=== PATIENT | female | born 1970 | race Caucasian/White ===

== ENCOUNTER → 2016-05-28 | Outpatient (CLI) | payer OTHER ==
[~2016-05-28] MED LIST: SULF800T23 PO; TAMO20TA47 PO
== END | disposition home or self-care (01) ==
LOC: C.PAPS 12:08
PROVIDERS: ATTEND Obstetrics & Gynecology
DX: Z12.4 Encounter for screening for malignant neoplasm of cervix (principal)

== ENCOUNTER → 2017-05-31 | Outpatient (CLI) | payer OTHER ==
[~2017-05-31] MED LIST changes: -TAMO20TA47 PO; +TAMO20TA9 PO
== END | disposition home or self-care (01) ==
LOC: C.PAPS 09:02
PROVIDERS: ATTEND Obstetrics & Gynecology
DX: Z12.4 Encounter for screening for malignant neoplasm of cervix (principal)

== ENCOUNTER 2021-06-11 13:39 | Observation (INO) ==
[2021-06-11 14:54] LABS: Hematocrit (blood only) 38.5 % (37-47); Hemoglobin 12.6 g/dL (12.0-16.0); Immature Granulocytes # (auto) 0.02 K/uL (0.00-0.02); Immature Granulocytes % (auto) 0.2 %; Lymphocytes # (auto) 1.15 K/uL (1.2-3.4); Lymphocytes % (auto) 9.5 %; Mean Corpuscular Hemoglobin 24.2 pg (25-34); Mean Corpuscular Hgb Conc 32.7 g/dL (32-36); Mean Corpuscular Volume 73.9 fL (80-100); Mean Platelet Volume 9.7 fL (7.4-10.4); Monocytes # (auto) 0.44 K/uL (0.11-0.59); Monocytes % (auto) 3.7 %; Neutrophils # (auto) 10.44 K/uL (1.4-6.5); Neutrophils % (auto) 86.6 %; Platelet Count 436 K/uL (130-400); RDW Coefficient of Variation 15.1 % (11.5-14.5); RDW Standard Deviation 40.5 fL (36.4-46.3); Red Blood Count 5.21 M/uL (4.2-5.4); White Blood Count 12.05 K/uL (4.8-10.8)
--- NOTE | 2021-06-11 15:19 | Emergency Department Note ---
Impression & Plan LUQ abdominal pain, Enteritis, Weight loss, Leukocytosis, Renal mass ED Provider Note NAME: DEMIAN LARA AGE: 50 SEX: F : 1970 ARRIVES VIA: Walk-In INFORMANT: [Patient] ED PROVIDER(S): [Kale Fernandez MD] CHIEF COMPLAINT: Abnormal labs and imaging HISTORY OF PRESENT ILLNESS: The patient is a 50-year-old female presents to the ER at the advice of her doctors office. She had lab work and a CT of the abdomen pelvis done today and was referred to the ED. She is unsure of the abnormalities that were noted. The patient has lost about 25 to 30 pounds in the last few months. She has no appetite. The patient states that 3 weeks ago she had a bout of vomiting that seemed to resolve. Last night, she again had vomiting. She notes some upper abdominal pain mostly in the left upper quadrant when she eats. No urinary burning. No fever, no cough or congestion. No shortness of breath. She has no history of abdominal surgeries. Despite losing weight, the patient states that she always feels bloated. REVIEW OF SYSTEMS: See HPI for pertinent positives and negatives. A total of ten systems were reviewed and were otherwise negative. PMHx/PSHx: See Below SOCIAL HISTORY: See Below. PHYSICAL EXAM: GENERAL: Patient is in no acute distress. HEENT: No acute trauma, normocephalic atraumatic, mucous membranes moist, no nasal congestion, no scleral icterus. NECK: No stridor, no adenopathy, no meningismus, trachea is midline. LUNGS: Clear to auscultation bilaterally, no wheeze, no rhonchi, breath sounds equal. HEART: Without murmurs gallops or rubs, regular rate and rhythm. ABDOMEN: Soft, tender in the epigastrium, tender along the left side of the abdomen and mildly tender in the right lower quadrant, bowel sounds positive, no hernias, no peritonitis. EXTREMITIES: No cyanosis or edema, full range of motion of all the joints without pain or difficulty, no signs for acute trauma. NEUROLOGIC: Oriented x 3, no acute motor or sensory deficits, no focal weakness. SKIN: No rash, no jaundice, no diaphoresis. DIFFERENTIAL DIAGNOSIS: Appendicitis, ovarian cyst, ovarian torsion, malignancy, diverticulitis, UTI, o bstruction, mesenteric ischemia, aortic pathology, inflammatory bowel disease, renal colic, PUD, pancreatitis, biliary pathology, hernia, volvulus, constipation, as well as other pathologies. EMERGENCY DEPARTMENT COURSE/PROCEDURES: MEDICAL DECISION MAKING: There is a mild leukocytosis which certainly could be consistent with infection. There was a normal hemoglobin. Platelet count mildly elevated. No concerning electrolyte abnormalities. No renal failure. No worrisome liver enzyme elevation. Urinalysis showed some ketones, no obvious infection, some potential urinary contamination was seen. Covid testing returned negative. Chest x-ray did not show pneumonia, or free air or pneumothorax. Abdominal and pelvis CT with IV contrast showed a left renal mass and some enteritis. On exam, the patient was primarily tender on the left side of the abdomen. She was not toxic or febrile. There was no peritonitis. Patient received IV saline for hydration. She did not want anything for pain. I spoke to the patient about her findings. I do think a hospital stay is warranted. She has enteritis which may explain some of her pain. She has lost weight. She has a new renal mass. Further work-up for her findings is certainly warranted. I spoke with case management, the on-call hospitalist was consulted. Past Med/Surg History Medical History (Updated 06/11/21 @ 22:36 by Kale Fernandez MD) Ankle fracture RIGHT Breast cancer LEFT WITH RADIATION Morbid obesity Surgical History H/O breast reconstruction BILATERAL History of bilateral tubal ligation History of section X2 History of mastectomy BILATERAL WITH LEFT LYMPH NODE REMOVAL Hx of lumpectomy Family History Aunt FHx: breast cancer Breast cancer Mother FHx: breast cancer Breast cancer Grandmother (Maternal) FHx: breast cancer Breast cancer Father Family history of diabetes mellitus Denies family history of Ovarian cancer Colorectal cancer Social History Smoking Status: Never smoker Second Hand Exposure: No; Hx Alcohol Use: No Hx Substance Use: No Preferred Language: Macedonian Communication Ability: Effective Bleacher Lard Required: No Beliefs That Will Affect Care: None Current Living Situation: Spouse Other Information That Helps Us Care for You: No Feels Safe at Home: Yes Safety Concerns: Feels Safe At This Time Assistive Devices: None Allergies Allergies Allergy/AdvReac Type Severity Reaction Status Date / Time adhesive tape Allergy Intermediate Rash Verified 06/11/21 16:34 codeine AdvReac Intermediate TACHYCARDIA Verified 06/11/21 16:34 /PALPITATIO NS Home Meds Home Medications Medication Instructions Recorded Confirmed Lactobacillus acidophilus 10 1 cell PO DAILY 11/27/18 06/11/21 billion cell capsule (Probiotic) tamoxifen 20 mg tablet 20 mg PO DAILY 11/27/18 06/11/21 polyethylene glycol 3350 17 17 g PO DAILY PRN 06/29/19 06/11/21 gram/dose oral powder (Miralax) lisinopril 20 mg tablet 20 mg PO DAILY 08/13/20 06/11/21 omeprazole 40 mg capsule,delayed 40 mg PO DAILY 06/11/21 06/11/21 release Results & Data (ED) Vital Signs Vital Signs - 24 hr 06/11/21 13:58 06/11/21 16:01 Temperature 36.6 C Temperature Source Temporal Artery Scan Pulse Rate 101 H Pulse Rate [Apical] 92 H Pulse Rhythm [Apical] Regular Pulse Strength [Apical] Normal Respiratory Rate 16 18 Respiratory Effort / Characteristics Non-Labored Respiratory Depth Normal Respiratory Pattern Regular Blood Pressure 148/96 H Blood Pressure [Right Arm] 146/92 H Blood Pressure Mean 113 Blood Pressure Mean [Right Arm] 110 Blood Pressure Position Sitting Blood Pressure Position [Right Arm] Lying Pulse Oximetry 97 97 Oxygen Delivery Method Room Air Room Air Sepsis Recent Fever Within 48 Hours No Sepsis New/Unexplained Change in Mental Status No Sepsis Action Taken by Nursing No Action Required Home Medications Current Medication List: was personally reviewed by me Laboratory Data Attestation: I reviewed the patient's lab results. Result diagrams: 06/11/21 14:41 06/11/21 14:41 Lab Results 06/11/21 06/11/21 06/11/21 Range/Units 14:41 14:41 15:13 WBC 12.05 H (4.8-10.8) K/uL RBC 5.21 (4.2-5.4) M/uL Hgb 12.6 (12.0-16.0) g/dL Hct 38.5 (37-47) % MCV 73.9 L (80-100) fL MCH 24.2 L (25-34) pg MCHC 32.7 (32-36) g/dL RDW Std Deviation 40.5 (36.4-46.3) fL RDW Coeff of Edmundo 15.1 H (11.5-14.5) % Plt Count 436 H (130-400) K/uL MPV 9.7 (7.4-10.4) fL Immature Gran % (Auto) 0.2 % Neut % (Auto) 86.6 % Lymph % (Auto) 9.5 % [place] % (Auto) 3.7 % Eos % (Auto) 0.0 % Baso % (Auto) 0.0 % Neut # (Auto) 10.44 H (1.4-6.5) K/uL Lymph # (Auto) 1.15 L (1.2-3.4) K/uL [place] # (Auto) 0.44 (0.11-0.59) K/uL Eos # (Auto) 0.00 (0-0.5) K/uL Baso # (Auto) 0.00 (0-0.2) K/uL Immature Gran # (Auto) 0.02 (0.00-0.02) K/uL Sodium 135 L (136-145) mmol/L Potassium 4.3 (3.5-5.1) mmol/L Chloride 100 (98-107) mmol/L Carbon Dioxide 24 (21-32) mmol/L Anion Gap 11 (3-11) BUN 13 (6-23) mg/dl Creatinine 0.73 (0.6-1.2) mg/dl Est Cr Clr Drug Dosing 107.9 ml/min Est GFR ( Amer) 111.3 ml/min Est GFR (Non-Af Amer) 96.0 ml/min BUN/Creatinine Ratio 17.8 (10-20) Glucose 152 H (70-99(Fasting)) mg/dl Calcium 8.9 (8.5-10.1) mg/dl Total Bilirubin 0.5 (0.2-1.0) mg/dl AST 13 (13-39) U/L ALT 14 (7-52) U/L Alkaline Phosphatase 68 (34-104) U/L Total Protein 7.4 (6.0-8.3) gm/dl Albumin 3.6 (3.4-5.0) gm/dl Globulin 3.8 (2.5-4.0) gm/dl Albumin/Globulin Ratio 0.9 (0.9-2) Urine Color Dark Yellow Urine Appearance Clear (Clear) Urine pH 5.5 (4.5-7.5) Ur Specific [place] 1.021 (1.000-1.030) Urine Protein Trace H (Negative) Urine Glucose (UA) Negative (Negative) Urine Ketones 1+ H (Negative) Urine Blood Negative (Negative) Urine Nitrite Negative (Negative) Urine Bilirubin Negative (Negative) Urine Urobilinogen Negative (Negative) Ur Leukocyte Esterase Negative (Negative) Urine WBC (Auto) 5-10 H (0-5) /hpf Urine RBC (Auto) 0-4 (0-4) /hpf U Hyaline Cast (Auto) 5-10 H (0-5) /lpf U Epithel Cells (Auto) >30 H (0-5) /lpf Urine Bacteria (Auto) Negative (Negative) SARS-CoV-2, RNA, NAAT (NEGATIVE) 06/11/21 Range/Units 17:24 WBC (4.8-10.8) K/uL RBC (4.2-5.4) M/uL Hgb (12.0-16.0) g/dL Hct (37-47) % MCV (80-100) fL MCH (25-34) pg MCHC (32-36) g/dL RDW Std Deviation (36.4-46.3) fL RDW Coeff of Edmundo (11.5-14.5) % Plt Count (130-400) K/uL MPV (7.4-10.4) fL Immature Gran % (Auto) % Neut % (Auto) % Lymph % (Auto) % [place] % (Auto) % Eos % (Auto) % Baso % (Auto) % Neut # (Auto) (1.4-6.5) K/uL Lymph # (Auto) (1.2-3.4) K/uL [place] # (Auto) (0.11-0.59) K/uL Eos # (Auto) (0-0.5) K/uL Baso # (Auto) (0-0.2) K/uL Immature Gran # (Auto) (0.00-0.02) K/uL Sodium (136-145) mmol/L Potassium (3.5-5.1) mmol/L Chloride (98-107) mmol/L Carbon Dioxide (21-32) mmol/L Anion Gap (3-11) BUN (6-23) mg/dl Creatinine (0.6-1.2) mg/dl Est Cr Clr Drug Dosing ml/min Est GFR ( Amer) ml/min Est GFR (Non-Af Amer) ml/min BUN/Creatinine Ratio (10-20) Glucose (70-99(Fasting)) mg/dl Calcium (8.5-10.1) mg/dl Total Bilirubin (0.2-1.0) mg/dl AST (13-39) U/L ALT (7-52) U/L Alkaline Phosphatase (34-104) U/L Total Protein (6.0-8.3) gm/dl Albumin (3.4-5.0) gm/dl Globulin (2.5-4.0) gm/dl Albumin/Globulin Ratio (0.9-2) Urine Color Urine Appearance (Clear) Urine pH (4.5-7.5) Ur Specific [place] (1.000-1.030) Urine Protein (Negative) Urine Glucose (UA) (Negative) Urine Ketones (Negative) Urine Blood (Negative) Urine Nitrite (Negative) Urine Bilirubin (Negative) Urine Urobilinogen (Negative) Ur Leukocyte Esterase (Negative) Urine WBC (Auto) (0-5) /hpf Urine RBC (Auto) (0-4) /hpf U Hyaline Cast (Auto) (0-5) /lpf U Epithel Cells (Auto) (0-5) /lpf Urine Bacteria (Auto) (Negative) SARS-CoV-2, RNA, NAAT NEGATIVE (NEGATIVE) Administered Medications Heparin Sodium (Porcine) (Heparin Sod 5,000 Unit/0.5 Ml Vial) 5,000 units SQ Q12 [facility] Stop: 07/11/21 20:59 Last Admin: 06/11/21 21:11 Dose: 5,000 units Documented by: [id number] Sodium Chloride (Nss 1000ml) 1,000 mls @ 80 mls/hr IV .[id number] MERY Stop: 07/11/21 21:34 Last Admin: 06/11/21 22:18 Dose: 80 mls/hr Documented by: [id number] Piperacillin Sod/Tazobactam (Sod 4.5 gm/ Dextrose) 120 mls @ 200 mls/hr IV 2200 ONE; Protocol Stop: 06/11/21 22:35 Last Admin: 06/11/21 22:18 Dose: 200 mls/hr Documented by: [id number] Discontinued Medications Sodium Chloride (Nss 1000ml) 1,000 mls @ 999 mls/hr IV .[id number] ONE Stop: 06/11/21 16:32 Last Infusion: 06/11/21 16:46 Dose: 0 mls/hr Documented by: [id number] Admin: 06/11/21 15:39 Dose: 999 mls/hr Documented by: [id number] Ioversol (Optiray 320 100ml) 91 ml IV ONCE ONE Stop: 06/11/21 16:13 Last Admin: 06/11/21 16:13 Dose: 91 ml Documented by: [id number] Imaging Data Radiologist's Impression: Chest X-Ray 06/11/21 15:19 XR chest 1V portable HISTORY: 50 years-old Female cough acute cough COMPARISON: Chest radiographs 11/27/2018 TECHNIQUE: Portable AP view of the chest FINDINGS: The cardiac mediastinal and hilar silhouettes are within normal limits. No pneumothorax, pleural effusion, airspace consolidation or overt pulmonary edema. Bones of the chest appear grossly intact. Surgical clips of the left axilla. IMPRESSION: No acute process. ACT 112: Negative or not required by law. The above report was generated using voice recognition software. It may contain grammatical, syntax or spelling errors. Electronically signed by: Wisam Salinas M.D. 06/11/2021 3:59 PM Abdomen/Pelvis CT 06/11/21 15:25 CT SCAN OF THE ABDOMEN AND PELVIS WITH IV CONTRAST CLINICAL HISTORY: Right renal mass. COMPARISON STUDY: No priors. TECHNIQUE: Following the IV administration of 91 cc of Optiray 320, CT scan of the abdomen and pelvis is performed from the lung bases to the proximal femora. Images are reviewed in the axial, sagittal, and coronal planes. IV contrast was administered without complication. A dose lowering technique was utilized adhering to the principles of ALARA. CT DOSE: 927.80 mGy.cm FINDINGS: Lung bases: The heart is normal in size and without pericardial effusion. There are coronary artery calcifications. There is a 4.6 cm right cardiophrenic cyst. The lung bases are clear. Bilateral breast implants are partially imaged. A small hiatal hernia is noted Liver: The contrast-enhanced liver is normal in size, contour, and attenuation. There is no intrahepatic biliary ductal dilatation. The hepatic veins and portal veins are patent. Gallbladder: Gallstones with no CT evidence of acute cholecystitis. Spleen: Normal in size and attenuation. Pancreas: Unremarkable. Adrenal glands: Unremarkable. Kidneys: The contrast enhanced kidneys are normal in size and without hydronephrosis. There is a complex/heterogeneous mass lesion arising from the upper to midpole of the right kidney. This extends towards the hepatic hilum, and is best seen on image #184. This abuts the right lobe of the liver without clear evidence of invasion. This measures approximately 8 x 8 x 5.5 cm. There is associated right-sided perinephric fluid. The right renal vein appears patent, with no evidence of invasion. No enhancing mass lesion is seen in the left kidney. The kidneys enhance symmetrically. There are prominent retroperitoneal collateral vessels above the right kidney. Abdominal vasculature: The abdominal aorta is normal in course and caliber. Bowel: There is a long segment of thick-walled and edematous proximal jejunum in the left upper quadrant with surrounding infiltration and trace fluid. This is consistent with a nonspecific enteritis. There is no bowel obstruction. The appendix is well-visualized and normal. Peritoneum: There is a small volume of abdominopelvic ascites. No intraperitoneal free air is identified. There is a fat-containing umbilical hernia. Lymphadenopathy: None. Pelvic viscera: The bladder, uterus, and adnexa are normal as visualized. There is a lobulated low-attenuation/cystic lesion anterior to the sacrum. There is associated bony remodeling in this causes mild mass effect on the adjacent rectum. This measures approximately 4.5 x 6.5 x 3 cm. Skeletal structures: No lytic or blastic lesions are seen. IMPRESSION: 1. There are markedly thick walled and edematous loops of proximal jejunum in t he left upper quadrant with surrounding infiltration and trace fluid. This is consistent with a nonspecific enteritis and clinical correlation will be required. 2. There is an approximately 8 cm heterogeneous mass lesion arising from the upper pole of the right kidney as detailed above. This should be considered renal cell carcinoma until proven otherwise. 3. There is no clear evidence of metastatic disease in the abdomen or pelvis. 4. Cholelithiasis. 5. Small volume abdominopelvic ascites. 6. There is an approximately 6.5 cm low-attenuation/cystic lesion anterior to the rectum. There is associated bony remodeling and this is likely chronic, possibly representing congenital cystic lesion. Correlate with any prior outside imaging examinations. 7. Additional findings as above. ACT 112: Negative or not required by law. Electronically signed by: Kale Boogie M.D. 06/11/2021 4:36 PM Discharge Plan Visit Data Chief Complaint: Abnormal Labs/Diagnostic Testing Stated Complaint: ABNORMAL CT AND BLOOD WORK ED Provider: Kale Fernandez Discharge Problem: LUQ abdominal pain, Enteritis, Weight loss, Leukocytosis, Renal mass Patient Disposition: Admitted As Inpatient Condition: Fair Discharge Instructions Interventions: ED Discharge Assessment Last Done: 06/11/21 21:16
[2021-06-11 15:21] LABS: Albumin Globulin Ratio 0.9 (0.9-2); Albumin Level 3.6 gm/dl (3.4-5.0); BUN Creatinine Ratio 17.8 (10-20); Bilirubin,Total 0.5 mg/dl (0.2-1.0); Calcium 8.9 mg/dl (8.5-10.1); Creatinine Clr Calc Pharmacy 107.9 ml/min; Est GFR (African American) 111.3 ml/min; Globulin 3.8 gm/dl (2.5-4.0); Potassium 4.3 mmol/L (3.5-5.1); Total Protein 7.4 gm/dl (6.0-8.3)
[2021-06-11 15:29] LABS: Appearance Urine Clear (Clear); Bacteria Urine Automated Negative (Negative); Bilirubin Urine Negative (Negative); Blood Urine Negative (Negative); Color Urine Dark Yellow; Epithelial Cell Urine Auto >30 /lpf (0-5); Glucose Urine UA Negative (Negative); Ketones Urine 1+ (Negative); Leukocyte Esterase Urine Negative (Negative); Nitrite Urine Negative (Negative); Protein Urine Trace (Negative); RBC Urine Automated 0-4 /hpf (0-4); Specific Gravity Urine 1.021 (1.000-1.030); Urobilinogen Urine Negative (Negative); pH Urine 5.5 (4.5-7.5)
[2021-06-11] MEDS ORDERED: SODIUM CHLORIDE 0.9% 1000ML 1,000 ML IV ONE (15:32)
--- NOTE | 2021-06-11 16:01 | XRay Report ---
XR chest 1V portable HISTORY: 50 years-old Female cough acute cough COMPARISON: Chest radiographs 11/27/2018 TECHNIQUE: Portable AP view of the chest FINDINGS: The cardiac mediastinal and hilar silhouettes are within normal limits. No pneumothorax, pleural effu obdulia, airspace consolidation or overt pulmonary edema. Bones of the chest appear grossly intact. Surg ical clips of the left axilla. IMPRESSION: No acute process. ACT 112: Negative or not required by law. The above report was generated using voice recognition software. It may contain grammatical, syntax o r spelling errors. Electronically signed by: Wisam Salinas M.D. 06/11/2021 3:59 PM
[2021-06-11] MEDS ORDERED: OPTIRAY 320 100ml IV ONE (16:12)
--- NOTE | 2021-06-11 16:38 | CT Scan Report ---
CT SCAN OF THE ABDOMEN AND PELVIS WITH IV CONTRAST CLINICAL HISTORY: Right renal mass. COMPARISON STUDY: No priors. TECHNIQUE: Following the IV administration of 91 cc of Optiray 320, CT scan of the abdomen and pelvi s is performed from the lung bases to the proximal femora. Images are reviewed in the axial, sagittal , and coronal planes. IV contrast was administered without complication. A dose lowering technique wa s utilized adhering to the principles of ALARA. CT DOSE: 927.80 mGy.cm FINDINGS: Lung bases: The heart is normal in size and without pericardial effusion. There are coronary artery c alcifications. There is a 4.6 cm right cardiophrenic cyst. The lung bases are clear. Bilateral breast implants are partially imaged. A small hiatal hernia is noted Liver: The contrast-enhanced liver is normal in size, contour, and attenuation. There is no intrahepa tic biliary ductal dilatation. The hepatic veins and portal veins are patent. Gallbladder: Gallstones with no CT evidence of acute cholecystitis. Spleen: Normal in size and attenuation. Pancreas: Unremarkable. Adrenal glands: Unremarkable. Kidneys: The contrast enhanced kidneys are normal in size and without hydronephrosis. There is a comp prince/heterogeneous mass lesion arising from the upper to midpole of the right kidney. This extends tow ards the hepatic hilum, and is best seen on image #184. This abuts the right lobe of the liver withou t clear evidence of invasion. This measures approximately 8 x 8 x 5.5 cm. There is associated right-s ided perinephric fluid. The right renal vein appears patent, with no evidence of invasion. No enhanci ng mass lesion is seen in the left kidney. The kidneys enhance symmetrically. There are prominent ret roperitoneal collateral vessels above the right kidney. Abdominal vasculature: The abdominal aorta is normal in course and caliber. Bowel: There is a long segment of thick-walled and edematous proximal jejunum in the left upper quadr ant with surrounding infiltration and trace fluid. This is consistent with a nonspecific enteritis. T here is no bowel obstruction. The appendix is well-visualized and normal. Peritoneum: There is a small volume of abdominopelvic ascites. No intraperitoneal free air is identif ied. There is a fat-containing umbilical hernia. Lymphadenopathy: None. Pelvic viscera: The bladder, uterus, and adnexa are normal as visualized. There is a lobulated low-at tenuation/cystic lesion anterior to the sacrum. There is associated bony remodeling in this causes mi ld mass effect on the adjacent rectum. This measures approximately 4.5 x 6.5 x 3 cm. Skeletal structures: No lytic or blastic lesions are seen. IMPRESSION: 1. There are markedly thick walled and edematous loops of proximal jejunum in the left upper quadrant with surrounding infiltration and trace fluid. This is consistent with a nonspecific enteritis and c linical correlation will be required. 2. There is an approximately 8 cm heterogeneous mass lesion arising from the upper pole of the right kidney as detailed above. This should be considered renal cell carcinoma until proven otherwise. 3. There is no clear evidence of metastatic disease in the abdomen or pelvis. 4. Cholelithiasis. 5. Small volume abdominopelvic ascites. 6. There is an approximately 6.5 cm low-attenuation/cystic lesion anterior to the rectum. There is as sociated bony remodeling and this is likely chronic, possibly representing congenital cystic lesion. Correlate with any prior outside imaging examinations. 7. Additional findings as above. ACT 112: Negative or not required by law. Electronically signed by: Kale Boogie M.D. 06/11/2021 4:36 PM
--- NOTE | 2021-06-11 18:35 | History & Physical Report ---
Date of Service June 11, 2021 Assessment & Plan (1) Enteritis: Plan: Presented with abdominal bloating with nausea and vomiting for about 2 months associated with discomfort and pain and weight loss CAT scan with IV contrast showed markedly thick walled and edematous loops of proximal jejunum in the left upper quadrant and surrounding infiltration and trace fluid Nonspecific enteritis could be secondary to infection and/or inflammation We will ask for C. difficile toxin and stool culture White count is minimally elevated could be due to stress We will start intravenous Zosyn GI consult Also approximately 6.5 cm low-attenuation/cystic lesion anterior to the rectum Likely chronic/congenital cystic lesion (2) Nausea & vomiting: Plan: Has been having nausea vomiting with bloating for about 2 months with weight loss Has cholelithiasis But no evidence of cholecystitis (3) Abdominal pain: Plan: Complains to have abdominal pain mostly in the epigastrium and left quadrants mostly upper (4) Right renal mass: Plan: CT scan from doctor's office did show possible renal mass That was confirmed with CT of the abdomen and pelvis with IV contrast 8 x 8 x 5.5 cm renal mass upper pole of right kidney Discussed with radiologist suggested no biopsy but excision with surgery Likely malignant We will ask urology consult (5) Hypertension: Plan: Blood pressure remains minimally high on the upper side We will continue current medications (6) IBS (irritable bowel syndrome): Plan: Is contributing symptoms (7) History of breast cancer: Plan: History of breast cancer 2012 Status post chemoradiation and bilateral mastectomy with reconstruction Has been getting tamoxifen DVT prophylaxis Subcu heparin CODE STATUS Full History of Present Illness Chief Complaint: Abdominal bloating with discomfort, nausea and vomiting and weight loss for about 2 months Primary Care Provider: Emilie Nicole DO She is a 50-year-old female with significant past medical history of breast cancer in 2012 status post bilateral mastectomy with reconstruction and has been on tamoxifen, hypertension, irritable bowel syndrome has been complaining of abdominal bloating with discomfort/pain for the last 2 months. She has not been drinking and eating enough for the same period and the abdominal bloating associated with nausea and vomiting. She complains to have some discomfort/pain involving epigastrium and also left-sided abdomen but does not have any problem with bowel habit. She complains to have weight loss for about 25 to 30 pounds for the last 2 months. She also has feeling of feverish and occasional sweating. Her condition has been worse for the last 2 to 3 days and she saw her PCPs office and underwent CAT scan of the abdomen and pelvis which was abnormal and she was advised to come to the emergency room. She denies any chest pain, palpitation or shortness of breath. Denies any headache, blurred vision or any numbness and or tingling involving any of the extremities. Does not have any weakness involving any of the extremities either. She has noted to have nonspecific enteritis and also left renal mass and from that point she was admitted for continuation of care. Allergies Allergy/AdvReac Type Severity Reaction Status Date / Time adhesive tape Allergy Intermediate Rash Verified 06/11/21 16:34 codeine AdvReac Intermediate TACHYCARDIA Verified 06/11/21 16:34 /PALPITATIO NS Home Medications Medication Instructions Recorded Confirmed Type Lactobacillus acidophilus 10 1 cell PO DAILY 11/27/18 06/11/21 History billion cell capsule (Probiotic) tamoxifen 20 mg tablet 20 mg PO DAILY 11/27/18 06/11/21 History polyethylene glycol 3350 17 17 g PO DAILY PRN 06/29/19 06/11/21 History gram/dose oral powder (Miralax) lisinopril 20 mg tablet 20 mg PO DAILY 08/13/20 06/11/21 History omeprazole 40 mg capsule,delayed 40 mg PO DAILY 06/11/21 06/11/21 History release Past Med/Surg History Medical History (Updated 06/11/21 @ 18:29 by Andrew Arroyo MD) Ankle fracture RIGHT Breast cancer LEFT WITH RADIATION Morbid obesity Surgical History H/O breast reconstruction BILATERAL History of bilateral tubal ligation History of section X2 History of mastectomy BILATERAL WITH LEFT LYMPH NODE REMOVAL Hx of lumpectomy Family History Aunt FHx: breast cancer Breast cancer Mother FHx: breast cancer Breast cancer Grandmother (Maternal) FHx: breast cancer Breast cancer Father Family history of diabetes mellitus Denies family history of Ovarian cancer Colorectal cancer Social History Smoking Status: Never smoker Second Hand Exposure: No; Hx Alcohol Use: Yes Hx Substance Use: No Preferred Language: [place] Zealander Communication Ability: Effective 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 Beliefs That Will Affect Care: None Current Living Situation: Spouse Feels Safe at Home: Yes Assistive Devices: Crutches, Glasses and Wheelchair Review of Systems Review of Systems: All systems reviewed & are unremarkable except as noted in HPI & below Physical Exam Physical Exam: Lying in bed with minimal discomfort in the abdomen Constitutional: well developed, well nourished, + ill appearing and + obese Eyes: PERRL, conjunctivae normal, anicteric sclerae ENMT: external ear and nose normal, oropharynx normal Neck: trachea midline, no thyromegaly Respiratory: no respiratory distress Auscultation: lungs clear to auscultation bilaterally Cardiovascular: Rate/Rhythm: regular rate and regular rhythm; not tachycardic Heart Sounds: normal S1 and normal S2; no murmur Extremities: no edema Gastrointestinal (Abdomen): Inspection/Auscultation: normal bowel sounds; abdomen not distended Percussion/Palpation: + abdomen tender (Epigastrium and left quadrants especially left periumbilical quadrant) and abdomen soft Musculoskeletal: No acute arthritis in any joint Neurologic: Alert, awake and oriented x3. No focal sensory and motor deficit appreciated Results & Data Results & Data ([facility]) Vital Signs (Past 12 Hours) Vital Signs Temp Pulse Pulse Resp BP BP Pulse Ox 06/11/21 16:01 92 H 18 146/92 H 97 06/11/21 13:58 36.6 C 101 H 16 148/96 H 97 Laboratory Results Short CBC 06/11/21 Range/Units 14:41 WBC 12.05 H (4.8-10.8) K/uL Hgb 12.6 (12.0-16.0) g/dL Hct 38.5 (37-47) % Plt Count 436 H (130-400) K/uL BMP 06/11/21 14:41 Sodium 135 L Potassium 4.3 Chloride 100 Carbon Dioxide 24 BUN 13 Creatinine 0.73 Glucose 152 H Calcium 8.9 Liver Function 06/11/21 Range/Units 14:41 Total Bilirubin 0.5 (0.2-1.0) mg/dl AST 13 (13-39) U/L ALT 14 (7-52) U/L Alkaline Phosphatase 68 (34-104) U/L Albumin 3.6 (3.4-5.0) gm/dl Urine 06/11/21 Range/Units 15:13 Urine Color Dark Yellow Urine Appearance Clear (Clear) Urine pH 5.5 (4.5-7.5) Ur Specific [place] 1.021 (1.000-1.030) Urine Protein Trace H (Negative) Urine Glucose (UA) Negative (Negative) Diagnostic Findings CT of the abdomen and pelvis with IV contrast; IMPRESSION: 1. There are markedly thick walled and edematous loops of proximal jejunum in the left upper quadrant with surrounding infiltration and trace fluid. This is consistent with a nonspecific enteritis and clinical correlation will be required. 2. There is an approximately 8 cm heterogeneous mass lesion arising from the upper pole of the right kidney as detailed above. This should be considered renal cell carcinoma until proven otherwise. 3. There is no clear evidence of metastatic disease in the abdomen or pelvis. 4. Cholelithiasis. 5. Small volume abdominopelvic ascites. 6. There is an approximately 6.5 cm low-attenuation/cystic lesion anterior to the rectum. There is associated bony remodeling and this is likely chronic, possibly representing congenital cystic lesion. Correlate with any prior outside imaging examinations. 7. Additional findings as above. Medications Administered Current Inpatient Medications Heparin Sodium (Porcine) (Heparin Sod 5,000 Unit/0.5 Ml Vial) 5,000 units SQ Q12 MERY Stop: 07/11/21 20:59 Code Status & VTE Plan VTE Prophylaxis Plan VTE Prophylaxis will be ordered: Yes
[2021-06-11] MEDS ORDERED: ONDANSETRON INJ 2 MG/ML 2 ML VIAL IV PRN (18:38)
[2021-06-11] MEDS: HEPARIN SOD 5,000 UNIT/0.5 ML VIAL SQ SCH (21:11)
[2021-06-11] MEDS ORDERED: PIPERACILL/TAZOBAC CONSULT ACTIVE PRN (21:35)
[2021-06-11] MEDS ORDERED: PIPERACILLIN/TAZOBACTAM 4.5 GM in DEXTROSE 5% 100 ML IV ONE (22:00)
[2021-06-11] MEDS: SODIUM CHLORIDE 0.9% 1000ML 1,000 ML IV SCH (22:18)
--- NOTE | 2021-06-11 22:22 | Urology Consultation ---
Date of Consultation June 11, 2021 Assessment & Plan (1) Right renal mass: Patient has been admitted on the hospitalist service to her nonspecific enteritis. She is currently being treated with empiric Zosyn and stool studies have been requested. Concerning patient's renal mass I have discussed with the patient that the current treatment of her enteritis will take precedence prior to any biopsy or surgical intervention to her renal mass. I have also informed her that she may require additional studies prior to any intervention is undertaken for her renal mass. Such studies would may include but are not limited to CT scan of the chest as well as a repeat CT scan of her abdomen and pelvis with and without IV contrast. Performing the studies and then formulating a definitive plan for the approach to patient's renal mass will likely be performed as an outpatient. Supervising Physician Co-Signing Physician Notes I have reviewed Ms. Rhodes' case and agree with the above documentation. For now we will let her enteritis settle down. Her renal mass likely represents malignancy until proven otherwise. Chest x-ray was negative, but we will consider CT scan of the chest for further evaluation. We will further discuss details and timing of the next steps as her enteritis improved. History of Present Illness Reason for Consultation: Renal mass Attending Physician: Andrew Arroyo MD History of Present Illness This is a 50-year-old female who presented to [facility] secondary to abdominal pain, bloating, and diarrhea for approximately 2 months. Patient notes that she has had decreased oral intake this timeframe. Also reports nausea, vomiting, and diarrhea. Patient notes that she is having a abdominal pain that is primary located in the epigastric area as well as the left side of her abdomen. Patient sought care at her primary care physician's office where patient underwent a CT scan of the abdomen and pelvis. The results of this will be live delineated below but due to the results she was prompted to come to the emergency department. Since arrival to the hospital the patient has had labs and imaging which I independently reviewed. A chest x-ray showed no evidence of masses, pleural effusion, or pneumonia. A CT scan of patient's abdomen and pelvis no evidence of hydronephrosis. There was a complex mass lesion noted in the upper mid pole of the right kidney this mass measured approximately 8 x 8 x 5.5 cm. There is some perinephric fluid associated with this mass. The right renal vein did appear patent. No masses were noted on the left kidney. There was a segment of edematous and thickened proximal jejunum in the left upper quadrant with infiltration and surrounding fluid. This was felt to represent a nonspecific enteritis. Labs include a CBC her white blood cell count was 12.0. Hemoglobin and hematocrit are both noted be normal. Platelet count was 4 and 36,000. Chemistry profile showed sodium was 135. Potassium, BUN, and creatinine were all noted to be normal. There is no significant elevation of LFTs. Urinalysis was not indicative of infection. A Covid test was negative. I did question the patient about symptoms that may be pertinent to her renal mass. Patient does report approximately 30 pound weight loss over the past several weeks. She denies a history of smoking. She denies any back or flank pain. She denies any hemoptysis. She denies any dysuria or hematuria. At the time of my interview the patient was resting comfortably in bed she was in no distress Allergies Allergy/AdvReac Type Severity Reaction Status Date / Time adhesive tape Allergy Intermediate Rash Verified 06/11/21 16:34 codeine AdvReac Intermediate TACHYCARDIA Verified 06/11/21 16:34 /PALPITATIO NS Home Medications Medication Instructions Recorded Confirmed Type Lactobacillus acidophilus 10 1 cell PO DAILY 11/27/18 06/11/21 History billion cell capsule (Probiotic) tamoxifen 20 mg tablet 20 mg PO DAILY 11/27/18 06/11/21 History polyethylene glycol 3350 17 17 g PO DAILY PRN 06/29/19 06/11/21 History gram/dose oral powder (Miralax) lisinopril 20 mg tablet 20 mg PO DAILY 08/13/20 06/11/21 History omeprazole 40 mg capsule,delayed 40 mg PO DAILY 06/11/21 06/11/21 History release Patient History Medical History (Updated 06/11/21 @ 22:36 by Kale Fernandez MD) Ankle fracture RIGHT Breast cancer LEFT WITH RADIATION Morbid obesity Surgical History H/O breast reconstruction BILATERAL History of bilateral tubal ligation History of section X2 History of mastectomy BILATERAL WITH LEFT LYMPH NODE REMOVAL Hx of lumpectomy Family History Aunt FHx: breast cancer Breast cancer Mother FHx: breast cancer Breast cancer Grandmother (Maternal) FHx: breast cancer Breast cancer Father Family history of diabetes mellitus Denies family history of Ovarian cancer Colorectal cancer Social History Smoking Status: Never smoker Second Hand Exposure: No; Hx Alcohol Use: No Hx Substance Use: No Preferred Language: Italian Communication Ability: Effective 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: No Beliefs That Will Affect Care: None Current Living Situation: Spouse Other Information That Helps Us Care for You: No Feels Safe at Home: Yes Safety Concerns: Feels Safe At This Time Assistive Devices: None Review of Systems Constitutional: no fever and no chills Eyes: no diplopia Ear, Nose, Mouth, Throat: no ear pain Respiratory: no cough, no dyspnea and no hemoptysis Cardiovascular: no chest pain Gastrointestinal: + abdominal pain, + nausea, + vomiting and + diarrhea/loose stools Genitourinary: no dysuria, no hematuria and no flank pain Musculoskeletal: no back pain Integumentary: no rash Neurologic: no localized weakness Physical Exam Constitutional: well developed and well nourished; no acute distress Eyes: no conjunctival abnormality ENMT: Ears: no hearing impairment and no external ear abnormality Neck: trachea midline Respiratory: normal respiratory effort; no respiratory distress and no labored breathing Cardiovascular: Rate/Rhythm: regular rate and regular rhythm Gastrointestinal (Abdomen): Soft, nontender, nondistended Musculoskeletal: No calf tenderness Skin: no rashes Neurologic: moves all extremities Psychiatric: A+Ox3, euthymic affect Genitourinary: no CVA tenderness Results & Data ([facility]) Vital Signs (Past 12 Hours) Vital Signs Temp Pulse Pulse Resp BP BP Pulse Ox 06/11/21 21:38 36.8 C 104 H 18 133/82 95 06/11/21 21:16 96 06/11/21 21:14 88 20 129/73 99 06/11/21 19:59 92 H 20 145/88 H 95 06/11/21 18:49 92 H 22 148/88 H 96 06/11/21 16:01 92 H 18 146/92 H 97 06/11/21 13:58 36.6 C 101 H 16 148/96 H 97 PG Care Time/CCT Total # of Minutes Spent Total Time Spent with Patient: Total time spent is greater than 50% in coordination of care (as documented) at patient's floor/unit and/or counseling patient: Coding Level of Care Code 05506 Inpt Consult Level 5 Diagnoses Right renal mass N28.89
[2021-06-12] MEDS: HYDROmorphone INJ 0.5 MG/0.5 ML SYR IV PRN ×2 (00:22→05:57)
[2021-06-12] MEDS: PIPERACILLIN/TAZOBACTAM 4.5 GM in DEXTROSE 5% 100 ML IV SCH ×3 (04:57→21:10)
[2021-06-12 07:47] LABS: Basophils # (auto) 0.01 K/uL (0-0.2); Basophils % (auto) 0.1 %; Eosinophils # (auto) 0.02 K/uL (0-0.5); Eosinophils % (auto) 0.2 %; Hematocrit (blood only) 33.8 % (37-47); Hemoglobin 10.9 g/dL (12.0-16.0); Immature Granulocytes # (auto) 0.02 K/uL (0.00-0.02); Immature Granulocytes % (auto) 0.2 %; Lymphocytes # (auto) 2.29 K/uL (1.2-3.4); Lymphocytes % (auto) 22.4 %; Mean Corpuscular Hemoglobin 24.2 pg (25-34); Mean Corpuscular Hgb Conc 32.2 g/dL (32-36); Mean Corpuscular Volume 74.9 fL (80-100); Monocytes # (auto) 0.74 K/uL (0.11-0.59); Monocytes % (auto) 7.2 %; Neutrophils # (auto) 7.14 K/uL (1.4-6.5); Neutrophils % (auto) 69.9 %; Platelet Count 341 K/uL (130-400); RDW Coefficient of Variation 15.3 % (11.5-14.5); RDW Standard Deviation 41.9 fL (36.4-46.3); Red Blood Count 4.51 M/uL (4.2-5.4); White Blood Count 10.22 K/uL (4.8-10.8)
[2021-06-12 08:09] LABS: BUN Creatinine Ratio 12.8 (10-20); Calcium 8.1 mg/dl (8.5-10.1); Creatinine Clr Calc Pharmacy 101.2 ml/min; Est GFR (African American) 102.7 ml/min; Est GFR (Non-African American) 88.6 ml/min; Potassium 3.9 mmol/L (3.5-5.1)
[2021-06-12] MEDS: lisinopril 20 MG TAB PO SCH ×2 (10:25→10:42)
--- NOTE | 2021-06-12 10:32 | Gastrointestinal Consultation ---
Date of Consultation June 12, 2021 Assessment & Plan (1) Enteritis: (2) Abdominal pain: Abnormal CT suggesting jejunal wall thickening. Considered dx is angioedema, related to LISSETH inhibitor use which she started about 18 m ago. Radiation enteritis is in the differential. Her symptoms are also consistent with chronic small bowel disease - decreased appetite, early satiety, intermittent episodes of vomiting, though if renal cell cancer is present, these symptoms could be attributed to the cancer. Also considered is infection, though would expect diarrhea if that were the etiology. Stool studies are pending. Low suspicion for Crohn's because normal TI on colonoscopy < 1 yr ago. - Would stop the LISSETH inhibitor. - Eventual EGD for mild dysphagia symptoms but would not expect to be able to reach the area of abnormality on CT. - CT is worrisome for renal cell carcinoma - recommend surgery and oncology eval for that lesion. - Asking for food. For now, full liquids po. - Our office has already contacted her to arrange OP EGD (as was ordered by her PCP yesterday). - Please collect stool for C-diff and culture, will also check for Giardia. Supervising Physician Co-Signing Physician Notes I saw and evaluated the patient. She had been referred to the [facility] urgency room for evaluation of nausea and evidence of jejunal wall edema. The patient is tolerating a full liquid diet today. Of note she has had symptoms intermittently over several weeks and has been on an LISSETH inhibitor for approximately 1.5 years. The patient did have a colonoscopy last summer which was within normal limits. The patient also notes having intermittent solid food dysphagia that has been ongoing for several months. This is in particular with breads and meats. Physical examination Pleasant female, no obvious distress, no scleral icterus Impression patient with jejunal wall thickening, this is a nonspecific finding and I would suggest ensuring that the patient does not have an underlying infection such as Campylobacter or Yersinia. In addition this could be related to medication such as lisinopril and we would recommend discontinuation of the medication. Finally, we will make arrangements for an upper endoscopy over the next 2 to 4 weeks for follow-up evaluation of her intermittent difficulty with swallowing. Recommendations outpatient upper endoscopy to be arranged discontinue use of lisinopril consider obtaining a complement level (C4) and C1Q levels History of Present Illness Reason for Consultation: Enteritis Requesting Physician: Dr. Arroyo Attending Physician: Jannet Sneed MD History of Present Illness Ms. Tanisha Rhodes is a 50-year-old female patient of Dr. Dahiana Grissom with a history of breast cancer status post bilat mastectomy, chemoradiation in 2011 who who has had a lifetime history of IBS with bloating. A bowel 2 months ago bloating seem to worsen but continued intermittently. 3 weeks ago she had an episode of vomiting all night long. Since then worsened bloating and then another episode of vomiting on Tuesday. She presented to her PCP yesterday and after labs and CT results reviewed [facility] On arrival here, CT scan suggests right renal mass as well as jejunal wall thickening. She denies any significant abdominal pain though has had some discomfort mostly bloating. She has not had any hematemesis no melena or hematochezia she has early satiety and decreased appetite. She has lost about 25 or 30 pounds since mid March without trying. When asked, she also reports mild dysphagia feeling that she has to swallow some foods twice. She does not have any burning or reflux. She has not had significant diarrhea. However she has had looser stools than usual since about April. Passing about 2 loose bowel movements per day. She had mild leukocytosis at 12 yesterday, resolved today on Zosyn. Stool culture and C. difficile are ordered but she has not had a bowel movement since arriving. She underwent initial screening colonoscopy of October [address] Noble with diverticulosis no polyps. She has never undergone EGD. Allergies Allergy/AdvReac Type Severity Reaction Status Date / Time adhesive tape Allergy Intermediate Rash Verified 06/11/21 16:34 codeine AdvReac Intermediate TACHYCARDIA Verified 06/11/21 16:34 /PALPITATIO NS Home Medications Medication Instructions Recorded Confirmed Type Lactobacillus acidophilus 10 1 cell PO DAILY 11/27/18 06/11/21 History billion cell capsule (Probiotic) tamoxifen 20 mg tablet 20 mg PO DAILY 11/27/18 06/11/21 History polyethylene glycol 3350 17 17 g PO DAILY PRN 06/29/19 06/11/21 History gram/dose oral powder (Miralax) lisinopril 20 mg tablet 20 mg PO DAILY 08/13/20 06/11/21 History omeprazole 40 mg capsule,delayed 40 mg PO DAILY 06/11/21 06/11/21 History release Patient History Medical History (Updated 06/11/21 @ 22:36 by Kale Fernandez MD) Ankle fracture RIGHT Breast cancer LEFT WITH RADIATION Morbid obesity Surgical History H/O breast reconstruction BILATERAL History of bilateral tubal ligation History of section X2 History of mastectomy BILATERAL WITH LEFT LYMPH NODE REMOVAL Hx of lumpectomy Family History Aunt FHx: breast cancer Breast cancer Mother FHx: breast cancer Breast cancer Grandmother (Maternal) FHx: breast cancer Breast cancer Father Family history of diabetes mellitus Denies family history of Ovarian cancer Colorectal cancer Social History Smoking Status: Never smoker Second Hand Exposure: No; Hx Alcohol Use: No Hx Substance Use: No Preferred Language: Frisian Communication Ability: Effective 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 + always has diffuse joint pain, not recently worsened. Physical Exam Constitutional: well developed, + obese and cooperative Eyes: PERRL, conjunctivae normal, anicteric sclerae ENMT: external ear and nose normal, oropharynx normal Neck: trachea midline, no thyromegaly Respiratory: normal respiratory effort, lungs clear to auscultation Cardiovascular: RRR, no murmur, no edema Gastrointestinal (Abdomen): normal bowel sounds, soft, nontender, no hepatosplenomegaly Inspection/Auscultation: abdomen normal to inspection and normal bowel sounds; abdomen not distended and no abdominal edema Skin: no rashes, warm and dry normal turgor Neurologic: PERRL, EOMI, accommodation nl, no face palsy, no dysarthria awake; not confused Psychiatric: A+Ox3, euthymic affect Orientation: cooperative Eye Contact: good eye contact Lymphatic: no cervical or axillary lymphadenopathy Results & Data ([facility]) Vital Signs (Past 12 Hours) Vital Signs Temp Pulse Resp BP Pulse Ox 06/12/21 07:59 36.8 C 82 16 130/75 93 Laboratory Results WBC 10.2, Hb 10.9, HCT 30.9, PLT is 341, NA 138, K3.9, CL 104, CO2 25, BUN 10, CR 0.78, glucose 126, urine with 1+ ketones and protein 5 WBCs. Diagnostic Findings CTAP w IV contrast 06/11/21: 1. There are markedly thick walled and edematous loops of proximal jejunum in the left upper quadrant with surrounding infiltration and trace fluid. This is consistent with a nonspecific enteritis and clinical correlation will be required. 2. There is an approximately 8 cm heterogeneous mass lesion arising from the upper pole of the right kidney as detailed above. This should be considered renal cell carcinoma until proven otherwise. 3. There is no clear evidence of metastatic disease in the abdomen or pelvis. 4. Cholelithiasis. 5. Small volume abdominopelvic ascites. 6. There is an approximately 6.5 cm low-attenuation/cystic lesion anterior to the rectum. There is associated bony remodeling and this is likely chronic, possibly representing congenital cystic lesion. Correlate with any prior outside imaging examinations. 7. Additional findings as above. Colonoscopy October 2020: The examined portion of the ileum was normal. Diverticulosis in the sigmoid colon. Internal hemorrhoids.
[2021-06-12] MEDS: ADVANCED PROBIOTIC 1250 MG CAPSULE PO SCH (10:41)
[2021-06-12] MEDS: TAMOXIFEN CITRATE 10 MG TABLET PO SCH (10:42)
[2021-06-12] MEDS: PANTOprazole 40 MG TAB PO SCH (10:42)
[2021-06-12] MEDS: SODIUM CHLORIDE 0.9% 1000ML 1,000 ML IV SCH (10:57)
[2021-06-12] MEDS: HEPARIN SOD 5,000 UNIT/0.5 ML VIAL SQ SCH ×2 (11:40→21:09)
--- NOTE | 2021-06-12 14:35 | Hospitalist Progress Note ---
Date of Service June 12, 2021 Assessment & Plan (1) Enteritis: Plan: Presented with abdominal bloating with nausea and vomiting for about 2 months associated with discomfort and pain and weight loss CT scan with IV contrast showed markedly thick walled and edematous loops of proximal jejunum in the left upper quadrant and surrounding infiltration and trace fluid Nonspecific enteritis could be secondary to infection and/or inflammation C. difficile toxin and stool culture uncollected at this point - patient without diarrhea today WBC downtrending from 12 -> 10 Continue empiric Zosyn GI consulted - jejunal wall thickening on imagine - recommend discontinuing LISSETH inhibitor. Consider obtaining a complement level (C4) and C1Q levels GI to arrange for EGD over next 2-4 weeks for f/u evaluation of intermittent dysphagia Rectal mass/cystic lesion finding General surgery consulted to evaluate 6.5 cm low-attenuation/cystic lesion anterior to the rectum seen on imaging today - urology requested input prior to beginning work up for renal mass. Underwent initial screening colonoscopy of October [address] Noble with diverticulosis no polyps, no mention of mass Per Dr. Mathews, consider GI repeating colonoscopy with endo-ultrasound study rectum to R/O mass of cyst out side rectum, pt will F/U colorectal surgeon out- patient clinic (2) Nausea & vomiting: Plan: Has been having nausea vomiting with bloating for about 2 months with weight loss -> resolved. Tolerating full liquid diet (3) Abdominal pain: Plan: Complains to have abdominal pain mostly in the epigastrium and left quadrants mostly upper -> resolved (4) Right renal mass: Plan: CT abd/pelvis with incidental finding of an approx. 8 cm heterogeneous mass lesion arising from the upper pole of the right kidney as detailed above. Should be considered renal cell carcinoma until proven otherwise Urology consulted - recommend further work up of renal mass with MRI. Want input from gen surg and GI regarding need for further imaging/biopsy of rectal mass/l esion as that may change decision about how to proceed from standpoint with either a CT chest or CT abd/pelvis (5) Hypertension: Plan: BP normotensive. Continue current medications (6) IBS (irritable bowel syndrome): Plan: Is contributing symptoms (7) History of breast cancer: Plan: History of breast cancer 2012 Status post chemoradiation and bilateral mastectomy with reconstruction Has been getting tamoxifen DVT prophylaxis Subcu heparin CODE STATUS Full Admission and Anticipated Discharge Date Admission Date: June 11, 2021 Supervising Physician Co-Signing Physician Notes Patient was seen and examined. Agreed with Estrella MEDLEY documentation Lying in bed with no distress Denies any abdominal pain, nausea or vomiting overnight. On examination Lying in bed comfortably Hemodynamically stable Chest No wheezing HeartS1-S2, regular Abdomenbenign Extremitiesno edema CNSalert, awake and oriented x3 His labs, imaging studies, medications reviewed for discharge CT scan with IV contrast showed markedly thick walled and edematous loops of proximal jejunum in the left upper quadrant and surrounding infiltration and trace fluid. Nonspecific enteritis could be secondary to infection and/or inflammation GI plan to arrange for EGD over next 2-4 weeks for f/u evaluation of intermittent dysphagia Urology consulted - recommend further work up of renal mass with MRI. Want input from gen surg and GI Tolerated full liquid diet Agree with assessment and plan as outlined above MD Nedra Subjective Patient seen and evaluated in 354-2 for follow-up of of enteritis. Denies any abdominal pain, nausea or vomiting overnight. No episodes of diarrhea. Does have some pain in right flank to back area that is new. Denies any fever, chills, chest pain, shortness of breath. Tolerating full liquid diet without issue. Passing flatus. No diarrhea or constipation. Review of Systems Review of Systems: At least ten systems reviewed and negative except as noted in the HPI. Physical Exam Physical Exam: Gen: WD/WN, NAD, sitting in bed, A&Ox3 HEENT: Normocephalic, atraumatic, conjunctivae moist, sclerae anicteric, mucous membranes moist Lung: Clear to Auscultation bilaterally, no wheezes/rales/rhonchi Heart: Regular rate, regular rhythm, no murmurs, rubs, or gallops Abdomen: Soft, NT, ND +BS x 4 : R CVA TTP Extremities: no edema Skin: Warm, no rash Results & Data Results & Data ([facility]) Vital Signs (Past 12 Hours) Vital Signs Temp Pulse Resp BP Pulse Ox 06/12/21 10:50 76 110/67 06/12/21 07:59 36.8 C 82 16 130/75 93 Laboratory Results Short CBC 06/12/21 Range/Units 06:56 WBC 10.22 (4.8-10.8) K/uL Hgb 10.9 L (12.0-16.0) g/dL Hct 33.8 L (37-47) % Plt Count 341 (130-400) K/uL BMP 06/12/21 06:56 Sodium 138 Potassium 3.9 Chloride 104 Carbon Dioxide 25 BUN 10 Creatinine 0.78 Glucose 126 H Calcium 8.1 L Diagnostic Findings Chest X-Ray 06/11/21 15:19 XR chest 1V portable HISTORY: 50 years-old Female cough acute cough COMPARISON: Chest radiographs 11/27/2018 TECHNIQUE: Portable AP view of the chest FINDINGS: The cardiac mediastinal and hilar silhouettes are within normal limits. No pneumothorax, pleural effusion, airspace consolidation or overt pulmonary edema. Bones of the chest appear grossly intact. Surgical clips of the left axilla. IMPRESSION: No acute process. ACT 112: Negative or not required by law. The above report was generated using voice recognition software. It may contain grammatical, syntax or spelling errors. Electronically signed by: Wisam Salinas M.D. 06/11/2021 3:59 PM Abdomen/Pelvis CT 06/11/21 15:25 CT SCAN OF THE ABDOMEN AND PELVIS WITH IV CONTRAST CLINICAL HISTORY: Right renal mass. COMPARISON STUDY: No priors. TECHNIQUE: Following the IV administration of 91 cc of Optiray 320, CT scan of the abdomen and pelvis is performed from the lung bases to the proximal femora. Images are reviewed in the axial, sagittal, and coronal planes. IV contrast was administered without complication. A dose lowering technique was utilized adhering to the principles of ALARA. CT DOSE: 927.80 mGy.cm FINDINGS: Lung bases: The heart is normal in size and without pericardial effusion. There are coronary artery calcifications. There is a 4.6 cm right cardiophrenic cyst. The lung bases are clear. Bilateral breast implants are partially imaged. A small hiatal hernia is noted Liver: The contrast-enhanced liver is normal in size, contour, and attenuation. There is no intrahepatic biliary ductal dilatation. The hepatic veins and portal veins are patent. Gallbladder: Gallstones with no CT evidence of acute cholecystitis. Spleen: Normal in size and attenuation. Pancreas: Unremarkable. Adrenal glands: Unremarkable. Kidneys: The contrast enhanced kidneys are normal in size and without hydronephrosis. There is a complex/heterogeneous mass lesion arising from the upper to midpole of the right kidney. This extends towards the hepatic hilum, and is best seen on image #184. This abuts the right lobe of the liver without clear evidence of invasion. This measures approximately 8 x 8 x 5.5 cm. There is associated right-sided perinephric fluid. The right renal vein appears patent, with no evidence of invasion. No enhancing mass lesion is seen in the left kidney. The kidneys enhance symmetrically. There are prominent retroperitoneal collateral vessels above the right kidney. Abdominal vasculature: The abdominal aorta is normal in course and caliber. Bowel: There is a long segment of thick-walled and edematous proximal jejunum in the left upper quadrant with surrounding infiltration and trace fluid. This is consistent with a nonspecific enteritis. There is no bowel obstruction. The appendix is well-visualized and normal. Peritoneum: There is a small volume of abdominopelvic ascites. No intraperitoneal free air is identified. There is a fat-containing umbilical hernia. Lymphadenopathy: None. Pelvic viscera: The bladder, uterus, and adnexa are normal as visualized. There is a lobulated low-attenuation/cystic lesion anterior to the sacrum. There is associated bony remodeling in this causes mild mass effect on the adjacent rectum. This measures approximately 4.5 x 6.5 x 3 cm. Skeletal structures: No lytic or blastic lesions are seen. IMPRESSION: 1. There are markedly thick walled and edematous loops of proximal jejunum in the left upper quadrant with surrounding infiltration and trace fluid. This is consistent with a nonspecific enteritis and clinical correlation will be required. 2. There is an approximately 8 cm heterogeneous mass lesion arising from the upper pole of the right kidney as detailed above. This should be considered renal cell carcinoma until proven otherwise. 3. There is no clear evidence of metastatic disease in the abdomen or pelvis. 4. Cholelithiasis. 5. Small volume abdominopelvic ascites. 6. There is an approximately 6.5 cm low-attenuation/cystic lesion anterior to the rectum. There is associated bony remodeling and this is likely chronic, possibly representing congenital cystic lesion. Correlate with any prior outside imaging examinations. 7. Additional findings as above. ACT 112: Negative or not required by law. Electronically signed by: Kale Boogie M.D. 06/11/2021 4:36 PM
--- NOTE | 2021-06-12 16:17 | Surgery Consultation ---
Date of Consultation June 12, 2021 Assessment & Plan (1) Rectal mass: Ms. Tanisha Rhodes is a 50-year-old female patient of Dr. Dahiana Grissom with a history of breast cancer status post bilat mastectomy, chemoradiation in 2011 who who has had a lifetime history of IBS with bloating. A bowel 2 months ago bloating seem to worsen but continued intermittently. 3 weeks ago she had an episode of vomiting all night long. Since then worsened bloating and then another episode of vomiting on Tuesday. She presented to her PCP yesterday and after labs and CT results reviewed she was recommended to come to the emergency department for evaluation. IMP: rectal mass or cyst? Plan, pt has no bowel obstruction signs, consult GI doctor for possible repeat colonoscopy with endo-ultrasound study rectum to R/O mass of cyst out side rectum, pt will F/U colorectal surgeon out-patient clinic, sign off today, please call with questions, Thanks, Supervising Physician Co-Signing Physician Notes I saw and evaluated the patient. She had been referred to the [facility] urgency room for evaluation of nausea and evidence of jejunal wall edema. The patient is tolerating a full liquid diet today. Of note she has had symptoms i ntermittently over several weeks and has been on an LISSETH inhibitor for approximately 1.5 years. The patient did have a colonoscopy last summer which was within normal limits. The patient also notes having intermittent solid food dysphagia that has been ongoing for several months. This is in particular with breads and meats. Physical examination Pleasant female, no obvious distress, no scleral icterus Impression patient with jejunal wall thickening, this is a nonspecific finding and I would suggest ensuring that the patient does not have an underlying infection such as Campylobacter or Yersinia. In addition this could be related to medication such as lisinopril and we would recommend discontinuation of the medication. Finally, we will make arrangements for an upper endoscopy over the next 2 to 4 weeks for follow-up evaluation of her intermittent difficulty with swallowing. Recommendations outpatient upper endoscopy to be arranged discontinue use of lisinopril consider obtaining a complement level (C4) and C1Q levels History of Present Illness Reason for Consultation: rectal mass Requesting Physician: Jannet Sneed MD Attending Physician: Jannet Sneed MD History of Present Illness History of Present Illness Ms. Tanisha Rhodes is a 50-year-old female patient of Dr. Dahiana Grissom with a history of breast cancer status post bilat mastectomy, chemoradiation in 2011 who who has had a lifetime history of IBS with bloating. A bowel 2 months ago bloating seem to worsen but continued intermittently. 3 weeks ago she had an episode of vomiting all night long. Since then worsened bloating and then another episode of vomiting on Tuesday. She presented to her PCP yesterday and after labs and CT results reviewed she was recommended to come to the emergency department for evaluation. On arrival here, CT scan suggests right renal mass as well as jejunal wall thickening. She denies any significant abdominal pain though has had some discomfort mostly bloating. She has not had any hematemesis no melena or hematochezia she has early satiety and decreased appetite. She has lost about 25 or 30 pounds since mid March without trying. When asked, she also reports mild dysphagia feeling that she has to swallow some foods twice. She does not have any burning or reflux. She has not had significant diarrhea. However she has had looser stools than usual since about April. Passing about 2 loose bowel movements per day. She had mild leukocytosis at 12 yesterday, resolved today on Zosyn. Stool culture and C. difficile are ordered but she has not had a bowel movement since arriving. She underwent initial screening colonoscopy of October [address] Noble with diverticulosis no polyps. She has never undergone EGD. I ( Shilpa Mathews MD ) got a call for consult rectal mass, I reviewed pt's H/P, labs CT scan with pt, pt has no rectal pain, no constipation, no bloody stool, Allergies Allergy/AdvReac Type Severity Reaction Status Date / Time adhesive tape Allergy Intermediate Rash Verified 06/11/21 16:34 codeine AdvReac Intermediate TACHYCARDIA Verified 06/11/21 16:34 /PALPITATIO NS Home Medications Medication Instructions Recorded Confirmed Type Lactobacillus acidophilus 10 1 cell PO DAILY 11/27/18 06/11/21 Hi story billion cell capsule (Probiotic) tamoxifen 20 mg tablet 20 mg PO DAILY 11/27/18 06/11/21 History polyethylene glycol 3350 17 17 g PO DAILY PRN 06/29/19 06/11/21 His tory gram/dose oral powder (Miralax) lisinopril 20 mg tablet 20 mg PO DAILY 08/13/20 06/11/21 History omeprazole 40 mg capsule,delayed 40 mg PO DAILY 06/11/21 2 History release Patient History Medical History(Updated 06/11/21 @ 22:36 by Kale Fernandez MD) Ankle fracture RIGHTBreast cancer LEFT WITH RADIATIONMorbid obesity Surgical History H/O breast reconstruction BILATERALHistory of bilateral tubal ligation History of section [id number] of mastectomy BILATERAL WITH LEFT LYMPH NODE REMOVALHx of lumpectomy Family History Aunt FHx: breast cancer Breast cancerMother FHx: breast cancer Breast cancerGrandmother (Maternal) FHx: breast cancer Breast cancerFather Family history of diabetes mellitusDenies family history of Ovarian cancer Colorectal cancer Social History Smoking Status: Never smoker Second Hand Exposure: No; Hx Alcohol Use: No Hx Substance Use: No Preferred Language: Hungarian Communication Ability: Effective Oxygen Equipment Preparer Required: No Beliefs That Will Affect Care: None Current Living Situation: Spouse Other Information That Helps Us Care for You: No Feels Safe at Home: Yes Safety Concerns: Feels Safe At This Time Assistive Devices: None Review of Systems Review of Systems: ROS:+ fatigue; + weight loss; Denies weakness Eyes: No eye redness, or pain, no recent vision changes Resp: No SOB, no cough Cardio: No palpitations/irregular beats, no chest pain GI: As per HPI, otherwise (-) : Denies pain on urination Skin: No jaundice, itching or new rashes Ext: no edema M/S: No red/swollen joints. + always has diffuse joint pain, not recently worsened. Allergies Allergy/AdvReac Type Severity Reaction Status Date / Time adhesive tape Allergy Intermediate Rash Verified 06/11/21 16:34 codeine AdvReac Intermediate TACHYCARDIA Verified 06/11/21 16:34 /PALPITATIO NS Home Medications Medication Instructions Recorded Confirmed Type Lactobacillus acidophilus 10 1 cell PO DAILY 11/27/18 06/11/21 History billion cell capsule (Probiotic) tamoxifen 20 mg tablet 20 mg PO DAILY 11/27/18 06/11/21 History polyethylene glycol 3350 17 17 g PO DAILY PRN 06/29/19 06/11/21 History gram/dose oral powder (Miralax) lisinopril 20 mg tablet 20 mg PO DAILY 08/13/20 06/11/21 History omeprazole 40 mg capsule,delayed 40 mg PO DAILY 06/11/21 06/11/21 History release Patient History Medical History (Updated 06/12/21 @ 16:25 by Shilpa Mathews MD) Ankle fracture RIGHT Breast cancer LEFT WITH RADIATION Morbid obesity Surgical History H/O breast reconstruction BILATERAL History of bilateral tubal ligation History of section X2 History of mastectomy BILATERAL WITH LEFT LYMPH NODE REMOVAL Hx of lumpectomy Family History Aunt FHx: breast cancer Breast cancer Mother FHx: breast cancer Breast cancer Grandmother (Maternal) FHx: breast cancer Breast cancer Father Family history of diabetes mellitus Denies family history of Ovarian cancer Colorectal cancer Social History Smoking Status: Never smoker Second Hand Exposure: No; Hx Alcohol Use: No Hx Substance Use: No Preferred Language: Hungarian Communication Ability: Effective Oxygen Equipment Preparer Required: No Beliefs That Will Affect Care: None Current Living Situation: Spouse Other Information That Helps Us Care for You: No Feels Safe at Home: Yes Safety Concerns: Feels Safe At This Time Assistive Devices: None Physical Exam Constitutional: WD/WN, vitals as above Eyes: PERRL, conjunctivae normal, anicteric sclerae Neck: trachea midline, no thyromegaly Respiratory: normal respiratory effort, lungs clear to auscultation Cardiovascular: RRR, no murmur, no edema Gastrointestinal (Abdomen): soft, Nt, ND, BS +, rectal exam , nurse at bedside, normal rectal tone, no tenderness, no palpable rectal mass, no bloody stool, Musculoskeletal: no cyanosis or clubbing, extremities motor strength 5/5 Neurologic: patellar DTR's 2+ bilat, sensation intact Psychiatric: A+Ox3, euthymic affect Results & Data ([facility]) Vital Signs (Past 12 Hours) Vital Signs Temp Pulse Resp BP Pulse Ox 06/12/21 15:12 36.9 C 84 16 125/72 93 06/12/21 10:50 76 110/67 06/12/21 07:59 36.8 C 82 16 130/75 93 Laboratory Results Abnormal lab results 06/12/21 06/12/21 Range/Units 06:56 06:56 Hgb 10.9 L (12.0-16.0) g/dL Hct 33.8 L (37-47) % MCV 74.9 L (80-100) fL MCH 24.2 L (25-34) pg RDW Coeff of Edmundo 15.3 H (11.5-14.5) % Neut # (Auto) 7.14 H (1.4-6.5) K/uL [place] # (Auto) 0.74 H (0.11-0.59) K/uL Glucose 126 H (70-99(Fasting)) mg/dl Calcium 8.1 L (8.5-10.1) mg/dl Diagnostic Findings CT SCAN OF THE ABDOMEN AND PELVIS WITH IV CONTRAST CLINICAL HISTORY: Right renal mass. COMPARISON STUDY: No priors. TECHNIQUE: Following the IV administration of 91 cc of Optiray 320, CT scan of the abdomen and pelvis is performed from the lung bases to the proximal femora. Images are reviewed in the axial, sagittal, and coronal planes. IV contrast was administered without complication. A dose lowering technique was utilized adhering to the principles of ALARA. CT DOSE: 927.80 mGy.cm FINDINGS: Lung bases: The heart is normal in size and without pericardial effusion. There are coronary artery calcifications. There is a 4.6 cm right cardiophrenic cyst. The lung bases are clear. Bilateral breast implants are partially imaged. A small hiatal hernia is noted Liver: The contrast-enhanced liver is normal in size, contour, and attenuation. There is no intrahepatic biliary ductal dilatation. The hepatic veins and portal veins are patent. Gallbladder: Gallstones with no CT evidence of acute cholecystitis. Spleen: Normal in size and attenuation. Pancreas: Unremarkable. Adrenal glands: Unremarkable. Kidneys: The contrast enhanced kidneys are normal in size and without hydronephrosis. There is a complex/heterogeneous mass lesion arising from the upper to midpole of the right kidney. This extends towards the hepatic hilum, and is best seen on image #184. This abuts the right lobe of the liver without clear evidence of invasion. This measures approximately 8 x 8 x 5.5 cm. There is associated right-sided perinephric fluid. The right renal vein appears patent, with no evidence of invasion. No enhancing mass lesion is seen in the left kidney. The kidneys enhance symmetrically. There are prominent retroperitoneal collateral vessels above the right kidney. Abdominal vasculature: The abdominal aorta is normal in course and caliber. Bowel: There is a long segment of thick-walled and edematous proximal jejunum in the left upper quadrant with surrounding infiltration and trace fluid. This is consistent with a nonspecific enteritis. There is no bowel obstruction. The appendix is well-visualized and normal. Peritoneum: There is a small volume of abdominopelvic ascites. No intraperitoneal free air is identified. There is a fat-containing umbilical hernia. Lymphadenopathy: None. Pelvic viscera: The bladder, uterus, and adnexa are normal as visualized. There is a lobulated low-attenuation/cystic lesion anterior to the sacrum. There is associated bony remodeling in this causes mild mass effect on the adjacent rectum. This measures approximately 4.5 x 6.5 x 3 cm. Skeletal structures: No lytic or blastic lesions are seen. IMPRESSION: 1. There are markedly thick walled and edematous loops of proximal jejunum in the left upper quadrant with surrounding infiltration and trace fluid. This is consistent with a nonspecific enteritis and clinical correlation will be required. 2. There is an approximately 8 cm heterogeneous mass lesion arising from the upper pole of the right kidney as detailed above. This should be considered renal cell carcinoma until proven otherwise. 3. There is no clear evidence of metastatic disease in the abdomen or pelvis. 4. Cholelithiasis. 5. Small volume abdominopelvic ascites. 6. There is an approximately 6.5 cm low-attenuation/cystic lesion anterior to the rectum. There is associated bony remodeling and this is likely chronic, possibly representing congenital cystic lesion. Correlate with any prior outside imaging examinations. 7. Additional findings as above. ACT 112: Negative or not required by law.
[2021-06-13] MEDS: PIPERACILLIN/TAZOBACTAM 4.5 GM in DEXTROSE 5% 100 ML IV SCH ×3 (04:23→20:19)
[2021-06-13 04:50] LABS: Hematocrit (blood only) 36.3 % (37-47); Hemoglobin 11.1 g/dL (12.0-16.0); Mean Corpuscular Hemoglobin 23.1 pg (25-34); Mean Corpuscular Hgb Conc 30.6 g/dL (32-36); Mean Corpuscular Volume 75.5 fL (80-100); Mean Platelet Volume 10.1 fL (7.4-10.4); Platelet Count 364 K/uL (130-400); RDW Coefficient of Variation 15.3 % (11.5-14.5); RDW Standard Deviation 42.2 fL (36.4-46.3); Red Blood Count 4.81 M/uL (4.2-5.4); White Blood Count 9.78 K/uL (4.8-10.8)
[2021-06-13 05:07] LABS: BUN Creatinine Ratio 8.3 (10-20); Calcium 8.3 mg/dl (8.5-10.1); Creatinine Clr Calc Pharmacy 109.6 ml/min; Est GFR (African American) 113.2 ml/min; Est GFR (Non-African American) 97.7 ml/min; Potassium 4.2 mmol/L (3.5-5.1)
[2021-06-13] MEDS: HEPARIN SOD 5,000 UNIT/0.5 ML VIAL SQ SCH ×2 (08:34→20:19)
[2021-06-13] MEDS: PANTOprazole 40 MG TAB PO SCH (08:34)
[2021-06-13] MEDS: ADVANCED PROBIOTIC 1250 MG CAPSULE PO SCH (08:34)
[2021-06-13] MEDS: TAMOXIFEN CITRATE 10 MG TABLET PO SCH (08:34)
[2021-06-13] MEDS ORDERED: OPTIRAY 320 100ml IV ONE (13:34)
--- NOTE | 2021-06-13 13:51 | CT Scan Report ---
CHEST CT WITH CONTRAST CT DOSE: 421.03 mGy.cm HISTORY: Renal mass. Metastatic workup. TECHNIQUE: Multiaxial CT images of the chest were performed following the intravenous administration of contrast. A dose lowering technique was utilized adhering to the principles of ALARA. COMPARISON: Abdomen and pelvis CT 06/11/2021. FINDINGS: The thyroid gland enhances normally. Small hiatus hernia. The heart is top normal in size. There are trace bilateral pleural effusions. No pericardial effusion. No mediastinal or hilar lymphad enopathy. Bilateral breast implants are again noted. There are surgical clips within the left axilla. The mediastinal vascular structures are within normal limits. There is a 5 cm right pericardial cyst . Limited views of the upper abdomen demonstrate a normal spleen and adrenal glands. There is a 6 mm hypodense lesion within the left hepatic dome. This is technically too small to characterize but favo rs a cyst. This will be better appreciated on the same day abdominal MRI. There is an old, healed rig ht lateral fifth rib fracture. No suspicious lytic or blastic osseous lesions. No pneumothorax. The c entral airways are patent. No focal lung consolidations to suggest pneumonia. No pulmonary nodules id entified. Small amount of consolidation posteriorly within the lower lobes likely represents compress jm atelectasis from the pleural fusions. IMPRESSION: 1. No evidence for metastatic disease within the chest. 2. Trace bilateral pleural effusions. ACT 112: Negative or not required by law. Electronically signed by: Christopher Molina M.D. 06/13/2021 1:49 PM
[2021-06-13] MEDS ORDERED: GADOBUTROL 65ML VIAL IV ONE (15:42)
--- NOTE | 2021-06-13 16:17 | Magnetic Resonance Report ---
MR abdomen wo/w con HISTORY: Right renal mass. Renal Mass Protocol TECHNIQUE: Multiplanar multisequence MRI of the abdomen was performed both before and after the intra venous administration of 10 cc of Gadavist contrast. COMPARISON STUDY: Abdomen and pelvis CT 06/11/2021. FINDINGS: Suboptimal evaluation of the abdomen due to the respiratory motion. There are trace bilater al pleural effusions. No suspicious lesions within the visualized osseous structures. Moderate thicke catie/edema within a jejunal loop within the left upper quadrant. Cholelithiasis. No gallbladder wall thickening. There is a 6 mm T2 hyperintense nonenhancing lesion within the left hepatic dome. This is consistent with a cyst. No hepatic masses identified to suggest metastatic disease. No evidence for bowel obstruction. The main portal vein appears patent. Abdominal aorta is normal in caliber. Normal left adrenal gland. There is again noted a large heterogeneous enhancing mass involving the upper to mid kidney with central necrosis. This lesion abuts the undersurface of the right hepatic lobe. Evalu ation for local invasion of the hepatic lobe is near nondiagnostic due to the motion artifact. Howeve r, no definite signal abnormality within the liver to suggest local invasion. This mass also abuts an d slightly displaces the second portion of the duodenum. This mass abuts but does not appear to invad e the pancreatic head. This renal mass measures approximately 8.7 x 8.0 x 6.8 cm. Probable invasion w ithin the distal right renal vein. The proximal to mid right renal vein and IVC appear patent. No ret roperitoneal lymphadenopathy. Mild perinephric edema. Multiple right suprarenal and infrarenal dilate d vessels likely related to the large tumor. The right adrenal gland is partially obscured by these v essels but appears unremarkable. IMPRESSION: 1. An 8.7 x 8.2 x 6.8 cm heterogeneous right renal mass consistent with a renal cell carcinoma. This is suboptimally assessed due to the motion artifact. Probable invasion the distal right renal vein. H owever, the proximal to mid right renal vein IVC are patent. 2. This mass abuts the undersurface of the right hepatic lobe and adjacent duodenum/pancreatic head. However, no definite evidence for localization. 3. No metastatic disease identified within the abdomen. 4. Trace bilateral pleural effusions. 5. Focal moderate thickening within a jejunal loop consistent with a nonspecific enteritis. ACT 112: Negative or not required by law. Electronically signed by: Christopher Molina M.D. 06/13/2021 4:16 PM
--- NOTE | 2021-06-13 21:48 | Hospitalist Progress Note ---
Date of Service June 13, 2021 Assessment & Plan (1) Enteritis: Plan: Presented with abdominal bloating with nausea and vomiting for about 2 months associated with discomfort and pain and weight loss CT scan with IV contrast showed markedly thick walled and edematous loops of proximal jejunum in the left upper quadrant and surrounding infiltration and trace fluid Nonspecific enteritis could be secondary to infection and/or inflammation C. difficile toxin and stool culture uncollected at this point since diarrhea resolved complement level (C4) and C1Q levels pending WBC trending back to normal ACEI discontinued Continue empiric Zosyn GI on board will need to arrange for outpatient scope Diet advanced as tolerated (2) Right renal mass: Plan: Rectal mass/cystic lesion finding General surgery consulted to evaluate 6.5 cm low-attenuation/cystic lesion anterior to the rectum Renal MRI showed 1. An 8.7 x 8.2 x 6.8 cm heterogeneous right renal mass consistent with a renal cell carcinoma. CT chest showed no evidence for metastatic disease within the chest. Underwent initial screening colonoscopy of October [address] Noble with diverticulosis no polyps, no mention of mass Surgery Dr. Mathews recommended for GI to perform colonoscopy with endo-ultrasound study rectum to R/O mass of cyst out side rectum, pt will F/U colorectal surgeon out-patient clinic Urology plan for for possible radical nephrectomy in 1-2 weeks once the enteritis resolved (3) Nausea & vomiting: Plan: Has been having nausea vomiting with bloating for about 2 months with weight loss -> resolved. Diet advanced as tolerated (4) Abdominal pain: Plan: Complains to have abdominal pain mostly in the epigastrium and left quadrants mostly upper -> resolved (5) Hypertension: Plan: BP normotensive. Continue current medications (6) IBS (irritable bowel syndrome): Plan: Stable (7) History of breast cancer: Plan: History of breast cancer 2012 Status post chemoradiation and bilateral mastectomy with reconstruction Has been getting tamoxifen DVT prophylaxis Subcu heparin CODE STATUS Full Admission and Anticipated Discharge Date Admission Date: June 11, 2021 Subjective Patient seen and evaluated for follow-up of of enteritis and renal mass Lying in bed with no acute distress resting Pt said that she feels a little bloating and discomfort . She said that she does not have any nausea and vomiting Denies any chest pain, palpitation, dizziness and SOB Review of Systems Review of Systems: All systems reviewed & are unremarkable except as noted in Subjective Physical Exam Physical Exam: General- No acute distress Head- atraumatic Eyes- PERRL, EOMI, ENT- oropharynx clear Neck- supple, no JVD Lungs- clear to auscultation Heart- regular rhythm; no murmur Abdomen- normal bowel sounds, soft, +tender with deep palpation in right side of the abdomen Extremities- no calf tenderness Neuro- alert, oriented x 3; PERRL, EOMI; no facial palsy; no dysarthria Skin- warm & dry Results & Data Results & Data ([facility]) Vital Signs (Past 12 Hours) Vital Signs Temp Pulse Resp BP Pulse Ox 06/13/21 15:53 37.5 C 82 18 125/80 96
[2021-06-14] MEDS: PIPERACILLIN/TAZOBACTAM 4.5 GM in DEXTROSE 5% 100 ML IV SCH ×2 (03:53→12:55)
[2021-06-14] MEDS: ADVANCED PROBIOTIC 1250 MG CAPSULE PO SCH (07:49)
[2021-06-14] MEDS: PANTOprazole 40 MG TAB PO SCH (07:49)
[2021-06-14] MEDS: TAMOXIFEN CITRATE 10 MG TABLET PO SCH (07:49)
[2021-06-14] MEDS: HEPARIN SOD 5,000 UNIT/0.5 ML VIAL SQ SCH (07:50)
[2021-06-14 07:53] LABS: Hematocrit (blood only) 34.4 % (37-47); Hemoglobin 10.9 g/dL (12.0-16.0); Mean Corpuscular Hemoglobin 23.7 pg (25-34); Mean Corpuscular Hgb Conc 31.7 g/dL (32-36); Mean Corpuscular Volume 74.9 fL (80-100); Mean Platelet Volume 9.8 fL (7.4-10.4); Platelet Count 349 K/uL (130-400); RDW Coefficient of Variation 15.2 % (11.5-14.5); Red Blood Count 4.59 M/uL (4.2-5.4); White Blood Count 8.92 K/uL (4.8-10.8)
[2021-06-14 08:17] LABS: Calcium 7.9 mg/dl (8.5-10.1); Creatinine Clr Calc Pharmacy 90.7 ml/min; Est GFR (Non-African American) 77.7 ml/min
--- NOTE | 2021-06-14 08:26 | Urology Progress Note ---
Date of Service June 14, 2021 Assessment & Plan (1) Right renal mass: Plan: Patient with incidental renal mass found during episode of significant GI issues with discomfort bloating and abdominal pain. Patient is still dealing with some of this however is improving. Is being treated with supportive care. Patient underwent imaging yesterday with MRI to assess the vasculature. Does appear to possibly include the renal vein however does not appear to go to the vena cava. Patient underwent CT scan with no signs of metastatic disease on chest CT. No major episodes of confusion. No considerable new bone pain or other problems. Has history of Breast CA and on tamoxifen Reviewed findings. Discussed with patient neck steps. We will plan to have patient continue with supportive care to resolve ongoing GI issue. Once clear patient will likely need intervention likely a radical right nephrectomy. Patient should be scheduled with nephrology in anticipation of a solitary kidney. Has plans to be reevaluated with general surgery about possible rectal mass/cystic lesion near her rectum. Patient had been seen by GI less than a year ago and had scope at that time no mention of mass or other issue. We will plan to have patient in office in the coming week with plans for likely intervention once resolution of GI symptoms Admission and Anticipated Discharge Date Admission Date: June 11, 2021 Subjective Patient admitted with GI disorder And significant abdominal discomfort. Incidentally found to have large right renal mass. Also has cystic mass/abnormality of the pelvis possibly associated to the rectum Patient is afebrile. Is being managed with supportive care with oral medications, IV medications, IV fluids, and oral intake. Is doing better From a bowel standpoint without considerable increase in pain or major issues. Has not developed severe vomiting or other issues. Has not experienced fever or chills. Is tolerating fluids. Has not had severe pain in the back and flank. No major history of episodes of gross hematuria. Patient underwent staging imaging yesterday. Concern for possible renal vein involvement however does not appear to involve the vena cava on MRI. Patient had CT of chest which shows no major areas of or signs of metastatic disease Family history of stones, but no history of RCC> Review of Systems Review of Systems: All systems reviewed & are unremarkable except as noted in HPI & below Physical Exam Physical Exam: General: Alert in no acute distress. Obese HEENT: Normocephalic Atraumatic. Inspection normal. Cranial Nerves 2-12 Grossly intact. Normal inspection of face. Normal inspection of neck. Psychologic: Normal affect. Respiratory: Nonlabored. No use of accessory muscles. No tachypnea or dyspnea. Cardiovascular: No tachycardia Skin: [place] and Dry. No rashes or visible lesions. Abdomen: No rebound or guarding. Results & Data ([facility]) Vital Signs (Past 12 Hours) Vital Signs Temp Pulse Resp BP Pulse Ox 06/14/21 07:28 37 C 82 18 123/76 95 06/13/21 22:48 36.9 C 84 18 137/78 94 PG Care Time/CCT Total # of Minutes Spent Total Time Spent with Patient: Total time spent is greater than 50% in coordination of care (as documented) at patient's floor/unit and/or counseling patient: Coding Level of Care Code 15926 Subseq Hosp Care Lvl 3 Diagnoses Right renal mass N28.89
[2021-06-14] MEDS ORDERED: AMOXICILLIN/CLAVULANATE 875 MG TAB PO SCH (17:00)
[2021-06-19 19:46] LABS: Complement C1q 5.9 mg/dL (5.0-8.6)
--- NOTE | 2021-06-23 22:49 | Discharge Summary ---
Date of Service June 14, 2021 Admission HPI Per Admitting Provider She is a 50-year-old female with significant past medical history of breast cancer in 2012 status post bilateral mastectomy with reconstruction and has been on tamoxifen, hypertension, irritable bowel syndrome has been complaining of abdominal bloating with discomfort/pain for the last 2 months. She has not been drinking and eating enough for the same period and the abdominal bloating associated with nausea and vomiting. She complains to have some discomfort/pain involving epigastrium and also left-sided abdomen but does not have any problem with bowel habit. She complains to have weight loss for about 25 to 30 pounds for the last 2 months. She also has feeling of feverish and occasional sweating. Her condition has been worse for the last 2 to 3 days and she saw her PCPs office and underwent CAT scan of the abdomen and pelvis which was abnormal and she was advised to come to the emergency room. She denies any chest pain, palpitation or shortness of breath. Denies any headache, blurred vision or any numbness and or tingling involving any of the extremities. Does not have any weakness involving any of the extremities either. She has noted to have nonspecific enteritis and also left renal mass and from that point she was admitted for continuation of care. Admission Exam Per Admitting Provider Physical Exam: Lying in bed with minimal discomfort in the abdomen Constitutional: well developed, well nourished, + ill appearing and + obese Eyes: PERRL, conjunctivae normal, anicteric sclerae ENMT: external ear and nose normal, oropharynx normal Neck: trachea midline, no thyromegaly Respiratory: no respiratory distress Auscultation: lungs clear to auscultation bilaterally Cardiovascular: Rate/Rhythm: regular rate and regular rhythm; not tachycardic Heart Sounds: normal S1 and normal S2; no murmur Extremities: no edema Gastrointestinal (Abdomen): Inspection/Auscultation: normal bowel sounds; abdomen not distended Percussion/Palpation: + abdomen tender (Epigastrium and left quadrants especially left periumbilical quadrant) and abdomen soft Musculoskeletal: No acute arthritis in any joint Neurologic: Alert, awake and oriented x3. No focal sensory and motor deficit appreciated Principal Diagnosis Enteritis: Right renal mass: Abdominal pain: Hypertension: Discharge Exam General- No acute distress Head- atraumatic Eyes- PERRL, EOMI, ENT- oropharynx clear Neck- supple, no JVD Lungs- clear to auscultation Heart- regular rhythm; no murmur Abdomen- normal bowel sounds, soft, +tender with deep palpation in right side of the abdomen Extremities- no calf tenderness Neuro- alert, oriented x 3; PERRL, EOMI; no facial palsy; no dysarthria Skin- warm & dry Discharge Data Allergies Allergy/AdvReac Type Severity Reaction Status Date / Time adhesive tape Allergy Intermediate Rash Verified 06/11/21 16:34 codeine AdvReac Intermediate TACHYCARDIA Verified 06/11/21 16:34 /PALPITATIO NS Consultations 06/11/21 17:29 ED Decision to Admit Stat 06/11/21 18:10 Consult Gastroenterology Routine Consult Urology Routine 06/12/21 15:10 Consult General Surgery Routine Ordered Studies 06/11/21 15:25 CT abd pelvis IV con only Stat 06/13/21 12:38 CT chest diagnostic w con Routine MR abdomen wo/w con Routine CHEST CT WITH CONTRAST CT DOSE: 421.03 mGy.cm HISTORY: Renal mass. Metastatic workup. TECHNIQUE: Multiaxial CT images of the chest were performed following the intravenous administration of contrast. A dose lowering technique was utilized adhering to the principles of ALARA. COMPARISON: Abdomen and pelvis CT 06/11/2021. FINDINGS: The thyroid gland enhances normally. Small hiatus hernia. The heart is top normal in size. There are trace bilateral pleural effusions. No pericardial effusion. No mediastinal or hilar lymphadenopathy. Bilateral breast implants are again noted. There are surgical clips within the left axilla. The mediastinal vascular structures are within normal limits. There is a 5 cm right pericardial cyst. Limited views of the upper abdomen demonstrate a normal spleen and adrenal glands. There is a 6 mm hypodense lesion within the left hepatic dome. This is technically too small to characterize but favors a cyst. This will be better appreciated on the same day abdominal MRI. There is an old, healed right lateral fifth rib fracture. No suspicious lytic or blastic osseous lesions. No pneumothorax. The central airways are patent. No focal lung consolidations to suggest pneumonia. No pulmonary nodules identified. Small amount of consolidation posteriorly within the lower lobes likely represents compressive atelectasis from the pleural fusions. IMPRESSION: 1. No evidence for metastatic disease within the chest. 2. Trace bilateral pleural effusions. ACT 112: Negative or not required by law. Electronically signed by: Christopher Molina M.D. 06/13/2021 1:49 PM Dictated:06/13/21 1338 Transcribed: 06/13/21 133 MR abdomen wo/w con HISTORY: Right renal mass. Renal Mass Protocol TECHNIQUE: Multiplanar multisequence MRI of the abdomen was performed both before and after the intravenous administration of 10 cc of Gadavist contrast. COMPARISON STUDY: Abdomen and pelvis CT 06/11/2021. FINDINGS: Suboptimal evaluation of the abdomen due to the respiratory motion. There are trace bilateral pleural effusions. No suspicious lesions within the visualized osseous structures. Moderate thickening/edema within a jejunal loop within the left upper quadrant. Cholelithiasis. No gallbladder wall thickening. There is a 6 mm T2 hyperintense nonenhancing lesion within the left hepatic dome. This is consistent with a cyst. No hepatic masses identified to suggest metastatic disease. No evidence for bowel obstruction. The main portal vein appears patent. Abdominal aorta is normal in caliber. Normal left adrenal gland. There is again noted a large heterogeneous enhancing mass involving the upper to mid kidney with central necrosis. This lesion abuts the undersurface of the right hepatic lobe. Evaluation for local invasion of the hepatic lobe is near nondiagnostic due to the motion artifact. However, no definite signal abnormality within the liver to suggest local invasion. This mass also abuts and slightly displaces the second portion of the duodenum. This mass abuts but does not appear to invade the pancreatic head. This renal mass measures approximately 8.7 x 8.0 x 6.8 cm. Probable invasion within the distal right renal vein. The proximal to mid right renal vein and IVC appear patent. No retroperitoneal lymphadenopathy. Mild perinephric edema. Multiple right suprarenal and infrarenal dilated vessels likely related to the large tumor. The right adrenal gland is partially obscured by these vessels but appears unremarkable. IMPRESSION: 1. An 8.7 x 8.2 x 6.8 cm heterogeneous right renal mass consistent with a renal cell carcinoma. This is suboptimally assessed due to the motion artifact. Probable invasion the distal right renal vein. However, the proximal to mid right renal vein IVC are patent. 2. This mass abuts the undersurface of the right hepatic lobe and adjacent duodenum/pancreatic head. However, no definite evidence for localization. 3. No metastatic disease identified within the abdomen. 4. Trace bilateral pleural effusions. 5. Focal moderate thickening within a jejunal loop consistent with a nonspecific enteritis. ACT 112: Negative or not required by law. Electronically signed by: Christopher Molina M.D. 06/13/2021 4:16 PM Dictated:06/13/21 1605 Transcribed: 06/13/21 1605 [place], [place] [phone] CT Scan Report Patient:DEMIAN LARA Admit Date:06/11/21 MR#:[id number] Address1:[address] [place] [address] Acct ID:[id number] Address2: Date:1970 [facility] Zip:[place] [address] Age:50 Location:ED Sex:F Room/Bed: Att Phy: Diagnosis:ABNORMAL CT AND BLOOD WORK Carole Phy:Emilie Nicole DO Service Date:06/11/21 [facility] Phy: Interpreting Phy:Kale Boogie MDAdmit Phy: Ordering Phy:Kale Fernandez M.D. cc: ~ CT SCAN OF THE ABDOMEN AND PELVIS WITH IV CONTRAST CLINICAL HISTORY: Right renal mass. COMPARISON STUDY: No priors. TECHNIQUE: Following the IV administration of 91 cc of Optiray 320, CT scan of the abdomen and pelvis is performed from the lung bases to the proximal femora. Images are reviewed in the axial, sagittal, and coronal planes. IV contrast was administered without complication. A dose lowering technique was utilized adhering to the principles of ALARA. CT DOSE: 927.80 mGy.cm FINDINGS: Lung bases: The heart is normal in size and without pericardial effusion. There are coronary artery calcifications. There is a 4.6 cm right cardiophrenic cyst. The lung bases are clear. Bilateral breast implants are partially imaged. A small hiatal hernia is noted Liver: The contrast-enhanced liver is normal in size, contour, and attenuation. There is no intrahepatic biliary ductal dilatation. The hepatic veins and portal veins are patent. Gallbladder: Gallstones with no CT evidence of acute cholecystitis. Spleen: Normal in size and attenuation. Pancreas: Unremarkable. Adrenal glands: Unremarkable. Kidneys: The contrast enhanced kidneys are normal in size and without hydronephrosis. There is a complex/heterogeneous mass lesion arising from the upper to midpole of the right kidney. This extends towards the hepatic hilum, and is best seen on image #184. This abuts the right lobe of the liver without clear evidence of invasion. This measures approximately 8 x 8 x 5.5 cm. There is associated right-sided perinephric fluid. The right renal vein appears patent, with no evidence of invasion. No enhancing mass lesion is seen in the left kidney. The kidneys enhance symmetrically. There are prominent retroperitoneal collateral vessels above the right kidney. Abdominal vasculature: The abdominal aorta is normal in course and caliber. Bowel: There is a long segment of thick-walled and edematous proximal jejunum in the left upper quadrant with surrounding infiltration and trace fluid. This is consistent with a nonspecific enteritis. There is no bowel obstruction. The appendix is well-visualized and normal. Peritoneum: There is a small volume of abdominopelvic ascites. No in traperitoneal free air is identified. There is a fat-containing umbilical hernia. Lymphadenopathy: None. Pelvic viscera: The bladder, uterus, and adnexa are normal as visualized. There is a lobulated low-attenuation/cystic lesion anterior to the sacrum. There is associated bony remodeling in this causes mild mass effect on the adjacent rectum. This measures approximately 4.5 x 6.5 x 3 cm. Skeletal structures: No lytic or blastic lesions are seen. IMPRESSION: 1. There are markedly thick walled and edematous loops of proximal jejunum in the left upper quadrant with surrounding infiltration and trace fluid. This is consistent with a nonspecific enteritis and clinical correlation will be required. 2. There is an approximately 8 cm heterogeneous mass lesion arising from the upper pole of the right kidney as detailed above. This should be considered renal cell carcinoma until proven otherwise. 3. There is no clear evidence of metastatic disease in the abdomen or pelvis. 4. Cholelithiasis. 5. Small volume abdominopelvic ascites. 6. There is an approximately 6.5 cm low-attenuation/cystic lesion anterior to the rectum. There is associated bony remodeling and this is likely chronic, possibly representing congenital cystic lesion. Correlate with any prior outside imaging examinations. 7. Additional findings as above. ACT 112: Negative or not required by law. Electronically signed by: Kale Boogie M.D. 06/11/2021 4:36 PM Dictated:06/11/21 1621 Transcribed: 06/11/21 1626 XR chest 1V portable HISTORY: 50 years-old Female cough acute cough COMPARISON: Chest radiographs 11/27/2018 TECHNIQUE: Portable AP view of the chest FINDINGS: The cardiac mediastinal and hilar silhouettes are within normal limits. No pneumothorax, pleural effusion, airspace consolidation or overt pulmonary edema. Bones of the chest appear grossly intact. Surgical clips of the left axilla. IMPRESSION: No acute process. ACT 112: Negative or not required by law. The above report was generated using voice recognition software. It may contain grammatical, syntax or spelling errors. Electronically signed by: Wisam Salinas M.D. 06/11/2021 3:59 PM Dictated:06/11/211557 Transcribed: 06/11/211557 Hospital Course (1) Enteritis: Presented with abdominal bloating with nausea and vomiting for about 2 months associated with discomfort and pain and weight loss CT scan with IV contrast showed markedly thick walled and edematous loops of proximal jejunum in the left upper quadrant and surrounding infiltration and trace fluid Nonspecific enteritis could be secondary to infection and/or inflammation C. difficile toxin and stool culture uncollected at this point since diarrhea resolved complement level (C4) and C1Q levels pending WBC trending back to normal ACEI discontinued Continue empiric Zosyn GI on board will need to arrange for outpatient scope Diet advanced as tolerated (2) Right renal mass: Rectal mass/cystic lesion finding General surgery consulted to evaluate 6.5 cm low-attenuation/cystic lesion anterior to the rectum Renal MRI showed 1. An 8.7 x 8.2 x 6.8 cm heterogeneous right renal mass c onsistent with a renal cell carcinoma. CT chest showed no evidence for metastatic disease within the chest. Underwent initial screening colonoscopy of October [address] Noble with divertic ulosis no polyps, no mention of mass Surgery Dr. Mathews recommended for GI to perform colonoscopy with endo-ultrasound study rectum to R/O mass of cyst out side rectum, pt will F/U colorectal surgeon out-patient clinic Urology plan for for possible radical nephrectomy in 1-2 weeks once the enteritis resolved (3) Nausea & vomiting: Has been having nausea vomiting with bloating for about 2 months with weight loss -> resolved. Diet advanced as tolerated (4) Abdominal pain: Complains to have abdominal pain mostly in the epigastrium and left quadrants mostly upper -> resolved (5) Hypertension: BP normotensive. Continue current medications (6) IBS (irritable bowel syndrome): Stable (7) History of breast cancer: History of breast cancer 2012 Status post chemoradiation and bilateral mastectomy with reconstruction Has been getting tamoxifen DVT prophylaxis Subcu heparin CODE STATUS Full Total Time Total Time Spent Total Time Spent (In Minutes): 35 minutes Discharge Plan Discharge Items Patient Disposition: Home - Self-Care Reason For Visit: ABD PAIN, RENAL MASS, ENTERITIS Discharge Diagnosis: Enteritis: Right renal mass: Abdominal pain: Hypertension: Condition on Discharge: Fair Activity: Resume your previous activity Non-emergency contact: Primary Care Provider, [facility] Specialist and Urologist Call non-emergency contact if: you have any medication questions and your symptoms worsen Follow-up/Referrals: Emilie Nicole, [Primary Care Provider] - Diet: Low Fiber Addtl Attending Provider Instructions: Follow up with your primary care provider within 1 week Follow up up with [facility] urology in 1-2 weeks to arrange for the right kidney nephrectomy. Follow up with gastroenterology to evaluate for scope Complete the course of the antibiotic with Augmentin Continue soft diet and advance slowly as tolerated Continue monitor your blood pressure since lisinopril discontinued ( If blood pressure starts to elevate, your physician can start other blood pressure medication) Seek medical attention if your symptoms reoccur Pending Studies at Discharge: Yes Studies:: Complement C1Q and C4 Stand-Alone Forms: My [facility] [employer], Smoking Cessation Medications and DC Order Prescriptions: Continued tamoxifen 20 mg Tablet 20 mg PO DAILY RF: 0 Probiotic 10 billion cell Capsule 1 cell PO DAILY RF: 0 polyethylene glycol 3350 [Miralax] 17 gram/dose powder 17 g PO DAILY PRN (Reason: Constipation) RF: 0 omeprazole 40 mg capsule,delayed release(DR/EC) 40 mg PO DAILY RF: 0 Discontinued lisinopril 20 mg tablet 20 mg PO DAILY RF: 0 Discharge Orders: Discharge Order (Routine); Ordered 06/14/21 Ordered By: Jannet Sneed Admission Data Admit Date/Time: 06/11/21 18:10 Attending Provider: Jannet Sneed Admit Provider: Andrew Arroyo Primary Care Provider: Emilie Nicole Other Providers: Keiry Choi ; Shantel Razo ; Abner Parmar ; Radha Paz ; Ludwin Noble ; Holland Hardin ; Ca Wyman ; John Hwang ; Amrita Peralta ; Magda Jiang ; Berna Ken ; Sadie Ricci ; Fernanda De León ; Av Yen ; Preston Flores ; Chidi Castellon ; Mara Castañeda ; Sukhdev Gannon ; Quita Navarro ; Jessica Burdick ; Saarh Velázquez ; Arnulfo Copeland ; Jimbo Vasquez ; Chela Reyes ; Pili Velázquez ; Edilberto Otto ; Estrella Butler ; Shilpa Mathews Other Interventions: Discharge Summary Assessment (RN) Last Done: 06/14/21 15:48
== END 2021-06-14 18:02 | disposition home or self-care (01) ==
LOC: 3W 13:39 → ED 13:39 → SUATTDRO 18:10 → 3W 21:16

== ENCOUNTER 2021-07-30 10:43 | Inpatient (IN) ==
--- NOTE | 2021-07-27 15:43 | Anesthesiology Consultation ---
Date of Service July 27, 2021 Assessment & Plan (1) Encounter for pre-operative examination: Chart Review Chart Review: Acceptable Risk for Surgery (pending preop Covid testing results ) and Patient NOT seen in Pre Admission Testing Left UE restriction Per nursing assessment for 1121, patient denies any recent travel. No known Covid infection in the past 90 days. Patient is fully vaccinated for Covid. No known Covid positive exposures or Covid related symptoms. Preop Covid testing scheduled 07/28/21= will await results Right ankle ORIF 11/28/18= Done under GA with LMA #4. Atraumatic x 1. Pt did have scop patch applied for surgery History Surgery Operation Date: 07/30/21 11:20 Proposed Procedures p Robotic Laparoscopic Assisted Partial Nephrectomy, Possible Radical Nephrectomy, Possible Hand Assisted, Possible Open - Sukhdev Gannon, Height/Weight Height: 5 ft 5 in Weight: 98.883 kg Allergies Allergy/AdvReac Type Severity Reaction Status Date / Time adhesive tape Allergy Intermediate Rash Verified 07/27/21 14:30 codeine Allergy Intermediate TACHYCARDIA Verified 07/27/21 14:30 /PALPITATIO NS Medications Home Medications Medication Instructions Recorded Confirmed Last Taken Lactobacillus acidophilus 10 1 cell PO DAILY 11/27/18 07/27/21 06/11/21 billion cell capsule (Probiotic) tamoxifen 20 mg tablet 20 mg PO QAM 11/27/18 07/27/21 06/11/21 ondansetron HCl 4 mg tablet 4 mg PO Q6H PRN tab 07/14/21 07/27/21 Unknown pantoprazole 40 mg tablet,delayed 40 mg PO QAM 07/14/21 07/27/21 Unknown release (Protonix) Past Medical History Medical History (Updated 07/27/21 @ 15:43 by Aliza Fonseca PA-C) Acid reflux History of high blood pressure HX: breast cancer LEFT- S/P BILATERAL MASTECTOMY WITH LEFT LN REMOVAL WITH RADIATION Renal mass, right Situational anxiety Past Family History Family History Aunt FHx: breast cancer Breast cancer Mother FHx: breast cancer Breast cancer Grandmother (Maternal) FHx: breast cancer Breast cancer Father Family history of diabetes mellitus Denies family history of Ovarian cancer Colorectal cancer Past Surgical History Surgical History Family history of reaction to anesthesia MOTHER>SLOW TO WAKE UP H/O breast reconstruction BILATERAL History of ankle surgery RT History of bilateral tubal ligation History of section X2 History of colonoscopy History of esophagogastroduodenoscopy (EGD) History of mastectomy BILATERAL WITH LEFT LYMPH NODE REMOVAL>BREAST REDUCTION Hx of lumpectomy LEFT Nausea and vomiting after administration of anesthetic agent Social History Smoking Status: Never smoker Hx Alcohol Use: No alcohol intake frequency: holidays/special occasions only Hx Substance Use: No substance use type: does not use Lab Results Anesthesia Preop Results Results Anesthesia Widget: WBC 9.93 K/uL (4.8-10.8) 07/14/21 Hgb 10.9 g/dL (12.0-16.0) L 07/14/21 Hct 36.2 % (37-47) L 07/14/21 Plt 532 K/uL (130-400) H 07/14/21 Na 137 mmol/L (136-145) 07/14/21 K 4.2 mmol/L (3.5-5.1) 07/14/21 Cl 99 mmol/L (98-107) 07/14/21 CO2 31 mmol/L (21-32) 07/14/21 BUN 6 mg/dl (6-23) 07/14/21 Creat 0.71 mg/dl (0.6-1.2) 07/14/21 Glucose Level 104 mg/dl (70-99(Fasting)) H 07/14/21 Urine Color Dark Yellow 07/14/21 Urine Appearance Clear (Clear) 07/14/21 Urine pH 6.0 (4.5-7.5) 07/14/21 Urine Specific [place] 1.014 (1.000-1.030) 07/14/21 Urine Protein Negative (Negative) 07/14/21 Urine Glucose (UA) Negative (Negative) 07/14/21 Urine Ketones Negative (Negative) 07/14/21 Urine Blood Negative (Negative) 07/14/21 Urine Nitrite Negative (Negative) 07/14/21 Urine Bilirubin Negative (Negative) 07/14/21 Urine Urobilinogen Negative (Negative) 07/14/21 Urine Leukocyte Esterase Trace (Negative) H 07/14/21 Urine WBC (Auto) 10-30 /hpf (0-5) H 07/14/21 Urine RBC (Auto) 0-4 /hpf (0-4) 07/14/21 Urine Hyaline Casts (Auto) 1-5 /lpf (0-5) 07/14/21 Urine Epithelial Cells (Auto) >30 /lpf (0-5) H 07/14/21 Urine Bacteria (Auto) Negative (Negative) 07/14/21 Lab Comments: Anemia chronic and stable since 06/12/21 per review of [facility] records - surgeon's office informed Thrombocytosis- surgeon's office informed Testing Laboratory Results 07/14/21= URINE CULTURE: No growth Electrocardiogram Date: 07/14/21 Findings: + NSR @ (89bpm ) Normal EKG per cardio. Chest X-Ray Date: 06/11/21 Findings: + NAD 1 view CXR Other Testing Chest CT 06/11/2021 = no evidence for metastatic disease within the chest. Trace bilateral pleural effusions. No pericardial effusion. No mediastinal or hilar lymphadenopathy. Central airways are patent. No focal lung consolidations to suggest pneumonia. No pulmonary nodules identified. Abdomen/Pelvis CT 06/11/21= There are markedly thick walled and edematous loops of proximal jejunum in the left upper quadrant with surrounding infiltration and trace fluid. This is consistent with a nonspecific enteritis and clinical correlation will be required. There is an approximately 8 cm heterogeneous mass lesion arising from the upper pole of the right kidney as detailed above. This should be considered renal cell carcinoma until proven otherwise. There is no clear evidence of metastatic disease in the abdomen or pelvis. Cholelithiasis. Small volume abdominopelvic ascites. There is an approximately 6.5 cm low-attenuation/cystic lesion anterior to the rectum. There is associated bony remodeling and this is likely chronic, possibly representing congenital cystic lesion. Correlate with any prior outside imaging examinations. (Pt admitted at time of CT scan- dx'ed with enteritis- treated with Zosyn)
[~2021-07-30 10:43] MED LIST changes: +ATROPINE SULFATE 0.1 MG/ML 10ML SYR IV PRN; +HYDROmorphone INJ 2 MG/ML SYR/VIAL IV PRN; +LR 15ML/HR IV SCH; +ONDANSETRON INJ 2 MG/ML 2 ML VIAL IV PRN; +PROMETHAZINE HCL 6.25 MG in SODIUM CHLORIDE 0.9% 50 ML IV PRN; -SULF800T23 PO; -TAMO20TA9 PO; +ePHEDrine sulfate 50 MG/ML AMP IV PRN; +fentaNYL citrate 100 MCG/2 ML VIAL IV PRN
[2021-07-30] MEDS ORDERED: ceFAZolin 2000MG 2,000 MG/15 ML SYR IV ONE (11:48)
[2021-07-30] MEDS ORDERED: ceFAZolin 2,000 MG/15 ML IV PUSH IV ONE (11:49)
--- NOTE | 2021-07-30 12:08 | History & Physical Bridge Note ---
Date of Service July 30, 2021 History & Physical Bridge Note I have examined the patient, reviewed the History & Physical and in the interval since the performance of the History & Physical I have noted the following changes of clinical significance: no changes noted
[2021-07-30] MEDS ORDERED: fentaNYL citrate 100 MCG/2 ML VIAL ONE ×2 (13:07→17:21)
[2021-07-30] MEDS ORDERED: BUPIVACAINE 0.5 % 5 MG/1 ML MPF 30ML VIAL ONE (13:20)
[2021-07-30] MEDS ORDERED: PROPOFOL IV EMULSION 10 MG/ML 20 ML VIAL IV ONE (13:56)
[2021-07-30] MEDS ORDERED: ROCURONIUM BROMIDE 10 MG/ML 5 ML VIAL IV ONE (13:56)
[2021-07-30] MEDS ORDERED: DEXAMETHASONE SOD INJ 4 MG/ML VIAL ONE (13:56)
[2021-07-30] MEDS ORDERED: LIDOCAINE 2% 2 ML VIAL/AMP(20MG/ML) INFIL ONE (13:56)
[2021-07-30] MEDS ORDERED: ONDANSETRON INJ 2 MG/ML 2 ML VIAL ONE ×2 (14:06→16:33)
[2021-07-30] MEDS ORDERED: SURGICEL ABSORB HEMOSTAT 2IN X 14IN TOP ONE (14:07)
[2021-07-30] MEDS ORDERED: TISSEEL FIBRIN SEALANT 10ML TOP ONE ×2 (14:11→14:18)
[2021-07-30] MEDS ORDERED: FLOSEAL HEMOSTATIC MATRIX 10ML TOP ONE (14:18)
[2021-07-30] MEDS ORDERED: HYDROmorphone INJ 2 MG/ML SYR/VIAL ONE (14:32)
[2021-07-30] MEDS ORDERED: SODIUM CHLORIDE 0.9% 250 ML IV PRN (14:59)
[2021-07-30] MEDS ORDERED: ALBUMIN HUMAN 5% 12.5 GM/250 ML VIAL IV ONE (15:01)
[2021-07-30] MEDS ORDERED: MIDAZOLAM HCL 1 MG/ML 2ML VIAL ONE (15:28)
[2021-07-30] MEDS ORDERED: PHENYLEPHRINE HCL 10 MG/ML VIAL ONE (15:38)
[2021-07-30] MEDS ORDERED: NEOSTIGMINE METHYLSULFATE 1 MG/ML 10ML VIAL ONE (16:50)
[2021-07-30] MEDS ORDERED: GLYCOPYRROLATE 0.2 MG/ML VIAL ONE (16:50)
--- NOTE | 2021-07-30 17:15 | Operative Report ---
PG Post Operative Report Pre & Post Diagnosis Operation Date: 07/30/21 12:00 Pre-Op Diagnosis: Right Renal Mass Post-Op Diagnosis: Right Renal Mass I identified the patient and participated in the time-out.: Yes Procedure Operation Date: 07/30/21 12:00 Actual Procedures p Robotic Laparoscopic Assisted Right Radical Nephrectomy transition to hand assisted laparoscopic right Nephrectomy(Right) - Sukhdev Gannon DO Surgeon Sukhdev Gannon, II, DO Photo Offset Printer Mara Castañeda Estimated Blood Loss 1,000 Findings Consistent with Post-Op Diagnosis Extremely large mass of the kidney causing considerable mass-effect with numerous parasitic vessels. Extensive adhesions of the right lateral wall. Multiple vessels did intermittently have bleeding causing an increase blood loss. Patient did have episode of hypotension during procedure but was able to be resuscitated with return of normal pressure with the anesthesiology team. Due to higher than normal blood loss patient was transfused during procedure. Significant edema throughout the retroperitoneum with a very large amount of edematous tissue surrounding the small bowel. Patient has known history of recurrent enteritis. Specimens Right radical nephrectomy Drains 9 Fr Brody drain 18 Fr Osorio Anesthesia Type General Complications none RBC Transfusion during procedure for acute blood loss and hypotension Disposition Disposition: Recovery Room Indications Patient with right renal mass suspicious for malignancy. Risks and benefits discussed at length. Description of Procedure The patient was brought to the operative suite and placed under general endotracheal intubation anesthesia in the supine position. The patient was transferred to lateral position with the right flank exposed. The patient was placed into a flex'ed position and then placed into mild reverse Trendelenberg. At this point, the patient prepped and draped in the usual sterile fashion and a timeout was completed. Preoperative weight based antibiotics had been given. TOBI's and SCD's were placed on the patient's lower extremities. A catheter was placed by nursing using sterile technique. With the time out completed the patient was flexed and the skin was marked. The lateral port site was anesthetized. A small incision was made into the skin and subcutaneous tissues. A Varess needle was selected and placed. The needle was easily moved and it was irrigated and aspirated without any issues or concerns for placement. Insufflation commenced. The 8 mm camera port was placed. The abdominal cavity was further insufflated. The laparoscopic camera was placed and the abdominal cavity inspected. No concerning features were noted. At this point, the skin was marked for port placement and 8mm working ports were placed. The skin was anesthetized down to fascia and an approx 1cm incision was made to place the 2 x 8mm ports. A 12 mm robotic port was placed in the inferior position. A 12 mm contact lens assistant port was also placed in similar fashion under direct visualization. The robot was positioned and docked. The camera was placed and all trocars were positioned under direct visualization. Mara Castañeda was integral in port placement, camera utilization, and docking procedure. She also assisted during the extensive lysis of adhesions. She remained in sterile attire and then proceeded to assist the remainder of the case. Upon initial assessment of the kidney numerous very large parasitic vessels were found throughout the area all appearing to run into the very large mass. There was some mass-effect going on from the large mass pushing on the liver, gallbladder, and displacing the colon. The colon was mobilized medially to expose the retroperitoneum and the area assessed. Adhesions were freed to allow mobilization. A small amount of further adhesions were noted from the colon and were freed. These were dissected with blunt technique. Cautery was used to assist dissection and control bleeding. The retroperitoneal fat was assessed. Starting distally the retroperitoneum was dissected and care was taken to dissect down near the IVC. The gonadal vein and ureter were identified. This was then followed superiorly. Numerous of the very large accessory vessels were ligated throughout the process of dissection. Dissection stayed toward the midline along the IVC and the ureter and gonadal vein were followed up towards the renal hilum. The dissection was followed to the renal pelvis. Patient had a large amount of inflamed fatty tissue in this region especially near the duodenum which was found to be adhered along the medial edge of the retroperitoneum. This was slowly dissected using blunt technique and cold cutting. The gonadal vein unfortunately due to positioning proved to be very difficult to dissect around. Due to this 3 clips were placed with the 2 clips remaining after ligating the gonadal vein. The kidney was able to be displaced forward and further dissection was taken up. Numerous vessels were discovered in the region of the renal hilum. Majority appeared to be large likely parasitic veins going towards the tumor. Hemoclips were utilized. During this process after ligating a vessel a more significant bout of blood loss was noted. This was able to be controlled with pressure and the addition of clips however due to the difficult dissection with considerable adherence especially due to the inflammation around the small bowel as well as the numerous parasitic vessels and concern for increasing blood loss it was determined at this point to transition from robotic laparoscopic assisted to hand-assisted laparoscopic. The location of the hand-assisted port was also the location that the kidney was going to be removed at the end and this had been marked ahead of time. The area was anesthetized and an incision was made into the skin and subcutaneous t issues. The tissues were gently dissected to expose the fascial layer. A hemostat was used to gently grasp the anterior rectus sheath and a Metzenbaum scissor was used to open and expose the peritoneum. This was then entered and the entire area inspected. The abdominal cavity was inspected and no significant adhesions were noted in the region. The rectus sheath was then further opened and the rectus muscles retracted laterally. At this point, the hand assist gel port was placed. The Renal Vein was identified and exposed. Dissection was taken further superior. The laparoscopic harmonic device and blunt dissection was utilized. During this process the patient became hypotensive and was transfused during the procedure. As the vessels were isolated, gentle pressure was applied while the anesthesia team managed the patient with the transfusion. Once the vessels were able to be isolated, The Endo DAXA stapler with a vascular load was selected. This was placed across the renal artery and renal vein. The stapler was engaged and this was inspected. Good placement was noted and the tips were free and all surrounding tissue was retracted away from the are. The vein and the artery were transected after confirming isolation of the artery. The stump was assessed and no major bleeding was noted. A second vascular load was utilized to ligate and cut through additional surround tissues. Once the vessels were ligated there was only minimal blood loss for the remainder of the case. The kidney and surrounding area was inspected. No major bleeding or areas of concern. The perinephric tissues posterior, lateral, superior, and inferior were then freed. The stapling device and harmonic device were utilized to dissect through some of the thicker and more vascular areas especially superior and laterally. Some Significant adhesions were noted laterally and superiorly. The Adrenal gland was not fully able to be identified but appeared to be spared during dissection and was not grossly identified with the mass/surgical specimen. No obvious tumor invasion into the surrounding tissues. This dissection was completed bluntly and with the harmonic device. Once fully freed and any accessory vessels and surrounding tissues fulgurated and sealed with the harmonic device, the ureter was dissected inferiorly with the surrounding retroperitoneal tissues. A stapler was used just superior to the crossing of the iliac vessels to staple and transect the ureter and retroperitoneal tissues. The specimen was then fully freed. It was then removed through the hand assist port and sent for pathologic analysis after inspection. The wound bed was thoroughly inspected with care to assess the IVC, liver, bowel, and colon. Blood clots were irrigated and cleared The area was irrigated. No severe or significant bleeding was noted. The vessel stumps were also inspected. No bleeding or other major areas of concern were discovered. Surgicel hemostatic agent sheets were placed under and behind the spleen as well as on the vessel stumps. Hemostatic agents Floseal was also placed. This Hemostatic agent was also placed on the vessel stumps. No major bleeding or other issues. The entire dissection space was inspected one final time. No bleeding or injuries or areas of concern were noted. No tumor or other concerning features were noted. At this point, The port sites were all assessed laparoscopically. The port sites were closed with the Eugenio Avery device and a 1-0 Vicryl suture. The gel port was removed and the incision and fascial tissue was assessed. The wound bed was inspected a final time without any major bleeding. Counts were completed and correct x 2. The patient was moved out of the flexed position. A 10 Fr Flat drain was placed laterally through the skin and positioned in the gutter. This was fixed with a 2-0 Silk suture and set to drainage. The rectus sheath and lateral fascia was closed with a running 1-0 PDS suture . The subcutaneous tissues were closed with a running 2-0 Vicryl suture. The skin at each port site as well as the skin of the midline incision was closed with surgical barbie. The area was cleaned and bandages were placed. The patient was moved back completely into the supine position The patient was further cleaned, aroused from anesthesia, and transferred to the pacu in stable condition having tolerated the procedure well with no complications. Counts were correct x 2 and no issues or complications were appreciated. I was present and participated in all aspects of the procedure. The nurse practitioner as listed above was critical in the portions as mentioned above. She was also involved with the closure process including fascial closure Will plan to admit/observe postoperatively and monitor. Osorio to be removed in the morning. Will monitor blood pressure and follow with labs. Will likely need followup in 2-3 weeks for pathology I attest to the content of the Intraoperative Record and any orders documented therein. Any exceptions are noted below.
[2021-07-30 17:18] LABS: iSTAT Arterial Blood Gas HCO3 24 meg/L (19-24); iSTAT Arterial Blood Gas pCO2 45 mmHg (35-46); iSTAT Arterial Blood Gas pH 7.34 (7.35-7.45); iSTAT Arterial Blood Gas pO2 196 mmHg (80-95); iSTAT Carbon Dioxide 25 mmol/L (24-31); iSTAT Hematocrit 23 % (37-47); iSTAT Hemoglobin 7.8 g/dl (12.0-16.0); iSTAT Potassium 4.7 mmol/L (3.3-5.0); iSTAT Sodium 133 mmol/L (135-144)
[2021-07-30] MEDS ORDERED: ACETAMINOPHEN 1,000 MG/100 ML VIAL IV STA (17:37)
[2021-07-30] MEDS ORDERED: ACETAMINOPHEN 1000 MG/100 ML IV IV ONE (17:39)
[2021-07-30 17:46] LABS: Basophils # (auto) 0.01 K/uL (0-0.2); Basophils % (auto) 0.1 %; Eosinophils # (auto) 0.01 K/uL (0-0.5); Eosinophils % (auto) 0.1 %; Hematocrit (blood only) 27.7 % (37-47); Hemoglobin 8.3 g/dL (12.0-16.0); Immature Granulocytes # (auto) 0.09 K/uL (0.00-0.02); Immature Granulocytes % (auto) 0.5 %; Lymphocytes # (auto) 1.34 K/uL (1.2-3.4); Lymphocytes % (auto) 7.9 %; Mean Corpuscular Hemoglobin 22.6 pg (25-34); Mean Corpuscular Volume 75.5 fL (80-100); Mean Platelet Volume 9.7 fL (7.4-10.4); Monocytes # (auto) 0.75 K/uL (0.11-0.59); Monocytes % (auto) 4.4 %; Neutrophils # (auto) 14.86 K/uL (1.4-6.5); Platelet Count 494 K/uL (130-400); RDW Coefficient of Variation 18.1 % (11.5-14.5); RDW Standard Deviation 50.1 fL (36.4-46.3); Red Blood Count 3.67 M/uL (4.2-5.4); White Blood Count 17.06 K/uL (4.8-10.8)
--- NOTE | 2021-07-30 18:18 | Anesthesiology Progress Note ---
Date of Service July 30, 2021 Anesthesia Post Procedure Vital Signs Vital Signs: Temp Pulse Pulse Resp BP BP Pulse Ox 07/30/21 18:14 88 14 99/53 L 98 07/30/21 18:00 36.5 C 87 20 92/53 L 94 07/30/21 17:50 86 16 101/47 L 99 07/30/21 17:40 88 19 100/50 L 100 07/30/21 17:30 92 H 17 96/47 L 100 07/30/21 17:20 91 H 19 96/48 L 100 07/30/21 17:12 37 C 92 H 14 96/51 L 100 07/30/21 11:13 37.1 C 94 H 18 142/76 H 142/76 H 96 Pain Intensity Abdomen: Pain Intensity: 5 Transfer of Care Handoff Completed per policy Notes Mental Status: alert / awake / arousable and participated in evaluation Patient Amnestic to Procedure: Yes Nausea / Vomiting: adequately controlled Pain: adequately controlled Airway Patency, RR, SpO2: stable & adequate BP & HR: stable & adequate Hydration State: stable & adequate Anesthetic Complications: no major complications apparent and Pt Satisfied with anesthetic care
[2021-07-30] MEDS ORDERED: MoRPHine SULFATE 2 MG/ML CARP IV PRN (18:34)
[2021-07-30] MEDS ORDERED: PIPERACILL/TAZOBAC CONSULT ACTIVE PRN (18:34)
[2021-07-30] MEDS ORDERED: PIPERACILLIN/TAZOBACTAM 3.375 GM in DEXTROSE 5% 100 ML IV SCH (19:00)
[2021-07-30] MEDS: LACTATED RINGER'S 1,000 ML IV SCH (19:03)
[2021-07-30] MEDS: MoRPHine SULFATE 4 MG/ML 1 ML CARP\\VIAL IV PRN (20:22)
[2021-07-30] MEDS: ONDANSETRON INJ 2 MG/ML 2 ML VIAL IV PRN (20:22)
[2021-07-30] MEDS: PIPERACILLIN/TAZOBACTAM 4.5 GM in DEXTROSE 5% 100 ML IV SCH (20:23)
[2021-07-30] MEDS ORDERED: POLYETHYLENE (MIRALAX) 17 GM PACK PO PRN (20:42)
[2021-07-30] MEDS: DOCUSATE SODIUM 100 MG CAP PO SCH (20:44)
--- NOTE | 2021-07-30 20:50 | Hospitalist Consultation ---
Date of Consultation July 30, 2021 Assessment & Plan (1) S/p nephrectomy: (2) Acute blood loss anemia: POD#0 Robotic Laparoscopic Assisted Right Radical Nephrectomy transition to hand assisted laparoscopic right Nephrectomy by Dr. Gannon due to large renal mass highly suspicious for renal cell carcinoma Intraoperative course complicated by multiple bleeding vessels leading to increased blood loss and intermittent hypotension. Received 1 unit PRBC during procedure with improvement in BP Hgb 8.3, repeat is ordered Transfuse additional PRBC as needed Incentive spirometry, pain control, bowel regimen Pharmacologic DVT prophylaxis when appropriate (patient at increased VTE risk due to tamoxifen therapy) (3) Perirectal abscess: S/p lower EUS on 07/01/2021 for perirectal abscess drainage Completed a 1 week course of Cipro and Flagyl however patient has continued to have intermittent fevers and CT scan as an outpatient on 07/24 suggesting ongoing abscess Patient following with GI, is to start an additional course of Cipro and Flagyl once she has recovered from current surgery (4) HX: breast cancer: On tamoxifen (5) Acid reflux: Continue PPI (6) DVT prophylaxis: TEDs/SCDs for now due to acute blood loss anemia Thank you for this consultation. We will follow the patient with you during their hospital stay. You can reach a member of the [facility] Hospitalist Team 08/11 [facility] [place] Text. Supervising Physician Co-Signing Physician Notes Patient is a 51-year-old female with history of breast cancer, GERD, perirectal abscess and other medical problems was consulted for postop medical management after having right nephrectomy by Dr. Gannon for renal cell carcinoma. Patient is doing well postoperatively. She complains of pain at surgical site which is controlled. Denies any chest pain, shortness of breath, dizziness, nausea, vomiting. Blood pressure relatively low postoperatively. Blood work showed leukocytosis 17 K, hemoglobin 8.3, sodium 133. Patient received 1 unit of PRBCs intraoperatively. Physical Exam: Vitals signs as noted above General Appearance:Obese, no apparent distress Head: normocephalic, Atraumatic Eyes: normal inspection, EOMI Neck: supple, Trachea midline Respiratory/Chest: Normal breath sounds, CTA, No accessory muscle use Cardiovascular: S1, S2, No murmur Abdomen/GI:Soft, Surgical dressing, mild tender, Bowel sounds present Extremities/Musculoskeletal:normal inspection, no edema Neurologic/Psych:AAOX3, grossly no focal neurological deficits Skin: normal color, warm S/P nephrectomy for renal cell carcinoma by Dr. Gannon Acute blood loss postoperative anemia Pain control Bowel regimen to prevent constipation Incentive spirometry Agree with pharmacological DVT prophylaxis as soon as possible given risk for clotting while on tamoxifen Monitor H&H and transfuse PRBCs as needed Wound care, activity as per primary team PT OT when appropriate I personally reviewed the record. Patient is interviewed and examined at bedside. Patient's care is coordinated with Mara Singh ART SPECIALIST. Please refer to the documentation above for details of patient's presentation and for discussion of other issues. History of Present Illness Reason for Consultation: Postop medical management Requesting Physician: Dr. Gannon Attending Physician: Sukhdev Gannon, II, DO History of Present Illness 51-year-old female with PMH breast cancer s/p mastectomy on tamoxifen therapy, IBS, GERD, rectal abscess, and other problems listed below who is s/p planned right nephrectomy today by Dr. Gannon for right renal mass concerning for renal cell carcinoma. Intraoperative course complicated by multiple bleeding vessels leading to increased blood loss and intermittent hypotension. Patient received 1 unit PRBC during the procedure. Postoperatively, patient is doing well. She reports her pain is well controlled #4/10. Reports a dry mouth however denies nausea. No chest pain or shortness of breath. Denies lightheadedness and dizziness. Allergies Allergy/AdvReac Type Severity Reaction Status Date / Time adhesive tape Allergy Intermediate Rash Verified 07/30/21 11:08 codeine Allergy Intermediate TACHYCARDIA Verified 07/30/21 11:08 /PALPITATIO NS Home Medications Medication Instructions Recorded Confirmed Type Lactobacillus acidophilus 10 1 cell PO DAILY 11/27/18 07/30/21 History billion cell capsule (Probiotic) tamoxifen 20 mg tablet 20 mg PO QAM 11/27/18 07/30/21 History ondansetron HCl 4 mg tablet 4 mg PO Q6H PRN tab 07/14/21 07/30/21 History pantoprazole 40 mg tablet,delayed 40 mg PO QAM 07/14/21 07/30/21 History release (Protonix) Patient History Medical History Acid reflux History of high blood pressure HX: breast cancer LEFT- S/P BILATERAL MASTECTOMY WITH LEFT LN REMOVAL WITH RADIATION Renal mass, right Situational anxiety Surgical History Family history of reaction to anesthesia MOTHER>SLOW TO WAKE UP H/O breast reconstruction BILATERAL History of ankle surgery RT History of bilateral tubal ligation History of section X2 History of colonoscopy History of esophagogastroduodenoscopy (EGD) History of mastectomy BILATERAL WITH LEFT LYMPH NODE REMOVAL>BREAST REDUCTION Hx of lumpectomy LEFT Nausea and vomiting after administration of anesthetic agent Family History Aunt FHx: breast cancer Breast cancer Mother FHx: breast cancer Breast cancer Grandmother (Maternal) FHx: breast cancer Breast cancer Father Family history of diabetes mellitus Denies family history of Ovarian cancer Colorectal cancer Social History Smoking Status: Never smoker Second Hand Exposure: No; Hx Alcohol Use: No Hx Substance Use: No Preferred Language: Panamanian Communication Ability: Effective Internet Application Developer Required: No Beliefs That Will Affect Care: None Current Living Situation: Family Current Living Situation Comment: AND 2 SONS Feels Safe at Home: Yes Safety Concerns: Feels Safe At This Time Assistive Devices: None Review of Systems Review of Systems: ROS per HPI, all other systems reviewed and negative Physical Exam Physical Exam: please refer to Dr. Gutiérrez's addendum for physical exam Results & Data Results & Data ([facility]) Vital Signs (Past 12 Hours) Vital Signs Temp Pulse Pulse Resp BP BP Pulse Ox 07/30/21 19:25 36.7 C 89 18 98/59 L 97 07/30/21 18:35 36.4 C L 91 H 16 99/59 L 97 07/30/21 18:14 88 14 99/53 L 98 07/30/21 18:00 36.5 C 87 20 92/53 L 94 07/30/21 17:50 86 16 101/47 L 99 07/30/21 17:40 88 19 100/50 L 100 07/30/21 17:30 92 H 17 96/47 L 100 07/30/21 17:20 91 H 19 96/48 L 100 07/30/21 17:12 37 C 92 H 14 96/51 L 100 07/30/21 11:13 37.1 C 94 H 18 142/76 H 142/76 H 96 Laboratory Results Short CBC 07/30/21 07/30/21 Range/Units 17:33 20:39 WBC 17.06 H 12.62 H (4.8-10.8) K/uL Hgb 8.3 L 7.7 L (12.0-16.0) g/dL Hct 27.7 L 25.6 L (37-47) % Plt Count 494 H 359 (130-400) K/uL
[2021-07-30 20:53] LABS: Hematocrit (blood only) 25.6 % (37-47); Hemoglobin 7.7 g/dL (12.0-16.0); Mean Corpuscular Hemoglobin 22.5 pg (25-34); Mean Corpuscular Hgb Conc 30.1 g/dL (32-36); Mean Corpuscular Volume 74.9 fL (80-100); Mean Platelet Volume 9.3 fL (7.4-10.4); Platelet Count 359 K/uL (130-400); RDW Coefficient of Variation 17.6 % (11.5-14.5); RDW Standard Deviation 48.8 fL (36.4-46.3); Red Blood Count 3.42 M/uL (4.2-5.4); White Blood Count 12.62 K/uL (4.8-10.8)
[2021-07-30] MEDS: ACETAMINOPHEN 325 MG TAB PO PRN (20:56)
[2021-07-30] MEDS ORDERED: metroNIDAZOLE 500 MG TAB PO SCH (21:00)
[2021-07-30 21:25] LABS: BUN Creatinine Ratio 11.2 (10-20); Calcium 7.9 mg/dl (8.5-10.1); Est GFR (African American) 77.4 ml/min; Est GFR (Non-African American) 66.8 ml/min; Potassium 4.4 mmol/L (3.5-5.1)
[2021-07-30 22:52] LABS: Immature Granulocytes # (auto) 0.03 K/uL (0.00-0.02); Immature Granulocytes % (auto) 0.2 %; Lymphocytes # (auto) 0.51 K/uL (1.2-3.4); Monocytes # (auto) 0.66 K/uL (0.11-0.59); Monocytes % (auto) 5.2 %; Neutrophils # (auto) 11.42 K/uL (1.4-6.5); Neutrophils % (auto) 90.6 %; Poikilocytosis Present; Polychromasia 1+
[2021-07-30] MEDS: oxyCODONE HCL IR 5 MG TAB (IMMEDIATE RELEASE) PO PRN (23:52)
[2021-07-31] MEDS: ONDANSETRON INJ 2 MG/ML 2 ML VIAL IV PRN ×2 (00:01→17:06)
[2021-07-31 01:36] LABS: Hematocrit (blood only) 24.9 % (37-47); Hemoglobin 7.6 g/dL (12.0-16.0); Mean Corpuscular Hemoglobin 22.6 pg (25-34); Mean Corpuscular Hgb Conc 30.5 g/dL (32-36); Mean Corpuscular Volume 73.9 fL (80-100); Mean Platelet Volume 9.5 fL (7.4-10.4); Platelet Count 354 K/uL (130-400); RDW Coefficient of Variation 17.3 % (11.5-14.5); RDW Standard Deviation 47.5 fL (36.4-46.3); Red Blood Count 3.37 M/uL (4.2-5.4); White Blood Count 9.18 K/uL (4.8-10.8)
[2021-07-31 01:54] LABS: Albumin Globulin Ratio 1.1 (0.9-2); Albumin Level 2.9 gm/dl (3.4-5.0); BUN Creatinine Ratio 13.6 (10-20); Bilirubin,Total 1.4 mg/dl (0.2-1.0); Calcium 7.8 mg/dl (8.5-10.1); Creatinine Clr Calc Pharmacy 84.6 ml/min; Est GFR (African American) 88.2 ml/min; Est GFR (Non-African American) 76.1 ml/min; Globulin 2.6 gm/dl (2.5-4.0); Potassium 4.6 mmol/L (3.5-5.1); Total Protein 5.5 gm/dl (6.0-8.3)
[2021-07-31 01:56] LABS: Hypochromasia Present; Immature Granulocytes # (auto) 0.02 K/uL (0.00-0.02); Immature Granulocytes % (auto) 0.2 %; Lymphocytes # (auto) 0.61 K/uL (1.2-3.4); Lymphocytes % (auto) 6.6 %; Monocytes # (auto) 0.53 K/uL (0.11-0.59); Monocytes % (auto) 5.8 %; Neutrophils # (auto) 8.02 K/uL (1.4-6.5); Neutrophils % (auto) 87.4 %; Ovalocytes 1+
[2021-07-31] MEDS: PIPERACILLIN/TAZOBACTAM 4.5 GM in DEXTROSE 5% 100 ML IV SCH ×2 (03:55→11:22)
[2021-07-31] MEDS: oxyCODONE HCL IR 5 MG TAB (IMMEDIATE RELEASE) PO PRN ×4 (03:55→20:10)
[2021-07-31] MEDS: LACTATED RINGER'S 1,000 ML IV SCH ×3 (04:27→23:11)
[2021-07-31 06:09] LABS: Hematocrit (blood only) 23.6 % (37-47); Hemoglobin 7.3 g/dL (12.0-16.0); Immature Granulocytes # (auto) 0.04 K/uL (0.00-0.02); Immature Granulocytes % (auto) 0.5 %; Lymphocytes # (auto) 0.81 K/uL (1.2-3.4); Lymphocytes % (auto) 9.1 %; Mean Corpuscular Hemoglobin 22.5 pg (25-34); Mean Corpuscular Hgb Conc 30.9 g/dL (32-36); Mean Corpuscular Volume 72.6 fL (80-100); Mean Platelet Volume 9.5 fL (7.4-10.4); Monocytes # (auto) 0.54 K/uL (0.11-0.59); Monocytes % (auto) 6.1 %; Neutrophils # (auto) 7.48 K/uL (1.4-6.5); Neutrophils % (auto) 84.3 %; Platelet Count 336 K/uL (130-400); RDW Coefficient of Variation 17.4 % (11.5-14.5); RDW Standard Deviation 46.7 fL (36.4-46.3); Red Blood Count 3.25 M/uL (4.2-5.4); White Blood Count 8.87 K/uL (4.8-10.8)
[2021-07-31 06:21] LABS: BUN Creatinine Ratio 13.2 (10-20); Calcium 7.9 mg/dl (8.5-10.1); Creatinine Clr Calc Pharmacy 81.8 ml/min; Est GFR (African American) 84.7 ml/min; Est GFR (Non-African American) 73.1 ml/min; Potassium 4.9 mmol/L (3.5-5.1)
[2021-07-31 06:27] LABS: Hypochromasia Present; Ovalocytes 1+; Polychromasia 1+
[2021-07-31] MEDS: DOCUSATE SODIUM 100 MG CAP PO SCH ×2 (07:49→20:10)
[2021-07-31] MEDS: PANTOprazole 40 MG TAB PO SCH ×2 (07:49→09:57)
[2021-07-31] MEDS: TAMOXIFEN CITRATE 10 MG TABLET PO SCH (07:49)
[2021-07-31] MEDS: ACETAMINOPHEN 325 MG TAB PO PRN ×2 (07:49→14:49)
--- NOTE | 2021-07-31 08:10 | Hospitalist Progress Note ---
Date of Service July 31, 2021 Assessment & Plan (1) S/p nephrectomy: (2) Acute blood loss anemia: Plan: POD#1 Robotic Laparoscopic Assisted Right Radical Nephrectomy transition to hand assisted laparoscopic right Nephrectomy by Dr. Gannon due to large renal mass highly suspicious for renal cell carcinoma Intraoperative course complicated by multiple bleeding vessels leading to increased blood loss and intermittent hypotension. Received 1 unit PRBC during procedure with improvement in BP Hgb 8.3 Repeat Hgb this AM above 7 Transfuse additional PRBC as needed (goal Hgb >7) Incentive spirometry, pain control, bowel regimen Pharmacologic DVT prophylaxis when appropriate (patient at increased VTE risk due to tamoxifen therapy) (3) Perirectal abscess: Plan: S/p lower EUS on 07/01/2021 for perirectal abscess drainage Completed a 1 week course of Cipro and Flagyl however patient has continued to have intermittent fevers and CT scan as an outpatient on 07/24 suggesting ongoing abscess Patient following with GI, is to start an additional course of Cipro and Flagyl once she has recovered from current surgery (4) HX: breast cancer: Plan: On tamoxifen (5) Acid reflux: Plan: Continue PPI (6) DVT prophylaxis: Plan: TEDs/SCDs for now due to acute blood loss anemia Thank you for this consultation. We will follow the patient with you during their hospital stay. You can reach a member of the [facility] Hospitalist Team 08/11 via the [facility] Hospitalist role in [place] Text. Admission and Anticipated Discharge Date Admission Date: July 30, 2021 Subjective Patient seen in follow-up of nephrectomy Currently she is lying in bed in no acute distress, however does complain of some abdominal pain No fevers, chills, chest pain, shortness of breath No bowel movement yet Currently she is on clear liquid diet, she is asking about possibly advancing her diet Review of Systems Review of Systems: All systems reviewed & are unremarkable except as noted in Subjective Physical Exam Physical Exam: General Appearance:Obese, no apparent distress Head: normocephalic, Atraumatic Eyes: normal inspection, EOMI Neck: supple, Trachea midline Respiratory/Chest: Normal breath sounds, CTA, No accessory muscle use Cardiovascular: S1, S2, No murmur Abdomen/GI: Soft, Surgical dressing, mild tender, Bowel sounds present Extremities/Musculoskeletal:normal inspection, no edema Neurologic/Psych:AAOX3, grossly no focal neurological deficits Skin: normal color, warm Results & Data Results & Data ([facility]) Vital Signs (Past 12 Hours) Vital Signs Temp Pulse Pulse Resp BP Pulse Ox 07/31/21 07:29 36.3 C L 72 18 106/62 94 07/31/21 04:10 36.3 C L 63 18 112/70 96 07/30/21 23:24 36.5 C 73 18 109/66 99 07/30/21 23:00 76
--- NOTE | 2021-07-31 13:25 | Urology Progress Note ---
Date of Service July 31, 2021 Assessment & Plan (1) S/p nephrectomy: (2) Acute blood loss anemia: (3) Perirectal abscess: Plan: Large suspicious right renal mass status post robot-assisted laparoscopic converted to hand-assisted laparoscopic nephrectomy. Patient did require transfusion due to large amount of accessory vessels. Patient has drain in place which is draining well without major issue. Has catheter which will be removed today. Has been monitored closely with lab work. Also has been stable on vitals. Patient is working on ambulating. Is having some abdominal cramping and discomfort. We will continue to monitor. And control pain. Likely will stay overnight. We will continue to monitor. We will monitor output over time. We will continue to monitor moving forward. Did encourage patient to increase ambulation. Did discuss utilization of chewing gum or candies to help stimulate return of bowel function. Patient is having some minor belching and encourage patient to have small frequent meals moving forward in order to avoid any development of nausea or vomiting. 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 Patient is on broad- spectrum antibiotics postop continuing her Flagyl as well to help cover the infected fluid collection in the pelvis. Patient is going to be discharged with Cipro and Flagyl per outlying facility GI recommendations. May be able to remove drain prior to discharge and anticipating likely discharge in the next 1 to 2 days. Pathology should be available in the next 1 to 2 weeks. We will plan to do phone call visit at that time to discuss results. Patient will likely have stable removal in the next 7 to 10 days and this will be set up through the office who will call to set this and arrange it. Plan to continue with close monitoring. We will continue with serial labs and monitoring of blood counts. We will monitor vitals. Admission and Anticipated Discharge Date Admission Date: July 30, 2021 Subjective Postop from urologic surgery. Patient has been tolerating well, but is having some pain and discomfort. Incisions have been mild sore. Having some abdominal distension/gas pains. Has tolerated catheter. Has not had severe pain or uncontrollable pain. Patient has been ambulating. Has not had bowel movement or major change. No new nausea or vomiting. Had tolerated anesthesia without major problems Tolerated liquid diet postoperatively. Patient did have a very large amount of accessory vessels likely really related to the tumor. Did have a more significant mild bleeding and required t ransfusion. Has been monitored with blood work and continues to improve. Vitals have remained stable Review of Systems Review of Systems: All systems reviewed & are unremarkable except as noted in HPI & below Physical Exam Physical Exam: General: Alert in no acute distress. HEENT: Normocephalic Atraumatic. Inspection normal. Cranial Nerves 2-12 Grossly intact. Normal inspection of face. Normal inspection of neck. Psychologic: Normal affect. Respiratory: Nonlabored. No use of accessory muscles. No tachypnea or dyspnea. Cardiovascular: No tachycardia Skin: [place] and Dry. No rashes or visible lesions. Extremities/Lymphatics: No edema Abdomen: Appropriately tender. Mild distended. No rebound or guarding. Wound: Clean, dry, covered. Results & Data ([facility]) Vital Signs (Past 12 Hours) Vital Signs Temp Pulse Resp BP Pulse Ox 07/31/21 11:57 36.5 C 66 16 110/65 93 07/31/21 07:29 36.3 C L 72 18 106/62 94 07/31/21 04:10 36.3 C L 63 18 112/70 96 PG Care Time/CCT Total # of Minutes Spent Total Time Spent with Patient: Total time spent is greater than 50% in coordination of care (as documented) at patient's floor/unit and/or counseling patient: Coding Level of Care Code 03377 Subseq Hosp Care Lvl 3 Diagnoses S/p nephrectomy Z90.5 Acute blood loss anemia D62 Perirectal abscess K61.1
[2021-07-31 14:48] LABS: Eosinophils # (auto) 0.01 K/uL (0-0.5); Eosinophils % (auto) 0.1 %; Hematocrit (blood only) 23.3 % (37-47); Hemoglobin 7.2 g/dL (12.0-16.0); Immature Granulocytes # (auto) 0.03 K/uL (0.00-0.02); Immature Granulocytes % (auto) 0.3 %; Lymphocytes # (auto) 1.21 K/uL (1.2-3.4); Lymphocytes % (auto) 11.2 %; Mean Corpuscular Hemoglobin 22.6 pg (25-34); Mean Corpuscular Hgb Conc 30.9 g/dL (32-36); Mean Platelet Volume 9.3 fL (7.4-10.4); Monocytes # (auto) 0.49 K/uL (0.11-0.59); Monocytes % (auto) 4.5 %; Neutrophils # (auto) 9.09 K/uL (1.4-6.5); Neutrophils % (auto) 83.9 %; Platelet Count 374 K/uL (130-400); RDW Coefficient of Variation 17.4 % (11.5-14.5); RDW Standard Deviation 47.2 fL (36.4-46.3); Red Blood Count 3.19 M/uL (4.2-5.4); White Blood Count 10.83 K/uL (4.8-10.8)
[2021-07-31 15:31] LABS: Anisocytosis Present; Polychromasia 1+
[2021-07-31] MEDS: MoRPHine SULFATE 4 MG/ML 1 ML CARP\\VIAL IV PRN (17:02)
[2021-08-01] MEDS: oxyCODONE HCL IR 5 MG TAB (IMMEDIATE RELEASE) PO PRN ×2 (06:33→12:25)
[2021-08-01 07:39] LABS: Hematocrit (blood only) 22.3 % (37-47); Hemoglobin 6.7 g/dL (12.0-16.0); Mean Corpuscular Hemoglobin 22.1 pg (25-34); Mean Corpuscular Volume 73.6 fL (80-100); Mean Platelet Volume 9.4 fL (7.4-10.4); Platelet Count 394 K/uL (130-400); RDW Coefficient of Variation 17.8 % (11.5-14.5); RDW Standard Deviation 48.6 fL (36.4-46.3); Red Blood Count 3.03 M/uL (4.2-5.4)
[2021-08-01 07:54] LABS: BUN Creatinine Ratio 10.1 (10-20); Calcium 8.1 mg/dl (8.5-10.1); Creatinine Clr Calc Pharmacy 83.6 ml/min; Potassium 4.3 mmol/L (3.5-5.1)
[2021-08-01 07:57] LABS: Anisocytosis Present; Eosinophils # (auto) 0.05 K/uL (0-0.5); Eosinophils % (auto) 0.5 %; Immature Granulocytes # (auto) 0.02 K/uL (0.00-0.02); Immature Granulocytes % (auto) 0.2 %; Lymphocytes # (auto) 1.57 K/uL (1.2-3.4); Lymphocytes % (auto) 16.2 %; Monocytes # (auto) 0.48 K/uL (0.11-0.59); Monocytes % (auto) 4.9 %; Neutrophils # (auto) 7.58 K/uL (1.4-6.5); Neutrophils % (auto) 78.2 %; Polychromasia 1+
[2021-08-01] MEDS ORDERED: SODIUM CHLORIDE 0.9% 250 ML IV PRN (08:04)
--- NOTE | 2021-08-01 08:52 | Hospitalist Progress Note ---
Date of Service August 01, 2021 Assessment & Plan (1) S/p nephrectomy: (2) Acute blood loss anemia: Plan: POD#2 Robotic Laparoscopic Assisted Right Radical Nephrectomy transition to hand assisted laparoscopic right Nephrectomy by Dr. Gannon due to large renal mass highly suspicious for renal cell carcinoma Intraoperative course complicated by multiple bleeding vessels leading to increased blood loss and intermittent hypotension. Received 1 unit PRBC during procedure with improvement in BP Hgb 8.3 08/01 - Hgb this AM 6.7 - will transfuse 1 unit of pRBCs Transfuse additional PRBC as needed (goal Hgb >7) Incentive spirometry, pain control, bowel regimen Pharmacologic DVT prophylaxis when appropriate (patient at increased VTE risk due to tamoxifen therapy) (3) Perirectal abscess: Plan: S/p lower EUS on 07/01/2021 for perirectal abscess drainage Completed a 1 week course of Cipro and Flagyl however patient has continued to have intermittent fevers and CT scan as an outpatient on 07/24 suggesting ongoing abscess Patient following with GI, is to start an additional course of Cipro and Flagyl once she has recovered from current surgery (4) HX: breast cancer: Plan: On tamoxifen (5) Acid reflux: Plan: Continue PPI (6) DVT prophylaxis: Plan: TEDs/SCDs for now due to acute blood loss anemia Thank you for this consultation. We will follow the patient with you during their hospital stay. You can reach a member of the [facility] Hospitalist Team 08/11 via the [place] Hospitalist role in [place] Text. Admission and Anticipated Discharge Date Admission Date: July 30, 2021 Subjective Patient seen in follow-up of nephrectomy Currently she is sitting up in bed in no acute distress, feeling much better than yesterday She does complain of some abdominal pain No fevers, chills, chest pain, shortness of breath No bowel movement yet Would like to advance her diet Review of Systems Review of Systems: All systems reviewed & are unremarkable except as noted in Subjective Physical Exam Physical Exam: General Appearance:Obese, no apparent distress Head: normocephalic, Atraumatic Eyes: normal inspection, EOMI Neck: supple, Trachea midline Respiratory/Chest: Normal breath sounds, CTA, No accessory muscle use Cardiovascular: S1, S2, No murmur Abdomen/GI: Soft, Surgical dressing, mild tender, Bowel sounds present Extremities/Musculoskeletal:normal inspection, no edema Neurologic/Psych:AAOX3, grossly no focal neurological deficits Skin: normal color, warm Results & Data Results & Data ([facility]) Vital Signs (Past 12 Hours) Vital Signs Temp Pulse Pulse Resp BP Pulse Ox 08/01/21 07:06 36.6 C 75 16 125/76 95 08/01/21 04:21 36.5 C 18 112/69 95 07/31/21 23:07 36.4 C L 71 18 116/73 94 07/31/21 22:18 61 Laboratory Results 08/01/21 08/01/21 07/31/21 Range/Units 07:04 07:04 14:15 WBC 9.70 10.83 H (4.8-10.8) K/uL RBC 3.03 L 3.19 L (4.2-5.4) M/uL Hgb 6.7 L* 7.2 L (12.0-16.0) g/dL Hct 22.3 L 23.3 L (37-47) % MCV 73.6 L 73.0 L (80-100) fL MCH 22.1 L 22.6 L (25-34) pg MCHC 30.0 L 30.9 L (32-36) g/dL RDW Std Deviation 48.6 H 47.2 H (36.4-46.3) fL RDW Coeff of Edmundo 17.8 H 17.4 H (11.5-14.5) % Plt Count 394 374 (130-400) K/uL MPV 9.4 9.3 (7.4-10.4) fL Immature Gran % (Auto) 0.2 0.3 % Neut % (Auto) 78.2 83.9 % Lymph % (Auto) 16.2 11.2 % [place] % (Auto) 4.9 4.5 % Eos % (Auto) 0.5 0.1 % Baso % (Auto) 0.0 0.0 % Neut # (Auto) 7.58 H 9.09 H (1.4-6.5) K/uL Lymph # (Auto) 1.57 1.21 (1.2-3.4) K/uL [place] # (Auto) 0.48 0.49 (0.11-0.59) K/uL Eos # (Auto) 0.05 0.01 (0-0.5) K/uL Baso # (Auto) 0.00 0.00 (0-0.2) K/uL Immature Gran # (Auto) 0.02 0.03 H (0.00-0.02) K/uL Polychromasia 1+ 1+ Anisocytosis Present Present Sodium 135 L (136-145) mmol/L Potassium 4.3 (3.5-5.1) mmol/L Chloride 100 (98-107) mmol/L Carbon Dioxide 28 (21-32) mmol/L Anion Gap 7 (3-11) BUN 9 (6-23) mg/dl Creatinine 0.89 (0.6-1.2) mg/dl Est Cr Clr Drug Dosing 83.6 ml/min Est GFR ( Amer) 87.0 ml/min Est GFR (Non-Af Amer) 75.0 ml/min BUN/Creatinine Ratio 10.1 (10-20) Glucose 97 (70-99(Fasting)) mg/dl Calcium 8.1 L (8.5-10.1) mg/dl Blood Type Antibody Screen Crossmatch 07/30/21 Range/Units 11:03 WBC (4.8-10.8) K/uL RBC (4.2-5.4) M/uL Hgb (12.0-16.0) g/dL Hct (37-47) % MCV (80-100) fL MCH (25-34) pg MCHC (32-36) g/dL RDW Std Deviation (36.4-46.3) fL RDW Coeff of Edmundo (11.5-14.5) % Plt Count (130-400) K/uL MPV (7.4-10.4) fL Immature Gran % (Auto) % Neut % (Auto) % Lymph % (Auto) % [place] % (Auto) % Eos % (Auto) % Baso % (Auto) % Neut # (Auto) (1.4-6.5) K/uL Lymph # (Auto) (1.2-3.4) K/uL [place] # (Auto) (0.11-0.59) K/uL Eos # (Auto) (0-0.5) K/uL Baso # (Auto) (0-0.2) K/uL Immature Gran # (Auto) (0.00-0.02) K/uL Polychromasia Anisocytosis Sodium (136-145) mmol/L Potassium (3.5-5.1) mmol/L Chloride (98-107) mmol/L Carbon Dioxide (21-32) mmol/L Anion Gap (3-11) BUN (6-23) mg/dl Creatinine (0.6-1.2) mg/dl Est Cr Clr Drug Dosing ml/min Est GFR ( Amer) ml/min Est GFR (Non-Af Amer) ml/min BUN/Creatinine Ratio (10-20) Glucose (70-99(Fasting)) mg/dl Calcium (8.5-10.1) mg/dl Blood Type B Positive Antibody Screen NEGATIVE Crossmatch See Detail Medications Administered Current Inpatient Medications Acetaminophen (Acetaminophen 325 Mg Tab) 650 mg PO Q6H PRN PRN Reason: Pain & Pre PT Stop: 08/29/21 18:33 Last Admin: 07/31/21 14:49 Dose: 650 mg Documented by: Docusate Sodium (Docusate Sodium 100 Mg Cap) 100 mg PO BID [facility] Stop: 08/29/21 20:59 Last Admin: 07/31/21 20:10 Dose: 100 mg Documented by: Lactated Ringer's (Lr) 1,000 mls @ 100 mls/hr IV .Q10H [facility] Stop: 08/29/21 18:33 Last Admin: 07/31/21 23:11 Dose: 100 mls/hr Documented by: Sodium Chloride (Nss) 250 mls @ 15 mls/hr IV .[id number] PRN PRN Reason: For Transfusion Stop: 08/01/21 18:04 Morphine Sulfate (Morphine Sulfate 2 Mg/Ml Carp) 1 mg IV Q3H PRN PRN Reason: Pain (1,2,3,4,5) & Pre PT Stop: 08/13/21 18:33 Morphine Sulfate (Morphine Sulfate 4 Mg/Ml 1 Ml Carp\Vial) 2 mg IV Q3H PRN PRN Reason: Pain (6,7,8,9,10) Stop: 08/13/21 18:33 Last Admin: 07/31/21 17:02 Dose: 2 mg Documented by: Ondansetron HCl (Ondansetron Inj 2 Mg/Ml 2 Ml Vial) 4 mg IV Q6H PRN PRN Reason: Nausea And Vomiting Stop: 08/29/21 18:33 Last Admin: 07/31/21 17:06 Dose: 4 mg Documented by: Oxycodone HCl (Oxycodone Hcl Ir 5 Mg Tab (Immediate Release)) 5 mg PO Q4H PRN PRN Reason: MODERATE Pain (4,5,6) & Pre PT Stop: 08/13/21 18:33 Last Admin: 07/31/21 07:50 Dose: 5 mg Documented by: Oxycodone HCl (Oxycodone Hcl Ir 5 Mg Tab (Immediate Release)) 10 mg PO Q4H PRN PRN Reason: SEVERE Pain (7,8,9,10) Stop: 08/13/21 18:33 Last Admin: 08/01/21 06:33 Dose: 10 mg Documented by: Pantoprazole Sodium (Pantoprazole 40 Mg Tab) 40 mg PO [facility] Stop: 08/30/21 08:59 Last Admin: 07/31/21 09:57 Dose: 40 mg Documented by: Polyethylene Glycol (Polyethylene (Miralax) 17 Gm Pack) 17 gm PO DAILY PRN PRN Reason: Constipation Stop: 08/29/21 20:41 Tamoxifen Citrate (Tamoxifen Citrate 10 Mg Tablet) 20 mg PO [facility] Stop: 08/30/21 08:59 Last Admin: 07/31/21 07:49 Dose: 20 mg Documented by:
[2021-08-01] MEDS: TAMOXIFEN CITRATE 10 MG TABLET PO SCH (08:59)
[2021-08-01] MEDS: DOCUSATE SODIUM 100 MG CAP PO SCH ×2 (08:59→20:07)
[2021-08-01] MEDS: PANTOprazole 40 MG TAB PO SCH (08:59)
--- NOTE | 2021-08-01 09:41 | Urology Progress Note ---
Date of Service August 01, 2021 Assessment & Plan (1) S/p nephrectomy: (2) Acute blood loss anemia: (3) DVT prophylaxis: Plan: Overall she is doing well today, and she is feeling better than she was yesterday. I suspect that the hemoglobin of 6.7 is related to equilibration / fluid shift, rather than ongoing bleeding -her vital signs are remaining stable and she is not having any new or worsening symptoms. We will plan for 1 unit transfusion this morning and recheck CBC this afternoon. No return of bowel function yet, however she is not having any more nausea this morning and is interested in advancing her diet. I think this is reasonable and we discussed that she should start with soft and bland foods. If she develops nausea and vomiting, she will back off on her diet. She is still working on ambulating. I recommend she try to ambulate 3 times in the halls today and be up in the chair for several hours. This will help with bowel function. She can continue with chewing, or hard candies. Ongoing perirectal abscess seen on outpatient CT scan. Planning for additional Cipro/Flagyl. We discussed keeping her in the hospital for another day for close monitoring. Admission and Anticipated Discharge Date Admission Date: July 30, 2021 Subjective Patient is feeling well this morning Reports ongoing soreness in the abdomen, especially at the larger, extraction site incision. Tolerating liquid diet, eager for more solid food Has been up and ambulating a little bit No flatus yet, no bowel movements. Mild nausea yesterday but improved today. Still has MARK drain in place, there has been some fluid seeping around the drain. Still with moderate output. Hemoglobin 6.7 this morning, 1 unit of blood ordered for transfusion. Renal function is stable, creatinine 0.89. Review of Systems Constitutional: No fevers or chills, still feeling tired Ear, Nose, Mouth, Throat: Feels like she has some phlegm in her throat Respiratory: No respiratory issues Genitourinary: Voiding well with catheter removed Physical Exam 2 Physical Exam: Well-appearing, NAD Respiratory: Breathing comfortably on room air, no audible wheezing, occ asionally clearing her throat Cardiovascular: Regular rate and rhythm on telemetry, well-perfused Gastrointestinal (Abdomen): Abdomen soft, appropriately tender, nondistended to palpation. Port sites and extraction site closed with barbie, minimal bruising, no drainage appreciated. Overall healing well. MARK drain in the right upper quadrant with serosanguineous output. Results & Data ([facility]) Vital Signs (Past 12 Hours) Vital Signs Temp Pulse Pulse Resp BP BP Pulse Ox 08/01/21 09:10 36.7 C 77 18 125/75 08/01/21 08:52 36.6 C 77 16 95 08/01/21 07:06 36.6 C 75 16 125/76 95 08/01/21 04:21 36.5 C 18 112/69 95 07/31/21 23:07 36.4 C L 71 18 116/73 94 07/31/21 22:18 61 PG Care Time/CCT Total # of Minutes Spent Total Time Spent with Patient: Total time spent is greater than 50% in coordination of care (as documented) at patient's floor/unit and/or counseling patient: Coding Level of Care Code 81921 Subseq Hosp Care Lvl 2 Diagnoses S/p nephrectomy Z90.5 Acute blood loss anemia D62 DVT prophylaxis Z29.9
[2021-08-01] MEDS: LACTATED RINGER'S 1,000 ML IV SCH (11:58)
[2021-08-01 13:01] LABS: Hemoglobin 8.4 g/dL (12.0-16.0); Mean Corpuscular Hemoglobin 23.5 pg (25-34); Mean Corpuscular Hgb Conc 31.1 g/dL (32-36); Mean Corpuscular Volume 75.4 fL (80-100); Mean Platelet Volume 9.4 fL (7.4-10.4); Platelet Count 427 K/uL (130-400); RDW Standard Deviation 52.7 fL (36.4-46.3); Red Blood Count 3.58 M/uL (4.2-5.4); White Blood Count 11.31 K/uL (4.8-10.8)
[2021-08-01] MEDS: ACETAMINOPHEN 325 MG TAB PO PRN (20:08)
[2021-08-02] MEDS: LACTATED RINGER'S 1,000 ML IV SCH (01:17)
[2021-08-02] MEDS: ACETAMINOPHEN 325 MG TAB PO PRN ×2 (02:07→09:32)
--- NOTE | 2021-08-02 08:19 | Hospitalist Progress Note ---
Date of Service August 02, 2021 Assessment & Plan (1) S/p nephrectomy: (2) Acute blood loss anemia: Plan: POD#3 Robotic Laparoscopic Assisted Right Radical Nephrectomy transition to hand assisted laparoscopic right Nephrectomy by Dr. Gannon due to large renal mass highly suspicious for renal cell carcinoma Intraoperative course complicated by multiple bleeding vessels leading to increased blood loss and intermittent hypotension. Received 1 unit PRBC during procedure with improvement in BP Hgb 8.3 08/01 - Hgb 6.7 - transfused 1 unit of pRBCs. Post transfusion Hgb above 8 08/02 hgb 8.6 stable after blood transfusion yesterday Transfuse additional PRBC as needed (goal Hgb >7) Incentive spirometry, pain control, bowel regimen Pharmacologic DVT prophylaxis when appropriate (patient at increased VTE risk due to tamoxifen therapy) (3) Perirectal abscess: Plan: S/p lower EUS on 07/01/2021 for perirectal abscess drainage Completed a 1 week course of Cipro and Flagyl however patient has continued to have intermittent fevers and CT scan as an outpatient on 07/24 suggesting ongoing abscess Patient following with GI, is to start an additional course of Cipro and Flagyl once she has recovered from current surgery (4) HX: breast cancer: Plan: On tamoxifen (5) Acid reflux: Plan: Continue PPI (6) DVT prophylaxis: Plan: TEDs/SCDs for now due to acute blood loss anemia Thank you for this consultation. We will follow the patient with you during their hospital stay. You can reach a member of the [facility] Hospitalist Team 08/11 via the [place] Hospitalist role in [place] Text. Admission and Anticipated Discharge Date Admission Date: July 30, 2021 Subjective Patient seen in follow-up of nephrectomy Currently she is sitting up in bed in no acute distress She does complain of some abdominal pain but is doing better overall No fevers, chills, chest pain, shortness of breath No bowel movement yet Tolerating diet Review of Systems Review of Systems: All systems reviewed & are unremarkable except as noted in Subjective Physical Exam Physical Exam: General Appearance:Obese, no apparent distress Head: normocephalic, Atraumatic Eyes: normal inspection, EOMI Neck: supple, Trachea midline Respiratory/Chest: Normal breath sounds, CTA, No accessory muscle use Cardiovascular: S1, S2, No murmur Abdomen/GI: Soft, Surgical dressing, mild tender, Bowel sounds present Extremities/Musculoskeletal:normal inspection, no edema Neurologic/Psych:AAOX3, grossly no focal neurological deficits Skin: normal color, warm Results & Data Results & Data ([facility]) Vital Signs (Past 12 Hours) Vital Signs Temp Pulse Pulse Resp BP Pulse Ox 08/02/21 07:11 36.4 C L 67 19 135/85 95 08/02/21 04:04 36.8 C 72 18 118/69 95 08/01/21 23:08 36.4 C L 62 18 122/77 95 08/01/21 22:18 68 Laboratory Results 08/02/21 08/02/21 08/01/21 Range/Units 08:03 08:03 12:50 WBC 8.87 11.31 H (4.8-10.8) K/uL RBC 3.71 L 3.58 L (4.2-5.4) M/uL Hgb 8.6 L 8.4 L (12.0-16.0) g/dL Hct 27.9 L 27.0 L (37-47) % MCV 75.2 L 75.4 L (80-100) fL MCH 23.2 L 23.5 L (25-34) pg MCHC 30.8 L 31.1 L (32-36) g/dL RDW Std Deviation 53.3 H 52.7 H (36.4-46.3) fL RDW Coeff of Edmundo 19.3 H 19.0 H (11.5-14.5) % Plt Count 452 H 427 H (130-400) K/uL MPV 9.4 9.4 (7.4-10.4) fL Immature Gran % (Auto) 0.2 % Neut % (Auto) 78.6 % Lymph % (Auto) 16.2 % [place] % (Auto) 3.9 % Eos % (Auto) 1.0 % Baso % (Auto) 0.1 % Neut # (Auto) 6.96 H (1.4-6.5) K/uL Lymph # (Auto) 1.44 (1.2-3.4) K/uL [place] # (Auto) 0.35 (0.11-0.59) K/uL Eos # (Auto) 0.09 (0-0.5) K/uL Baso # (Auto) 0.01 (0-0.2) K/uL Immature Gran # (Auto) 0.02 (0.00-0.02) K/uL Sodium 136 (136-145) mmol/L Potassium 4.1 (3.5-5.1) mmol/L Chloride 102 (98-107) mmol/L Carbon Dioxide 29 (21-32) mmol/L Anion Gap 5 (3-11) BUN 7 (6-23) mg/dl Creatinine 0.87 (0.6-1.2) mg/dl Est Cr Clr Drug Dosing 85.6 ml/min Est GFR ( Amer) 89.4 ml/min Est GFR (Non-Af Amer) 77.1 ml/min BUN/Creatinine Ratio 8.0 L (10-20) Glucose 134 H (70-99(Fasting)) mg/dl Calcium 8.5 (8.5-10.1) mg/dl Crossmatch 07/30/21 Range/Units 11:03 WBC (4.8-10.8) K/uL RBC (4.2-5.4) M/uL Hgb (12.0-16.0) g/dL Hct (37-47) % MCV (80-100) fL MCH (25-34) pg MCHC (32-36) g/dL RDW Std Deviation (36.4-46.3) fL RDW Coeff of Edmundo (11.5-14.5) % Plt Count (130-400) K/uL MPV (7.4-10.4) fL Immature Gran % (Auto) % Neut % (Auto) % Lymph % (Auto) % [place] % (Auto) % Eos % (Auto) % Baso % (Auto) % Neut # (Auto) (1.4-6.5) K/uL Lymph # (Auto) (1.2-3.4) K/uL [place] # (Auto) (0.11-0.59) K/uL Eos # (Auto) (0-0.5) K/uL Baso # (Auto) (0-0.2) K/uL Immature Gran # (Auto) (0.00-0.02) K/uL Sodium (136-145) mmol/L Potassium (3.5-5.1) mmol/L Chloride (98-107) mmol/L Carbon Dioxide (21-32) mmol/L Anion Gap (3-11) BUN (6-23) mg/dl Creatinine (0.6-1.2) mg/dl Est Cr Clr Drug Dosing ml/min Est GFR ( Amer) ml/min Est GFR (Non-Af Amer) ml/min BUN/Creatinine Ratio (10-20) Glucose (70-99(Fasting)) mg/dl Calcium (8.5-10.1) mg/dl Crossmatch See Detail Medications Administered Current Inpatient Medications Acetaminophen (Acetaminophen 325 Mg Tab) 650 mg PO Q6H PRN PRN Reason: Pain & Pre PT Stop: 08/29/21 18:33 Last Admin: 08/02/21 02:07 Dose: 650 mg Documented by: Docusate Sodium (Docusate Sodium 100 Mg Cap) 100 mg PO BID [facility] Stop: 08/29/21 20:59 Last Admin: 08/01/21 20:07 Dose: 100 mg Documented by: Lactated Ringer's (Lr) 1,000 mls @ 100 mls/hr IV .Q10H [facility] Stop: 08/29/21 18:33 Last Admin: 08/02/21 01:17 Dose: 100 mls/hr Documented by: Morphine Sulfate (Morphine Sulfate 2 Mg/Ml Carp) 1 mg IV Q3H PRN PRN Reason: Pain (1,2,3,4,5) & Pre PT Stop: 08/13/21 18:33 Morphine Sulfate (Morphine Sulfate 4 Mg/Ml 1 Ml Carp\Vial) 2 mg IV Q3H PRN PRN Reason: Pain (6,7,8,9,10) Stop: 08/13/21 18:33 Last Admin: 07/31/21 17:02 Dose: 2 mg Documented by: Ondansetron HCl (Ondansetron Inj 2 Mg/Ml 2 Ml Vial) 4 mg IV Q6H PRN PRN Reason: Nausea And Vomiting Stop: 08/29/21 18:33 Last Admin: 07/31/21 17:06 Dose: 4 mg Documented by: Oxycodone HCl (Oxycodone Hcl Ir 5 Mg Tab (Immediate Release)) 5 mg PO Q4H PRN PRN Reason: MODERATE Pain (4,5,6) & Pre PT Stop: 08/13/21 18:33 Last Admin: 07/31/21 07:50 Dose: 5 mg Documented by: Oxycodone HCl (Oxycodone Hcl Ir 5 Mg Tab (Immediate Release)) 10 mg PO Q4H PRN PRN Reason: SEVERE Pain (7,8,9,10) Stop: 08/13/21 18:33 Last Admin: 08/01/21 12:25 Dose: 10 mg Documented by: Pantoprazole Sodium (Pantoprazole 40 Mg Tab) [address] [facility] Stop: 08/30/21 08:59 Last Admin: 08/01/21 08:59 Dose: 40 mg Documented by: Polyethylene Glycol (Polyethylene (Miralax) 17 Gm Pack) 17 gm PO DAILY PRN PRN Reason: Constipation Stop: 08/29/21 20:41 Tamoxifen Citrate (Tamoxifen Citrate 10 Mg Tablet) [address] [facility] Stop: 08/30/21 08:59 Last Admin: 08/01/21 08:59 Dose: 20 mg Documented by:
[2021-08-02 08:24] LABS: Basophils # (auto) 0.01 K/uL (0-0.2); Basophils % (auto) 0.1 %; Eosinophils # (auto) 0.09 K/uL (0-0.5); Hematocrit (blood only) 27.9 % (37-47); Hemoglobin 8.6 g/dL (12.0-16.0); Immature Granulocytes # (auto) 0.02 K/uL (0.00-0.02); Immature Granulocytes % (auto) 0.2 %; Lymphocytes # (auto) 1.44 K/uL (1.2-3.4); Lymphocytes % (auto) 16.2 %; Mean Corpuscular Hemoglobin 23.2 pg (25-34); Mean Corpuscular Hgb Conc 30.8 g/dL (32-36); Mean Corpuscular Volume 75.2 fL (80-100); Mean Platelet Volume 9.4 fL (7.4-10.4); Monocytes # (auto) 0.35 K/uL (0.11-0.59); Monocytes % (auto) 3.9 %; Neutrophils # (auto) 6.96 K/uL (1.4-6.5); Neutrophils % (auto) 78.6 %; Platelet Count 452 K/uL (130-400); RDW Coefficient of Variation 19.3 % (11.5-14.5); RDW Standard Deviation 53.3 fL (36.4-46.3); Red Blood Count 3.71 M/uL (4.2-5.4); White Blood Count 8.87 K/uL (4.8-10.8)
[2021-08-02 08:45] LABS: Calcium 8.5 mg/dl (8.5-10.1); Creatinine Clr Calc Pharmacy 85.6 ml/min; Est GFR (African American) 89.4 ml/min; Est GFR (Non-African American) 77.1 ml/min; Potassium 4.1 mmol/L (3.5-5.1)
[2021-08-02] MEDS: PANTOprazole 40 MG TAB PO SCH (09:26)
[2021-08-02] MEDS: DOCUSATE SODIUM 100 MG CAP PO SCH (09:26)
[2021-08-02] MEDS: TAMOXIFEN CITRATE 10 MG TABLET PO SCH (09:26)
--- NOTE | 2021-08-02 09:48 | Urology Progress Note ---
Date of Service August 02, 2021 Assessment & Plan (1) S/p nephrectomy: Plan: Recovering appropriately from radical nephrectomy. She is tolerating a diet, pain is controlled, and she is ambulating without any trouble. She is meeting milestones for discharge and would like to go home today. We will plan for discharge home this afternoon. MARK drain still has a moderate output. We will keep the drain in place upon discharge and have her monitor output. Likely drain can be removed in the office this week at the time of staple removal. (2) Acute blood loss anemia: Plan: Hemoglobin responded appropriately to transfusion yesterday. Continues to increase this morning. Very low suspicion for ongoing bleeding. We discussed symptoms for which she should monitor at home. (3) Perirectal abscess: Plan: Perirectal abscess followed by GI. She is slated to start a course of Cipro/Flagyl when she gets home. She already has these medications and has no questions about how they should be taken. Plan: We will plan for discharge home today. We will arrange office follow-up within the next 7 to 10 days for staple removal and drain removal as well as for check in. Admission and Anticipated Discharge Date Admission Date: July 30, 2021 Subjective Feeling better this morning Tolerating some solid foods with no nausea. Has been up and ambulating in the halls and around her room No flatus or bowel movements yet, starting to feel some rumbles Minimal pain at the incisions, managing with Tylenol Received 1 unit PRBC yesterday with appropriate response. Hemoglobin continues to rise this morning. Drain remains in place, moderate serosanguineous output. Review of Systems Constitutional: No fevers or chills Genitourinary: Voiding without any issues Physical Exam Physical Exam: Well-appearing, NAD Respiratory: Breathing comfortably on room air Cardiovascular: Well-perfused Gastrointestinal (Abdomen): Soft, appropriate periincisional tenderness nondistended. Incisions well approximated with barbie. MARK drain in right upper quadrant with serosanguineous output. Musculoskeletal: Grossly normal Results & Data ([facility]) Vital Signs (Past 12 Hours) Vital Signs Temp Pulse Pulse Resp BP Pulse Ox 08/02/21 07:11 36.4 C L 67 19 135/85 95 08/02/21 04:04 36.8 C 72 18 118/69 95 08/01/21 23:08 36.4 C L 62 18 122/77 95 08/01/21 22:18 68 PG Care Time/CCT Total # of Minutes Spent Total Time Spent with Patient: Total time spent is greater than 50% in coordination of care (as documented) at patient's floor/unit and/or counseling patient: Coding Level of Care Code 77295 Subseq Hosp Care Lvl 2 Diagnoses Perirectal abscess K61.1 S/p nephrectomy Z90.5 Acute blood loss anemia D62
--- NOTE | 2021-08-02 10:01 | Discharge Summary ---
Date of Service August 02, 2021 Admission HPI Per Admitting Provider This is a 51-year-old female who was seen in the urology office for a newly diagnosed right-sided renal mass. Due to high likelihood of malignancy, she was brought to the OR on 07/30/2021 for robot-assisted radical nephrectomy. Due to bleeding from parasitic vessels, this was converted to hand-assisted radical nephrectomy. Postoperatively she was admitted to the hospital in stable condition. Admission Exam Per Admitting Provider General: Alert in no acute distress. HEENT: Inspection normal Psychologic: Normal affect. Respiratory: Nonlabored. No use of accessory muscles. Skin: [place] and Dry. No rashes or visible lesions. Abdomen: Soft, nontender Principal Diagnosis Right renal mass Discharge Exam Constitutional well developed and well nourished; no acute distress Eyes + anicteric sclerae; pupils not irregular Respiratory normal respiratory effort; no respiratory distress, does not use accessory muscles and no cough Gastrointestinal (Abdomen) Abdomen soft, appropriate periincisional tenderness. MARK drain in the right upper quadrant with serosanguineous output. Incisions well approximated with barbie. Musculoskeletal Extremities: extremities normal to inspection Skin normal turgor; no rashes and no lesions Neurologic moves all extremities and awake Psychiatric Orientation: alert and oriented x 3 Discharge Data Allergies Allergy/AdvReac Type Severity Reaction Status Date / Time adhesive tape Allergy Intermediate Rash Verified 07/30/21 11:08 codeine Allergy Intermediate TACHYCARDIA Verified 07/30/21 11:08 /PALPITATIO NS Consultations 07/30/21 17:27 Consult Hospitalist Routine Procedures Performed Operation Date: 07/30/21 12:00 Actual Procedures p Robotic Laparoscopic Assisted Right Radical Nephrectomy, hand assisted right Nephrectomy(Right) - Sukhdev Gannon DO Hospital Course (1) S/p nephrectomy: She underwent radical nephrectomy on 07/30/2021. Postoperatively her diet was gradually advanced. Prior to discharge, she was tolerating a regular diet without any nausea or vomiting. Pain was controlled with Tylenol using occas ional oxycodone for breakthrough. Prior to discharge she was ambulating well without any assistance. (2) Acute blood loss anemia: There was moderate bleeding from parasitic vessels at the time of surgery. Postoperatively, her hemoglobin was monitored closely. She received 1 unit of RBCs at the end of the surgery, and received a second unit on 08/01/2021 for a morning hemoglobin that was under 7. Hemoglobin responded appropriately and was stable prior to discharge. (3) Perirectal abscess: Prior to surgery she had been followed by GI for a perirectal abscess. This has been improving on antibiotics. She was maintained on antibiotics at the time of surgery. Going home, she has a course of Cipro/Flagyl that she will continue to take. Total Time Total Time Spent Total Time Spent (In Minutes): 15 Discharge Plan Discharge Items Patient Disposition: Home - Self-Care Reason For Visit: POSTOP Discharge Diagnosis: Right renal mass Activity: Per Instructions section Lifting: No more than 10 pounds Non-emergency contact: Urologist Call non-emergency contact if: your pain is not controlled and your temperature is above 101 Follow-up/Referrals: Emilie Nicole DO [Primary Care Provider] - Diet: Regular Addtl Attending Provider Instructions: Please take all medications as prescribed and keep all follow-ups as scheduled. Please call our office at [phone] with any questions, concerns or need to reschedule appointments for any reason. We are happy to assist you. Recovering at home: We recommend having someone with you for the first few days after surgery to help care for you. It is okay to shower. Please avoid swimming, bathing or using hot tub until incisions are well healed. Avoid driving until you are not requiring pain medication any further. Walk at least a few times a day. Increase your distance, as you feel able. Stairs in your home are okay. Please avoid strenuous or sexual activity until your follow-up. We recommend using stool softener (i.e. Colace) to prevent constipation and straining, especially the first two weeks post operatively. Call [facility] [place] [facility] at [phone] if you experience: Chest pain or trouble breathing (call [phone] or go to the hospital). Fever of 101F or higher Symptoms of infection at incision site, including redness or swelling, warmth, or bad-smelling drainage Pain that is not controlled with medicines We will call to arrange an office visit in 7 to 10 days for staple removal and likely drain removal. Please keep track of your drain output lightheadedness appointment. Pending Studies at Discharge: No Stand-Alone Forms: My [employer], Smoking Cessation Medications and DC Order Prescriptions: New oxycodone 5 mg capsule 5 mg PO Q6H PRN (Reason: pain) Qty: 10 RF: 0 Continued ondansetron HCl 4 mg tablet 4 mg PO Q6H PRN (Reason: Nausea) RF: 0 pantoprazole [Protonix] 40 mg tablet,delayed release (DR/EC) 40 mg PO QAM RF: 0 tamoxifen 20 mg Tablet 20 mg PO QAM RF: 0 Probiotic 10 billion cell Capsule 1 cell PO DAILY RF: 0 Discharge Orders: Discharge Order (Routine); Ordered 08/02/21 Ordered By: Arnulfo Copeland Admission Data Admit Date/Time: 07/30/21 17:17 Attending Provider: Sukhdev Gannon Admit Provider: Sukhdev Gannon Primary Care Provider: Emilie Nicole Other Providers: Louise Clemente ; Jannet Sneed ; Andrew Arroyo ; Laurie Ayala ; Mara Singh ; Brianna Dickson ; Estrella Butler ; Bony Villagomez ; Ap Brennan ; Kana Hernández ; Janine Terry ; Laverne Sawyer ; Fredo Gutiérrez ; Svetlana Aguero ; Hermila Og ; Raoul Howard ; Desiree Dumont ; Tanisha Shelby ; Cesar Paul ; Arely Sorensen I. ; Abdullahi Perea ; Rafi Escalante ; Jazmín Alba ; Chey Bush ; Jagjit Aguilar ; Angel Caraballo Coding Level of Care Code D/C DAY MANAGEMENT <30 MINS Diagnoses Acute blood loss anemia D62 S/p nephrectomy Z90.5 Perirectal abscess K61.1
[2021-08-02] MEDS: ONDANSETRON INJ 2 MG/ML 2 ML VIAL IV PRN (10:37)
== END 2021-08-02 11:55 | disposition home or self-care (01) | DRG 657 ==
LOC: ASU 10:43 → 2S 17:17
DX: D62 Acute posthemorrhagic anemia; C64.1 Malignant neoplasm of right kidney, except renal pelvis; Z68.38 Body mass index [BMI] 38.0-38.9, adult; K21.9 Gastro-esophageal reflux disease without esophagitis; K61.1 Rectal abscess; Z85.3 Personal history of malignant neoplasm of breast; E66.9 Obesity, unspecified; Z88.5 Allergy status to narcotic agent; Z90.13 Acquired absence of bilateral breasts and nipples; K59.00 Constipation, unspecified; Z91.048 Other nonmedicinal substance allergy status

== ENCOUNTER 2023-07-25 15:26 | Inpatient (IN) ==
--- NOTE | 2023-07-25 16:56 | XRay Report ---
XR chest 1V not portable HISTORY: 52 years-old Female Sepsis acute sepsis COMPARISON: 07/05/[address] TECHNIQUE: AP view of the chest FINDINGS: Bilateral breast implants. Cardiomediastinal and hilar silhouettes are unchanged. There is diffuse co arsening of the interstitium. No pneumothorax or large pleural effusion. Bones appear grossly intact. Right subclavian [id number] catheter. IMPRESSION: Nonspecific interstitial coarsening may represent a nonspecific interstitial pneumonitis. Pulmonary edema considered less likely. Follow-up recommended. ACT 112: Negative or not required by law. The above report was generated using voice recognition software. It may contain grammatical, syntax o r spelling errors. Electronically signed by: Wisam Salinas M.D. 07/25/2023 4:54 PM
[2023-07-25 17:03] LABS: Appearance Urine Clear (Clear); Bacteria Urine Automated None Seen (None Seen); Bilirubin Urine Negative (Negative); Blood Urine Negative (Negative); Cast Urine Automated 0-2 /lpf (0-2); Color Urine Yellow; Epithelial Cell Urine Auto 0-2 /hpf (0-2); Glucose Urine UA Negative (Negative); Ketones Urine Negative (Negative); Leukocyte Esterase Urine 1+ (Negative); Nitrite Urine Negative (Negative); Protein Urine Negative (Negative); RBC Urine Automated 0-2 /hpf (0-2); Specific Gravity Urine 1.005 (1.000-1.030); Urobilinogen Urine Negative (Negative); WBC Urine Automated 0-5 /hpf (0-5)
[2023-07-25] MEDS ORDERED: ONDANSETRON INJ 2 MG/ML 2 ML VIAL IV PRN (17:03)
[2023-07-25] MEDS ORDERED: ACETAMINOPHEN 325 MG TAB PO PRN (17:03)
[2023-07-25] MEDS: PIPERACILLIN/TAZOBACTAM 4.5 GM/100 ML BAG IV ONE (17:04)
[2023-07-25] MEDS: SODIUM CHLORIDE 0.9% 1,000 ML IV SCH (17:04)
--- NOTE | 2023-07-25 17:15 | History & Physical Report ---
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 Rhodes is a 52 year old female who has been experiencing cough and intermittent fevers that started on 07/11. She was started on Levaquin by the [facility] on 07/11. She was switched to Augmentin; however, it is not clear what prompted the transition from Levaquin to Augmentin. She had a chest CT on 07/04 that showed good response to immunotherapy treatment, but new scattered ground glass opacities and scattered foci of tree-in-bud nodularity in the Left Upper Lobe suggesting infectious. She went to the [facility] center today for a previously planned restaging appointment; but she wasn't feeling well and was hypotensive with a BP 98/51. 1 LNSB was administered and blood work was drawn; revealing leukocytosis 16.65 prompting them to recommend ER evaluation. Leukocytosis WBC 16.65, lactate 0.7, creatinine 1.68 baseline 1.3-1.5. She was given 1L NS B and started on Zosyn for broad-spectrum coverage. Chest x-ray suggestive of nonspecific interstitial pneumonitis. Procalcitonin, UA, Biofire negative. Patient will be admitted for further evaluation of her Pneumonia. She has leukocytosis and a soft BP on arrival to ED, but no tachycardia or further supporting factor to support sepsis admission at this time. For now, continue IV Zosyn, add Azithromycin, continue gentle fluid resuscitation, sputum culture, MRSA screen, and if no improvement of creatinine in AM; consider renal ultrasound. Blood cultures are also pending. Adjust antibiotics as necessary based on culture results. Hold BP meds, Lasix and any nephrotoxic agents for now. Patient has bibasilar crackles, but is euvolemic on exam; suspect infectious. 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 Goals of Care: Patient follows with Nereida Charles DNP with Palliative Medicine; she recently saw her on Has anxiety and appreciates continued conversation with her Palliative Consult placed Anxiety: Chronic Situational Recently started on Celexa by Palliative Medicine; continue H/O Breast Cancer: Chronic Previous history of pT1b N0 ER/HI positive invasive ductal carcinoma of the left breast for which she is s/p partial mastectomy on 11/08/11 followed by a bilateral prophylactic total mastectomy on 06/2013. She continues to follow with Dr. Lakhani [facility] and Dr. Khalil surg onc at [facility] HTN: Chronic takes Amlodipine and Lisinopril; hold for now given soft BP and RAUL Hypothyroidism: Chronic Takes levothyroxine;continue GERD: Chronic Takes omeprazole; continue Disposition: PCP Dr. Grissom CODE STATUS: Full code VTE prophylaxis: Lovenox SQ I spent a total of 87 minutes coordinating, documenting, and providing care for this patient excluding time spent in the performance of separately billed services. All of the aforementioned completed while collaborating with the assigned attending physician for a full treatment plan. Please see their addendum for further details. History of Present Illness Chief Complaint: cough/fever/PNA Primary Care Provider: Emilie Nicole DO Ms. Rhodes is a 52 year old female who has been experiencing cough and intermittent fevers that started on 07/11. She [facility] She was switched to Augmentin; however, it is not clear what prompted the transition from Levaquin to Augmentin. She had a chest CT on 07/04 that showed good response to immunotherapy treatment, but new scattered ground glass opacities and scattered foci of tree-in-bud nodularity in the Left Upper Lobe suggesting infectious. She went to the [facility] center today for a previously planned restaging appointment; but she wasn't feeling well and was hypotensive with a BP 98/51. 1 LNSB was administered and blood work was drawn; revealing leukocytosis 16.65 prompting them to recommend ER evaluation. I had talked with Dr. Mcclure who offered a clinical summary; unfortunately, patient needed to go through ED for sepsis work up following admission. I spoke with Dr. Victoria who was willing to see her and do initial work up. In the ED, leukocytosis WBC 16.65, lactate 0.7, creatinine 1.68 baseline 1.3- 1.5. She was given 1L NS B and started on Zosyn for broad-spectrum coverage. Chest x-ray suggestive of nonspecific interstitial pneumonitis. Procalcitonin, UA, Biofire negative. Additional past medical history includes HTN, hypothyroidism, and GERD. Patient has been following as an outpatient with palliative medicine. Oncology history includes: 1. Previous history of pT1b N0 ER/HI positive invasive ductal carcinoma of the left breast for which she is s/p partial mastectomy on 11/08/11 followed by a bilateral prophylactic total mastectomy on 06/2013. a. She continues to follow with Dr. Lakhani [facility] and Dr. Khalil surg onc at [facility] 2. Pt has metastatic renal cell that was diagnosed on 07/2021 s/p right nephrectomy. a.She stated axitinib in 11/2021 3.04/08 CTAP revealed findings consistent with significant treatment response and decrease size of recurrence within the R nephrectomy bed. Patient will be admitted for further evaluation of her Pneumonia. She has l eukocytosis and a soft BP on arrival to ED, but no tachycardia or further supporting factor to support sepsis admission at this time. For now, continue IV Zosyn, add Azithromycin, continue gentle fluid resuscitation, sputum culture, MRSA screen, and if no improvement of creatinine in AM; consider renal ultrasound. Blood cultures are also pending. Adjust antibiotics as necessary based on culture results. Patient has bibasilar crackles, but is euvolemic on exam; suspect infectious. Allergies Allergy/AdvReac Type Severity Reaction Status Date / Time codeine AdvReac Intermediate palpitation Verified 06/20/23 10:21 s/tachycard ia adhesive tape AdvReac Mild rash/ red Verified 06/20/23 10:21 skin NSAIDS (Non-Steroidal AdvReac Mild does not Verified 06/20/23 10:21 Anti-Inflamma take d/t only one kidney Home Medications Medication Instructions Recorded Confirmed Type Lactobacillus acidophilus 10 1 cell PO QAM 11/27/18 07/25/23 History billion cell capsule (Probiotic) vitamin B complex (B 1 tab PO QAM 10/09/21 07/25/23 History Complex-Vitamin B12 tablet) iron,carbonyl 65 mg-vitamin C 125 1 tab PO QAM 12/10/21 07/25/23 History mg tablet,delayed release (Vitron-C) pembrolizumab 50 mg intravenous 50 mg IV UD 12/10/21 07/25/23 History solution lisinopril 40 mg tablet 40 mg PO QAM 03/05/22 07/25/23 History levothyroxine 50 mcg tablet 50 mcg PO DAILY 07/12/22 07/25/23 History furosemide 20 mg tablet (Lasix) 20 mg PO DAILY #90 tabs 10/04/22 07/25/23 Rx amlodipine 5 mg tablet 5 mg PO QAM #30 tabs 06/20/23 07/25/23 Rx axitinib 5 mg tablet (Inlyta) 3 mg PO BID 06/20/23 07/25/23 History gabapentin 100 mg capsule 100 mg PO DAILY PRN neuropathy 06/20/23 07/25/23 History omeprazole 10 mg capsule,delayed 10 mg PO DAILY 06/20/23 07/25/23 History release citalopram 20 mg tablet (Celexa) 20 mg PO DAILY depression, anxiety 07/14/23 07/25/23 Rx 3 months #90 tabs levofloxacin 500 mg tablet 500 mg PO DAILY pneumonia 07/14/23 07/25/23 History lorazepam 0.5 mg tablet (Ativan) 0.5 mg PO BID PRN anxiety or 07/14/23 07/25/23 Rx insomnia 1 month #60 tabs Past Med/Surg History Medical History (Updated 07/25/23 @ 17:13 by JENNYFER Snow) Pneumonia Hypertension Insomnia Quality of life palliative care encounter Advanced care planning/counseling discussion Palliative care by specialist Parenting dynamics counseling Social isolation 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 History of COVID-19 diagnosed 03/06/2022 @ [facility]--mild symptoms, cough/body aches--no symptoms now Port-A-Cath in place (05/03/22) Insertion Access Port with Fluoroscopy Right Cephalic(Right) - Curtis Serrano MD, FACS 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 Dr. Serrano Port-A-Cath in place (05/03/22) Port placement. We used fluoroscopy for placement. History of removal of Port-a-Cath (03/09/22) Removal of Access Port(Left) - Dwight Meraz MD, FACS History of anesthesia reaction "got sick"-usually on longer surgeries History of open reduction and internal fixation (ORIF) procedure (~2018) right ankle History of right radical nephrectomy (~07/30/21) Robotic Laparoscopic Assisted Right Radical Nephrectomy transition to hand assisted laparoscopic right Nephrectomy(Right) @ [facility] History of biopsy (~11/16/21) ultrasound guided biopsy area near liver/kidney on upper right quadrant @ [facility] Nausea and vomiting after administration of anesthetic agent History of esophagogastroduodenoscopy (EGD) History of colonoscopy H/O breast reconstruction BILATERAL Hx of lumpectomy LEFT History of bilateral tubal ligation History of section X2 History of mastectomy BILATERAL WITH LEFT LYMPH NODE REMOVAL>BREAST REDUCTION Family History Aunt FHx: breast cancer Breast cancer Mother FHx: breast cancer Breast cancer Family history of reaction to anesthesia slow to wake with anesthesia Grandmother (Maternal) FHx: breast cancer Breast cancer Father Family history of diabetes mellitus Heart disease Hypertension Denies family history of Ovarian cancer Colorectal cancer Social History Smoking Status: Never smoker Second Hand Exposure: No; Do You Dip or Chew Tobacco: No; Hx Alcohol Use: No Hx Substance Use: No Preferred Language: Yoruba Communication Ability: Effective Visual Impairment: No Limitations Inspecting Machine Adjuster Required: No Beliefs That Will Affect Care: None marital status: Current Living Situation: Spouse Current Living Situation Comment: AND 2 SONS Feels Safe at Home: Yes Diet: regular Assistive Devices: None Review of Systems Review of Systems: Neuro: (-) Falls, trauma, slurred speech HEENT: (-) [place], dizziness, dysphagia, visual or auditory changes CV: (-) CP, palpitations, swelling Resp: (-) SOB (+) nonproductive cough GI: (-) appetite changes, N/V/D, bowel changes : (-) urinary changes Skin: (-) rashes Psych: (-) anxiety, depression Physical Exam Physical Exam: Neuro: AAOx4, PERRLA, no aphagia, memory changes, CNII-XII grossly intact HEENT: head normocephalic, moist mucus membranes CV: S1/S2, (-) M/G/R, (-) edema, cap refill < 3 seconds Resp: Lungs bibasilar crackles; on RA GI: Abdomen S/NT/ND, Ax4 bowel sounds, (-) CVA tenderness Musculoskeletal: 5/5 B/L UE strength, 5/5 B/L LE strength. No gait disturbance Skin: (-) rashes , (-) erythema. Psych: euthymic mood Results & Data Results & Data Vital Signs (Past 12 Hours) Vital Signs Temp Pulse Pulse Resp BP BP Pulse Ox 07/25/23 16:39 72 07/25/23 16:19 95 07/25/23 16:19 95 07/25/23 16:18 79 20 113/67 95 07/25/23 16:18 07/25/23 15:47 36.0 C L 80 20 91/64 L 91 O2 Del Method 07/25/23 16:39 07/25/23 16:19 Room Air 07/25/23 16:19 Room Air 07/25/23 16:18 Room Air 07/25/23 16:18 Room Air 07/25/23 15:47 Room Air Laboratory Results Urine 07/25/23 Range/Units 16:16 Urine Color Yellow Urine Appearance Clear (Clear) Urine pH 6.0 (4.5-7.5) Ur Specific [place] 1.005 (1.000-1.030) Urine Protein Negative (Negative) Urine Glucose (UA) Negative (Negative) Diagnostic Findings Chest X-Ray 07/25/23 15:51 XR chest 1V not portable HISTORY: 52 years-old Female Sepsis acute sepsis COMPARISON: 07/05/[address] TECHNIQUE: AP view of the chest FINDINGS: Bilateral breast implants. Cardiomediastinal and hilar silhouettes are unchanged. There is diffuse coarsening of the interstitium. No pneumothorax or large pleural effusion. Bones appear grossly intact. Right subclavian Hfepuf-g-Mgoo catheter. IMPRESSION: Nonspecific interstitial coarsening may represent a nonspecific interstitial pneumonitis. Pulmonary edema considered less likely. Follow-up recommended. ACT 112: Negative or not required by law. The above report was generated using voice recognition software. It may contain grammatical, syntax or spelling errors. Electronically signed by: Wisam Salinas M.D. 07/25/2023 4:54 PM Code Status & VTE Plan Code Status Full code in the event of cardiac and respiratory arrest VTE Prophylaxis Plan VTE Prophylaxis will be ordered: Yes Supervising Physician Co-Signing Physician Notes Patient was seen and examined independently at bedside. Chart reviewed. Case discussed with Anum BURGER and agree with the documentation above. 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 Patient had CT chest done on 07/04 which showed multifocal pneumonia. Patient was started on Levaquin on 07/10 which she did not tolerate well and was changed to Augmentin after 3 doses. States her green sputum has resolved and is now clear but she continues to have intermittent fever up to 103 F at home. Workup in ED shows normal lactate and procalcitonin normal UA, RVP negative, chest x-ray with no acute finding. She was fluid resuscitated and given Zosyn/azithromycin. She feels better during my encounter. Also had mild hypoxia to 88% on room air and was placed on 2 L of oxygen. Sister was at bedside. Discussed plan of care. Continue empiric antibiotics waiting for blood culture results. Will check sputum if able to send. Port site clean. Recommended use of incentive spirometer. Might need to repeat CT scan chest if does not improve as expected. On exam- General: Sitting comfortably in bed, not in distress, on NC HEENT: EOMI, SACHIN, MMM Chest: Clear breath sounds bilaterally with basilar crackles. Port site clean CVS: Regular rate and rhythm, normal heart sounds, no murmur Abdomen: Soft, non tender, not distended, normal bowel sounds Neuro: Awake, alert, oriented, conversing well, non focal Extremities: No edema Psych: Calm, cooperative Rest as per the note above.
--- NOTE | 2023-07-25 17:41 | Emergency Department Note ---
Impression & Plan Pneumonia, Sarcomatoid renal cell carcinoma, Solitary left kidney ED Provider Note NAME: DEMIAN LARA AGE: 52 SEX: F : 1970 ARRIVES VIA: Walk-In INFORMANT: Patient, ED PROVIDER(S): London Victoria MD CHIEF COMPLAINT: Cancer center referral, possible pneumonia, active chemo patient MEDICAL DECISION MAKING: IV was just IV was established and blood work was obtained. The patient did have initial blood work completed prior to arrival but the patient did have procalcitonin lactate IV fluids Zosyn and MRSA swab bio fire chest x-ray completed. Patient's urinalysis does not show evidence of blood or infection bio fire is negative. Lactate 0.7 with Pro-George 0.08. Chest x-ray read as possible nonspecific interstitial pneumonitis. The patient already had blood cultures at the [facility] prior to being referred to the emergency department. I did speak with the on-call hospital service JENNYFER Franco and the patient was admitted by To trauma Discussion w/ other healthcare providers: Skiving Machine Operator, JENNYFER and Dr. Aguilar Prior /Outside records reviewed: I reviewed the patient's blood work that had been completed prior to arrival at the [facility] today which did show a white count of 16. Differential diagnosis: Viral syndrome, otitis, pharyngitis, pneumonia, influenza, meningitis, urinary tract infection, sepsis, bacteremia, as well as other pathologies. Diagnostics, as interpreted by me: ECG: Normal sinus rhythm, rate of 73, normal intervals normal axis T wave inversion 1 and aVL. Cardiac monitoring: An order was placed for continuous cardiac monitoring. The monitor shows a rate of 75 with sinus rhythm. Patient was placed on pulse oximetry Medical decision rules: None Imaging studies: I informally interpreted the patient's chest x-ray shows possible left lower lobe pneumonia with formal report to follow. HPI: Patient presents due to concern for worsening cough. The patient reports that she had cough and intermittent fevers on July 11. The patient had been started on Levaquin for short period of time apparently did not tolerate this very well so was switched to Augmentin after 3 days of treatment. Patient reportedly had gone to the cancer center today as the patient was feeling "not herself." She was seen and evaluated noted to have a lower blood pressure and was ordered IV fluids. Blood work was obtained at that time as well which showed a white count of 16. Patient was subsequently referred to the emergency department from the cancer center for further evaluation and treatment and read to make an admission at this time. Patient currently denies any chest pains or shortness of breath no leg swelling or calf pain. The patient is currently on Keytruda immunotherapy and does take a daily by mouth chemotherapy medication. Patient does have a known history of renal cell carcinoma and is status post right nephrectomy. Was recommended by Dr. Mcclure the patient's primary oncologist that the patient be admitted. PAST MEDICAL HISTORY: See Below PAST SURGICAL HISTORY: See Below SOCIAL HISTORY: See Below HOME MEDICATIONS: See Below ALLERGIES: See Below VITALS: See Below PHYSICAL EXAMINATION: GENERAL: NAD, non-toxic. Wearing glasses and a mask. EYE EXAM: Normal conjunctiva. PERRL, no anisocoria and EOM's grossly intact w/o pain. OROPHARYNX: Moist mucus membranes, grossly normal dentition. NECK: Trachea midline, no stridor. Supple, no nuchal rigidity, no adenopathy, non-tender. No signs of meningismus. FROM of the neck with good chin to chest and neck extension. LUNGS: Bibasilar crackles noted normal chest wall mechanics. HEART: NSR, no MRG. ABDOMEN: Abdomen soft, non-tender, no masses, no rebound or guarding. BACK: No CVA TTP. SKIN: No rashes and no bruising. UPPER EXTREMITIES: Upper extremities are grossly normal. LOWER EXTREMITIES: Grossly normal, no edema. NEURO EXAM: A&O x3, cranial nerves II-XII grossly intact, normal speech, moves all 4 extremities. 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 Dr. Serrano Port-A-Cath in place (05/03/22) Port placement. We used fluoroscopy for placement. History of removal of Port-a-Cath (03/09/22) Removal of Access Port(Left) - Dwight Meraz MD, FACS History of anesthesia reaction "got sick"-usually on longer surgeries History of open reduction and internal fixation (ORIF) procedure (~2018) right ankle History of right radical nephrectomy (~07/30/21) Robotic Laparoscopic Assisted Right Radical Nephrectomy transition to hand assisted laparoscopic right Nephrectomy(Right) @ [facility] History of biopsy (~11/16/21) ultrasound guided biopsy area near liver/kidney [facility] upper [facility] Nausea and vomiting after administration of anesthetic agent History of esophagogastroduodenoscopy (EGD) History of colonoscopy H/O breast reconstruction BILATERAL Hx of lumpectomy LEFT History of bilateral tubal ligation History of section X2 History of mastectomy BILATERAL WITH LEFT LYMPH NODE REMOVAL>BREAST REDUCTION Family History Aunt FHx: breast cancer Breast cancer Mother FHx: breast cancer Breast cancer Family history of reaction to anesthesia slow to wake with anesthesia Grandmother (Maternal) FHx: breast cancer Breast cancer Father Family history of diabetes mellitus Heart disease Hypertension Denies family history of Ovarian cancer Colorectal cancer Social History Smoking Status: Never smoker Second Hand Exposure: No; Do You Dip or Chew Tobacco: No; Hx Alcohol Use: No Hx Substance Use: No Preferred Language: [place] Leonean Communication Ability: Effective Visual Impairment: No Limitations Financial Rep Required: No Beliefs That Will Affect Care: None marital status: Current Living Situation: Spouse and Family Current Living Situation Comment: and 2 teenage sons Feels Safe at Home: Yes Diet: regular Assistive Devices: Glasses and Oxygen - Continuous Allergies Allergies Allergy/AdvReac Type Severity Reaction Status Date / Time codeine AdvReac Intermediate palpitation Verified 06/20/23 10:21 s/tachycard ia adhesive tape AdvReac Mild rash/ red Verified 06/20/23 10:21 skin NSAIDS (Non-Steroidal AdvReac Mild does not Verified 06/20/23 10:21 Anti-Inflamma take d/t only one kidney Home Meds Home Medications Medication Instructions Recorded Confirmed Lactobacillus acidophilus 10 1 cell PO QAM 11/27/18 07/25/23 billion cell capsule (Probiotic) vitamin B complex (B 1 tab PO QAM 10/09/21 07/25/23 Complex-Vitamin B12 tablet) iron,carbonyl 65 mg-vitamin C 125 1 tab PO QAM 12/10/21 07/25/23 mg tablet,delayed release (Vitron-C) pembrolizumab 50 mg intravenous 50 mg IV UD 12/10/21 07/25/23 solution lisinopril 40 mg tablet 40 mg PO QAM 03/05/22 07/25/23 levothyroxine 50 mcg tablet 50 mcg PO DAILY 07/12/22 07/25/23 axitinib 5 mg tablet (Inlyta) 3 mg PO BID 06/20/23 07/25/23 gabapentin 100 mg capsule 100 mg PO DAILY PRN neuropathy 06/20/23 07/25/23 omeprazole 10 mg capsule,delayed 10 mg PO DAILY 06/20/23 07/25/23 release levofloxacin 500 mg tablet 500 mg PO DAILY pneumonia 07/14/23 07/25/23 Previous Rx's Medication Instructions Recorded furosemide 20 mg tablet (Lasix) 20 mg PO DAILY #90 tabs 10/04/22 amlodipine 5 mg tablet 5 mg PO QAM #30 tabs 06/20/23 citalopram 20 mg tablet (Celexa) 20 mg PO DAILY depression, anxiety 07/14/23 3 months #90 tabs lorazepam 0.5 mg tablet (Ativan) 0.5 mg PO BID PRN anxiety or 07/14/23 insomnia 1 month #60 tabs Results & Data (ED) Vital Signs Vital Signs - 24 hr 07/25/23 15:47 07/25/23 16:18 07/25/23 16:18 Temperature 36.0 C L Temperature Source Temporal Artery Scan Pulse Rate 80 Pulse Rate [Apical] 79 Pulse Rhythm Regular Pulse Strength Normal Respiratory Rate 20 20 Respiratory Effort / Characteristics Non-Labored Spontaneous Non-Labored Respiratory Depth Normal Normal Respiratory Pattern Regular Blood Pressure 91/64 L Blood Pressure [Right Arm] 113/67 Blood Pressure Mean 73 Blood Pressure Mean [Right Arm] 82 Blood Pressure Position Sitting Pulse Oximetry 91 95 Oxygen Delivery Method Room Air Room Air Room Air Sepsis Recent Fever Within 48 Hours Yes Sepsis New/Unexplained Change in Mental Status No Sepsis Action Taken by Nursing No Action Required 07/25/23 16:19 07/25/23 16:19 07/25/23 16:39 Temperature Temperature Source Pulse Rate 72 Pulse Rate [Apical] Pulse Rhythm Pulse Strength Respiratory Rate Respiratory Effort / Characteristics Respiratory Depth Respiratory Pattern Blood Pressure Blood Pressure [Right Arm] Blood Pressure Mean Blood Pressure Mean [Right Arm] Blood Pressure Position Pulse Oximetry 95 95 Oxygen Delivery Method Room Air Room Air Sepsis Recent Fever Within 48 Hours Sepsis New/Unexplained Change in Mental Status Sepsis Action Taken by Jail Medications Current Medication List: was personally reviewed by me Laboratory Data Attestation: I reviewed the patient's lab results. 07/26/23 05:38 07/26/23 05:42 Lab Results 07/25/23 07/25/23 Range/Units 16:16 16:42 Lactate 0.7 (0.4-2.0) mmol/L Procalcitonin 0.08 (0-0.5) ng/ml Urine Color Yellow Urine Appearance Clear (Clear) Urine pH 6.0 (4.5-7.5) Ur Specific [place] 1.005 (1.000-1.030) Urine Protein Negative (Negative) Urine Glucose (UA) Negative (Negative) Urine Ketones Negative (Negative) Urine Blood Negative (Negative) Urine Nitrite Negative (Negative) Urine Bilirubin Negative (Negative) Urine Urobilinogen Negative (Negative) Ur Leukocyte Esterase 1+ H (Negative) Urine WBC (Auto) 0-5 (0-5) /hpf Urine RBC (Auto) 0-2 (0-2) /hpf U Hyaline Cast (Auto) 0-2 (0-2) /lpf U Epithel Cells (Auto) 0-2 (0-2) /hpf Urine Bacteria (Auto) None Seen (None Seen) Adenovirus (PCR) Not Detected (NotDetected) B. pertussis DNA (PCR) Not Detected (NotDetected) B.parapertussis DNA PCR Not Detected (NotDetected) C. pneumoniae DNA (PCR) Not Detected (NotDetected) Coronavirus OC43 (PCR) Not Detected (NotDetected) Coronavirus HKU1 (PCR) Not Detected (NotDetected) Coronavirus 229E (PCR) Not Detected (NotDetected) SARS-CoV-2 (PCR) Not Detected (NotDetected) Coronavirus NL63 (PCR) Not Detected (NotDetected) Human Metapneumovir PCR Not Detected (NotDetected) Influenza Type A (PCR) Not Detected (NotDetected) Influenza Type B (PCR) Not Detected (NotDetected) M. pneumoniae (PCR) Not Detected (NotDetected) Parainfluenza 1 (PCR) Not Detected (NotDetected) Parainfluenza 2 (PCR) Not Detected (NotDetected) Parainfluenza 3 (PCR) Not Detected (NotDetected) Parainfluenza 4 (PCR) Not Detected (NotDetected) RSV (PCR) Not Detected (NotDetected) Entero/Rhino (PCR) Not Detected (NotDetected) Administered Medications Citalopram Hydrobromide (Citalopram 20 Mg Tab) 20 mg PO DAILY [facility] Stop: 08/25/23 08:59 Last Admin: 07/26/23 08:41 Dose: 20 mg Documented By: DARIO Enoxaparin Sodium (Enoxaparin Inj 40 Mg/0.4 Ml Syr) 40 mg SQ QAM MERY Stop: 08/25/23 08:59 Last Admin: 07/26/23 08:41 Dose: 40 mg Documented By: DARIO Heparin Sodium (Porcine) (Heparin 100 Unit/Ml 5ml Flush) 5 ml FLUSH PRN PRN PRN Reason: Flush Stop: 08/25/23 01:06 Last Admin: 07/26/23 02:22 Dose: 5 ml Documented By: SYLVESTER Piperacillin Sod/Tazobactam (Sod 4.5 gm/ Dextrose) 100 mls @ 25 mls/hr IV Q8H [facility]; Protocol Stop: 08/01/23 21:29 Last Infusion: 07/26/23 17:07 Dose: Infused Documented By: Admin: 07/26/23 13:07 Dose: 25 mls/hr Documented By: Infusion: 07/26/23 09:32 Dose: Infused Documented By: Admin: 07/26/23 05:44 Dose: 25 mls/hr Documented By: Infusion: 07/26/23 02:03 Dose: Infused Documented By: Admin: 07/25/23 22:01 Dose: 25 mls/hr Documented By: SYLVESTER Azithromycin 500 mg/ Dextrose 255 mls @ 125 mls/hr IV Q24H MERY Stop: 08/01/23 18:29 Last Admin: 07/26/23 17:37 Dose: 125 mls/hr Documented By: Infusion: 07/25/23 23:31 Dose: Infused Documented By: Admin: 07/25/23 18:58 Dose: 125 mls/hr Documented By: ROZINA Lactated Ringer's (Lr) 1,000 mls @ 100 mls/hr IV .Q10H MERY Stop: 07/27/23 05:14 Last Admin: 07/26/23 09:32 Dose: 100 mls/hr Documented By: DARIO Levothyroxine Sodium (Levothyroxine Sodium 50 Mcg Tablet) 50 mcg PO DAILYBB MERY Stop: 08/25/23 06:29 Last Admin: 07/26/23 05:56 Dose: 50 mcg Documented By: SYLVESTER Pantoprazole Sodium (Pantoprazole 40 Mg Tab) 40 mg PO DAILY MERY Stop: 08/25/23 08:59 Last Admin: 07/26/23 08:42 Dose: 40 mg Documented By: DARIO Discontinued Medications Sodium Chloride (Nss) 1,000 mls @ 999 mls/hr IV .Q1H1M MERY Stop: 07/25/23 17:30 Last Infusion: 07/25/23 18:18 Dose: Infused Documented By: Admin: 07/25/23 17:04 Dose: 999 mls/hr Documented By: RODRÍGUEZ Piperacillin Sod/Tazobactam Sod (Zosyn) 4.5 gm in 100 mls @ 200 mls/hr IV NOW ONE Stop: 07/25/23 16:49 Last Infusion: 07/25/23 18:19 Dose: Infused Documented By: Admin: 07/25/23 17:04 Dose: 200 mls/hr Documented By: AVM Miscellaneous (Axitinib (Do Not Tube)--Order Awaiting Action) 1 each N/A QS MERY Stop: 08/25/23 00:00 Last Admin: 07/26/23 11:27 Dose: Not Given Documented By: Admin: 07/26/23 09:15 Dose: Not Given Documented By: Admin: 07/25/23 23:17 Dose: Not Given Documented By: ACH Imaging Data Radiologist's Impression: Chest X-Ray 07/25/23 15:51 XR chest 1V not portable HISTORY: 52 years-old Female Sepsis acute sepsis COMPARISON: 07/05/[address] TECHNIQUE: AP view of the chest FINDINGS: Bilateral breast implants. Cardiomediastinal and hilar silhouettes are unchanged. There is diffuse coarsening of the interstitium. No pneumothorax or large pleural effusion. Bones appear grossly intact. Right subclavian Cosvzb-h-Emce catheter. IMPRESSION: Nonspecific interstitial coarsening may represent a nonspecific interstitial pneumonitis. Pulmonary edema considered less likely. Follow-up recommended. ACT 112: Negative or not required by law. The above report was generated using voice recognition software. It may contain grammatical, syntax or spelling errors. Electronically signed by: Wisam Salinas M.D. 07/25/2023 4:54 PM Discharge Plan Visit Data Chief Complaint: Respiratory Problems Stated Complaint: Pneumonia ED Provider: London Victoria Discharge Problem: Pneumonia, Sarcomatoid renal cell carcinoma, Solitary left kidney Patient Disposition: Admitted As Inpatient Discharge Instructions Interventions: ED Discharge Assessment Last Done: 07/25/23 17:45 Discharge Problem: Pneumonia Qualifiers: Pneumonia type: due to unspecified organism Laterality: left Lung location: l ower lobe of lung Qualified Code(s): J18.9 - Pneumonia, unspecified organism
[2023-07-25 17:45] LABS: Adenovirus PCR Not Detected (NotDetected); Bordetella parapertussis PCR Not Detected (NotDetected); Bordetella pertussis PCR Not Detected (NotDetected); Chlamydia pneumoniae PCR Not Detected (NotDetected); Coronavirus 229E PCR Not Detected (NotDetected); Coronavirus CoV-2 (COVID19)PCR Not Detected (NotDetected); Coronavirus HKU1 PCR Not Detected (NotDetected); Coronavirus NL63 PCR Not Detected (NotDetected); Coronavirus OC43PCR Not Detected (NotDetected); Human Metapneumovirus PCR Not Detected (NotDetected); Influenza A PCR Not Detected (NotDetected); Influenza B PCR Not Detected (NotDetected); Mycoplasma pneumoniae PCR Not Detected (NotDetected); Parainfluenza Virus 1 PCR Not Detected (NotDetected); Parainfluenza Virus 2 PCR Not Detected (NotDetected); Parainfluenza Virus 3 PCR Not Detected (NotDetected); Parainfluenza Virus 4 PCR Not Detected (NotDetected); Respiratory Syncytial VirusPCR Not Detected (NotDetected); Rhinovirus/Enterovirus PCR Not Detected (NotDetected)
[2023-07-25] MEDS: AZITHROMYCIN 500 MG in DEXTROSE 5% 250 ML IV SCH (18:58)
[2023-07-25] MEDS: PIPERACILLIN/TAZOBACTAM 4.5 GM in DEXTROSE 5% MINI-B 100 ML IV SCH (22:01)
[2023-07-26] MEDS: HEPARIN 100 UNIT/ML 5ML FLUSH FLUSH PRN (02:22)
[2023-07-26 05:56] LABS: Hematocrit (blood only) 31.8 % (37.0-47.0); Hemoglobin 10.8 g/dl (12.0-16.0); Mean Corpuscular Hemoglobin 29.3 pg (25.0-34.0); Mean Corpuscular Volume 86.2 fL (80.0-100.0); Mean Platelet Volume 10.5 fL (9.4-12.4); Platelet Count 251 K/uL (130-400); RDW Standard Deviation 40.5 fL (36.4-46.3); Red Blood Count 3.69 M/uL (4.20-5.40); White Blood Count 12.44 K/ul (4.8-10.8)
[2023-07-26] MEDS: LEVOTHYROXINE SODIUM 50 MCG TABLET PO SCH (05:56)
--- NOTE | 2023-07-26 06:07 | Electrocardiogram Report ---
Test Reason : Blood Pressure : / mmHG Vent. Rate : 073 BPM Atrial Rate : 073 BPM P-R Int : 132 ms QRS Dur : 088 ms QT Int : 372 ms P-R-T Axes : 069 -05 094 degrees QTc Int : 409 ms Normal sinus rhythm Nonspecific T wave abnormality Abnormal ECG When compared with ECG of 14-JUL-2021 11:47, Inverted T waves have replaced nonspecific T wave abnormality in Lateral leads Confirmed by Ludwin Talbert ([id number]) on 07/26/2023 6:07:24 AM Referred By: Confirmed By:Ludwin Talbert
[2023-07-26 06:17] LABS: Albumin Globulin Ratio 0.9 (0.9-2); Albumin Level 2.9 gm/dl (3.4-5.0); BUN Creatinine Ratio 16.1 (10-20); Bilirubin,Total 0.4 mg/dl (0.2-1.0); Calcium 8.4 mg/dl (8.6-10.3); Creatinine Clr Calc Pharmacy 58.4 ml/min; Est GFR (African American) 57.8 ml/min; Est GFR (Non-African American) 49.9 ml/min; Globulin 3.2 gm/dl (2.5-4.0); Magnesium 1.8 mg/dl (1.7-2.4); Phosphorus 3.1 mg/dl (2.5-4.9); Total Protein 6.1 gm/dl (6.0-8.3)
[2023-07-26] MEDS: CITALOPRAM 20 MG TAB PO SCH (08:41)
[2023-07-26] MEDS: ENOXAPARIN INJ 40 MG/0.4 ML SYR SQ SCH (08:41)
[2023-07-26] MEDS: PANTOprazole 40 MG TAB PO SCH (08:42)
[2023-07-26] MEDS: LACTATED RINGER'S 1,000 ML IV SCH (09:32)
--- NOTE | 2023-07-26 16:23 | Hospitalist Progress Note ---
Date of Service July 26, 2023 Assessment & Plan (1) Pneumonia: (2) Hypertension: (3) Sarcomatoid renal cell carcinoma: (4) Solitary left kidney: (5) HX: breast cancer: (6) Acid reflux: (7) Acute blood loss anemia: (8) Anxiety associated with depression: Plan Ms. Rhodes is a 52 year old female who has been experiencing cough and intermittent fevers that started on 07/11. She was started on Levaquin by the [facility] on 07/11. She was switched to Augmentin; however, it is not clear what prompted the transition from Levaquin to Augmentin. She had a chest CT on 07/04 that showed good response to immunotherapy treatment, but new scattered ground glass opacities and scattered foci of tree-in-bud nodularity in the Left Upper Lobe suggesting infectious. She went to the [facility] today for a previously planned restaging appointment; but she wasn't feeling well and was hypotensive with a BP 98/51. 1 LNSB was administered and blood work was drawn; revealing leukocytosis 16.65 prompting them to recommend ER evaluation. Leukocytosis WBC 16.65, lactate 0.7, creatinine 1.68 baseline 1.3-1.5. She was given 1L NS B and started on Zosyn for broad-spectrum coverage. Chest x-ray suggestive of nonspecific interstitial pneumonitis. Procalcitonin, UA, Biofire negative. Patient will be admitted for further evaluation of her Pneumonia. She has leukocytosis and a soft BP on arrival to ED, but no tachycardia or further supporting factor to support sepsis admission at this time. For now, continue IV Zosyn, add Azithromycin, continue gentle fluid resuscitation, sputum culture, MRSA screen, and if no improvement of creatinine in AM; consider renal ultrasound. Blood cultures are also pending. Adjust antibiotics as necessary based on culture results. Hold BP meds, Lasix and any nephrotoxic agents for now. Patient has bibasilar crackles, but is euvolemic on exam; suspect infectious. Pneumonia: Possible gram negative pneumonia Failed OPT treatment of Levaquin; then Augmentin --CXR:Nonspecific interstitial coarsening may represent a nonspecific interstitial pneumonitis. Pulmonary edema considered less likely. Follow-up recommended. -- Normal procalcitonin -- Blood culture negative to date --BioFire negative Empirically on Zosyn, azithromycin Continue supplemental oxygen as needed Continue IV fluids Sarcomatoid renal cell carcinoma: S/P Right nephrectomy: Solitary left kidney: Acute kidney injury--POA -Creatinine 1.68>1.2 Hold lisinopril Avoid nephrotoxic agents as able Monitor renal function Currently taking Pembrioizumab Q 6 weeks Previously on Axitnib Follows with oncology as outpatient Goals of Care: Patient follows with Nereida Charles DNP with Palliative Medicine Has anxiety and appreciates continued conversation with her Palliative Consult placed Anxiety: Chronic Situational Recently started on Celexa by Palliative Medicine; continue H/O Breast Cancer: Chronic Previous history of pT1b N0 ER/TX positive invasive ductal carcinoma of the left breast for which she is s/p partial mastectomy on 11/08/11 followed by a bilateral prophylactic total mastectomy on 06/2013. She continues to follow with Dr. Lakhani [facility] Heme/Onc and Dr. Khalil surg onc at [facility] HTN: Amlodipine, lisinopril held due to low BP, RAUL Monitor BP and resume medications as able Hypothyroidism: Continue levothyroxine GERD: Continue PPI DVT Px: Lovenox SQ CODE STATUS: Full code Admission and Anticipated Discharge Date Admission Date: July 25, 2023 Subjective Patient is seen and examined at bedside States having cough with associated dyspnea on exertion States feeling better today Saturating well on minimal supplemental oxygen Offers no other complaints Review of Systems Review of Systems: All systems reviewed & are unremarkable except as noted in Subjective Physical Exam Physical Exam: Physical Exam: Vitals signs as noted above General Appearance:Moderately built and nourished, no apparent distress Head: normocephalic, Atraumatic Eyes: normal inspection, EOMI Neck: supple, Trachea midline Respiratory/Chest: Decreased breath sounds, CTA, No accessory muscle use Cardiovascular: S1, S2, No murmur Abdomen/GI:Soft, Non tender, Bowel sounds present Extremities/Musculoskeletal:normal inspection, Trace pedal edema Neurologic/Psych:AAOX3, grossly no focal neurological deficits Skin: normal color, warm Results & Data Results & Data Vital Signs (Past 12 Hours) Vital Signs Temp Pulse Pulse Pulse Resp BP BP 07/26/23 15:47 36.6 C 61 18 96/64 L 07/26/23 15:12 70 07/26/23 12:17 36.6 C 66 16 94/61 L 07/26/23 08:07 37.1 C 65 16 99/64 L 89/56 L 07/26/23 07:32 07/26/23 07:05 64 07/26/23 05:54 71 20 102/66 07/26/23 04:55 98/63 L 07/26/23 04:50 36.8 C 72 18 93/53 L Pulse Ox O2 Del Method O2 Flow Rate 07/26/23 15:47 94 Nasal Cannula 2.5 07/26/23 15:12 07/26/23 12:17 93 Nasal Cannula 2.5 07/26/23 08:07 94 Nasal Cannula 3 07/26/23 07:32 Nasal Cannula 3 07/26/23 07:05 07/26/23 05:54 91 Nasal Cannula 3 07/26/23 04:55 07/26/23 04:50 90 Nasal Cannula 2 Laboratory Results Short CBC 07/26/23 Range/Units 05:38 WBC 12.44 H (4.8-10.8) K/ul Hgb 10.8 L (12.0-16.0) g/dl Hct 31.8 L (37.0-47.0) % Plt Count 251 (130-400) K/uL BMP 07/26/23 05:42 Sodium 140 Potassium 4.0 Chloride 110 H Carbon Dioxide 25 BUN 20 Creatinine 1.24 H D Glucose 108 H Calcium 8.4 L Liver Function 07/26/23 Range/Units 05:42 Total Bilirubin 0.4 (0.2-1.0) mg/dl AST 12 L (13-39) U/L ALT 9 (7-52) U/L Alkaline Phosphatase 44 (34-104) U/L Albumin 2.9 L (3.4-5.0) gm/dl Urine 07/25/23 Range/Units 16:16 Urine Color Yellow Urine Appearance Clear (Clear) Urine pH 6.0 (4.5-7.5) Ur Specific [place] 1.005 (1.000-1.030) Urine Protein Negative (Negative) Urine Glucose (UA) Negative (Negative)
--- NOTE | 2023-07-26 19:35 | Palliative Care Consultation ---
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 Thank you for allowing us to participate in the ongoing care of this patient. Please don't hesitate to call or page with any additional concerns. Dr. Elle Charles DNP Director, Palliative Care History of Present Illness Reason for Consultation: continuity of care Attending Physician: Fredo uGtiérrez MD History of Present Illness Tanisha is well known to me from OP Pall med clinic. Tanisha Rhodes is a 52yo female with renal cell ca and BrCa (renal followed BrCa) who presented with wrosening PNA, increased fatigue, fevers, dehydration and poor oral intake, dyspnea with nausea. 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 is loving but not a supportive parent in their dyad She has chronic diarrhea from cancer rx but for now this seems better under control but she notes there are times when the urgency is profound decreased appetite PS 1 no significant limitations Allergies Allergy/AdvReac Type Severity Reaction Status Date / Time codeine AdvReac Intermediate palpitation Verified 06/20/23 10:21 s/tachycard ia adhesive tape AdvReac Mild rash/ red Verified 06/20/23 10:21 skin NSAIDS (Non-Steroidal AdvReac Mild does not Verified 06/20/23 10:21 Anti-Inflamma take d/t only one kidney Home Medications Medication Instructions Recorded Confirmed Type Lactobacillus acidophilus 10 1 cell PO QAM 11/27/18 07/25/23 History billion cell capsule (Probiotic) vitamin B complex (B 1 tab PO QAM 10/09/21 07/25/23 History Complex-Vitamin B12 tablet) iron,carbonyl 65 mg-vitamin C 125 1 tab PO QAM 12/10/21 07/25/23 History mg tablet,delayed release (Vitron-C) pembrolizumab 50 mg intravenous 50 mg IV UD 12/10/21 07/25/23 History solution lisinopril 40 mg tablet 40 mg PO QAM 03/05/22 07/25/23 History levothyroxine 50 mcg tablet 50 mcg PO DAILY 07/12/22 07/25/23 History furosemide 20 mg tablet (Lasix) 20 mg PO DAILY #90 tabs 10/04/22 07/25/23 Rx amlodipine 5 mg tablet 5 mg PO QAM #30 tabs 06/20/23 07/25/23 Rx axitinib 5 mg tablet (Inlyta) 3 mg PO BID 06/20/23 07/25/23 History gabapentin 100 mg capsule 100 mg PO DAILY PRN neuropathy 06/20/23 07/25/23 History omeprazole 10 mg capsule,delayed 10 mg PO DAILY 06/20/23 07/25/23 History release citalopram 20 mg tablet (Celexa) 20 mg PO DAILY depression, anxiety 07/14/23 07/25/23 Rx 3 months #90 tabs levofloxacin 500 mg tablet 500 mg PO DAILY pneumonia 07/14/23 07/25/23 History lorazepam 0.5 mg tablet (Ativan) 0.5 mg PO BID PRN anxiety or 07/14/23 07/25/23 Rx insomnia 1 month #60 tabs Patient History Medical History (Updated 07/26/23 @ 19:33 by Elle Charles, MAXIMILIAN) Fatigue Cough Pneumonia Hypertension Insomnia Quality of life palliative care encounter Advanced care planning/counseling discussion Palliative care by specialist Parenting dynamics counseling Social isolation 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 History of COVID-19 diagnosed 03/06/2022 @ [facility]--mild symptoms, cough/body aches--no symptoms now Port-A-Cath in place (05/03/22) Insertion Access Port with Fluoroscopy Right Cephalic(Right) - Curtis Serrano MD, FACS 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 Dr. Serrano Port-A-Cath in place (05/03/22) Port placement. We used fluoroscopy for placement. History of removal of Port-a-Cath (03/09/22) Removal of Access Port(Left) - Dwight Meraz MD, FACS History of anesthesia reaction "got sick"-usually on longer surgeries History of open reduction and internal fixation (ORIF) procedure (~2018) right ankle History of right radical nephrectomy (~07/30/21) Robotic Laparoscopic Assisted Right Radical Nephrectomy transition to hand assisted laparoscopic right Nephrectomy(Right) @ [facility] History of biopsy (~11/16/21) ultrasound guided biopsy area near liver/kidney on upper right quadrant @ [facility] Nausea and vomiting after administration of anesthetic agent History of esophagogastroduodenoscopy (EGD) History of colonoscopy H/O breast reconstruction BILATERAL Hx of lumpectomy LEFT History of bilateral tubal ligation History of section X2 History of mastectomy BILATERAL WITH LEFT LYMPH NODE REMOVAL>BREAST REDUCTION Family History Aunt FHx: breast cancer Breast cancer Mother FHx: breast cancer Breast cancer Family history of reaction to anesthesia slow to wake with anesthesia Grandmother (Maternal) FHx: breast cancer Breast cancer Father Family history of diabetes mellitus Heart disease Hypertension Denies family history of Ovarian cancer Colorectal cancer Social History Smoking Status: Never smoker Second Hand Exposure: No; Do You Dip or Chew Tobacco: No; Hx Alcohol Use: No Hx Substance Use: No Preferred Language: Liberian Communication Ability: Effective Visual Impairment: No Limitations Government Minister Required: No Beliefs That Will Affect Care: None marital status: Current Living Situation: Spouse and Family Current Living Situation Comment: and 2 teenage sons Feels Safe at Home: Yes Diet: regular Assistive Devices: Glasses and Oxygen - Continuous Review of Systems Review of Systems: All systems reviewed & are unremarkable except as noted in Subjective Physical Exam Physical Exam: AAOx3, resting in bed, no acute distress. She is wearing nasal cannula 3 L/min. There is no bitemporal wasting. Pupils are equal round and reactive to light. Neck is supple and there is no stridor or JVD. Respiratory effort is mildly increased with effort. There is no conversational dyspnea. There is a dry intermittent cough. S1-S2. Skin is pale and warm. Cheeks are flushed. She is able to follow commands. Strength is intact. Gait is stable and she is ambulating independently about the room. Results & Data Vital Signs (Past 12 Hours) Vital Signs Temp Pulse Pulse Resp BP BP Pulse Ox 07/26/23 15:47 36.6 C 61 18 96/64 L 94 07/26/23 15:12 70 07/26/23 12:17 36.6 C 66 16 94/61 L 93 07/26/23 08:07 37.1 C 65 16 99/64 L 89/56 L 94 07/26/23 07:32 O2 Del Method O2 Flow Rate 07/26/23 15:47 Nasal Cannula 2.5 07/26/23 15:12 07/26/23 12:17 Nasal Cannula 2.5 07/26/23 08:07 Nasal Cannula 3 07/26/23 07:32 Nasal Cannula 3 Laboratory Results 07/26/23 07/26/23 07/25/23 Range/Units 05:42 05:38 19:20 WBC 12.44 H (4.8-10.8) K/ul RBC 3.69 L (4.20-5.40) M/uL Hgb 10.8 L (12.0-16.0) g/dl Hct 31.8 L (37.0-47.0) % MCV 86.2 (80.0-100.0) fL MCH 29.3 (25.0-34.0) pg MCHC 34.0 (32.0-36.0) g/dL RDW Std Deviation 40.5 (36.4-46.3) fL RDW Coeff of Edmundo 13.0 (11.5-14.5) % Plt Count 251 (130-400) K/uL MPV 10.5 (9.4-12.4) fL Sodium 140 (136-145) mmol/L Potassium 4.0 (3.5-5.1) mmol/L Chloride 110 H (98-107) mmol/L Carbon Dioxide 25 (21-32) mmol/L Anion Gap 5 (3-11) BUN 20 (6-23) mg/dl Creatinine 1.24 H D (0.6-1.2) mg/dl Est Cr Clr Drug Dosing 58.4 ml/min Est GFR ( Amer) 57.8 ml/min Est GFR (Non-Af Amer) 49.9 ml/min BUN/Creatinine Ratio 16.1 (10-20) Glucose 108 H (70-99(Fasting)) mg/dl Lactate (0.4-2.0) mmol/L Calcium 8.4 L (8.6-10.3) mg/dl Phosphorus 3.1 (2.5-4.9) mg/dl Magnesium 1.8 (1.7-2.4) mg/dl Total Bilirubin 0.4 (0.2-1.0) mg/dl AST 12 L (13-39) U/L ALT 9 (7-52) U/L Alkaline Phosphatase 44 (34-104) U/L Total Protein 6.1 D (6.0-8.3) gm/dl Albumin 2.9 L (3.4-5.0) gm/dl Globulin 3.2 (2.5-4.0) gm/dl Albumin/Globulin Ratio 0.9 (0.9-2) Procalcitonin (0-0.5) ng/ml Urine Color Urine Appearance (Clear) Urine pH (4.5-7.5) Ur Specific [place] (1.000-1.030) Urine Protein (Negative) Urine Glucose (UA) (Negative) Urine Ketones (Negative) Urine Blood (Negative) Urine Nitrite (Negative) Urine Bilirubin (Negative) Urine Urobilinogen (Negative) Ur Leukocyte Esterase (Negative) Urine WBC (Auto) (0-5) /hpf Urine RBC (Auto) (0-2) /hpf U Hyaline Cast (Auto) (0-2) /lpf U Epithel Cells (Auto) (0-2) /hpf Urine Bacteria (Auto) (None Seen) Nasal Screen MRSA (PCR) Negative (Negative) Adenovirus (PCR) (NotDetected) B. pertussis DNA (PCR) (NotDetected) B.parapertussis DNA PCR (NotDetected) C. pneumoniae DNA (PCR) (NotDetected) Coronavirus OC43 (PCR) (NotDetected) Coronavirus HKU1 (PCR) (NotDetected) Coronavirus 229E (PCR) (NotDetected) SARS-CoV-2 (PCR) (NotDetected) Coronavirus NL63 (PCR) (NotDetected) Human Metapneumovir PCR (NotDetected) Influenza Type A (PCR) (NotDetected) Influenza Type B (PCR) (NotDetected) M. pneumoniae (PCR) (NotDetected) Parainfluenza 1 (PCR) (NotDetected) Parainfluenza 2 (PCR) (NotDetected) Parainfluenza 3 (PCR) (NotDetected) Parainfluenza 4 (PCR) (NotDetected) RSV (PCR) (NotDetected) Entero/Rhino (PCR) (NotDetected) 07/25/23 07/25/23 Range/Units 16:42 16:16 WBC (4.8-10.8) K/ul RBC (4.20-5.40) M/uL Hgb (12.0-16.0) g/dl Hct (37.0-47.0) % MCV (80.0-100.0) fL MCH (25.0-34.0) pg MCHC (32.0-36.0) g/dL RDW Std Deviation (36.4-46.3) fL RDW Coeff of Edmundo (11.5-14.5) % Plt Count (130-400) K/uL MPV (9.4-12.4) fL Sodium (136-145) mmol/L Potassium (3.5-5.1) mmol/L Chloride (98-107) mmol/L Carbon Dioxide (21-32) mmol/L Anion Gap (3-11) BUN (6-23) mg/dl Creatinine (0.6-1.2) mg/dl Est Cr Clr Drug Dosing ml/min Est GFR ( Amer) ml/min Est GFR (Non-Af Amer) ml/min BUN/Creatinine Ratio (10-20) Glucose (70-99(Fasting)) mg/dl Lactate 0.7 (0.4-2.0) mmol/L Calcium (8.6-10.3) mg/dl Phosphorus (2.5-4.9) mg/dl Magnesium (1.7-2.4) mg/dl Total Bilirubin (0.2-1.0) mg/dl AST (13-39) U/L ALT (7-52) U/L Alkaline Phosphatase (34-104) U/L Total Protein (6.0-8.3) gm/dl Albumin (3.4-5.0) gm/dl Globulin (2.5-4.0) gm/dl Albumin/Globulin Ratio (0.9-2) Procalcitonin 0.08 (0-0.5) ng/ml Urine Color Yellow Urine Appearance Clear (Clear) Urine pH 6.0 (4.5-7.5) Ur Specific [place] 1.005 (1.000-1.030) Urine Protein Negative (Negative) Urine Glucose (UA) Negative (Negative) Urine Ketones Negative (Negative) Urine Blood Negative (Negative) Urine Nitrite Negative (Negative) Urine Bilirubin Negative (Negative) Urine Urobilinogen Negative (Negative) Ur Leukocyte Esterase 1+ H (Negative) Urine WBC (Auto) 0-5 (0-5) /hpf Urine RBC (Auto) 0-2 (0-2) /hpf U Hyaline Cast (Auto) 0-2 (0-2) /lpf U Epithel Cells (Auto) 0-2 (0-2) /hpf Urine Bacteria (Auto) None Seen (None Seen) Nasal Screen MRSA (PCR) (Negative) Adenovirus (PCR) Not Detected (NotDetected) B. pertussis DNA (PCR) Not Detected (NotDetected) B.parapertussis DNA PCR Not Detected (NotDetected) C. pneumoniae DNA (PCR) Not Detected (NotDetected) Coronavirus OC43 (PCR) Not Detected (NotDetected) Coronavirus HKU1 (PCR) Not Detected (NotDetected) Coronavirus 229E (PCR) Not Detected (NotDetected) SARS-CoV-2 (PCR) Not Detected (NotDetected) Coronavirus NL63 (PCR) Not Detected (NotDetected) Human Metapneumovir PCR Not Detected (NotDetected) Influenza Type A (PCR) Not Detected (NotDetected) Influenza Type B (PCR) Not Detected (NotDetected) M. pneumoniae (PCR) Not Detected (NotDetected) Parainfluenza 1 (PCR) Not Detected (NotDetected) Parainfluenza 2 (PCR) Not Detected (NotDetected) Parainfluenza 3 (PCR) Not Detected (NotDetected) Parainfluenza 4 (PCR) Not Detected (NotDetected) RSV (PCR) Not Detected (NotDetected) Entero/Rhino (PCR) Not Detected (NotDetected) Diagnostic Findings Chest X-Ray 07/25/23 15:51 XR chest 1V not portable HISTORY: 52 years-old Female Sepsis acute sepsis COMPARISON: 07/05/[address] TECHNIQUE: AP view of the chest FINDINGS: Bilateral breast implants. Cardiomediastinal and hilar silhouettes are unchang ed. There is diffuse coarsening of the interstitium. No pneumothorax or large pleural effusion. Bones appear grossly intact. Right subclavian Ingimm-n-Oppd catheter. IMPRESSION: Nonspecific interstitial coarsening may represent a nonspecific interstitial pneumonitis. Pulmonary edema considered less likely. Follow-up recommended. ACT 112: Negative or not required by law. The above report was generated using voice recognition software. It may contain grammatical, syntax or spelling errors. Electronically signed by: Wisam Salinas M.D. 07/25/2023 4:54 PM PG Care Time/CCT Total # of Minutes Spent Total Time Spent: 60 Total Time Spent with Patient: Total time spent is greater than 50% in coordination of care (as documented) at patient's floor/unit and/or counseling patient: [place] [address] IN/OBS CONSULT LVL 4,60M Patient Type New History Comprehensive Exam Detailed Medical Decision Making High Complexity Diagnoses Cough R05.9 Depression due to physical illness F06.31 Fatigue R53.83 Anxiety associated with depression F41.8 Palliative care by specialist Z51.5 Quality of life palliative care encounter Z51.5
[2023-07-27 06:18] LABS: BUN Creatinine Ratio 12.7 (10-20); Calcium 8.6 mg/dl (8.6-10.3); Creatinine Clr Calc Pharmacy 66.5 ml/min; Est GFR (African American) 66.4 ml/min; Est GFR (Non-African American) 57.3 ml/min; Potassium 4.1 mmol/L (3.5-5.1)
[2023-07-27 06:27] LABS: Hemoglobin 10.4 g/dl (12.0-16.0); Mean Corpuscular Hemoglobin 28.7 pg (25.0-34.0); Mean Corpuscular Hgb Conc 32.5 g/dL (32.0-36.0); Mean Corpuscular Volume 88.4 fL (80.0-100.0); Platelet Count 249 K/uL (130-400); RDW Coefficient of Variation 12.8 % (11.5-14.5); RDW Standard Deviation 41.6 fL (36.4-46.3); Red Blood Count 3.62 M/uL (4.20-5.40); White Blood Count 10.22 K/ul (4.8-10.8)
[2023-07-27] MEDS: AZITHROMYCIN 250 MG TAB PO SCH (15:09)
--- NOTE | 2023-07-27 15:25 | Hospitalist Progress Note ---
Date of Service July 27, 2023 Assessment & Plan (1) Pneumonia: (2) Hypertension: (3) Sarcomatoid renal cell carcinoma: (4) Solitary left kidney: (5) HX: breast cancer: (6) Acid reflux: (7) Acute blood loss anemia: (8) Anxiety associated with depression: Plan Ms. Rhodes is a 52 year old female who has been experiencing cough and intermittent fevers that started on 07/11. She was started on Levaquin by the [facility] on 07/11. She was switched to Augmentin; however, it is not clear what prompted the transition from Levaquin to Augmentin. She had a chest CT on 07/04 that showed good response to immunotherapy treatment, but new scattered ground glass opacities and scattered foci of tree-in-bud nodularity in the Left Upper Lobe suggesting infectious. She went to the [facility] today for a previously planned restaging appointment; but she wasn't feeling well and was hypotensive with a BP 98/51. 1 LNSB was administered and blood work was drawn; revealing leukocytosis 16.65 prompting them to recommend ER evaluation. Leukocytosis WBC 16.65, lactate 0.7, creatinine 1.68 baseline 1.3-1.5. She was given 1L NS B and started on Zosyn for broad-spectrum coverage. Chest x-ray suggestive of nonspecific interstitial pneumonitis. Procalcitonin, UA, Biofire negative. Patient will be admitted for further evaluation of her Pneumonia. She has leukocytosis and a soft BP on arrival to ED, but no tachycardia or further supporting factor to support sepsis admission at this time. For now, continue IV Zosyn, add Azithromycin, continue gentle fluid resuscitation, sputum culture, MRSA screen, and if no improvement of creatinine in AM; consider renal ultrasound. Blood cultures are also pending. Adjust antibiotics as necessary based on culture results. Hold BP meds, Lasix and any nephrotoxic agents for now. Patient has bibasilar crackles, but is euvolemic on exam; suspect infectious. #Pneumonia:possible gram negative pneumonia/atypical Failed OPT treatment of Levaquin; then Augmentin --CXR:Nonspecific interstitial coarsening may represent a nonspecific interstitial pneumonitis. Pulmonary edema considered less likely. Follow-up recommended. -- Normal procalcitonin -- Blood culture negative to date --BioFire negative Empirically on Zosyn, azithromycin -Transition to Azithro PO and Augmentin 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: #Solitary left kidney: #Acute kidney injury--POA *resolved -Creatinine 1.68>1.2 Hold lisinopril Avoid nephrotoxic agents as able Monitor renal function Currently taking Pembrolizumab Q 6 weeks Previously on Axitnib Follows with oncology as outpatient Goals of Care: Patient follows with Nereida Charles DNP with Palliative Medicine Has anxiety and appreciates continued conversation with her Palliative Consult placed -Recommend continuing op regimen #Anxiety: Chronic Situational Recently started on Celexa by Palliative Medicine; continue #H/O Breast Cancer: Chronic Previous history of pT1b N0 ER/OR positive invasive ductal carcinoma of the left breast for which she is s/p partial mastectomy on 11/08/11 followed by a bilateral prophylactic total mastectomy on 06/2013. She continues to follow with Dr. Lakhani [facility] Heme/Onc and Dr. Khalil surg onc at [facility] #HTN: Amlodipine, lisinopril held due to low BP, RAUL Monitor BP and resume medications as able #Hypothyroidism: Continue levothyroxine #GERD: Continue PPI DVT Px: Lovenox SQ CODE STATUS: Full code Admission and Anticipated Discharge Date Admission Date: July 25, 2023 Subjective Patient is seen and examined at bedside Reports feeling better overall, still with irritating cough in back of throat--but overall improving No longer on O2 Physical Exam Constitutional: WD/WN, vitals as above Respiratory: normal respiratory effort, lungs clear to auscultation dry cough + with deep inhalation, however no rhonchi appreciated Results & Data Results & Data Vital Signs (Past 12 Hours) Vital Signs Temp Pulse Pulse Resp BP BP Pulse Ox 07/27/23 14:51 70 07/27/23 11:25 36.8 C 67 17 102/65 92 07/27/23 10:45 07/27/23 10:32 74 07/27/23 07:53 36.9 C 73 17 92/60 L 93 07/27/23 03:23 36.6 C 68 16 94/59 L 94 O2 Del Method O2 Flow Rate 07/27/23 14:51 07/27/23 11:25 Room Air 07/27/23 10:45 Room Air 07/27/23 10:32 07/27/23 07:53 Room Air 07/27/23 03:23 Nasal Cannula 2.5 Laboratory Results Short CBC 07/27/23 Range/Units 05:37 WBC 10.22 (4.8-10.8) K/ul Hgb 10.4 L (12.0-16.0) g/dl Hct 32.0 L (37.0-47.0) % Plt Count 249 (130-400) K/uL BMP 07/27/23 05:37 Sodium 139 Potassium 4.1 Chloride 108 H Carbon Dioxide 27 BUN 14 Creatinine 1.10 Glucose 83 Calcium 8.6 Medications Administered Home Medications Medication Instructions Recorded Confirmed Last Taken Lactobacillus acidophilus 10 1 cell PO QAM 11/27/18 07/25/23 06/13/22 08:00 billion cell capsule (Probiotic) vitamin B complex (B 1 tab PO QAM 10/09/21 07/25/23 06/01/22 08:00 Complex-Vitamin B12 tablet) iron,carbonyl 65 mg-vitamin C 125 1 tab PO QAM 12/10/21 07/25/23 06/01/22 08:00 mg tablet,delayed release (Vitron-C) pembrolizumab 50 mg intravenous 50 mg IV UD 12/10/21 07/25/23 06/08/22 14:00 solution lisinopril 40 mg tablet 40 mg PO QAM 03/05/22 07/25/23 06/13/22 08:00 levothyroxine 50 mcg tablet 50 mcg PO DAILY 07/12/22 07/25/23 Unknown furosemide 20 mg tablet (Lasix) 20 mg PO DAILY #90 tabs 10/04/22 07/25/23 Unknown amlodipine 5 mg tablet 5 mg PO QAM #30 tabs 06/20/23 07/25/23 Unknown axitinib 5 mg tablet (Inlyta) 3 mg PO BID 06/20/23 07/25/23 Unknown gabapentin 100 mg capsule 100 mg PO DAILY PRN neuropathy 06/20/23 07/25/23 Unknown omeprazole 10 mg capsule,delayed 10 mg PO DAILY 06/20/23 07/25/23 Unknown release citalopram 20 mg tablet (Celexa) 20 mg PO DAILY depression, anxiety 07/14/23 07/25/23 Unknown 3 months #90 tabs levofloxacin 500 mg tablet 500 mg PO DAILY pneumonia 07/14/23 07/25/23 07/14/23 10:00 lorazepam 0.5 mg tablet (Ativan) 0.5 mg PO BID PRN anxiety or 07/14/23 07/25/23 Unknown insomnia 1 month #60 tabs Active Medications Generic Name Dose Route Start Last Admin Trade Name Freq PRN Reason Stop Dose Admin Azithromycin 250 mg 07/27/23 13:30 07/27/23 15:09 Azithromycin 250 Mg Tab PO 08/03/23 13:29 250 mg QAM MERY Administration Citalopram Hydrobromide 20 mg 07/26/23 09:00 07/27/23 07:46 Citalopram 20 Mg Tab PO 08/25/23 08:59 20 mg DAILY MERY Administration Enoxaparin Sodium 40 mg 07/26/23 09:00 07/27/23 07:46 Enoxaparin Inj 40 Mg/0.4 Ml Syr SQ 08/25/23 08:59 40 mg QAM MERY Administration Heparin Sodium (Porcine) 5 ml 07/26/23 01:07 07/26/23 02:22 Heparin 100 Unit/Ml 5ml Flush FLUSH 08/25/23 01:06 5 ml PRN PRN Administration Flush Levothyroxine Sodium 50 mcg 07/26/23 06:30 07/27/23 05:51 Levothyroxine Sodium 50 Mcg Tablet PO 08/25/23 06:29 50 mcg DAILYBB MERY Administration Pantoprazole Sodium 40 mg 07/26/23 09:00 07/27/23 07:46 Pantoprazole 40 Mg Tab PO 08/25/23 08:59 40 mg DAILY MERY Administration (1) Pneumonia Laterality: left Lung location: lower lobe of lung Pneumonia type: due to unspecified organism Qualified Code(s): J18.9 - Pneumonia, unspecified organism
[2023-07-27] MEDS: AMOXICILLIN/CLAVULANATE 875 MG TAB PO SCH (17:34)
--- NOTE | 2023-07-27 18:10 | Communication Note ---
Date of Service: July 27, 2023 Brief Pall Med Note Supportive care visit Today is Tanisha's birthday! She is feeling ok but not dramatically better. Cough seems to be loosening up. She is ambulating around the room and the unit without distress, SpO2 with exertion today was 91%. She admits to some anxiety that O2 was discontinued. Appetite is ok, overall feels this has improved since admission and nausea diminished since IVF Anxiety is ok, not feeling panic Somewhat orr - worried about going home and being able to recuperate/rest and not have the usual stressors affect her in a way that impedes recovering from PNA. COntinues to tolerate meds No change from pall med perspective Supportive counseling and Happy Birthday wishes delivered. NO charge submitted for this visit. TS 22min face to face Thank you for allowing us to participate in the ongoing care of this patient. Please don't hesitate to call or page with any additional concerns. Dr. Elle Charles DNP Director, Palliative Care
[2023-07-28 05:22] LABS: Hematocrit (blood only) 32.6 % (37.0-47.0); Hemoglobin 10.8 g/dl (12.0-16.0); Mean Corpuscular Hemoglobin 28.7 pg (25.0-34.0); Mean Corpuscular Hgb Conc 33.1 g/dL (32.0-36.0); Mean Corpuscular Volume 86.7 fL (80.0-100.0); Mean Platelet Volume 11.1 fL (9.4-12.4); Platelet Count 274 K/uL (130-400); RDW Coefficient of Variation 12.9 % (11.5-14.5); RDW Standard Deviation 40.4 fL (36.4-46.3); Red Blood Count 3.76 M/uL (4.20-5.40)
[2023-07-28 05:33] LABS: BUN Creatinine Ratio 10.3 (10-20); Calcium 8.7 mg/dl (8.6-10.3); Creatinine Clr Calc Pharmacy 68.3 ml/min; Est GFR (African American) 68.6 ml/min; Est GFR (Non-African American) 59.2 ml/min; Potassium 4.1 mmol/L (3.5-5.1)
--- NOTE | 2023-07-28 09:53 | Discharge Summary ---
Discharge Summary Date of Service July 28, 2023 Notes For Next Care Provider Patient clinically improved. No sputum for culture; change in regimen included macrolide coverage which suggest likely atypical pneumonia; however, repeat imaging considered in future given concern for interstitial pneumonitis with pembrolizumab Medication Changes From Visit Held Amlodipine, Lasix, Lisinopril; discuss resumption if necessary as OP Admission HPI Per Admitting Provider Ms. Rhodes is a 52 year old female who has been experiencing cough and intermittent fevers that started on 07/11. She was started on Levaquin by the cancer [facility] on 07/11. She was switched to Augmentin; however, it is not clear what prompted the transition from Levaquin to Augmentin. She had a chest CT on 07/04 that showed good response to immunotherapy treatment, but new scattered ground glass opacities and scattered foci of tree-in-bud nodularity in the Left Upper Lobe suggesting infectious. She went to the [facility] today for a previously planned restaging appointment; but she wasn't feeling well and was hypotensive with a BP 98/51. 1 LNSB was administered and blood work was drawn; revealing leukocytosis 16.65 prompting them to recommend ER evaluation. I had talked with Dr. Mcclure who offered a clinical summary; unfortunately, patient needed to go through ED for sepsis work up following admission. I spoke with Dr. Victoria who was willing to see her and do initial work up. In the ED, leukocytosis WBC 16.65, lactate 0.7, creatinine 1.68 baseline 1.3- 1.5. She was given 1L NS B and started on Zosyn for broad-spectrum coverage. Chest x-ray suggestive of nonspecific interstitial pneumonitis. Procalcitonin, UA, Biofire negative. Additional past medical history includes HTN, hypothyroidism, and GERD. Patient has been following as an outpatient with palliative medicine. Oncology history includes: 1. 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 a. She continues to follow with Dr. Lakhani [facility]c and Dr. Khalil surg onc at [facility] 2. Pt has metastatic renal cell that was diagnosed on 07/2021 s/p right nephrectomy. a.She stated axitinib in 11/2021 3.04/08 CTAP revealed findings consistent with significant treatment response and decrease size of recurrence within the R nephrectomy bed. Patient will be admitted for further evaluation of her Pneumonia. She has leukocytosis and a soft BP on arrival to ED, but no tachycardia or further supporting factor to support sepsis admission at this time. For now, continue IV Zosyn, add Azithromycin, continue gentle fluid resuscitation, sputum culture, MRSA screen, and if no improvement of creatinine in AM; consider renal ultrasound. Blood cultures are also pending. Adjust antibiotics as necessary based on culture results. Patient has bibasilar crackles, but is euvolemic on exam; suspect infectious. Admission Exam Per Admitting Provider Neuro: AAOx4, PERRLA, no aphagia, memory changes, CNII-XII grossly intact HEENT: head normocephalic, moist mucus membranes CV: S1/S2, (-) M/G/R, (-) edema, cap refill < 3 seconds Resp: Lungs bibasilar crackles; on RA GI: Abdomen S/NT/ND, Ax4 bowel sounds, (-) CVA tenderness Musculoskeletal: 5/5 B/L UE strength, 5/5 B/L LE strength. No gait disturbance Skin: (-) rashes , (-) erythema. 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 Rhodes is a 52 year old female who has been experiencing cough and intermittent fevers that started on 07/11. She was [facility]. She was switched to Augmentin; however, it is not clear what prompted the transition from Levaquin to Augmentin. She had a chest CT on 07/04 that showed good response to immunotherapy treatment, but new scattered ground glass opacities and scattered foci of tree-in-bud nodularity in the Left Upper Lobe suggesting infectious. She went to the [facility] center today for a previously planned restaging appointment; but she wasn't feeling well and was hypotensive with a BP 98/51. 1 LNSB was administered and blood work was drawn; revealing leukocytosis 16.65 prompting them to recommend ER evaluation. Leukocytosis WBC 16.65, lactate 0.7, creatinine 1.68 baseline 1.3-1.5. She was given 1L NS B and started on Zosyn for broad-spectrum coverage. Chest x-ray suggestive of nonspecific interstitial pneumonitis. Procalcitonin, UA, Biofire negative. Patient will be admitted for further evaluation of her Pneumonia. Leukocytosis resolved, renal function returned to baseline. 2 step obtained and no oxygen requirement. Patient doing well on transition to PO antibiotics upon discharge. Patient with residual dry cough, but reports feeling significantly improved. Pressure on lower side and all bp meds held. #Pneumonia:possible gram negative pneumonia/atypical Failed OPT treatment of Levaquin; then Augmentin --CXR:Nonspecific interstitial coarsening may represent a nonspecific interstitial pneumonitis. Pulmonary edema considered less likely. Follow-up recommended. -- Normal procalcitonin -- Blood culture negative to date --BioFire negative Empirically on Zosyn, azithromycin -Transition to Azithro PO and Augmentin -Discharge with 5 more days and planned follow up with Oncology/PCP to discuss timing. 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: #Solitary left kidney: #Acute kidney injury--POA *resolved -Creatinine 1.68>1.2 Hold lisinopril, discuss resumption as OP Avoid nephrotoxic agents as able Monitor renal function Currently taking Pembrolizumab Q 6 weeks Previously on Axitnib Follows with oncology as outpatient Goals of Care: Patient follows with Nereida Charles DNP with Palliative Medicine Has anxiety and appreciates continued conversation with her Palliative Consult placed -Recommend continuing op regimen #Anxiety: Chronic Situational Recently started on Celexa by Palliative Medicine; continue #H/O Breast Cancer: Chronic Previous history of pT1b N0 ER/AK positive invasive ductal carcinoma of the left breast for which she is s/p partial mastectomy on 11/08/11 followed by a bilateral prophylactic total mastectomy on 06/2013. She continues to follow with Dr. Lakhani [facility] and Dr. Khalil surg onc at [facility] #HTN: Amlodipine, lisinopril held due to low BP, RAUL Monitor BP and resume medications as able #Hypothyroidism: Continue levothyroxine #GERD: Continue PPI Discharge Exam Constitutional WD/WN, vitals as above Respiratory normal respiratory effort, lungs clear to auscultation Cardiovascular RRR, no murmur, no edema Gastrointestinal (Abdomen) normal bowel sounds, soft, nontender, no hepatosplenomegaly Updated Medication List Medication Instructions Recorded Confirmed Type Lactobacillus acidophilus 10 1 cell PO QAM 11/27/18 07/25/23 History billion cell capsule (Probiotic) vitamin B complex (B 1 tab PO QAM 10/09/21 07/25/23 History Complex-Vitamin B12 tablet) iron,carbonyl 65 mg-vitamin C 125 1 tab PO QAM 12/10/21 07/25/23 History mg tablet,delayed release (Vitron-C) pembrolizumab 50 mg intravenous 50 mg IV UD 12/10/21 07/25/23 History solution lisinopril 40 mg tablet 40 mg PO QAM 03/05/22 07/25/23 History levothyroxine 50 mcg tablet 50 mcg PO DAILY 07/12/22 07/25/23 History furosemide 20 mg tablet (Lasix) 20 mg PO DAILY #90 tabs 10/04/22 07/25/23 Rx amlodipine 5 mg tablet 5 mg PO QAM #30 tabs 06/20/23 07/25/23 Rx axitinib 5 mg tablet (Inlyta) 3 mg PO BID 06/20/23 07/25/23 History gabapentin 100 mg capsule 100 mg PO DAILY PRN neuropathy 06/20/23 07/25/23 History omeprazole 10 mg capsule,delayed 10 mg PO DAILY 06/20/23 07/25/23 History release citalopram 20 mg tablet (Celexa) 20 mg PO DAILY depression, anxiety 07/14/23 07/25/23 Rx 3 months #90 tabs lorazepam 0.5 mg tablet (Ativan) 0.5 mg PO BID PRN anxiety or 07/14/23 07/25/23 Rx insomnia 1 month #60 tabs amoxicillin 875 mg-potassium 1 tab PO BIDM 5 days #10 tabs 07/28/23 Rx clavulanate 125 mg tablet azithromycin 250 mg tablet 250 mg PO QAM 5 days #5 tabs 07/28/23 Rx Hospital Stay Data Consultations 07/25/23 16:45 ED Decision to Admit Stat 07/25/23 18:23 Consult Palliative Care Routine Pending Results Patient Have Any Pending Studies at Discharge: No Discharge Instructions Given to Patient (Per Discharging Provider) You were admitted for concerns of pneumonia. You improved with IV antibiotics. Steroids were deferred. It is recommended you follow up with PCP and Oncology to discuss timing of repeat Chest imaging, as well as any continued symptoms. You were tested with respiratory therapy and did not require oxygen. You have 5 more days of antibiotics: -Augmentin 1 tablet two times a day, your next dose it this evening (07/27) -Azithromycin 250mg 1 tablet daily, your next dose is tomorrow morning (07/28 ) Your blood pressure medications are held at this time. Please follow up with PCP to determine resumption if necessary. Total Time Total Time Spent Total Time Spent (In Minutes): 45
== END 2023-07-28 10:59 | disposition home or self-care (01) | DRG 178 ==
LOC: ED 15:26 → EDINP 17:03 → SUATTDRO 17:03 → 2W 17:45

== ENCOUNTER 2024-04-01 16:47 | Inpatient (IN) ==
--- OUTSIDE RECORDS SUMMARY | 2024-04-01 17:13 | External Medical Summary | Continuity of Care Document ---
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 Name Role Phone Emilie Nicole Primary Care Physician [phone] Encounter [facility] [id number] Date(s): 03/20/24 - 03/20/24 [facility] [address] [facility] [address], [address], [address] RACHAEL [id number] [phone] Encounter Diagnosis Body mass index [BMI] 33.0-33.9, adult(Discharge Diagnosis) - 03/20/24 IRENE gene mutation positive(Discharge Diagnosis) - 03/20/24 PALB2 positive(Discharge Diagnosis) - 03/20/24 Discharge Disposition: Home or Self Care Attending Physician: JENNYFER Dawson Stacey W Referring Physician: KONRAD Clarke Amanda Kathryn Allergies, Adverse Reactions, Alerts Substance Criticality Severity Reaction Reaction Severity Status codeine heart races Active Advil Unable to assess criticality Mild one kidney Active Adhesive bandage Rash Blister Active Medications amLODIPine 5 mg oral tablet Start: 10/17/23 11:08:00 AM EDT, 30 unknown unit, 0 Refill(s) Start Date: 10/17/23 Status: Ordered axitinib 1 mg oral tablet Start: 10/26/22 4:20:00 PM EDT, 3 tab, PO, q12h Start Date: 10/26/22 Status: Ordered citalopram 20 mg oral tablet Start: 10/17/23 11:08:00 AM EDT, 90 unknown unit, 0 Refill(s) Start Date: 10/17/23 Status: Ordered furosemide 20 mg oral tablet Start: 10/13/22 11:17:00 AM EDT, 1 tab, PO, Daily Start Date: 10/13/22 Status: Ordered Keytruda 25 mg/mL intravenous solution Start: 10/13/22 11:18:00 AM EDT, See Instructions, 400 mg IV [id number] Start Date: 10/13/22 Status: Ordered levothyroxine 50 mcg (0.05 mg) oral capsule Start: 10/13/22 11:17:00 AM EDT, 1 cap, PO, Daily Start Date: 10/13/22 Status: Ordered lisinopril 40 mg oral tablet Start: 03/24/22 1:57:00 PM EST, 1 tab, PO, Daily Start Date: 03/24/22 Status: Ordered LORazepam 0.5 mg oral tablet Start: 10/17/23 11:08:00 AM EDT, 60 unknown unit, 0 Refill(s) Start Date: 10/17/23 Status: Ordered omeprazole 20 mg oral delayed release capsule Start: 10/13/22 11:18:00 AM EDT, 1 cap, PO, Daily Start Date: 10/13/22 Status: Ordered Probiotic Formula Start: 10/12/17 10:18:00 AM EDT, 1 cap, PO, Daily Start Date: 10/12/17 Status: Ordered Vitamin B12 Start: 10/06/21 11:25:00 AM EDT Start Date: 10/06/21 Status: Ordered Vitamin C with Iron oral tablet, chewable Start: 10/06/21 11:25:00 AM EDT Start Date: 10/06/21 Status: Ordered Mental Status 03/20/24 Barriers to Learning one year None evide nt Mandatory Health Literacy Documentation Yes Health Literacy Communication Barriers N ever Primary Language Welsh Problem List Condition Confirmation Course Effective Dates Status Health St atus Informant Abnormal mammogram Confirmed Active Acquired absence of breast Confirmed Active Biopsy of breast 1 Confirmed Active Breast cancer Confirmed Active Infection of breast, left Confirmed Active Vaginal yeast infection Confirmed Active delivery NOS Confirmed Active Discomfort of chest wall and under left axilla Confirmed Active Hypertensive disorder Confirmed 03/04/20 Active Neoplasm of uncertain behavior of skin Confirmed Active Renal cell carcinoma Confirmed Active Seborrheic keratosis Confirmed Active Weight disorder Confirmed Active 1left Diagnosis Diagnosis Type Effective Dates Health Status Cl inical Service Informant Body mass index [BMI] 33.0-33.9, adult Discharge Diagnosis 03/20/24 Non-Specified IRENE gene mutation positive Discharge Diagnosis 03/20/24 PALB2 positive Discharge Diagnosis 03/20/24 Procedures Procedure Date Related Diagnosis Body Site Status Repair of hernia-type unknown 06/14/22 Completed Placement of port 05/03/22 Complet ed Removal of port 03/09/22 Completed Placement of port 12/14/21 Complet ed Nephrectomy, Right 07/30/21 Comple tate Punch biopsy of skin 04/21/15 Comp leted Breast reconstruction with e xchange of bilateral tissue odd piece checker for permanent implant. Bilaterall axillary liposculpting. 07/16/14 Completed Breast reconstruction, immed iate or delayed, with tissue odd piece checker, including subsequent expansion 01/21/14 C ompleted Breast reconstruction, immed iate or delayed, with tissue odd piece checker, including subsequent expansion 01/21/14 C ompleted Removal of skin odd piece checker fro m subcutaneous tissue of breast 08/09/13 Co mpleted Breast reconstruction, immed iate or delayed, with tissue odd piece checker, including subsequent expansion 1 06/2013 Completed Partial mastectomy, left 2 2011 Completed CS - section 2009 Com pleted section 2006 Complete d Ankle 3 Completed Breast reconstruction, immed iate or delayed, with tissue odd piece checker, including subsequent expansion C ompleted History of radiation therapy 4 Completed lymph node bx Completed 1Bilateral mastectomies with juan. breast reconstruction with placement of tissue expanders. 2with lymph node biopsy of left axilla. 3ORIF ankle fracture 4Radiation to left breast. Vital Signs Most recent to oldest [Reference Range]: 1 Height 168.4 cm (03/20/24 9:24 AM) Patient Weight 95.5 kg (03/20/24 9:24 AM) Body Mass Index 33.68 kg/m2 (03/20/24 9:24 AM) Temperature [36.5-37.9 DegC] 36.0 DegC *LOW* (03/20/24 9:24 AM) Respiratory Rate 18 br/min (03/20/24 9:24 AM) Blood Pressure 115/78mmHg (03/20/24 9:24 AM) Cuff Pulse Pressure 37 mmHg (03/20/24 9:24 AM) BP Location # 1 Right Arm, Non-invasive (03/20/24 9:24 AM) Social History Social History Type Response Smoking Status Never smoked cigaret juancho Sex Female Sex Representation Female (finding) Patient Care team information Care Team Personnel Name: JENNYFER [place] T[place] Position: Nurse Pract - Family Med Member Role: Lifetime Relationship Address: [address] [place] [address] [place] Name: MD Khalil Rena Position: Physician - Surgery Oncology Member Role: Lifetime Relationship Address: [address] [place] [address] [place] Name: Elaina Nicole Mark D Position: Pharmacist Member Role: Pharmacy - Lifetime Address: [facility] [address] [place] [address] [place] Name: DO Nicole Laura M Position: Referring DIRECT Member Role: Primary Care Provider [facility] [address] [facility] [address] [place] Care Team Related Persons Name: SAKINA LARA Name: KATHLEEN SHELL
--- OUTSIDE RECORDS SUMMARY | 2024-04-01 17:13 | External Medical Summary | Summary of Care ---
Author Name Unknown Organization [facility] Address [address] [place] [address] Phone [phone] Care Team Providers Care Janitorial Tech Name Role Phone Emilie Nicole DO Primary Care Provider [phone] Reason for Visit * Reason Onset Date Comments Test Results 02/28/2024 Encounter Details Date Type Department Care Team (Late st Contact Info) Description 02/28/2024 Telephone Family Practice [facility] [address] [place] [address] Emilie Nicole DO [address] [facility] [place] [address] Test Results Allergies Active Allergy Reactions Criticality Noted Date Comments Adhesive Tape High 06/11/2021 Other reaction(s): Rash Codeine High 06/11/2021 Other reaction(s): TACHYCARDIA/PALPITATIONS Morphine And Codeine 06/12/2004 Racing heart with codeine Nsaids Low 03/09/2022 Other reaction(s): does not take d/t only one kidney documented as of this encounter (statuses as of 02/28/2024) Medications Probiotic Product (PROBIOTIC DAILY) Capsule Take 1 Cap by mouth daily. 05/29/19 18 Active Vitron-C 65-125 MG Oral Tablet (Iron-Vitamin C) Take 1 Tablet by mouth in the morning. Active Vitamin B 12 500 MCG Oral Tablet Take by mouth . Active Keytruda 100 MG/4ML Intravenous Solution (Pembrolizumab) Administer intravenously 2 mg/kg every 6 weeks . Active Inlyta 1 MG Oral Tablet Take by mouth once. Takes three 1mg tablets twice daily 01/19/20 23 Active Triamcinolone Acetonide 0.1 % External Cream (Aristocort)Verna cations:Rash and nonspecific skin eruption Apply topically to affected area daily. 60 g 5 03/21/2023 4:56 PM EST 03/21/20 23 Active Triamcinolone Acetonide 0.1 % External Ointment (Aristocort)Verna cations:Rash and nonspecific skin eruption Apply topically to affected area every night at bedtime. 80 g 5 09/20/2023 3:29 PM EDT 04/21/19 24 Active LORazepam 0.5 MG Oral Tablet (Ativan) take 1 tablet by mouth twice a day As Needed for anxiety or insomnia for 1 month 60 Tablet 07/14/2023 3:28 PM EDT 07/14/19 24 Active Lisinopril 40 MG Oral TabletIndication s:HTN, goal below 130/80 Take 1 Tablet by mouth in the morning. 90 Tablet 1 01/02/2024 2:16 PM EDT 10/03/19 24 Active Omeprazole 20 MG Oral Capsule Delayed Release (PriLOSEC)Indica tions:Gastroesop hageal reflux disease with esophagitis without hemorrhage Take 1 Capsule by mouth in the morning. 1 hour before the first meal of the day. 90 Capsule 1 02/15/2024 4:53 PM EDT 10/16/19 24 Active Furosemide 20 MG Oral Tablet (Lasix) take 1 tablet (20 mg) orally daily 90 Tablet 3 12/22/2023 3:08 PM EDT 12/21/19 24 Active Citalopram Hydrobromide 20 MG Oral Tablet (CeleXA) take 1 tablet by mouth daily 90 Tablet 3 01/09/2024 3:44 PM EDT 01/09/20 24 Active Levothyroxine Sodium 50 MCG Oral Tablet (Levoxyl) take 1 tablet orally every day. 90 Tablet 3 01/09/2024 3:44 PM EDT 01/09/20 24 Active Levothyroxine Sodium 50 MCG Oral Tablet (Levoxyl) Take 1 tablet by mouth every day. 90 Tablet 3 01/10/20 24 Active Gabapentin 100 MG Oral Capsule (Neurontin)Indic ations:Leg cramping Take 1 Capsule by mouth at bedtime. 90 Capsule 1 02/08/2024 3:53 PM EDT 02/08/20 24 Active amLODIPine Besylate 5 MG Oral Tablet (Norvasc) take 1 tablet by mouth daily in the morning 30 Tablet 3 02/20/2024 3:37 PM EST 02/20/20 24 Active Vitamin D3 1.25 MG (11307 UT) Oral CapsuleIndicatio ns:Vitamin D deficiency Take 1 Capsule by mouth once a week. 12 Capsule 02/28/20 24 025 Active documented as of this encounter (statuses as of 02/28/2024) Active Problems Problem Noted Date Diagnosed Date IRENE gene mutation positive 02/08/2024 Acquired solitary kidney 08/03/2023 Renal cell carcinoma of right kidney 06/21/2021 Overview (12/11/2021): 07/2021, stage III, status post nephrectomy. Restaging 09/2021 consistent with metastatic disease. Started on Keytruda 09/2021 and Inlyta 11/30/21. HTN, goal below 130/80 03/04/2020 History of breast cancer 06/15/2018 Overview (06/19/2018): S/p b/l mastectomy, on tamoxifen x 10 yrs, no need for mammo PURE HYPERCHOLESTEROLEM 05/06/2000 Irritable bowel syndrome 10/30/1997 documented as of this encounter (statuses as of 02/28/2024) Resolved Problems Problem Noted Date Diagnosed Date Resolved Date Body mass index (BMI) of 40. 0 to 44.9 in adult 05/26/2020 12/18/2021 Overview: Per Obesity protocol Prediabetes 05/26/2020 09/02/2020 Overview: Per Prediabetes protocol Breast cancer associated wit h mutation in IRENE gene 06/15/2018 09/05/2020 Obesity, Class II, BMI 35-39 .9, isolated (see actual BMI) 12/01/2016 05/29/2020 Overview: Per Obesity protocol Infiltrating ductal carcinoma of breast 04/10/2012 06/15/2018 Family History of Early Brianne CA (Mother at 48) 12/01/2016 Family history of other card iovascular diseases 09/28/2016 Overview (07/10/2015): ICD-10 update of inactive term documented as of this encounter (statuses as of 02/28/2024) Immunizations Name Administration Dates Next Due COVID-19 mRNA, LNP-s, No Pre serve, 2-Dose Series ([employer]) 04/22/2021,06/14/2020,05/24/2020 COVID-19, MRNA-LNP, PF, 30 M CG/0.3 mL, 12 YRS AND ABOVE, IM (PFIZER-Comirnaty) 02/17/2024 DTWP - Dipth/Tet/Whole Cell Pertussis 1970 PPD 06/25/2021,12/01/2016,10/27/2014 Pneumococcal Conjugate Vacci ne, 20-valent ([id number]) 01/25/2023 Seasonal Influenza, PF, 6 M & above, IM , (FluLaval or Fluzone) 01/25/2023,01/28/2022,03/09/2021,2019 Seasonal Influenza, Trivalen t, (IIV3), PF, (Fluzone) 02/08/2024 TDAP (age 10 and older)(Boostrix) 02/17/2017 TDAP, Age 7 and older, IM (Adacel) 12/17/2006 Zoster Vaccine Recombinant (Shingrix) 12/01/2020 ,09/23/2020 documented as of this encounter Social History Tobacco Use Types Packs/Day Years Used Date Smoking Tobacco: Never Smokeless Tobacco: Never Alcohol Use Standard Drinks/Week Comments Not Currently 0 (1 standard drink = 0.6 oz pur e alcohol) PHQ-2 Answer Date Recorded PHQ Adult Total Score 0 09/14/2022 Hunger Vital Sign Answer Date Recorded Worried About Running Out of Food in the Last Ye ar Never true 11/14/2019 Ran Out of Food in the Last Year Never true 11/14/2019 Utilities Answer Date Recorded Do you have trouble paying y our heating, water, or electric bill? (Adult - for ages 18 years and over) Not on file 10/04/2023 Is your family able to pay t he heat, water, or electric bill? (Household - for ages 0-17 years) Not on file 10/04/2023 Does your family have access to good internet? (Household - for ages 0-17 years) Not on file 10/04/2023 Social Connections Answer Date Recorded How often do you feel lonely or isolated from those around you? 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 Not on file Not on robyn e documented as of this encounter Plan of Treatment Upcoming Encounters Date Type Department Care Team (Late st Contact Info) Description 04/09/2024 2:20 PM EST Office Visit Sleep Disorders Ctr [facility] [address] [place] [id number] Martina Martinez, DO [address] [place] [address] 08/29/2024 5:40 PM EDT Office Visit Family Practice [facility] [address] [place] [address] Emilie Nicole, DO [address] [place] [address] 10/01/2024 3:30 PM EDT Office Visit Dermatology [facility] [place] [address] [place] [address] Jalen Beck MD [address] [place] [id number] Scheduled Orders Name Type Priority Associated Diagnoses Orde r Schedule 25-HYDROXY VITAMIN D Lab Routine Vitamin D deficiency Expected: 05/30/2024 (Approximate), Expires: 02/27/2025 Health Maintenance Due Date Last Done Comments Hepatitis C Screening 1988 Hepatitis B Vaccine (1 of 3 - 19+ 3-dose series) 1989 HPV/Co-Test 2000 Cologuard 07/27/2015 Fecal Occult Blood Test 07/27/2015 Sigmoidoscopy 07/27/2015 Cervical Cancer Screening 06/22/2021 Pap Smear 06/22/2021 06/22/2018, 05/19, 04/24/2014 (Done elsewhere), Additional history exists GFR 06/07/2023 06/07/2022, 01/16, 12/07/2021, Additional history exists TSH 06/07/2023 06/07/2022, 11/17, 06/18/2021, Additional history exists Depression Screening 09/15/2023 09/14/2022 Albumin/Creatinine Ratio 09/03/2024 09/03/2021 Diabetes Screening 06/07/2025 06/07/2022, 1 , 12/07/2021, Additional history exists DTap/Tdap Vaccines (7 - Td or Tdap) 02/17/2027 02/17/2017, 12/17/2006, 03/26/1999, Additional history exists Lipid Panel 02/26/2029 02/27/2024, 11/18, 12/01/2016, Additional history exists Colonoscopy 10/29/2030 10/29/2020, 10/29/2020 Colorectal Cancer Screening 10/29/2030 Zoster Vaccines Completed 12/01/2020, 09/23/2020 Pneumococcal Vaccine: Pediatrics (0 to 5 Years) and At-Risk Patients (6 to 64 Years) Completed 01/25/2023 Influenza Vaccine (FLU shot) Completed , 01/25/2023, 01/28/2022, Additional history exists COVID-19 Vaccine Completed 02/17/2024, 08/2021, 06/14/2020, Additional history exists HPV (Gardasil) Vaccine Aged Out No lo nger eligible based on patient's age to complete this topic MENINGOCOCCAL (MENACTRA/MENVEO) Aged Out No longer eligible based on patient's age to complete this topic documented as of this encounter Medical Devices Not on filedocumented as of this encounter Visit Diagnoses Diagnosis Vitamin D deficiency- Primary Unspecified vitamin D deficiency documented in this encounter Care Teams Janitorial Tech Relationship Specialty Start Date End Date Emilie Nicole DO [address] [place] [id number] PCP - General Family Medicine 08/27/20 documented as of this encounter
--- OUTSIDE RECORDS SUMMARY | 2024-04-01 17:13 | External Medical Summary | Summary of Care ---
Author Name Unknown Organization [facility] Address [address] [place] [address] Phone [phone] Care Team Providers Care Epic Trainer Name Role Phone Emilie Nicole DO Primary Care Provider [phone] Reason for Referral * Evaluate & Treat - Unlimited Visits (Within 10 days (routine)) - Pending Review Specialty Diagnoses / Procedures Referred By Ila dent Referred To Contact Dermatology Diagnoses Dermatitis of lower extremity Emilie Nicole DO [address] [place] [address] Phone: tel: fax: Referral ID Status Reason Start Date Expiration Date Visits Requested Visits Authorized [id number] Pending Review Specialty Services Required [phone] Question Answer Referral Priority Within 10 days (routine) Where should this appointment be scheduled? [facility] Are you referring the patient for Mohs Surgery and have a current positive skin cancer biopsy result? No What is the reason for the patient referral? Rash/Skin Check/Eval of Lesion or Mole * Evaluate & Treat - Unlimited Visits (Within 10 days (routine)) - Pending Review Specialty Diagnoses / Procedures Referred By Ila dent Referred To Contact Sleep Medicine / Sleep Disorders Diagnoses Suspected sleep apnea Daytime somnolence Emilie Nicole DO [address] [place] [address] Phone: tel: fax: Referral ID Status Reason Start Date Expiration Date Visits Requested Visits Authorized [id number] Pending Review Specialty Services Required 4 2 2 Question Answer Referral Priority Within 10 days (routine) Where should this appointment be scheduled? [facility] Sleep Apnea Testing and Management Does the patient snore and/or gasp at night or has been told they stop breathing at night? Yes, document patient's symptoms in progress note Reason for Visit * Reason Onset Date Comments Re-Check 6 mo checkdevin cancer Medication Administration 02/08/2024 Flu an d/or Pneumo Inj Encounter Details Date Type Department Care Team (Latest Contact Info) Description 02/08/2024 2:40 PM EDT Office Visit [facility] [address] [place] [address] Emilie Nicole DO [address] [place] [id number] Need for prophylactic vaccination and inoculation against influenza*; IRENE gene mutation positive; Vitamin D deficiency; Suspected sleep apnea; Daytime somnolence; Encounter for lipid screening for cardiovascular disease; Leg cramping; Dermatitis of lower extremity Allergies Active Allergy Reactions Criticality Noted Date [...] to affected area daily. 60 g 5 3 4:56 PM EST 03/21/20 23 Active Triamcinolone Acetonide 0.1 % External Ointment (Aristocort)Verna cations:Rash and nonspecific skin eruption Apply topically to affected area every night at bedtime. 80 g 5 4 3:29 PM EDT 04/21/19 24 Active LORazepam 0.5 MG Oral Tablet (Ativan) take 1 tablet by mouth twice a day As Needed for anxiety or insomnia for 1 month 60 Tablet 4 3:28 PM EDT 07/14/19 24 Active Lisinopril 40 MG Oral TabletIndication s:HTN, goal below 130/80 Take 1 Tablet by mouth in the morning. 90 Tablet 1 4 2:16 PM EDT 10/03/19 24 Active Omeprazole 20 MG Oral Capsule Delayed Release (PriLOSEC)Indica tions:Gastroesop hageal reflux disease with esophagitis without hemorrhage Take 1 Capsule by mouth in the morning. 1 hour before the first meal of the day. 90 Capsule 1 4 4:53 PM EDT 10/16/19 24 Active Furosemide 20 MG Oral Tablet (Lasix) take 1 tablet (20 mg) orally daily 90 Tablet 3 4 3:08 PM EDT 12/21/19 24 Active Citalopram Hydrobromide 20 MG Oral Tablet (CeleXA) take 1 tablet by mouth daily 90 Tablet 3 4 3:44 PM EDT 01/09/20 24 Active Levothyroxine Sodium 50 MCG Oral Tablet (Levoxyl) take 1 tablet orally every day. 90 Tablet 3 4 3:44 PM EDT 01/09/20 24 Active Levothyroxine Sodium 50 MCG Oral Tablet (Levoxyl) Take 1 tablet by mouth every day. 90 Tablet 3 01/10/20 24 Active Gabapentin 100 MG Oral Capsule (Neurontin)Indic ations:Leg cramping Take 1 Capsule by mouth at bedtime. 90 Capsule 1 4 3:53 PM EDT 02/08/20 24 Active Furosemide 20 MG Oral Tablet (Lasix) Take 1 tablet by mouth daily 90 Tablet 3 4 3:17 PM EDT 10/05/19 23 024 Discontin ued(Medic ation List Clean Up) Citalopram Hydrobromide 20 MG Oral Tablet (CeleXA) take 1 tablet (20 mg) orally daily for depression, anxiety for 3 months 90 Tablet 2 4 9:44 AM EDT 07/14/19 24 024 Discontin ued(Medic ation List Clean Up) amLODIPine Besylate 5 MG Oral Tablet (Norvasc) take 1 tablet by mouth daily in the morning 30 Tablet 3 4 10:21 AM EDT 10/26/19 24 024 Discontin ued(Refil l) Gabapentin 100 MG Oral Capsule (Neurontin) 1 Capsule. 06/20/19 024 Discontin ued(Refil l) documented as of this encounter (statuses as [...] breast 04/10/2012 06/15/2018 Family History of Early [place] [address] CA (Mother at 48) 12/01/2016 Family history of other card iovascular diseases 09/28/2016 Overview (07/10/2015): ICD-10 update of inactive term documented as of this encounter (statuses as of 02/28/2024) Immunizations Name Administration Dates Next Due COVID-19 mRNA, LNP-s, No Pre serve, 2-Dose Series ([employer]) 04/22/2021,06/14/2020,05/24/2020 DTWP - Dipth/Tet/Whole Cell Pertussis 1970 PPD 06/25/2021,12/01/2016,10/27/2014 Pneumococcal Conjugate Vacci ne, 20-valent ([id number]) 01/25/2023 Seasonal Influenza, PF, 6 M & [...] 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 file Not on robyn e documented as of this encounter Last Filed Vital Signs Vital Sign Reading Time Taken Comments Blood Pressure 106/60 02/08/2024 2:46 PM EDT Pulse 68 02/08/2024 2:46 PM EDT Temperature 37.1 C (98.8 F) 02/08/2024 2:46 PM ED T Respiratory Rate 16 02/08/2024 2:46 PM EDT Oxygen Saturation - - Inhaled Oxygen Concentration - - Weight 94.8 kg (209 lb) 02/08/2024 2:46 PM EDT Height 165.1 cm (5' 5") 02/08/2024 2:46 PM EDT Body Mass Index 34.78 02/08/2024 2:46 PM EDT documented in this encounter Progress Notes * Emilie Nicole, DO - 02/08/2024 3:08 PM EDT Subjective: Tanisha Rhodes is a 53 year old female. Chief Complaint Patient presents with Re-Check 6 mo check, kidney cancer Medication Administration Flu and/or Pneumo Inj HPI: Pt presents for follow up today. C/o continues to feel tired. HgB/iron, cortisol normal. Other physicians have mentioned the possibility of sleep apnea. She's not sure she snores but would be open to a sleep study. PHM: Patient Active Problem List Diagnosis Irritable bowel syndrome PURE HYPERCHOLESTEROLEM History of breast cancer HTN, goal below 130/80 Renal cell carcinoma of right kidney (HCC) Acquired solitary kidney Current Outpatient Medications Medication Sig Dispense Refill Probiotic Product (PROBIOTIC DAILY) Capsule Take 1 Cap by mouth daily. Vitron-C 65-125 MG Oral Tablet (Iron-Vitamin C) Take 1 Tablet by mouth in the morning. Vitamin B 12 500 MCG Oral Tablet Take by mouth . Keytruda 100 MG/4ML Intravenous Solution (Pembrolizumab) Administer intravenously 2 mg/kg every 6 weeks . Inlyta 1 MG Oral Tablet Take by mouth once. Takes three 1mg tablets twice daily Triamcinolone Acetonide 0.1 % External Cream (Aristocort) Apply topically to affected area daily. 60 g 5 Triamcinolone Acetonide 0.1 % External Ointment (Aristocort) Apply topically to affected area everynight at bedtime. 80 g 5 LORazepam 0.5 MG Oral Tablet (Ativan) take 1 tablet by mouth twice a day As Needed for anxiety or insomnia for 1 month 60 Tablet 0 Lisinopril 40 MG Oral Tablet Take 1 Tablet by mouth in the morning. 90 Tablet 1 Omeprazole 20 MG Oral Capsule Delayed Release (PriLOSEC) Take 1 Capsule by mouth in the morning. 1 hour before the first meal of the day. 90 Capsule 1 amLODIPine Besylate 5 MG Oral Tablet (Norvasc) take 1 tablet by mouth daily in the morning 30 Tablet 3 Furosemide 20 MG Oral Tablet (Lasix) take 1 tablet (20 mg) orally daily 90 Tablet 3 Citalopram Hydrobromide 20 MG Oral Tablet (CeleXA) take 1 tablet by mouth daily 90 Tablet 3 Levothyroxine Sodium 50 MCG Oral Tablet (Levoxyl) take 1 tablet orally every day. 90 Tablet 3 Levothyroxine Sodium 50 MCG Oral Tablet (Levoxyl) Take 1 tablet by mouth every day. 90 Tablet 3 Gabapentin 100 MG Oral Capsule (Neurontin) 1 Capsule. No current facility-administered medications for this visit. Past Medical History: Diagnosis Date Family History of Early Breast CA (Mother at 48) NO SIGNIFICANT MED HX Past Surgical History: Procedure Laterality Date DELIVERY COLONOSCOPY, DIAGNOSTIC (RECTUM) 10/29/2020 diverticulosis, repeat 10 yrs / COLONOSCOPY FLEXIBLE PROXIMAL DIAGNOSTIC performed by Ludwin Noble MD at [facility] COLONOSCPOY E/ ENDOSCOPIC US 07/01/2021 Perirectal abscesses / COLONOSCOPY FLEXIBLE WITH ENDOSCOPIC ULTRASOUND EXAM performed by Fernanda De León MD at [facility] EGD, FLEXIBLE, DIAGNOSTIC 06/24/2021 normal bx / ESOPHAGOGASTRODUODENOSCOPY (EGD), FLEXIBLE, TRANSORAL, DIAGNOSTIC performed by Sadie Ricci MD at [facility] EGD, FLEXIBLE, DIAGNOSTIC 10/01/2022 Schatzki ring, hiatal herina / ESOPHAGOGASTRODUODENOSCOPY (EGD), FLEXIBLE, TRANSORAL, DIAGNOSTIC performed by John Hwang MD at [facility] IMPLANT BREAST SILICONE/EQ Bilateral 07/16/2014 IR BIOPSY 11/16/2021 LIGATE/CUT OVIDUCT(S) post tubal ligation MASTECTOMY, PARTIAL 11/08/2011 left; 7 mm invasive ductal breast cancer; ER-AZ positive MASTECTOMY, SUBCUTANEOUS Bilateral 07/02/2013 + expanders + TRIMALLEOLAR ANKLE FX REPAIR W/FIX POST LIP Left 11/28/2018 left trimalleolar fracture repair with internal fixation Review of patient's allergies indicates: Allergen Reactions Adhesive Tape Other reaction(s): Rash Codeine Other reaction(s): TACHYCARDIA/PALPITATIONS Morphine And Codeine Racing heart with codeine Nsaids Other reaction(s): does not take d/t only one kidney Objective: BP 106/60 (BP Site: Left Arm, BP Position: Sitting, BP Cuff Size: Regular) | Pulse 68 | Temp 37.1 C (98.8 F) (Tympanic) | Resp 16 | Ht 1.651 m (5' 5") | Wt 94.8 kg (209 lb) | LMP 05/23/2018 (Exact Date) | BMI 34.78 kg/m | BSA 2.09 m Review of Systems: As per HPI, all other ROS neg. Physical Exam: General: alert, healthy and no distress Heart: regular rate & rhythm, no murmurs and no gallops Lungs: chest symmetric with normal AP diameter, no chest deformities noted, lungs clear to auscultation Extremities: no joint deformities, effusion, or inflammation, no edema Need for prophylactic vaccination and inoculation against influenza (Primary) - INFLUENZA VAC, TRIVALENT, (IIV3), PF, 0.5 ML (FLUZONE) IRENE gene mutation positive Vitamin D deficiency - 25-HYDROXY VITAMIN D Suspected sleep apnea - SLEEP MEDICINE REFERRAL OP Daytime somnolence - SLEEP MEDICINE REFERRAL OP Encounter for lipid screening for cardiovascular disease - LIPID PANEL WITH DIRECT LDL IF TG IS HIGH Leg cramping - Gabapentin 100 MG Oral Capsule (Neurontin); Take 1 Capsule by mouth at bedtime. Dermatitis of lower extremity - DERMATOLOGY REFERRAL OP Follow up: as needed. Emilie Nicole DO * Stefania Art RN - 02/08/2024 2:53 PM EDT PRE - ADMINISTRATION DOCUMENTATION Are you experiencing any cold symptoms or fever? No Have you had Guillain-Union Syndrome (an illness that causes paralysis) within the last 6 weeks? No Have you had the flu shot in the past? YES Have you ever had a reaction to the flu shot? No Stefania Art RN, 02/08/2024 2:53 PM Immunization Administration Documentation Time Out Procedure Performed: Yes Patient Identified (Ask Name/Date of ): Yes Does the patient have a fever greater than 101 degrees today? No Patient allergic to latex? No VFC Stock: No Immunization(s) verified: Yes, Immunization Name: Flu, VIS Sheet(s) given: Yes Verified Side and Site: Yes Verified Shot(s) with Parent(s)/Patient: Yes documented in this encounter Plan of Treatment Upcoming Encounters Date Type Department Care Team (Late st Contact Info) Description 04/09/2024 2:20 PM EST [facility] [address] [place] [id number] Martina Martinez DO [address] [place] [address] 08/29/2024 5:40 PM EDT Office Visit Family Practice [facility] [address] [place] [address] Emilie Nicole DO [address] [place] [address] 10/01/2024 3:30 PM EDT Office Visit Dermatology [facility] [address] [facility] [place] [address] Jalen Beck MD [address] [facility] [place] [address] Scheduled Referrals Name Type Priority Associated Diagnoses Orde r Schedule SLEEP MEDICINE REFERRAL OP Referral Within 10 days (routine) Suspected sleep apnea Daytime somnolence Ordered: 02/08/2024 DERMATOLOGY REFERRAL OP Referral Within 10 days (routine) Dermatitis of lower extremity Ordered: 02/08/2024 Health Maintenance Due Date Last Done Comments [...] Not on filedocumented as of this encounter Procedures Procedure Name Priority Date/Time Associated Diagnosis Comments LIPID PANEL WITH DIRECT LDL IF TG IS HIGH Routine 02/27/2024 Encounter for lipid screening for cardiovascular disease 25-HYDROXY VITAMIN D Routine 02/27/2024 Vitamin D deficiency documented in this encounter Results * (ABNORMAL) LIPID PANEL WITH DIRECT LDL IF TG IS HIGH (02/27/2024) TRIGLYCERIDES- OUTSIDE LAB 153(A) <=150 MG/DL OUTSIDE LAB (SEE SCANNED REPORT) CHOLESTEROL-OU TSIDE LAB 232(A) <=200 MG/DL OUTSIDE LAB (SEE SCANNED REPORT) LDL (DIRECT MEASURE)-OUTSI DE LAB 177(A) <=100 MG/DL OUTSIDE LAB (SEE SCANNED REPORT) LDL (CALCULATED)-O UTSIDE LAB 155(A) <=100 CALC OUTSIDE LAB (SEE SCANNED REPORT) HDL-OUTSIDE LAB 46 40 - 60 MG/DL OUTSIDE LAB (SEE SCANNED REPORT) CHOL/HDL RATIO-OUTSIDE LAB 5.0 <=5 RATIO OUTSIDE LAB (SEE SCANNED REPORT) Blood Venous blood specimen / Unknown 02/27/2024 Emilie Nicole DO LAB BLOOD ORDERABLES Final Result OUTSIDE LAB (SEE SCANNED REPORT) * (ABNORMAL) 25-HYDROXY VITAMIN D (02/27/2024) 25-HYDROXY VITAMIN D - OUTSIDE LAB 19.8(A) 30 - 100 NG/ML OUTSIDE LAB (SEE SCANNED REPORT) Blood Venous blood specimen / Unknown 02/27/2024 Emilie Nicole DO LAB BLOOD ORDERABLES Final Result Performing Organization Address City/[facility] Co de Phone Number OUTSIDE LAB (SEE SCANNED REPORT) documented in this encounter Visit Diagnoses Diagnosis Need for prophylactic vaccination and inoculation against influenza- Primary IRENE gene mutation positive Vitamin D deficiency Unspecified vitamin D deficiency Suspected sleep apnea Daytime somnolence Hypersomnia, unspecified Encounter for lipid screening for cardiovascular disease Leg cramping Dermatitis of lower extremity documented in this encounter Care Teams Epic Trainer Relationship Specialty Start Date End Date Emilie Nicole DO [address] [facility] [place] [address] PCP - General Family Medicine 08/27/20 documented as of this encounter
--- NOTE | 2024-04-01 17:39 | XRay Report ---
EXAM: X-ray chest one-view portable CLINICAL HISTORY: Sepsis PRIORS: 01/23/2024 TECHNIQUE: Portable upright AP chest FINDINGS: A right sided Mediport catheter present with distal tip at the atriocaval junction, unchanged. Surgical clips noted in the left axilla. The chest is well-expanded. Hazy opacity present in the lung bases with platelike atelectasis. No effusion or congestive changes. Heart size is normal. No pneumothorax. Trachea is patent. Osseous structures demonstrate no acute abnormality. No radiopaque foreign body. IMPRESSION: Subtle hazy opacity in the lung bases which could suggest pneumonia given the stated clinical history. ACT 112: Positive. There are findings on this examination that require communication between the performing entity and the patient following Patient Test Result Information Act ([place] ACT 112) guidelines. Electronically signed by Karin Mcguire 04-01-2024 5:39 PM
[2024-04-01 18:06] LABS: Hematocrit (blood only) 36.7 % (37.0-47.0); Hemoglobin 12.3 g/dl (12.0-16.0); Mean Corpuscular Hemoglobin 29.4 pg (25.0-34.0); Mean Corpuscular Hgb Conc 33.5 g/dL (32.0-36.0); Mean Corpuscular Volume 87.6 fL (80.0-100.0); Mean Platelet Volume 11.4 fL (9.4-12.4); Platelet Count 221 K/uL (130-400); RDW Coefficient of Variation 13.2 % (11.5-14.5); RDW Standard Deviation 42.3 fL (36.4-46.3); Red Blood Count 4.19 M/uL (4.20-5.40); White Blood Count 16.13 K/ul (4.8-10.8)
[2024-04-01 18:12] LABS: Albumin Level 3.4 gm/dl (3.4-5.0); Bilirubin Direct 0.1 mg/dl (0-0.2); Bilirubin,Total 0.7 mg/dl (0.2-1.0); Calcium 8.8 mg/dl (8.6-10.3); Creatinine Clr Calc Pharmacy 67.7 ml/min; Magnesium 1.6 mg/dl (1.7-2.4); Potassium 3.8 mmol/L (3.5-5.1); Total Protein 6.6 gm/dl (6.0-8.3)
[2024-04-01 18:14] LABS: Base Excess VBG 0.3 mEq/L; HCO3 VBG 25 mmol/L; Oxygen Saturation VBG 71.9 %; PCO2 VBG 38 mmHg (38-50); PO2 VBG 40 mmHg; pH VBG 7.42 (7.36-7.41)
[2024-04-01 18:18] LABS: Troponin I High Sensitivity 12.3 pg/ml (0-14)
[2024-04-01] MEDS ORDERED: VANCOMYCIN CONSULT ACTIVE PRN (18:19)
[2024-04-01 18:22] LABS: Partial Thromboplastin Time 26 Seconds (21-31); Prothrombin Time 10.4 Seconds (9.0-12.0)
[2024-04-01 18:25] LABS: Basophils # (auto) 0.06 K/uL (0.00-0.20); Basophils % (auto) 0.4 %; Eosinophils # (auto) 0.05 K/uL (0.00-0.50); Eosinophils % (auto) 0.3 %; Immature Granulocytes # (auto) 0.13 K/uL (0.01-0.20); Immature Granulocytes % (auto) 0.8 %; Lymphocytes # (auto) 0.75 K/uL (1.20-3.40); Lymphocytes % (auto) 4.6 %; Monocytes # (auto) 0.52 K/uL (0.11-0.59); Monocytes % (auto) 3.2 %; Neutrophils # (auto) 14.62 K/uL (1.40-6.50); Neutrophils % (auto) 90.7 %; Polychromasia 1+
[2024-04-01] MEDS: OPTIRAY 320 125ml IV ONE (18:26)
[2024-04-01 18:38] LABS: Adenovirus PCR Not Detected (NotDetected); Bordetella parapertussis PCR Not Detected (NotDetected); Bordetella pertussis PCR Not Detected (NotDetected); Chlamydia pneumoniae PCR Not Detected (NotDetected); Coronavirus 229E PCR Not Detected (NotDetected); Coronavirus CoV-2 (COVID19)PCR Not Detected (NotDetected); Coronavirus HKU1 PCR Not Detected (NotDetected); Coronavirus NL63 PCR Not Detected (NotDetected); Coronavirus OC43PCR Not Detected (NotDetected); Human Metapneumovirus PCR Not Detected (NotDetected); Influenza A PCR Not Detected (NotDetected); Influenza B PCR Not Detected (NotDetected); Mycoplasma pneumoniae PCR Not Detected (NotDetected); Parainfluenza Virus 1 PCR Not Detected (NotDetected); Parainfluenza Virus 2 PCR Not Detected (NotDetected); Parainfluenza Virus 3 PCR Not Detected (NotDetected); Parainfluenza Virus 4 PCR Not Detected (NotDetected); Respiratory Syncytial VirusPCR Not Detected (NotDetected); Rhinovirus/Enterovirus PCR Not Detected (NotDetected)
[2024-04-01] MEDS: CEFEPIME 2000MG 2,000 MG/20 ML SYR IV STA (18:41)
--- NOTE | 2024-04-01 18:47 | CT Scan Report ---
EXAMINATION: Chest CT with CLINICAL HISTORY: Sepsis PRIORS: None TECHNIQUE: Contiguous axial images were obtained through the chest with the use of intravenous contrast. Sagittal and coronal reformations are supplied. FINDINGS: Bilateral breast implants within the [id number]. A right sided Mediport catheter present with distal tip at the atriocaval junction. Surgical clips noted in the left axilla and chest wall. The pulmonary arteries are well-opacified. No central or peripheral pulmonary embolism is identified. Heart size is top normal. Moderate to advanced atherosclerotic disease of the left anterior descending coronary artery. Nonpathologically enlarged lymph nodes present in the mediastinum. Trachea and mainstem bronchi patent. No axillary adenopathy. No radiopaque foreign body. In lung windows, small bilateral pleural effusions with associated mild airspace consolidation and/or atelectasis, atelectasis is favored. Diffuse groundglass attenuation throughout the lungs, most pronounced in the upper lobes. No large confluent opacification. Nopneumothorax. Limited visualization of the upper abdomen shows no acute abnormality. In bone windows mild kyphosis is noted. IMPRESSION: 1. No CT evidence of a central or peripheral pulmonary embolism. 2. Small bilateral pleural effusions with atelectasis and/or airspace consolidation at the lung bases. Atelectasis is favored though mild pneumonia cannot be excluded. 3. Diffuse groundglass attenuation throughout the lungs compatible with alveolitis. Electronically signed by Karin Mcguire 04-01-2024 6:47 PM
--- NOTE | 2024-04-01 19:10 | History & Physical Report ---
Date of Service April 01, 2024 Assessment & Plan (1) Acute hypoxic respiratory failure: (2) Pneumonia: Plan: This is a 53-year-old female with PMH of renal cell carcinoma status post right nephrectomy on axitinib BID following with Dr. Mcclure, history of breast cancer, hypertension, hyperlipidemia and other medical problems listed below who presents with body aches, chills and fever over the past few days and was found to have PNA. Afebrile, WBC 16K Initially hypoxic at 85% on room air, improed to 94 % on 2L NC - wean O2 as tolerated Viral resp panel negative Procal negative CTA chest without evidence of PE. Small bilateral pleural effusions with atelectasis and/or airspace consolidation at the lung bases. Atelectasis is favored though mild pneumonia cannot be excluded. Diffuse groundglass attenuation throughout the lungs compatible with alveolitis Continue cefepime, doxy given immunocompromised state MRSA swab pending Follow sputum and blood cultures Duonebs PRN Tessalon Perles PRN (3) Renal cell carcinoma: (4) H/O right nephrectomy: Plan: [facility] Currently regimen axitinib 3mg BID , Keytruda Q6 wks (due 04/10) - hold for now (5) Hypertension: Plan: Hold amlodipine, lisinopril, lasix for now given borderline low BP DVT Ppx: SQ lovenox Code status: FULL PCP: Corey Dispo: admitted to [facility] tele Patient seen in collaboration with Dr. Gutiérrez. Please see addendum. I spent a total of 60 minutes coordinating, documenting, and providing care for this patient excluding time spent in the performance of separately billed services. History of Present Illness Chief Complaint: body aches, chills Primary Care Provider: Emilie Nicole, This is a 53-year-old female with PMH of metastatic renal cell carcinoma (s/p right nephrectomy on axitinib, keytruda following with Dr. Mcclure), history of breast cancer (s/p double mastectomy, XRT in 2002, in remission), hypertension, hyperlipidemia and other medical problems listed below who presents with body aches, chills x 4 days. Patient has been sleeping a lot with SOB, dry cough, runny nose, lightheadedness with any movement, headache. 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 No CP, N/V, abd pain, dysuria or constipation. Diarrhea earlier today x 1. Poor appetite for the past few days. Follows [facility]. Allergies Allergy/AdvReac Type Severity Reaction Status Date / Time vancomycin Allergy Redness of Verified 04/01/24 19:29 Skin codeine AdvReac Intermediate palpitation Verified 01/23/24 14:31 s/tachycard ia adhesive tape AdvReac Mild rash/ red Verified 01/23/24 14:31 skin NSAIDS (Non-Steroidal AdvReac Mild does not Verified 01/23/24 14:31 Anti-Inflamma take d/t only one kidney Home Medications Medication Instructions Recorded Confirmed Type Lactobacillus acidophilus 10 1 cell PO QAM 11/27/18 04/01/24 History billion cell capsule (Probiotic) vitamin B complex (B 1 tab PO QAM 10/09/21 04/01/24 History Complex-Vitamin B12 tablet) pembrolizumab 50 mg intravenous 50 mg IV UD 12/10/21 04/01/24 History solution lisinopril 40 mg tablet 40 mg PO QAM 03/05/22 04/01/24 History levothyroxine 50 mcg tablet 50 mcg PO DAILY 07/12/22 04/01/24 History axitinib 5 mg tablet (Inlyta) 3 mg PO BID 06/20/23 04/01/24 History omeprazole 10 mg capsule,delayed 20 mg PO DAILY 06/20/23 04/01/24 History release lorazepam 0.5 mg tablet (Ativan) 0.5 mg PO BID PRN anxiety or 07/14/23 04/01/24 Rx insomnia 1 month #60 tabs amlodipine 5 mg tablet 5 mg PO QAM #30 tabs 02/20/24 04/01/24 Rx cholecalciferol (vitamin D3) 1,250 50,000 unit TU@0900 04/01/24 04/01/24 History mcg (50,000 unit) capsule citalopram 20 mg tablet (Celexa) 20 mg PO HS depression, anxiety 04/01/24 04/01/24 History furosemide 20 mg tablet (Lasix) 20 mg PO Q2D 04/01/24 04/01/24 History gabapentin 100 mg capsule 100 mg PO HS PRN nerve pain 04/01/24 04/01/24 History iron,carbonyl 65 mg-vitamin C 125 1 tab PO DAILY 04/01/24 04/01/24 History mg tablet,delayed release (Vitron-C) Past Med/Surg History Problem List Pneumonia (Acute) Hypoxia (Acute) Acute hypoxic respiratory failure H/O right nephrectomy Renal cell carcinoma Port-A-Cath in place Cough Hypertension Pneumonia (Acute) Insomnia Quality of life palliative care encounter Advanced care planning/counseling discussion Palliative care by specialist Parenting dynamics counseling Social isolation 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 Dr. Serrano S/p nephrectomy Perirectal abscess Vulvitis Liver mass Encounter for insertion of venous access port Encounter for pre-operative examination Anemia Skin breakdown at port site of totally implantable venous access device (TIVAD) Encounter for insertion of venous access port Port-A-Cath in place (05/03/22) Port placement. We used fluoroscopy for placement. 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 Currently on Pembrioizumab every six weeks, axitnib q 12 hrs Solitary left kidney (Acute) HX: breast cancer LEFT- S/P BILATERAL MASTECTOMY WITH LEFT LN REMOVAL WITH RADIATION On Tamoxifen Acid reflux Medical History Dyslipidemia Fatigue Acute blood loss anemia History of COVID-19 diagnosed 03/06/2022 @ [facility]--mild symptoms, cough/body aches--no symptoms now Port-A-Cath in place (05/03/22) Insertion Access Port with Fluoroscopy Right Cephalic(Right) - Curtis Serrano MD, FACS Situational anxiety History of high blood pressure Rectal mass History of breast cancer IBS (irritable bowel syndrome) Closed fracture dislocation of ankle Surgical History History of removal of Port-a-Cath (03/09/22) Removal of Access Port(Left) - Dwight Meraz MD, FACS History of anesthesia reaction "got sick"-usually on longer surgeries History of open reduction and internal fixation (ORIF) procedure (~2019) right ankle History of right radical nephrectomy (~07/30/21) Robotic Laparoscopic Assisted Right Radical Nephrectomy transition to hand assisted laparoscopic right Nephrectomy(Right) @ [facility] History of biopsy (~11/16/21) ultrasound guided biopsy area near liver/kidney on upper right quadrant @ [facility] Nausea and vomiting after administration of anesthetic agent History of esophagogastroduodenoscopy (EGD) History of colonoscopy H/O breast reconstruction BILATERAL Hx of lumpectomy LEFT History of bilateral tubal ligation History of section X2 History of mastectomy BILATERAL WITH LEFT LYMPH NODE REMOVAL>BREAST REDUCTION Family History Aunt FHx: breast cancer Breast cancer Mother FHx: breast cancer Breast cancer Family history of reaction to anesthesia slow to wake with anesthesia Grandmother (Maternal) FHx: breast cancer Breast cancer Father Family history of diabetes mellitus Heart disease Hypertension Denies family history of Ovarian cancer Colorectal cancer Social History Smoking Status: Never smoker Second Hand Exposure: No; Do You Dip or Chew Tobacco: No; Hx Alcohol Use: No Hx Substance Use: No Preferred Language: Georgian Communication Ability: Effective Visual Impairment: No Limitations 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 Physical Exam Physical Exam: Please see Dr. Gutiérrez's addendum for physical exam. Results & Data Results & Data Vital Signs (Past 12 Hours) Vital Signs Temp Pulse Pulse Resp BP BP Pulse Ox 04/01/24 19:00 72 19 114/73 94 04/01/24 18:30 77 22 119/73 94 04/01/24 18:15 73 19 93 04/01/24 18:06 74 04/01/24 18:05 92 04/01/24 18:03 78 20 119/73 85 L 04/01/24 17:05 37.0 C 81 16 109/73 93 O2 Del Method O2 Flow Rate 04/01/24 19:00 Nasal Cannula 2 04/01/24 18:30 Nasal Cannula 2 04/01/24 18:15 Nasal Cannula 2 04/01/24 18:06 04/01/24 18:05 Nasal Cannula 2 04/01/24 18:03 Room Air 04/01/24 17:05 Room Air Laboratory Results Short CBC 04/01/24 Range/Units 17:34 WBC 16.13 H (4.8-10.8) K/ul Hgb 12.3 (12.0-16.0) g/dl Hct 36.7 L (37.0-47.0) % Plt Count 221 (130-400) K/uL BMP 04/01/24 17:34 Sodium 138 Potassium 3.8 Chloride 105 Carbon Dioxide 24 BUN 13 Creatinine 1.08 Glucose 106 H Calcium 8.8 Liver Function 04/01/24 Range/Units 17:34 Total Bilirubin 0.7 (0.2-1.0) mg/dl Direct Bilirubin 0.1 (0-0.2) mg/dl AST 13 (13-39) U/L ALT 14 (7-52) U/L Alkaline Phosphatase 65 (34-104) U/L Albumin 3.4 (3.4-5.0) gm/dl Diagnostic Findings Chest X-Ray 04/01/24 17:14 EXAM: X-ray chest one-view portable CLINICAL HISTORY: Sepsis PRIORS: 01/23/2024 TECHNIQUE: Portable upright AP chest FINDINGS: A right sided Mediport catheter present with distal tip at the atriocaval junction, unchanged. Surgical clips noted in the left axilla. The chest is well-expanded. Hazy opacity present in the lung bases with platelike atelectasis. No effusion or congestive changes. Heart size is normal. No pneumothorax. Trachea is patent. Osseous structures demonstrate no acute abnormality. No radiopaque foreign body. IMPRESSION: Subtle hazy opacity in the lung bases which could suggest pneumonia given the stated clinical history. ACT 112: Positive. There are findings on this examination that require communication between the performing entity and the patient following Patient Test Result Information Act ([place] ACT 112) guidelines. Electronically signed by Karin Mcguire 04-01-2024 5:39 PM Chest CTA 04/01/24 17:22 EXAMINATION: Chest CT with CLINICAL HISTORY: Sepsis PRIORS: None TECHNIQUE: Contiguous axial images were obtained through the chest with the use of intravenous contrast. Sagittal and coronal reformations are supplied. FINDINGS: Bilateral breast implants within the [id number]. A right sided Mediport catheter present with distal tip at the atriocaval junction. Surgical clips noted in the left axilla and chest wall. The pulmonary arteries are well-opacified. No central or peripheral pulmonary embolism is identified. Heart size is top normal. Moderate to advanced atherosclerotic disease of the left anterior descending coronary artery. Nonpathologically enlarged lymph nodes present in the mediastinum. Trachea and mainstem bronchi patent. No axillary adenopathy. No radiopaque foreign body. In lung windows, small bilateral pleural effusions with associated mild airspace consolidation and/or atelectasis, atelectasis is favored. Diffuse groundglass attenuation throughout the lungs, most pronounced in the upper lobes. No large confluent opacification. Nopneumothorax. Limited visualization of the upper abdomen shows no acute abnormality. In bone windows mild kyphosis is noted. IMPRESSION: 1. No CT evidence of a central or peripheral pulmonary embolism. 2. Small bilateral pleural effusions with atelectasis and/or airspace consolidation at the lung bases. Atelectasis is favored though mild pneumonia cannot be excluded. 3. Diffuse groundglass attenuation throughout the lungs compatible with alveolitis. Electronically signed by aKrin Mcguire 04-01-2024 6:47 PM Supervising Physician Co-Signing Physician Notes Patient is a 53-year-old female with history of metastatic renal cell carcinoma S/P right nephrectomy, breast cancer S/P mastectomy, radiation therapy, GERD, hypothyroidism, hypertension and other medical problems presents with history of worsening generalized weakness associated with chills, dry cough, dyspnea on exertion, runny nose and dizziness since 4 days duration. Patient currently is on chemotherapy for metastatic renal cell carcinoma and follows with [facility] oncology. Please review HPI for complete details of presentation. She was found to be hypoxic in ED requiring supplemental oxygen to maintain sat urations. She reports having 1 loose bowel movement this morning I personally reviewed blood work and imaging studies. White blood cell count elevated at 16,000, magnesium 1.6. Blood pressure relatively low on presentation. Currently requiring 2 L supplemental oxygen to maintain saturation. Chest CTA showed no evidence of PE, showed findings suggestive of small bilateral pleural effusion with atelectasis, airspace consolidation in the lung bases. Diffuse groundglass attenuation throughout the lungs compatible with alveolitis. Physical Exam: Vitals signs as noted above General Appearance: Obese, no apparent distress Head: normocephalic, Atraumatic Eyes: normal inspection, EOMI Neck: supple, Trachea midline Respiratory/Chest: Decreased breath sounds at bases, CTA, No accessory muscle use Cardiovascular: S1, S2, No murmur Abdomen/GI:Soft, Non tender, Bowel sounds present Extremities/Musculoskeletal:normal inspection, no edema Neurologic/Psych:AAOX3, grossly no focal neurological deficits Skin: normal color, warm, right leg rash Community-acquired pneumonia Hypoxia secondary to above Immunocompromise state given patient on ongoing chemotherapy H/O metastatic renal cell carcinoma Breast cancer S/P surgery, radiation therapy Hypomagnesemia Blood pressure improved with IV fluids Obtain blood cultures, sputum cultures Empirically started on cefepime, doxycycline Procalcitonin normal BioFire negative Supplemental oxygen as needed Nebs as needed Replace electrolytes as needed Hold chemotherapy medications in setting of acute infection Obtain stool studies if recurrence of diarrhea Suspected tenia infection--right leg Incidental finding Started on clotrimazole I personally interviewed and examined at bedside. Patient's care is coordinated with Estrella Butler PA-C. I have reviewed the advanced practitioner's documentation, and I agree with plan of care. Please refer to the documentation above for details of patient's presentation and for discussion of other issues. I spent a total [id number] coordinating, documenting, and providing care for this patient excluding time spent in the performance of separately billed services. (2) Pneumonia Laterality: left Lung location: lower lobe of lung Pneumonia type: due to unspecified organism Qualified Code(s): J18.9 - Pneumonia, unspecified organism
[2024-04-01] MEDS: VANCOMYCIN HCL 2,250 MG in SODIUM CHLORIDE 0.9% 500 ML IV ONE (19:32)
[2024-04-01] MEDS: DAPTOmycin 425 MG in SYRINGE 0 ML IV SCH (19:49)
[2024-04-01] MEDS: ACETAMINOPHEN 325 MG TAB ONE (19:54)
--- NOTE | 2024-04-01 20:06 | Emergency Department Note ---
History of Present Illness General Chief Complaint: Flu Like Symptoms Stated Complaint: FATIGUE,BODY ACHES,FEVER,DIZZY,SOB,CANCER PT Time Seen by Provider: 04/01/24 17:14 History of Present Illness Provider Complaint: shortness of breath and cough Onset (ago): day(s) (4) Severity: moderate Maximum Pain Intensity: 5 Relieved By: + nothing Exacerbated By: + coughing Known history of: other (Cancer on chemotherapy) Associated symptoms: + fever; no chest pain, no hemoptysis, no abdominal pain or no chest congestion Home Medications Medication Instructions Recorded Confirmed Type Lactobacillus acidophilus 10 1 cell PO QAM 11/27/18 04/01/24 History billion cell capsule (Probiotic) vitamin B complex (B 1 tab PO QAM 10/09/21 04/01/24 History Complex-Vitamin B12 tablet) iron,carbonyl 65 mg-vitamin C 125 1 tab PO QAM 12/10/21 04/01/24 History mg tablet,delayed release (Vitron-C) pembrolizumab 50 mg intravenous 50 mg IV UD 12/10/21 04/01/24 History solution lisinopril 40 mg tablet 40 mg PO QAM 03/05/22 04/01/24 History levothyroxine 50 mcg tablet 50 mcg PO DAILY 07/12/22 04/01/24 History axitinib 5 mg tablet (Inlyta) 3 mg PO BID 06/20/23 04/01/24 History omeprazole 10 mg capsule,delayed 20 mg PO DAILY 06/20/23 04/01/24 History release lorazepam 0.5 mg tablet (Ativan) 0.5 mg PO BID PRN anxiety or 07/14/23 04/01/24 Rx insomnia 1 month #60 tabs amlodipine 5 mg tablet 5 mg PO QAM #30 tabs 02/20/24 04/01/24 Rx cholecalciferol (vitamin D3) 1,250 50,000 unit TU@0900 04/01/24 04/01/24 History mcg (50,000 unit) capsule citalopram 20 mg tablet (Celexa) 20 mg PO HS depression, anxiety 04/01/24 04/01/24 History furosemide 20 mg tablet (Lasix) 20 mg PO DAILY 04/01/24 04/01/24 History gabapentin 100 mg capsule 100 mg PO HS 04/01/24 04/01/24 History iron,carbonyl 65 mg-vitamin C 125 1 tab PO DAILY 04/01/24 04/01/24 History mg tablet,delayed release (Vitron-C) Allergies Allergy/AdvReac Type Severity Reaction Status Date / Time vancomycin Allergy Redness of Verified 04/01/24 19:29 Skin codeine AdvReac Intermediate palpitation Verified 01/23/24 14:31 s/tachycard ia adhesive tape AdvReac Mild rash/ red Verified 01/23/24 14:31 skin NSAIDS (Non-Steroidal AdvReac Mild does not Verified 01/23/24 14:31 Anti-Inflamma take d/t only one kidney Past Med/Surg History Problem List (Updated 04/01/24 @ 20:16 by Sergo Peña MD) Pneumonia (Acute) Hypoxia (Acute) Acute hypoxic respiratory failure H/O right nephrectomy Renal cell carcinoma Port-A-Cath in place Cough Hypertension Pneumonia (Acute) Insomnia Quality of life palliative care encounter Advanced care planning/counseling discussion Palliative care by specialist Parenting dynamics counseling Social isolation 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 Dr. Serrano S/p nephrectomy Perirectal abscess Vulvitis Liver mass Encounter for insertion of venous access port Encounter for pre-operative examination Anemia Skin breakdown at port site of totally implantable venous access device (TIVAD) Encounter for insertion of venous access port Port-A-Cath in place (05/03/22) Port placement. We used fluoroscopy for placement. 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 Currently on Pembrioizumab every six weeks, axitnib q 12 hrs Solitary left kidney (Acute) HX: breast cancer LEFT- S/P BILATERAL MASTECTOMY WITH LEFT LN REMOVAL WITH RADIATION On Tamoxifen Acid reflux Medical History Dyslipidemia Fatigue Acute blood loss anemia History of COVID-19 diagnosed 03/06/2022 @ [facility]--mild symptoms, cough/body aches--no symptoms now Port-A-Cath in place (05/03/22) Insertion Access Port with Fluoroscopy Right Cephalic(Right) - Curtis Serrano MD, FACS Situational anxiety History of high blood pressure Rectal mass History of breast cancer IBS (irritable bowel syndrome) Closed fracture dislocation of ankle Surgical History History of removal of Port-a-Cath (03/09/22) Removal of Access Port(Left) - Dwight Meraz MD, FACS History of anesthesia reaction "got sick"-usually on longer surgeries History of open reduction and internal fixation (ORIF) procedure (~2018) right ankle History of right radical nephrectomy (~07/30/21) Robotic Laparoscopic Assisted Right Radical Nephrectomy transition to hand assisted laparoscopic right Nephrectomy(Right) @ [facility] History of biopsy (~11/16/21) ultrasound guided biopsy area near liver/kidney on upper right quadrant @ [facility] Nausea and vomiting after administration of anesthetic agent History of esophagogastroduodenoscopy (EGD) History of colonoscopy H/O breast reconstruction BILATERAL Hx of lumpectomy LEFT History of bilateral tubal ligation History of section X2 History of mastectomy BILATERAL WITH LEFT LYMPH NODE REMOVAL>BREAST REDUCTION Family History Aunt FHx: breast cancer Breast cancer Mother FHx: breast cancer Breast cancer Family history of reaction to anesthesia slow to wake with anesthesia Grandmother (Maternal) FHx: breast cancer Breast cancer Father Family history of diabetes mellitus Heart disease Hypertension Denies family history of Ovarian cancer Colorectal cancer Social History Smoking Status: Never smoker Second Hand Exposure: No; Do You Dip or Chew Tobacco: No; Hx Alcohol Use: No Hx Substance Use: No Preferred Language: Bahamian Communication Ability: Effective Visual Impairment: No Limitations Biological Sciences Professor Required: No Beliefs That Will Affect Care: None marital status: Current Living Situation: Spouse and Family Current Living Situation Comment: and 2 teenage sons Feels Safe at Home: Yes Diet: regular Assistive Devices: None Physical Exam 2 Vital Signs: Vital Signs - 24 hr 04/01/24 17:05 04/01/24 18:03 04/01/24 18:05 Temperature 37.0 C Temperature Source Oral Pulse Rate 81 Pulse Rate [Right Finger] 78 Respiratory Rate 16 20 Respiratory Effort / Characteristics Non-Labored Sponta neous Respiratory Depth Normal Blood Pressure 109/73 Blood Pressure [Ri ght Arm] 119/73 Blood Pressure Sandra n 85 Blood Pressure Sandra n [Right Arm] 88 Blood Pressure Pos ition Sitting Pulse Oximetry 93 85 L 92 Oxygen Delivery Me thod Room Air Room Air Nasal Cannula Oxygen Flow Rate 2 Sepsis Recent Feve r Within 48 Hours No Sepsis New/Unexpla ined Change in Men anisha Status N/A Sepsis Action Take n by Nursing No Action Required 04/01/24 18:06 04/01/24 18:15 04/01/24 18:30 Temperature Temperature Source Pulse Rate 74 Pulse Rate [Right Finger] 73 77 Respiratory Rate 19 22 Respiratory Effort / Characteristics Respiratory Depth Blood Pressure Blood Pressure [Ri ght Arm] 119/73 Blood Pressure Sandra n Blood Pressure Sandra n [Right Arm] 88 Blood Pressure Pos ition Pulse Oximetry 93 94 Oxygen Delivery Me thod Nasal Cannula Nasal Cannula Oxygen Flow Rate 2 2 Sepsis Recent Feve r Within 48 Hours Sepsis New/Unexpla ined Change in Men anisha Status Sepsis Action Take n by Nursing 04/01/24 19:00 Temperature Temperature Source Pulse Rate Pulse Rate [Right Finger] 72 Respiratory Rate 19 Respiratory Effort / Characteristics Respiratory Depth Blood Pressure Blood Pressure [Ri ght Arm] 114/73 Blood Pressure Sandra n Blood Pressure Sandra n [Right Arm] 86 Blood Pressure Pos ition Pulse Oximetry 94 Oxygen Delivery Me thod Nasal Cannula Oxygen Flow Rate 2 Sepsis Recent Feve r Within 48 Hours Sepsis New/Unexpla ined Change in Men anisha Status Sepsis Action Take n by Nursing Physical Exam: Physical Exam GENERAL: oriented to person, place, and time. appears well-developed and well- nourished. HENT: Exam performed. - Head: Normocephalic and atraumatic. EYES: Conjunctivae and EOM are normal. Right eye exhibits no discharge. Left eye exhibits no discharge. No scleral icterus. NECK: Normal range of motion. Neck supple. No JVD present. CV: Normal rate, regular rhythm, normal heart sounds and intact distal pulses. There is no peripheral edema. Palpable radial pulses bue. PULM/CHEST: Rhonchi bilaterally. ABD: The abdomen is soft. There is no tenderness. NEURO: Motor and sensation grossly intact. SKIN: Skin is warm and dry. He is not diaphoretic. PSYCH: normal mood and affect. Behavior is normal. Judgment and thought content normal. Course Course 1713: The patient was evaluated in room C10. A complete history and physical exam was performed Cardiac monitoring: An order was placed for continuous cardiac monitoring. The monitor shows a rate of 80 with sinus rhythm interpreted by me 1820: Patient became hypoxic on room air. Supplemental oxygen was applied to the patient which improved the patient's oxygen saturation. Chest x-ray shows hazy opacities at the lung bases. White blood cell count 16. Lactic acid within normal limits. Patient will be treated with IV antibiotics. 1854: Vital signs stable supplemental oxygen via nasal cannula. CTA of the chest negative for PE. [facility] Patient now reporting that she has a allergy to vancomycin. Vancomycin canceled patient will be treated with daptomycin instead of vancomycin. Cefepime already given to the patient. Administered Medications Discontinued Medications Acetaminophen (Acetaminophen 325 Mg Tab) Confirm Administered Dose 650 mg .ROUTE .STK-MED ONE Stop: 04/01/24 19:53 Last Admin: 04/01/24 19:54 Dose: 650 mg Documented By: ASW Cefepime HCl (Maxipime 2000mg) 2,000 mg in 20 mls @ 5 mls/min IV NOW STA; Protocol Stop: 04/01/24 18:22 Last Admin: 04/01/24 18:41 Dose: 5 mls/min Documented By: ASW Vancomycin HCl 2,250 mg/ (Sodium Chloride) 545 mls @ 200 mls/hr IV NOW ONE Stop: 04/01/24 21:02 Last Admin: 04/01/24 19:32 Dose: Not Given Documented By: ASW Daptomycin 425 mg/ Syringe 8.5 mls @ 4.25 mls/min IV Q24H [facility]; Protocol Stop: 04/03/24 19:44 Last Admin: 04/01/24 19:49 Dose: Not Given Documented By: ASW Ioversol (Optiray 320 125ml) 118 ml IV ONCE ONE Stop: 04/01/24 18:26 Last Admin: 04/01/24 18:26 Dose: 118 ml Documented By: JESSICAK Medical Decision Making Laboratory Data Attestation: I reviewed the patient's lab results. 04/01/24 17:34 04/01/24 17:34 Lab Results 04/01/24 04/01/24 Range/Units 17:34 17:48 WBC 16.13 H (4.8-10.8) K/ul RBC 4.19 L (4.20-5.40) M/uL Hgb 12.3 (12.0-16.0) g/dl Hct 36.7 L (37.0-47.0) % MCV 87.6 (80.0-100.0) fL MCH 29.4 (25.0-34.0) pg MCHC 33.5 (32.0-36.0) g/dL RDW Std Deviation 42.3 (36.4-46.3) fL RDW Coeff of Edmundo 13.2 (11.5-14.5) % Plt Count 221 (130-400) K/uL MPV 11.4 (9.4-12.4) fL Immature Gran % (Auto) 0.8 % Neut % (Auto) 90.7 % Lymph % (Auto) 4.6 % [place] % (Auto) 3.2 % Eos % (Auto) 0.3 % Baso % (Auto) 0.4 % Neut # (Auto) 14.62 H (1.40-6.50) K/uL Lymph # (Auto) 0.75 L (1.20-3.40) K/uL [place] # (Auto) 0.52 (0.11-0.59) K/uL Eos # (Auto) 0.05 (0.00-0.50) K/uL Baso # (Auto) 0.06 (0.00-0.20) K/uL Immature Gran # (Auto) 0.13 (0.01-0.20) K/uL Polychromasia 1+ PT 10.4 (9.0-12.0) Seconds INR 1.0 (0.9-1.1) APTT 26 (21-31) Seconds PTT Ratio 1.0 VBG pH 7.42 H (7.36-7.41) VBG pCO2 38 (38-50) mmHg VBG pO2 40 mmHg VBG HCO3 25 mmol/L VBG O2 Saturation 71.9 % VBG Base Excess 0.3 mEq/L Sodium 138 (136-145) mmol/L Potassium 3.8 (3.5-5.1) mmol/L Chloride 105 (98-107) mmol/L Carbon Dioxide 24 (21-32) mmol/L Anion Gap 9 (3-11) BUN 13 (6-23) mg/dl Creatinine 1.08 (0.6-1.2) mg/dl Est Cr Clr Drug Dosing 67.7 ml/min eGFR 61.42 BUN/Creatinine Ratio 12.0 (10-20) Glucose 106 H (70-99(Fasting)) mg/dl Lactate 0.9 (0.4-2.0) mmol/L Calcium 8.8 (8.6-10.3) mg/dl Magnesium 1.6 L (1.7-2.4) mg/dl Total Bilirubin 0.7 (0.2-1.0) mg/dl Direct Bilirubin 0.1 (0-0.2) mg/dl AST 13 (13-39) U/L ALT 14 (7-52) U/L Alkaline Phosphatase 65 (34-104) U/L Troponin I High Sens 12.3 (0-14) pg/ml Total Protein 6.6 (6.0-8.3) gm/dl Albumin 3.4 (3.4-5.0) gm/dl Procalcitonin 0.45 (0-0.5) ng/ml Adenovirus (PCR) Not Detected (NotDetected) B. pertussis DNA (PCR) Not Detected (NotDetected) B.parapertussis DNA PCR Not Detected (NotDetected) C. pneumoniae DNA (PCR) Not Detected (NotDetected) Coronavirus OC43 (PCR) Not Detected (NotDetected) Coronavirus HKU1 (PCR) Not Detected (NotDetected) Coronavirus 229E (PCR) Not Detected (NotDetected) SARS-CoV-2 (PCR) Not Detected (NotDetected) Coronavirus NL63 (PCR) Not Detected (NotDetected) Human Metapneumovir PCR Not Detected (NotDetected) Influenza Type A (PCR) Not Detected (NotDetected) Influenza Type B (PCR) Not Detected (NotDetected) M. pneumoniae (PCR) Not Detected (NotDetected) Parainfluenza 1 (PCR) Not Detected (NotDetected) Parainfluenza 2 (PCR) Not Detected (NotDetected) Parainfluenza 3 (PCR) Not Detected (NotDetected) Parainfluenza 4 (PCR) Not Detected (NotDetected) RSV (PCR) Not Detected (NotDetected) Entero/Rhino (PCR) Not Detected (NotDetected) Imaging Data Radiologist's Impression: Chest X-Ray 04/01/24 17:14 EXAM: X-ray chest one-view portable CLINICAL HISTORY: Sepsis PRIORS: 01/23/2024 TECHNIQUE: Portable upright AP chest FINDINGS: A right sided Mediport catheter present with distal tip at the atriocaval junction, unchanged. Surgical clips noted in the left axilla. The chest is well-expanded. Hazy opacity present in the lung bases with platelike atelectasis. No effusion or congestive changes. Heart size is normal. No pneumothorax. Trachea is patent. Osseous structures demonstrate no acute abnormality. No radiopaque foreign body. IMPRESSION: Subtle hazy opacity in the lung bases which could suggest pneumonia given the stated clinical history. ACT 112: Positive. There are findings on this examination that require communication between the performing entity and the patient following Patient Test Result Information Act ([place] ACT 112) guidelines. Electronically signed by Karin Mcguire 04-01-2024 5:39 PM Chest CTA 04/01/24 17:22 EXAMINATION: Chest CT with CLINICAL HISTORY: Sepsis PRIORS: None TECHNIQUE: Contiguous axial images were obtained through the chest with the use of intravenous contrast. Sagittal and coronal reformations are supplied. FINDINGS: Bilateral breast implants within the [id number]. A right sided Mediport catheter present with distal tip at the atriocaval junction. Surgical clips noted in the left axilla and chest wall. The pulmonary arteries are well-opacified. No central or peripheral pulmonary embolism is identified. Heart size is top normal. Moderate to advanced atherosclerotic disease of the left anterior descending coronary artery. Nonpathologically enlarged lymph nodes present in the mediastinum. Trachea and mainstem bronchi patent. No axillary adenopathy. No radiopaque foreign body. In lung windows, small bilateral pleural effusions with associated mild airspace consolidation and/or atelectasis, atelectasis is favored. Diffuse groundglass attenuation throughout the lungs, most pronounced in the upper lobes. No large confluent opacification. Nopneumothorax. Limited visualization of the upper abdomen shows no acute abnormality. In bone windows mild kyphosis is noted. IMPRESSION: 1. No CT evidence of a central or peripheral pulmonary embolism. 2. Small bilateral pleural effusions with atelectasis and/or airspace consolidation at the lung bases. Atelectasis is favored though mild pneumonia cannot be excluded. 3. Diffuse groundglass attenuation throughout the lungs compatible with alveolitis. Electronically signed by Karin Mcguire 04-01-2024 6:47 PM ECG Data Attestation: I personally reviewed and interpreted this ECG as follows: Interpretation: Sinus rhythm with a rate of 77. GA QRS and QT intervals within normal limits. No ST elevation or ST depression. [facility] Narrative 1714: The patient was evaluated in room C10. A complete history and physical exam was performed Cardiac monitoring: An order was placed for continuous cardiac monitoring. The monitor shows a rate of 80 with sinus rhythm interpreted by hi 1820: Patient became hypoxic on room air. Supplemental oxygen was applied to the patient which improved the patient's oxygen saturation. Chest x-ray shows hazy opacities at the lung bases. White blood cell count 16. Lactic acid within normal limits. Patient will be treated with IV antibiotics. 185: Vital signs stable supplemental oxygen via nasal cannula. CTA of the chest negative for PE. [facility]: Patient now reporting that she has a allergy to vancomycin. Vancomycin canceled patient will be treated with daptomycin instead of vancomycin. Cefepime already given to the patient. Impression & Plan Hypoxia, Pneumonia Critical Care Time Critical Care Time: Yes Total Critical Care Time: 35 I have personally spent greater than 35 minutes of critical care time in the direct management of this patient. This includes bedside care, interpretation of diagnostic studies, and testing, discussion with consultants, patient, and family members, and other required patient management activities. This 35 minutes is in excess of all separately billable procedures. Discharge Plan Visit Data Chief Complaint: Flu Like Symptoms Stated Complaint: FATIGUE,BODY ACHES,FEVER,DIZZY,SOB,CANCER PT ED Provider: Sergo Peña Discharge Problem: Hypoxia, Pneumonia Patient Disposition: Admitted As Inpatient Forms Stand Alone Forms: My [facility] Prescriptions Prescriptions: No Action amlodipine 5 mg tablet 5 mg PO QAM Qty: 30 3RF Hold Instructions: Hold for now until told to resume per PCP vitamin B complex [B Complex-Vitamin B12] Tablet 1 tab PO QAM levothyroxine 50 mcg tablet 50 mcg PO DAILY omeprazole 10 mg capsule,delayed release(DR/EC) 20 mg PO DAILY lorazepam [Ativan] 0.5 mg tablet 0.5 mg PO BID PRN (Reason: anxiety or insomnia) 30 Days Qty: 60 0RF Probiotic 10 billion cell Capsule 1 cell PO QAM Vitron-C 65 mg iron- 125 mg Tablet,Delayed Release (Dr/Ec) 1 tab PO QAM pembrolizumab 50 mg Recon Soln 50 mg IV UD Patient Comments: every 6 weeks Rx Instructions: every 6 weeks, due 04/10 Inlyta 5 mg tablet 3 mg PO BID lisinopril 40 mg Tablet 40 mg PO QAM Hold Instructions: Hold for now until told to resume per PCP citalopram [Celexa] 20 mg tablet 20 mg PO HS furosemide [Lasix] 20 mg tablet 20 mg PO DAILY cholecalciferol (vitamin D3) 1,250 mcg (50,000 unit) capsule 50,000 unit TU@0900 gabapentin 100 mg Capsule 100 mg PO HS Vitron-C 65 mg iron- 125 mg Tablet,Delayed Release (Dr/Ec) 1 tab PO DAILY Referrals Referrals: Emilie Nicole DO [Primary Care Provider] - Discharge Problem: Pneumonia Qualifiers: Pneumonia type: due to unspecified organism Laterality: unspecified laterality
[2024-04-01] MEDS ORDERED: POLYETHYLENE (MIRALAX) 17 GM PACK PO PRN (20:52)
[2024-04-01] MEDS ORDERED: ONDANSETRON INJ 2 MG/ML 2 ML VIAL IV PRN (20:52)
[2024-04-01] MEDS ORDERED: SODIUM CHLORIDE 0.65% NA SOLN 45 ML (OCEAN) PRN (20:52)
[2024-04-01] MEDS ORDERED: CEFEPIME 1000MG 1,000 MG/10 ML SYR IV SCH (20:52)
[2024-04-01] MEDS ORDERED: BENZONATATE 100 MG CAPSULE PO PRN (20:52)
[2024-04-01] MEDS ORDERED: LEVALBUTEROL HCL 0.63 MG/3 ML NEB NEB PRN (20:52)
[2024-04-01] MEDS ORDERED: LORazepam 0.5 MG TAB PO PRN (20:52)
[2024-04-01] MEDS: SODIUM CHLORIDE 0.9% 1,000 ML IV SCH (21:13)
[2024-04-01] MEDS: MAGNESIUM SULFATE / D5W 1 GM/100 ML BAG IV ONE (21:14)
[2024-04-01 21:44] LABS: Appearance Urine Clear (Clear); Bacteria Urine Automated None Seen (None Seen); Bilirubin Urine Negative (Negative); Blood Urine Negative (Negative); Cast Urine Automated 0-2 /lpf (0-2); Color Urine Yellow; Epithelial Cell Urine Auto 0-2 /hpf (0-2); Glucose Urine UA Negative (Negative); Ketones Urine Negative (Negative); Leukocyte Esterase Urine 2+ (Negative); Nitrite Urine Negative (Negative); Protein Urine Negative (Negative); RBC Urine Automated 0-2 /hpf (0-2); Specific Gravity Urine > 1.045 (1.000-1.030); Urobilinogen Urine Negative (Negative); pH Urine 7.5 (4.5-7.5)
[2024-04-01] MEDS: CITALOPRAM 20 MG TAB PO SCH (22:14)
[2024-04-01] MEDS: DOXYCYCLINE HYCLATE 100 MG CAP PO SCH (22:14)
[2024-04-01] MEDS: ENOXAPARIN INJ 40 MG/0.4 ML SYR SQ SCH (22:14)
[2024-04-01] MEDS: CLOTRIMAZOLE 1% CR 15 GM TUBE EXT SCH (23:19)
[2024-04-02] MEDS: CEFEPIME 2000MG 2,000 MG/20 ML SYR IV SCH (03:58)
[2024-04-02] MEDS: LEVOTHYROXINE SODIUM 50 MCG TABLET PO SCH (05:40)
[2024-04-02 06:38] LABS: Hematocrit (blood only) 34.7 % (37.0-47.0); Hemoglobin 11.3 g/dl (12.0-16.0); Mean Corpuscular Hemoglobin 28.6 pg (25.0-34.0); Mean Corpuscular Hgb Conc 32.6 g/dL (32.0-36.0); Mean Corpuscular Volume 87.8 fL (80.0-100.0); Mean Platelet Volume 11.4 fL (9.4-12.4); Platelet Count 216 K/uL (130-400); RDW Coefficient of Variation 13.2 % (11.5-14.5); RDW Standard Deviation 42.6 fL (36.4-46.3); Red Blood Count 3.95 M/uL (4.20-5.40); White Blood Count 12.71 K/ul (4.8-10.8)
[2024-04-02 06:56] LABS: BUN Creatinine Ratio 14.1 (10-20); Calcium 8.5 mg/dl (8.6-10.3); Creatinine Clr Calc Pharmacy 73.8 ml/min; Magnesium 1.9 mg/dl (1.7-2.4); Potassium 3.8 mmol/L (3.5-5.1)
[2024-04-02] MEDS: PANTOprazole 40 MG TAB PO SCH (07:29)
[2024-04-02] MEDS: VITAMIN B COMPLEX TAB PO SCH (07:29)
[2024-04-02] MEDS: LACTOBACILLUS ACIDOPHILUS 1 GM PACK PO SCH (07:29)
[2024-04-02] MEDS ORDERED: NON-FORMULARY MEDICATION (Iron,Carbonyl-Vitamin C [Vitron-C] 65 mg iron- 125 mg Tablet,Del PO SCH (09:00)
--- NOTE | 2024-04-02 10:00 | Hospitalist Progress Note ---
Date of Service April 02, 2024 Assessment & Plan (1) Acute hypoxic respiratory failure: Plan: This is improving, patient seems to be stable at this point, we will try to wean her off oxygen and ambulate her and see how she does, continue IV antibiotic treatment for pneumonia, CT of the chest was reviewed by myself. (2) Pneumonia: Plan: This is probably either infectious or inflammatory alveolitis based on the pattern of CT of the chest, will continue with current regimen of empirical cefepime and doxycycline, I am optimistic that probably upon discharge we might be able to transition to single agent. I explained the natural course of resolution of pneumonia and the need for antitussives and/or mucolytic's. (3) Renal cell carcinoma: Plan: Defer to outpatient follow-up. (4) Hypertension: Plan: Hold home dose of amlodipine and the lisinopril for now because of borderline blood pressure. (5) Hypothyroidism (acquired): Plan: Continue with Synthroid 50 mcg daily. Plan Continue with empirical cefepime and doxycycline, reevaluate tomorrow, wean her off oxygen and ambulate and see how she improves. Potential transition to oral antibiotic and discharge tomorrow. Admission and Anticipated Discharge Date Admission Date: April 01, 2024 Subjective Patient is a 53-year-old very pleasant female with history of renal cell carcinoma status post right nephrectomy on immunotherapy who also has hypertens ion and hyperlipidemia and remote history of breast cancer came to the hospital because of body ache, she was found to have minimal bilateral airspace disease probably compatible with alveolitis, patient was empirically treated with cefepime and doxycycline. Patient was seen and examined, apparently yesterday she was slightly hypoxic, for now we will try to wean her off oxygen, will ambulate her and see how she does and she might be able to come off oxygen, will reevaluate by end of the day or tomorrow morning for possible transitioning to oral antibiotic. Physical Exam Physical Exam: VITALS: Reviewed. WEIGHT/BMI reviewed. GEN: Healthy appearing, well-developed, NAD. PSYCH: Good Judgment. AOx3. Normal memory, mood, and affect. CV: RRR, no m/r/g. LUNGS: CTAB, no w/r/c. ABD: Soft, NT/ND, NBS, no masses or organomegaly. : N/A SKIN: Warm, well perfused. No skin rashes or abnormal lesions. EXT: No clubbing, cyanosis, or edema. Results & Data Results & Data Vital Signs (Past 12 Hours) Vital Signs Temp Pulse Pulse Resp BP Pulse Ox O2 Del Method 04/02/24 07:42 37.0 C 72 20 110/67 91 Nasal Cannula 04/02/24 07:24 Nasal Cannula 04/02/24 07:18 71 04/02/24 03:29 36.9 C 65 18 109/70 92 Nasal Cannula 04/02/24 00:05 36.9 C 70 20 109/70 94 Nasal Cannula 04/01/24 22:07 68 O2 Flow Rate 04/02/24 07:42 2 04/02/24 07:24 2 04/02/24 07:18 04/02/24 03:29 2 04/02/24 00:05 2 04/01/24 22:07 Laboratory Results Laboratory Results - last 24 hr 04/01/24 04/01/24 04/01/24 17:34 17:48 21:17 WBC 16.13 H RBC 4.19 L Hgb 12.3 Hct 36.7 L MCV 87.6 MCH 29.4 MCHC 33.5 RDW Std Deviation 42.3 RDW Coeff of Edmundo 13.2 Plt Count 221 MPV 11.4 Immature Gran % (Auto) 0.8 Neut % (Auto) 90.7 Lymph % (Auto) 4.6 Louisa % (Auto) 3.2 Eos % (Auto) 0.3 Baso % (Auto) 0.4 Neut # (Auto) 14.62 H Lymph # (Auto) 0.75 L [place] # (Auto) 0.52 Eos # (Auto) 0.05 Baso # (Auto) 0.06 Immature Gran # (Auto) 0.13 Polychromasia 1+ PT 10.4 INR 1.0 APTT 26 PTT Ratio 1.0 VBG pH 7.42 H VBG pCO2 38 VBG pO2 40 VBG HCO3 25 VBG O2 Saturation 71.9 VBG Base Excess 0.3 Sodium 138 Potassium 3.8 Chloride 105 Carbon Dioxide 24 Anion Gap 9 BUN 13 Creatinine 1.08 Est Cr Clr Drug Dosing 67.7 eGFR 61.42 BUN/Creatinine Ratio 12.0 Glucose 106 H Lactate 0.9 Calcium 8.8 Magnesium 1.6 L Total Bilirubin 0.7 Direct Bilirubin 0.1 AST 13 ALT 14 Alkaline Phosphatase 65 Troponin I High Sens 12.3 Total Protein 6.6 Albumin 3.4 Procalcitonin 0.45 Urine Color Yellow Urine Appearance Clear Urine pH 7.5 Ur Specific [place] > 1.045 H Urine Protein Negative Urine Glucose (UA) Negative Urine Ketones Negative Urine Blood Negative Urine Nitrite Negative Urine Bilirubin Negative Urine Urobilinogen Negative Ur Leukocyte Esterase 2+ H Urine WBC (Auto) 11-20 H Urine RBC (Auto) 0-2 U Hyaline Cast (Auto) 0-2 U Epithel Cells (Auto) 0-2 Urine Bacteria (Auto) None Seen Nasal Screen MRSA (PCR) Adenovirus (PCR) Not Detected B. pertussis DNA (PCR) Not Detected B.parapertussis DNA PCR Not Detected C. pneumoniae DNA (PCR) Not Detected Coronavirus OC43 (PCR) Not Detected Coronavirus HKU1 (PCR) Not Detected Coronavirus 229E (PCR) Not Detected SARS-CoV-2 (PCR) Not Detected Coronavirus NL63 (PCR) Not Detected Human Metapneumovir PCR Not Detected Influenza Type A (PCR) Not Detected Influenza Type B (PCR) Not Detected M. pneumoniae (PCR) Not Detected Parainfluenza 1 (PCR) Not Detected Parainfluenza 2 (PCR) Not Detected Parainfluenza 3 (PCR) Not Detected Parainfluenza 4 (PCR) Not Detected RSV (PCR) Not Detected Entero/Rhino (PCR) Not Detected 04/01/24 04/02/24 22:17 05:47 WBC 12.71 H RBC 3.95 L Hgb 11.3 L Hct 34.7 L MCV 87.8 MCH 28.6 MCHC 32.6 RDW Std Deviation 42.6 RDW Coeff of Edmundo 13.2 Plt Count 216 MPV 11.4 Immature Gran % (Auto) Neut % (Auto) Lymph % (Auto) Louis[place] % (Auto) Eos % (Auto) Baso % (Auto) Neut # (Auto) Lymph # (Auto) [place] # (Auto) Eos # (Auto) Baso # (Auto) Immature Gran # (Auto) Polychromasia PT INR APTT PTT Ratio VBG pH VBG pCO2 VBG pO2 VBG HCO3 VBG O2 Saturation VBG Base Excess Sodium 139 Potassium 3.8 Chloride 107 Carbon Dioxide 24 Anion Gap 8 BUN 14 Creatinine 0.99 Est Cr Clr Drug Dosing 73.8 eGFR 68.18 BUN/Creatinine Ratio 14.1 Glucose 91 Lactate Calcium 8.5 L Magnesium 1.9 Total Bilirubin Direct Bilirubin AST ALT Alkaline Phosphatase Troponin I High Sens Total Protein Albumin Procalcitonin Urine Color Urine Appearance Urine pH Ur Specific [place] Urine Protein Urine Glucose (UA) Urine Ketones Urine Blood Urine Nitrite Urine Bilirubin Urine Urobilinogen Ur Leukocyte Esterase Urine WBC (Auto) Urine RBC (Auto) U Hyaline Cast (Auto) U Epithel Cells (Auto) Urine Bacteria (Auto) Nasal Screen MRSA (PCR) Negative Adenovirus (PCR) B. pertussis DNA (PCR) B.parapertussis DNA PCR C. pneumoniae DNA (PCR) Coronavirus OC43 (PCR) Coronavirus HKU1 (PCR) Coronavirus 229E (PCR) SARS-CoV-2 (PCR) Coronavirus NL63 (PCR) Human Metapneumovir PCR Influenza Type A (PCR) Influenza Type B (PCR) M. pneumoniae (PCR) Parainfluenza 1 (PCR) Parainfluenza 2 (PCR) Parainfluenza 3 (PCR) Parainfluenza 4 (PCR) RSV (PCR) Entero/Rhino (PCR) Diagnostic Findings Chest X-Ray 04/01/24 17:14 EXAM: X-ray chest one-view portable CLINICAL HISTORY: Sepsis PRIORS: 01/23/2024 TECHNIQUE: Portable upright AP chest FINDINGS: A right sided Mediport catheter present with distal tip at the atriocaval junction, unchanged. Surgical clips noted in the left axilla. The chest is well-expanded. Hazy opacity present in the lung bases with platelike atelectasis. No effusion or congestive changes. Heart size is normal. No pneumothorax. Trachea is patent. Osseous structures demonstrate no acute abnormality. No radiopaque foreign body. IMPRESSION: Subtle hazy opacity in the lung bases which could suggest pneumonia given the stated clinical history. ACT 112: Positive. There are findings on this examination that require communication between the performing entity and the patient following Patient Test Result Information Act ([place] ACT 112) guidelines. Electronically signed by Karin Mcguire 04-01-2024 5:39 PM Chest CTA 04/01/24 17:22 EXAMINATION: Chest CT with CLINICAL HISTORY: Sepsis PRIORS: None TECHNIQUE: Contiguous axial images were obtained through the chest with the use of intravenous contrast. Sagittal and coronal reformations are supplied. FINDINGS: Bilateral breast implants within the [id number]. A right sided Mediport catheter present with distal tip at the atriocaval junction. Surgical clips noted in the left axilla and chest wall. The pulmonary arteries are well-opacified. No central or peripheral pulmonary embolism is identified. Heart size is top normal. Moderate to advanced atherosclerotic disease of the left anterior descending coronary artery. Nonpathologically enlarged lymph nodes present in the mediastinum. Trachea and mainstem bronchi patent. No axillary adenopathy. No radiopaque foreign body. In lung windows, small bilateral pleural effusions with associated mild airspace consolidation and/or atelectasis, atelectasis is favored. Diffuse groundglass attenuation throughout the lungs, most pronounced in the upper lobes. No large confluent opacification. Nopneumothorax. Limited visualization of the upper abdomen shows no acute abnormality. In bone windows mild kyphosis is noted. IMPRESSION: 1. No CT evidence of a central or peripheral pulmonary embolism. 2. Small bilateral pleural effusions with atelectasis and/or airspace consolidation at the lung bases. Atelectasis is favored though mild pneumonia cannot be excluded. 3. Diffuse groundglass attenuation throughout the lungs compatible with alveolitis. Electronically signed by Karin Mcguire 04-01-2024 6:47 PM Medications Administered Current Inpatient Medications Acetaminophen (Acetaminophen 325 Mg Tab) 650 mg PO Q4H PRN PRN Reason: pain/fever Stop: 05/01/24 20:51 Benzonatate (Benzonatate 100 Mg Capsule) 100 mg PO TID PRN PRN Reason: Cough Stop: 05/01/24 20:51 Citalopram Hydrobromide (Citalopram 20 Mg Tab) 20 mg PO HS MERY Stop: 05/01/24 20:59 Last Admin: 04/01/24 22:14 Dose: 20 mg Clotrimazole (Clotrimazole 1% Cr 15 Gm Tube) 1 appln EXT BID MERY Stop: 05/01/24 20:59 Last Admin: 04/02/24 07:28 Dose: 1 appln Doxycycline Hyclate (Doxycycline Hyclate 100 Mg Cap) 100 mg PO BID MERY Stop: 04/06/24 20:59 Last Admin: 04/02/24 07:29 Dose: 100 mg Enoxaparin Sodium (Enoxaparin Inj 40 Mg/0.4 Ml Syr) 40 mg SQ Q24H MERY Stop: 05/01/24 20:59 Last Admin: 04/01/24 22:14 Dose: 40 mg Heparin Sodium (Porcine) (Heparin 100 Unit/Ml 5ml Flush) 5 ml FLUSH PRN PRN PRN Reason: Flush Stop: 05/02/24 04:17 Cefepime HCl (Maxipime 2000mg) 2,000 mg in 20 mls @ 5 mls/min IV Q8H MERY Stop: 04/07/24 02:59 Last Admin: 04/02/24 03:58 Dose: 5 mls/min Lactobacillus Acidophilus (Lactobacillus Acidophilus 1 Gm Pack) 1 packet PO QAM [facility] Stop: 05/02/24 08:59 Last Admin: 04/02/24 07:29 Dose: 1 packet Levalbuterol HCl (Levalbuterol Hcl 0.63 Mg/3 Ml Neb) 0.63 mg NEB Q6H PRN; Pr otocol PRN Reason: Shortness Of Breath Or Wheezing Stop: 05/01/24 20:51 Levothyroxine Sodium (Levothyroxine Sodium 50 Mcg Tablet) 50 mcg PO DAILYBB [facility] Stop: 05/02/24 06:29 Last Admin: 04/02/24 05:40 Dose: 50 mcg Lorazepam (Lorazepam 0.5 Mg Tab) 0.5 mg PO BID PRN PRN Reason: anxiety or insomnia Stop: 05/01/24 20:51 Ondansetron HCl (Ondansetron Inj 2 Mg/Ml 2 Ml Vial) 4 mg IV Q6H PRN PRN Reason: Nausea Stop: 05/01/24 20:51 Pantoprazole Sodium (Pantoprazole 40 Mg Tab) 40 mg PO DAILY [facility] Stop: 05/02/24 08:59 Last Admin: 04/02/24 07:29 Dose: 40 mg Polyethylene Glycol (Polyethylene (Miralax) 17 Gm Pack) 17 gm PO DAILY PRN PRN Reason: Constipation Stop: 05/01/24 20:51 Sodium Chloride (Sodium Chloride 0.65% Na Soln 45 Ml ([place])) 2 sprays NA Q4H PRN PRN Reason: Dryness Stop: 05/01/24 20:51 Vitamin B Complex (Vitamin B Complex Tab) 1 tab PO QAM [facility] Stop: 05/02/24 08:59 Last Admin: 04/02/24 07:29 Dose: 1 tab (2) Pneumonia Laterality: left Lung location: lower lobe of lung Pneumonia type: due to unspecified organism Qualified Code(s): J18.9 - Pneumonia, unspecified organism (3) Renal cell carcinoma Laterality: right Qualified Code(s): C64.1 - Malignant neoplasm of right kidney, except renal pelvis (4) Hypertension Hypertension type: primary hypertension Qualified Code(s): I10 - Essential (primary) hypertension
[2024-04-02] MEDS: ACETAMINOPHEN 325 MG TAB PO PRN (12:21)
[2024-04-03] MEDS: HEPARIN 100 UNIT/ML 5ML FLUSH FLUSH PRN (03:43)
[2024-04-03] MEDS: ALBUT/IPRATROP 3MG/0.5MG NEB 3 ML VIAL NEB STA (04:24)
[2024-04-03] MEDS: MAGNESIUM SULFATE / D5W 1 GM/100 ML BAG IV ONE (04:33)
--- NOTE | 2024-04-03 05:49 | Electrocardiogram Report ---
Test Reason : Blood Pressure : */* mmHG Vent. Rate : 77 BPM Atrial Rate : 77 BPM P-R Int : 120 ms QRS Dur : 80 ms QT Int : 340 ms P-R-T Axes : 14 -1 79 degrees QTcB Int : 384 ms Normal sinus rhythm Normal ECG When compared with ECG of 25-Jul-2023 16:06, No significant change was found Confirmed by Ludwin Talbert ([id number]) on 04/03/2024 5:48:58 AM Referred By: Confirmed By: Ludwin Talbert
[2024-04-03 08:25] VITALS: BP 103/70; PULSE 66; RESP 16; TEMP 98.1; O2SAT 91
--- NOTE | 2024-04-03 09:53 | Discharge Summary ---
Discharge Summary Date of Service April 03, 2024 Principal Dx & Hospital Course #1 = Principal Diagnosis (1) Acute hypoxic respiratory failure: (2) Pneumonia: (3) Renal cell carcinoma: (4) Hypertension: (5) Hypothyroidism (acquired): Notes For Next Care Provider Medication Changes From Visit Doxycycline 100 mg twice daily for 7 days Mucinex 1200 mg twice daily for 10 days Admission HPI Per Admitting Provider Patient is a 53-year-old very pleasant female with history of renal cell carcinoma status post right nephrectomy on immunotherapy who also has hypertension and hyperlipidemia and remote history of breast cancer came to the hospital because of body ache, she was found to have minimal bilateral airspace disease probably compatible with alveolitis, patient was empirically treated with cefepime and doxycycline. Patient was seen and examined, she remained clinically stable, weaned off completely from oxygen started ambulating without any difficulty on walking. Her examination was benign, she was much more energetic and was eager to get home, will discharge her on 7 days of doxycycline 100 mg twice daily and Mucinex. Discharge Exam VITALS: Reviewed. WEIGHT/BMI reviewed. GEN: Healthy appearing, well-developed, NAD. LUNGS: CTAB, no w/r/c. Updated Medication List Medication Instructions Recorded Confirmed Type Lactobacillus acidophilus 10 1 cell PO QAM 11/27/18 04/01/24 History billion cell capsule (Probiotic) vitamin B complex (B 1 tab PO QAM 10/09/21 04/01/24 History Complex-Vitamin B12 tablet) pembrolizumab 50 mg intravenous 50 mg IV UD 12/10/21 04/01/24 History solution lisinopril 40 mg tablet 40 mg PO QAM 03/05/22 04/01/24 History levothyroxine 50 mcg tablet 50 mcg PO DAILY 07/12/22 04/01/24 History axitinib 5 mg tablet (Inlyta) 3 mg PO BID 06/20/23 04/01/24 History omeprazole 10 mg capsule,delayed 20 mg PO DAILY 06/20/23 04/01/24 History release lorazepam 0.5 mg tablet (Ativan) 0.5 mg PO BID PRN anxiety or 07/14/23 04/01/24 Rx insomnia 1 month #60 tabs amlodipine 5 mg tablet 5 mg PO QAM #30 tabs 02/20/24 04/01/24 Rx cholecalciferol (vitamin D3) 1,250 50,000 unit TU@0900 04/01/24 04/01/24 History mcg (50,000 unit) capsule citalopram 20 mg tablet (Celexa) 20 mg PO HS depression, anxiety 04/01/24 04/01/24 History furosemide 20 mg tablet (Lasix) 20 mg PO Q2D 04/01/24 04/01/24 History gabapentin 100 mg capsule 100 mg PO HS PRN nerve pain 04/01/24 04/01/24 History iron,carbonyl 65 mg-vitamin C 125 1 tab PO DAILY 04/01/24 04/01/24 History mg tablet,delayed release (Vitron-C) doxycycline hyclate 100 mg capsule 100 mg PO BID 7 days #14 caps 04/03/24 Rx guaifenesin 1,200 mg tablet, 1,200 mg PO BID #20 tabs 04/03/24 Rx extended release 12 hr (Mucus Relief ER) Hospital Stay Data Consultations 04/01/24 18:53 ED Decision to Admit Stat Diagnostic Imagining Performed 04/01/24 17:22 CT angio chest PE protocol Stat Pending Results Patient Have Any Pending Studies at Discharge: No Discharge Instructions Given to Patient (Per Discharging Provider) Return to acute care for any worsening, new fever or chills Expect productive cough for another 1 to 2 weeks. Total Time Total Time Spent Total Time Spent (In Minutes): More than 35-minute
== END 2024-04-03 10:45 | disposition home or self-care (01) | DRG 189 ==
LOC: ED 16:47 → 2W 19:24 → SUATTDRO 19:24 → 2W 20:26

== ENCOUNTER 2024-04-14 11:50 | Observation (INO) ==
--- OUTSIDE RECORDS SUMMARY | 2024-04-14 11:55 | External Medical Summary | Summary of Care ---
Author Name Unknown Organization [facility] Address [address] [place] [address] Phone [phone] Care Team Providers Care Parachute Folder Name Role Phone Yair Jamison DO Primary Care Provider [phone] Reason for Visit * Reason Comments Medication Refill Encounter Details Date Type Department Care Team (Late st Contact Info) Description 04/10/2024 Refill Family Practice [facility] [address] [facility] [place] [address] Yair Jamison DO [address] [facility] [place] [address] Encounter for long-term (current) use of medications*; Gastroesophageal reflux disease with esophagitis without hemorrhage Allergies Active Allergy Reactions Criticality Noted Date Comments Adhesive Tape High 06/11/2021 Other reaction(s): Rash Codeine High 06/11/2021 Other reaction(s): TACHYCARDIA/PALPITATIONS Morphine And Codeine 06/12/2004 Racing heart with codeine Nsaids Low 03/09/2022 Other reaction(s): does not take d/t only one kidney documented as of this encounter (statuses as of 04/12/2024) Medications Probiotic Product (PROBIOTIC DAILY) Capsule Take [...] 4 3:28 PM EDT 07/14/19 24 Active Furosemide 20 MG Oral Tablet [...] orally every day. 90 Tablet 3 4 4:38 PM EST 01/09/20 24 Active Levothyroxine Sodium 50 MCG Oral Tablet (Levoxyl) Take 1 tablet by mouth every day. 90 Tablet 3 01/10/20 24 Active Gabapentin 100 MG Oral Capsule (Neurontin)Indic ations:Leg cramping Take 1 Capsule by mouth at bedtime. 90 Capsule 1 4 3:53 PM EDT 02/08/20 24 Active amLODIPine Besylate 5 MG Oral Tablet (Norvasc) take 1 tablet by mouth daily in the morning 30 Tablet 3 4 12:09 PM EST 02/20/20 24 Active Vitamin D3 1.25 MG (48040 UT) Oral CapsuleIndicatio ns:Vitamin D deficiency Take 1 Capsule by mouth once a week. 12 Capsule 4 4:58 PM EST 02/28/20 24 025 Active guaiFENesin ER 1200 MG Oral Tablet Extended Release 12 Hour take 1 tablet by mouth twice a day 28 Tablet 04/03/20 24 Active Doxycycline Monohydrate 100 MG Oral Capsule take 1 capsule (100 mg ) orally twice a day for 7 days 14 Capsule 4 2:55 PM EST 04/03/20 24 Active Lisinopril 40 MG Oral TabletIndication s:HTN, goal below 130/80 Take 1 Tablet by mouth in the morning. 90 Tablet 4 11:56 AM EST 04/04/20 24 Active Omeprazole 20 MG Oral Capsule Delayed Release (PriLOSEC)Indica tions:Gastroesop hageal reflux disease with esophagitis without hemorrhage Take 1 Capsule by mouth in the morning. 1 hour before the first meal of the day. 90 Capsule 1 04/12/20 24 Active Omeprazole 20 MG Oral Capsule Delayed Release (PriLOSEC)Indica tions:Gastroesop hageal reflux disease with esophagitis without hemorrhage Take 1 Capsule by mouth in the morning. 1 hour before the first meal of the day. 90 Capsule 1 4 12:09 PM EST 10/16/19 24 024 Discontin ued(Refil l) documented as of this encounter (statuses as of 04/12/2024) Active Problems Problem Noted Date Diagnosed Date [...] as of this encounter (statuses as of 04/12/2024) Resolved Problems Problem Noted Date Diagnosed Date [...] 04/10/2012 06/15/2018 Family History of Early Brianne st CA (Mother at 48) 12/01/2016 Family history of other card iovascular diseases 09/28/2016 Overview (07/10/2015): ICD-10 update of inactive term documented as of this encounter (statuses as of 04/12/2024) Immunizations Name Administration Dates Next Due COVID-19 mRNA, LNP-s, No Pre serve, 2-Dose Series ([employer]) 04/22/2021,06/14/2020,05/24/2020 COVID-19, MRNA-LNP, PF, 30 M CG/0.3 mL, 12 YRS AND ABOVE, IM (PFIZER-Comirnat) 02/17/2024 DTWP - Dipth/Tet/Whole Cell Pertussis 1970 PPD 06/25/2021,12/01/2016,10/27/2014 Pneumococcal Conjugate Vacci ne, 20-valent ([email or web address]) 01/25/2023 Seasonal Influenza, PF, 6 M & [...] in the Last Year Never true 11/14/2019 Comments No Sex and Gender Information Value Date Recorded Sex Assigned at Not on file Legal Sex Female 7:17 AM EST Gender Identity Not on file Sexual Orientation Not on file 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 1 hour before the first meal of the day.Authorizing Provider: YAIR JAMISON User: ARNULFO HANNAH * Telephone Encounter - Arnulfo Hannah [facility] - 04/12/2024 4:15 PM EST Provided 90 days supply with 1 refill(s). Per refill protocol patient should have Vitamin B12 and Magnesium levels on file within past 2 years. Lab work ordered (AMP report and protocol medications checked). Patient should have B12 and Mag levels checked with next routine set of labs. Thanks, Arnulfo Hannah, PharmD Clinical Pharmacist Telepharmacy 04/12/2024, 4:15 PM documented in this encounter Plan of Treatment Upcoming Encounters Date Type Department Care Team (Late st Contact Info) Description 04/24/2024 3:00 PM EST Office Visit [facility] [address] [place] [address] Yair Jamison, DO [address] [place] [address] 08/29/2024 5:40 PM EDT Office Visit [facility] [address] [place] [address] Yair Jamison, DO [address] [place] [address] 10/01/2024 3:30 PM EDT Office Visit Dermatology [facility] [address] [facility] [place] [address] Jalen Beck MD [address] [facility] [place] [address] Scheduled Orders Name Type Priority Associated Diagnoses Orde r Schedule MAGNESIUM Lab Routine Gastroesophageal reflux disease with esophagitis without hemorrhage Encounter for long-term (current) use of medications Expected: 06/07/2024 (Approximate), Expires: 04/12/2025 Health Maintenance Due Date Last Done Comments Hepatitis C Screening 1988 Hepatitis B Vaccine (1 of 3 - 19+ 3-dose series) 1989 HPV/Co-Test 2000 Cologuard 07/27/2015 Fecal Occult Blood Test 07/27/2015 Sigmoidoscopy 07/27/2015 Cervical Cancer Screening 06/22/2021 Pap Smear 06/22/2021 06/22/2018, 05/19, 04/24/2014 (Done elsewhere), Additional history exists GFR 06/07/2023 06/07/2022, 01/16, 12/07/2021, Additional history exists TSH 06/07/2023 06/07/2022, 0805/2021, 06/18/2021, Additional history exists Depression Screening 09/15/2023 09/14/2022 Albumin/Creatinine Ratio 09/03/2024 09/03/2021 Diabetes Screening 06/07/2025 06/07/2022, 1 , 12/07/2021, Additional history exists DTap/Tdap Vaccines (7 - Td or Tdap) 02/17/2027 02/17/2017, 12/17/2006, 03/26/1999, Additional history exists Lipid Panel 02/26/2029 02/27/2024, 11/18, 12/01/2016, Additional history exists Colonoscopy 10/29/2030 10/29/2020, 10/29/2020 Colorectal Cancer Screening 10/29/2030 Zoster Vaccines Completed 12/01/2020, 09/23/2020 Pneumococcal Vaccine: 50+ Years Completed 01/25/2023 Influenza Vaccine (FLU shot) Completed [...] as of this encounter Visit Diagnoses Diagnosis Encounter for long-term (current) use of medications- Primary Encounter for long-term (current) use of other medications Gastroesophageal reflux disease with esophagitis without hemorrhage documented in this encounter Care Teams Parachute Folder Relationship Specialty Start Date End Date Yair Jamison DO [address] [place] [id number] PCP - General Family Medicine 08/27/20 documented as of this encounter
--- OUTSIDE RECORDS SUMMARY | 2024-04-14 11:55 | External Medical Summary | Summary of Care ---
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 Name Role Phone Emilie Nicole DO Primary Care Provider [phone] Reason for Referral * Precert (Diagnostic Medical) (Within 10 days (routine)) - Pending Review Specialty Diagnoses / Procedures Referred By Ila dent Referred To Contact Sleep Disorders Diagnoses Snoring Hypersomnolence Fatigue, unspecified type Sleep apnea, unspecified type HTN, goal below 130/80 Procedures SLEEP STUDY, W/ CPAP (TREATMENT SETTINGS) Martina Martinez DO [address] [place] [address] Phone: tel: fax: Referral ID Status Reason Start Date Expiration Date V isits Requested Visits Authorized [id number] Pending Review 04/09/2024 999 [id number] * Precert (Diagnostic Medical) (Within 10 days (routine)) - Pending Review Specialty Diagnoses / Procedures Referred By Ila dent Referred To Contact Sleep Disorders Diagnoses Snoring Hypersomnolence Fatigue, unspecified type Sleep apnea, unspecified type HTN, goal below 130/80 Procedures SLEEP STUDY, W/O CPAP Martina Martinez DO [address] [place] [address] Phone: tel: fax: Referral ID Status Reason Start Date Expiration Date V isits Requested Visits Authorized [id number] Pending Review 04/09/[phone] Reason for Visit * Reason Comments NEW PATIENT New sleep. Witnessed snoring . Talks in her sleep. Trouble staying asleep. Patients both siblings have CPAP machines. * Evaluate & Treat - Unlimited Visits (Within 10 days (routine)) - Pending Review Specialty Diagnoses / Procedures Referred By Ila dent Referred To Contact Sleep Medicine / Sleep Disorders Diagnoses Suspected sleep apnea Daytime somnolence Emilie Nicole, DO [address] [place] [address] Phone: tel: fax: Referral ID Status Reason Start Date Expiration Date Visits Requested Visits Authorized [id number] Pending Review Specialty Services Required 4 2 2 Encounter Details Date Type Department Care Team (Late st Contact Info) Description 04/09/2024 2:20 PM EST Office Visit [facility] [address] [place] [id number] Martina Martinez DO [address] [place] [address] Snoring*; Hypersomnolence; Fatigue, unspecified type; Sleep apnea, unspecified type; HTN, goal below 130/80 Allergies Active Allergy Reactions Criticality Noted Date Comments Adhesive Tape High 06/11/2021 Other reaction(s): Rash Codeine High 06/11/2021 Other reaction(s): TACHYCARDIA/PALPITATIONS Morphine And Codeine 06/12/2004 Racing heart with codeine Nsaids Low 03/09/2022 Other reaction(s): does not take d/t only one kidney documented as of this encounter (statuses as of 04/09/2024) Medications Probiotic Product (PROBIOTIC DAILY) Capsule Take [...] Takes three 1mg tablets twice daily 01/19/20 Active Triamcinolone Acetonide 0.1 % External Cream [...] 07/14/2023 3:28 PM EDT 07/14/19 24 Active Omeprazole 20 MG Oral Capsule Delayed Release (PriLOSEC)Indica tions:Gastroesop hageal reflux disease with esophagitis without hemorrhage Take 1 Capsule by mouth in the morning. 1 hour before the first meal of the day. 90 Capsule 1 03/17/2024 12:09 PM EST 10/16/19 24 Active Furosemide 20 MG Oral [...] tablet orally every day. 90 Tablet 3 04/03/2024 4:38 PM EST 01/09/20 24 Active Levothyroxine [...] daily in the morning 30 Tablet 3 03/17/2024 12:09 PM EST 02/20/20 24 Active Vitamin D3 1.25 MG (29837 UT) Oral CapsuleIndicatio ns:Vitamin D deficiency Take 1 Capsule by mouth once a week. 12 Capsule 02/28/2024 4:58 PM EST 02/28/20 24 025 Active guaiFENesin ER 1200 MG Oral Tablet Extended Release 12 Hour take 1 tablet by mouth twice a day 28 Tablet 04/03/20 24 Active Doxycycline Monohydrate 100 MG Oral Capsule take 1 capsule (100 mg ) orally twice a day for 7 days 14 Capsule 04/04/2024 2:55 PM EST 04/03/20 24 Active Lisinopril 40 MG Oral TabletIndication s:HTN, goal below 130/80 Take 1 Tablet by mouth in the morning. 90 Tablet 04/07/2024 11:56 AM EST 04/04/20 24 Active documented as of this encounter (statuses as of 04/09/2024) Active Problems Problem Noted Date Diagnosed Date [...] as of this encounter (statuses as of 04/09/2024) Resolved Problems Problem Noted Date Diagnosed Date [...] as of this encounter (statuses as of 04/09/2024) Immunizations Name Administration Dates Next Due COVID-19 mRNA, LNP-s, No Pre serve, 2-Dose Series (Pfizer) 04/22/2021,06/14/2020,05/24/2020 COVID-19, MRNA-LNP, PF, 30 M CG/0.3 mL, 12 YRS AND ABOVE, IM (PFIZER-Comirnaty) 02/17/2024 DTWP - Dipth/Tet/Whole Cell Pertussis 1970 PPD 06/25/2021,12/01/2016,10/27/2014 Pneumococcal Conjugate Vacci ne, 20-valent ([id number]) 01/25/2023 Seasonal Influenza, PF, 6 M & [...] 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 Not on file Not on file Not on robyn e documented as of this encounter Last Filed Vital Signs Vital Sign Reading Time Taken Comments Blood Pressure 106/68 04/09/2024 2:18 PM EST Pulse 65 04/09/2024 2:18 PM EST Temperature 36.6 C (97.8 F) 04/09/2024 2:18 PM ES T Respiratory Rate 16 04/09/2024 2:18 PM EST Oxygen Saturation 93% 04/09/2024 2:18 PM EST Inhaled Oxygen Concentration - - Weight 93 kg (205 lb) 04/09/2024 2:18 PM EST Height 165.1 cm (5' 5") 04/09/2024 2:18 PM EST Body Mass Index 34.11 04/09/2024 2:18 PM EST documented in this encounter Patient Instructions * Patient Instructions* Martina Martinez, DO - 04/09/2024 2:55 PM EST SLEEP APNEA We are concerned that you may have sleep apnea. Sleep apnea is when someone has difficulties with breathing only during sleep. This typically happens without the patient being aware they are having breathing issues. Obstructive sleep apnea is very common. It can be seen in kids and adults. It can cause symptoms of excessive daytime sleepiness, fatigue, morning headaches, and poor memory and cognition. It can also lead to difficulties at work or school and motor vehicle accidents. If left untreated, it puts people at risk for heart attacks, strokes, and diabetes. When you come in for an in lab sleep study, a trained clinical research technician will be present at the sleepcenter to administer and monitor the test. They will be putting sensors on you that monitor your brain waves, breathing, movements, and respiratory effort. They will not be putting in any IV's or using any needles, and none of the sensors should be painful, though they may be annoying or uncomfortable to some patients when they are trying to sleep. You will have a private room with your own bathroom. Please feel free to bring your own pillow or blanket if you feel this would help you sleep morecomfortably. They provide these things for you, but we want you to feel as comfortable and relaxed as possible when you are spending the night in the sleep center. [facility] is accredited by the [place] [employer] (AASM). To receive accreditation, a sleep center must meet or exceed all standards for professional quality sleep medicine care as designated bythe Academy. More information can be obtained at: SleepEducation.org documented in this encounter Progress Notes * Martina Martinez DO - 04/09/2024 2:29 PM EST Sleep Medicine Evaluation [address] [address] Consultation was requested by: Emilie Nicole DO for: suspected sleep apnea, daytime somnolence and a copy of this report is being sent to the provider electronically. Relevant available records reviewed. HPI: Tanisha Rhodes is a(n) 53 year old female presenting for evaluation of increased tiredness, evaluate for sleep apnea. Tiredness worse in the past year. She notes she is also undergoing tx for CA (RCC). Patient reports a typical bedtime of 10-11:30 pm. It takes usually within 10 minutes to fall asleep, with noises to help with calm/anxiety. Patient awakens after 1.5-2 hours, sometimes can get back to sleep then; sometimes it might take anhour or so. Sometimes awakens another time to go to the bathroom. Patient awakens for the day by 6 AM, feeling okay in the morning, but gets tired close to lunch andthrough the afternoon. Patient does feel sleepy or tired during the day. Dozes off in the afternoon looking at her phone. Patient does take naps, often unintentionally. Patient does not typically have caffeine. Typical sleep position: back or left side The patient reports having ("+" indicates reports, "-" indicates denies): + Snoring - Observed apneas - Choking/gasping awakenings + Mouth breathing - Acid reflux at night (controlled with medication) + Nocturia occasional Morning headaches + Teeth grinding, wears mouthguard Restless Legs Syndrome Symptoms ("+" indicates reports, "-" indicates denies): + Pain/discomfort in legs at night + Urge to move legs at night + Better with movement + Disrupts sleep (harder to get to sleep) Less than a couple times a week. Parasomnias Symptoms ("+" indicates reports, "-" indicates denies): - Sleepwalking - Dream-enactment Increased sleeptalking. Narcoleptic Symptoms ("+" indicates reports, "-" indicates denies): - Vivid dreams - Sleep paralysis - Sleep-related hallucinations - Cataplexy Excessive Daytime Sleepiness: [place] Sleepiness Scale 15 Modified F.O.S.Q. 29 - Drowsy driving + Sleepy with sedentary activity [place] Sleepiness Scale Question 04/06/2024 1:26 AM EST - Filed by Patient What is the chance you will doze off in the following situation? Sitting and reading High chance of dozing Watching TV High chance of dozing Sitting inactive in a public place, such as a theater or meeting Slight chance of dozing As a passenger in a car for an hour without a break Moderate chance of dozing Lying down to rest in the afternoon when circumstances permit High chance of dozing When sitting and talking to someone Slight chance of dozing When sitting quietly after lunch without alcohol Moderate chance of dozing In a car, while stopped for a few minutes in traffic No chance of dozing Score (range: 0 - 24) 15 Functional Outcomes Of Sleep Question 04/06/2024 1:27 AM EST - Filed by Patient Please complete the following questions. Do you have difficulty concentrating because you are sleepy or tired? Yes, a little Do you have difficulty remembering things because you are sleepy or tired? Yes, moderate Do you have difficulty operating a motor vehicle for short distances (less than 100 miles) because you become sleepy? No Do you have difficulty operating a motor vehicle for long distances (more than 100 miles) because you become sleepy? Yes, moderate Do you have difficulty visiting family or friends in their home because you become sleepy or tired?Yes, a little Has your relationship with family, friends, or work colleagues been affected because you are sleepyor tired? Yes, a little Do you have difficulty watching a movie or video because you become sleepy or tired? Yes, a little Do you have difficulty being as active as you want to be in the evening because you are tired or sleepy? Yes, a little Do you have difficulty being as active as you want to be in the morning because you are tired or sleepy? Yes, a little Has your mood been affected because you are sleepy or tired? 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 None of these Have you recently been in contact with someone who was sick? No / Unsure Prior sleep study: none PMH: Past Medical History: Diagnosis Date Family History of Early Breast CA (Mother at 48) NO SIGNIFICANT MED HX RCC HTN Pneumonia Past Surgical History: Procedure Laterality Date DELIVERY COLONOSCOPY, DIAGNOSTIC (RECTUM) 10/29/2020 diverticulosis, repeat 10 yrs / COLONOSCOPY FLEXIBLE PROXIMAL DIAGNOSTIC performed by Ludwin Noble MD at [facility]COPY [facility] COLONOSCPOY E/ ENDOSCOPIC US 07/01/2021 Perirectal abscesses / COLONOSCOPY FLEXIBLE WITH ENDOSCOPIC ULTRASOUND EXAM performed by Fernanda De León MD at [facility]COPY [facility] EGD, FLEXIBLE, DIAGNOSTIC 06/24/2021 normal bx / ESOPHAGOGASTRODUODENOSCOPY (EGD), FLEXIBLE, TRANSORAL, DIAGNOSTIC performed by Sadie Ricci MD at [facility]COPY [facility] EGD, FLEXIBLE, DIAGNOSTIC 10/01/2022 Schatzki ring, hiatal herina / ESOPHAGOGASTRODUODENOSCOPY (EGD), FLEXIBLE, TRANSORAL, DIAGNOSTIC performed by John Hwang MD at [facility]OSCOPY [facility] IMPLANT BREAST SILICONE/EQ Bilateral 07/16/2014 IR BIOPSY 11/16/2021 LIGATE/CUT OVIDUCT(S) post tubal ligation MASTECTOMY, PARTIAL 11/08/2011 left; 7 mm invasive ductal breast cancer; ER-ME positive MASTECTOMY, SUBCUTANEOUS Bilateral 07/02/2013 + expanders + TRIMALLEOLAR ANKLE FX REPAIR W/FIX POST LIP Left 11/28/2018 left trimalleolar fracture repair with internal fixation ALLERGIES: Review of patient's allergies indicates: Allergen Reactions Adhesive Tape Other reaction(s): Rash Codeine Other reaction(s): TACHYCARDIA/PALPITATIONS Morphine And Codeine Racing heart with codeine Nsaids Other reaction(s): does not take d/t only one kidney MEDS: Current Outpatient Medications Medication Sig Dispense Refill Lisinopril 40 MG Oral Tablet Take 1 Tablet by mouth in the morning. 90 Tablet 0 Doxycycline Monohydrate 100 MG Oral Capsule take 1 capsule (100 mg ) orally twice a day for 7 days 14 Capsule 0 guaiFENesin ER 1200 MG Oral Tablet Extended Release 12 Hour take 1 tablet by mouth twice a day 28 Tablet 0 Vitamin D3 1.25 MG (08814 UT) Oral Capsule Take 1 Capsule by mouth once a week. 12 Capsule 0 amLODIPine Besylate 5 MG Oral Tablet (Norvasc) take 1 tablet by mouth daily in the morning 30 Tablet 3 Gabapentin 100 MG Oral Capsule (Neurontin) Take 1 Capsule by mouth at bedtime. 90 Capsule 1 Levothyroxine Sodium 50 MCG Oral Tablet (Levoxyl) Take 1 tablet by mouth every day. 90 Tablet 3 Citalopram Hydrobromide 20 MG Oral Tablet (CeleXA) take 1 tablet by mouth daily 90 Tablet 3 Levothyroxine Sodium 50 MCG Oral Tablet (Levoxyl) take 1 tablet orally every day. 90 Tablet 3 Furosemide 20 MG Oral Tablet (Lasix) take 1 tablet (20 mg) orally daily 90 Tablet 3 Omeprazole 20 MG Oral Capsule Delayed Release (PriLOSEC) Take 1 Capsule by mouth in the morning. 1 hour before the first meal of the day. 90 Capsule 1 LORazepam 0.5 MG Oral Tablet (Ativan) take 1 tablet by mouth twice a day As Needed for anxiety or insomnia for 1 month 60 Tablet 0 Triamcinolone Acetonide 0.1 % External Ointment (Aristocort) Apply topically to affected area everynight at bedtime. 80 g 5 Triamcinolone Acetonide 0.1 % External Cream (Aristocort) Apply topically to affected area daily. 60 g 5 Inlyta 1 MG Oral Tablet Take by mouth once. Takes three 1mg tablets twice daily Keytruda 100 MG/4ML Intravenous Solution (Pembrolizumab) Administer intravenously 2 mg/kg every 6 weeks . Vitamin B 12 500 MCG Oral Tablet Take by mouth . Vitron-C 65-125 MG Oral Tablet (Iron-Vitamin C) Take 1 Tablet by mouth in the morning. Probiotic Product (PROBIOTIC DAILY) Capsule Take 1 Cap by mouth daily. No current facility-administered medications for this visit. FHx: two siblings have sleep apnea on CPAP. 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 GEN: Ambulatory, obese, NAD ORAL: Oral mucous membranes moist OP: No thrush or lesions Uvula normal Soft palate normal Mallampati III Tonsils 1+ MANDIBLE: + retrognathia NECK: Circumference 12.5" RESP: Unlabored respirations Breath sounds clear, no wheezes or rales CVS: Regular rate and rhythm No murmur NEURO: Speech clear and appropriate IMPRESSION/RECOMMENDATIONS: Snoring, excessive sleepiness - suspect LEONOR - STOP-BANG 4 (snoring, tired, HTN, and age > 50) - Discussed the pathophysiology, implications on short- and long-term health, diagnostic evaluation, and likely treatment options of LEONOR - Schedule an overnight PSG - split night protocol if meets criteria. - Avoid driving when sleepy/drowsy. Follow-up: Return MyG with PSG results. | Check-out note: PSG [facility] Martina Martinez DO documented in this encounter Nursing Notes * Marci Pineda LPN - 04/09/2024 2:20 PM EST Chief Complaint Patient presents with NEW PATIENT New sleep. Witnessed snoring . Talks in her sleep. Trouble staying asleep. Patients both siblings have CPAP machines. [place] Sleepiness Scale Question 04/06/2024 1:26 AM EST - Filed by Patient What is the chance you will doze off in the following situation? Sitting and reading High chance of dozing Watching TV High chance of dozing Sitting inactive in a public place, such as a theater or meeting Slight chance of dozing As a passenger in a car for an hour without a break Moderate chance of dozing Lying down to rest in the afternoon when circumstances permit High chance of dozing When sitting and talking to someone Slight chance of dozing When sitting quietly after lunch without alcohol Moderate chance of dozing In a car, while stopped for a few minutes in traffic No chance of dozing Score (range: 0 - 24) 15 Functional Outcomes Of Sleep Question 04/06/2024 1:27 AM EST - Filed by Patient Please complete the following questions. Do you have difficulty concentrating because you are sleepy or tired? Yes, a little Do you have difficulty remembering things because you are sleepy or tired? Yes, moderate Do you have difficulty operating a motor vehicle for short distances (less than 100 miles) because you become sleepy? No Do you have difficulty operating a motor vehicle for long distances (more than 100 miles) because you become sleepy? Yes, moderate Do you have difficulty visiting family or friends in their home because you become sleepy or tired?Yes, a little Has your relationship with family, friends, or work colleagues been affected because you are sleepyor tired? Yes, a little Do you have difficulty watching a movie or video because you become sleepy or tired? Yes, a little Do you have difficulty being as active as you want to be in the evening because you are tired or sleepy? Yes, a little Do you have difficulty being as active as you want to be in the morning because you are tired or sleepy? Yes, a little Has your mood been affected because you are sleepy or tired? 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 None of these Have you recently been in contact with someone who was sick? No / Unsure Neck: 12.5". documented in this encounter Plan of Treatment Upcoming Encounters Date Type Department Care Team (Late st Contact Info) Description 04/24/2024 3:00 PM EST Office Visit [facility] [address] [place] [address] Emilie Nicole, DO [address] [place] [address] 08/29/2024 5:40 PM EDT Office Visit [facility] [address] [place] [address] Emilie Nicole, DO [address] [place] [address] 10/01/2024 3:30 PM EDT Office Visit Dermatology [facility] [address] [facility] [place] [address] Jalen Beck MD [address] [facility] [place] [address] Scheduled Orders Name Type Priority Associated Diagnoses Orde r Schedule SLEEP STUDY, W/O CPAP Procedures Routine Snoring Hypersomnolence Fatigue, unspecified type Sleep apnea, unspecified type HTN, goal below 130/80 Ordered: 04/09/2024 SLEEP STUDY, W/ CPAP (TREATMENT SETTINGS) Procedures Routine Snoring Hypersomnolence Fatigue, unspecified type Sleep apnea, unspecified type HTN, goal below 130/80 Ordered: 04/09/2024 Health Maintenance Due Date Last Done Comments [...] as of this encounter Visit Diagnoses Diagnosis Snoring- Primary Other dyspnea and respiratory abnormality Hypersomnolence Hypersomnia, unspecified Fatigue, unspecified type Sleep apnea, unspecified type HTN, goal below 130/80 Unspecified essential hypertension documented in this encounter Care Teams Brick Burner Relationship Specialty Start Date End Date Emilie Nicole DO [address] [place] [address] PCP - General Family Medicine 08/27/20 documented as of this encounter
--- NOTE | 2024-04-14 12:19 | Emergency Department Note ---
Impression & Plan Shortness of breath, Hypoxia, RAUL (acute kidney injury), Hypomagnesemia, Closed fracture of right great toe ED Provider Note NAME: DEMIAN LARA AGE: 53 SEX: F : 1970 ARRIVES VIA: Walk-In INFORMANT: Patient, ED PROVIDER(S): Alexsander Griffin DO CHIEF COMPLAINT: Difficulty breathing HPI: The patient is a 53-year-old female who presented to the emergency department for an evaluation of difficulty breathing. The patient was recently admitted to our facility for pneumonia. She did have a CT of her chest done at that time. The patient presents back to the emergency department today because of generalized weakness cough and difficulty breathing. She did note that her pulse ox was low. She denies having any lower extremity swelling or pain but she did strike her right foot and broke her right great toe recently. She denies having any back pain. She did not see her family doctor for this pain. She describes tightness in her chest especially with breathing. ROS: See above HPI for pertinent positives & negatives. A total of 10 systems reviewed and were otherwise negative. PAST MEDICAL HISTORY: See Below PAST SURGICAL HISTORY: See Below FAMILY HISTORY: See Below SOCIAL HISTORY: See Below HOME MEDICATIONS: See Below ALLERGIES: See Below VITALS: See Below PHYSICAL EXAMINATION: GENERAL: Patient is awake alert in no acute distress patient is resting comfortably and showing no signs of anxiety EYES: The conjunctivae are clear. The pupils are round and reactive. EARS, NOSE, MOUTH AND THROAT: The nose is without any evidence of any deformity. Mucous membranes are moist. Tongue is midline. NECK: The neck is nontender and supple. RESPIRATORY: Diminished breath sounds are noted in the right lung field. There were rales at the right lung field. CARDIOVASCULAR: Regular rate and rhythm noted there no murmurs rubs or gallops normal S1 normal S2. GASTROINTESTINAL: The abdomen is soft. Abdomen is nontender. MUSCULOSKELETAL/EXTREMITIES: There is no evidence of gross deformity full range of motion is noted in the hips and shoulders. There is ecchymosis noted on the right great toe consistent with the patient's recent injury. SKIN: There is no obvious evidence of any rash. There are no petechiae, pallor or cyanosis noted. NEUROLOGIC: Patient is awake alert and oriented x3 MEDICAL DECISION MAKING: The patient is a 53-year-old female who presented to the emergency department for an evaluation of difficulty breathing and cough. The patient was seen in our facility recently for similar complaints. At that time she was found to have a slight pneumonia and a small pleural effusion. She was sent home on medications after she was admitted to our facility for short period of time. She returns today with worsening symptoms. I discussed the patient's laboratory and radiographic studies with her. She was treated with a DuoNeb in the emergency department. I discussed her condition with the on-call [facility] hospitalist. Because of persistence of oxygen requirement and hypoxia they recommended a CT angiography of the chest but they would evaluate the patient in the emergency department. Triage Nursing notes reviewed. Prior medical records reviewed Vital Signs: reviewed and remarkable for hypoxia Differential diagnosis: Reactive airway disease, pneumonia, pneumothorax, COPD, CHF, infections, cardiac ischemia, pulmonary embolism, musculoskeletal, gastrointestinal, as well as other pathologies. ER treatment provided: See below Diagnostics interpreted by me: ECG: EKG was obtained in the emergency department. My interpretation is normal sinus rhythm at 71 bpm. There is no ectopy. There is no acute ST segment abnormalities noted. This was compared to a tracing from April 01, 2024. No changes were noted. Cardiac Monitoring: An order was placed for continuous cardiac monitoring. The monitor shows a rate of 67 bpm with sinus rhythm. Laboratory studies: As stated above and show below. Imaging studies: See below. Radiographic imaging was reviewed by myself Consultation(s): I discussed this case with Dr. Hernández [facility] He asked me to add a D-dimer and then a CAT scan if this is positive. Otherwise he will evaluate the patient in the emergency department. Past Med/Surg History Problem List (Updated 04/14/24 @ 16:48 by Alexsander Griffin DO) Closed fracture of right great toe (Acute) Hypomagnesemia (Acute) RAUL (acute kidney injury) (Acute) Hypoxia (Acute) Shortness of breath (Acute) Hypothyroidism (acquired) Pneumonia (Acute) Hypoxia (Acute) Acute hypoxic respiratory failure H/O right nephrectomy Renal cell carcinoma Port-A-Cath in place Cough Hypertension Pneumonia (Acute) Insomnia Quality of life palliative care encounter Advanced care planning/counseling discussion Palliative care by specialist Parenting dynamics counseling Social isolation 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 Dr. Serrano S/p nephrectomy Perirectal abscess Vulvitis Liver mass Encounter for insertion of venous access port Encounter for pre-operative examination Anemia Skin breakdown at port site of totally implantable venous access device (TIVAD) Encounter for insertion of venous access port Port-A-Cath in place (05/03/22) Port placement. We used fluoroscopy for placement. 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 Currently on Pembrioizumab every six weeks, axitnib q 12 hrs Solitary left kidney (Acute) HX: breast cancer LEFT- S/P BILATERAL MASTECTOMY WITH LEFT LN REMOVAL WITH RADIATION On Tamoxifen Acid reflux Medical History Dyslipidemia Fatigue Acute blood loss anemia History of COVID-19 diagnosed 03/06/2022 @ [facility]--mild symptoms, cough/body aches--no symptoms now Port-A-Cath in place (05/03/22) Insertion Access Port with Fluoroscopy Right Cephalic(Right) - Curtis Serrano MD, FACS Situational anxiety History of high blood pressure Rectal mass History of breast cancer IBS (irritable bowel syndrome) Closed fracture dislocation of ankle Surgical History History of removal of Port-a-Cath (03/09/22) Removal of Access Port(Left) - Dwight Meraz MD, FACS History of anesthesia reaction "got sick"-usually on longer surgeries History of open reduction and internal fixation (ORIF) procedure (~2018) right ankle History of right radical nephrectomy (~07/30/21) Robotic Laparoscopic Assisted Right Radical Nephrectomy transition to hand assisted laparoscopic right Nephrectomy(Right) @ [facility] History of biopsy (~11/16/21) ultrasound guided biopsy area near liver/kidney on upper right quadrant @ [facility] Nausea and vomiting after administration of anesthetic agent History of esophagogastroduodenoscopy (EGD) History of colonoscopy H/O breast reconstruction BILATERAL Hx of lumpectomy LEFT History of bilateral tubal ligation History of section X2 History of mastectomy BILATERAL WITH LEFT LYMPH NODE REMOVAL>BREAST REDUCTION Family History Aunt FHx: breast cancer Breast cancer Mother FHx: breast cancer Breast cancer Family history of reaction to anesthesia slow to wake with anesthesia Grandmother (Maternal) FHx: breast cancer Breast cancer Father Family history of diabetes mellitus Heart disease Hypertension Denies family history of Ovarian cancer Colorectal cancer Social History Smoking Status: Never smoker Second Hand Exposure: No; Do You Dip or Chew Tobacco: No; Hx Alcohol Use: No Hx Substance Use: No Preferred Language: Romanian Communication Ability: Effective Visual Impairment: No Limitations It Solutions Architect Required: No Beliefs That Will Affect Care: None marital status: Current Living Situation: Spouse Current Living Situation Comment: and 2 teenage sons Feels Safe at Home: Yes Diet: regular Assistive Devices: Glasses Allergies Allergies Allergy/AdvReac Type Severity Reaction Status Date / Time vancomycin Allergy Redness of Verified 04/14/24 16:14 Skin codeine AdvReac Intermediate palpitation Verified 04/14/24 16:14 s/tachycard ia adhesive tape AdvReac Mild rash/ red Verified 04/14/24 16:14 skin NSAIDS (Non-Steroidal AdvReac Mild does not Verified 04/14/24 16:14 Anti-Inflamma take d/t only one kidney Home Meds Home Medications Medication Instructions Recorded Confirmed Lactobacillus acidophilus 10 1 cell PO QAM 11/27/18 04/14/24 billion cell capsule (Probiotic) vitamin B complex (B 1 tab PO QAM 10/09/21 04/14/24 Complex-Vitamin B12 tablet) pembrolizumab 50 mg intravenous 50 mg IV UD 12/10/21 04/14/24 solution lisinopril 40 mg tablet 40 mg PO QAM 03/05/22 04/14/24 levothyroxine 50 mcg tablet 50 mcg PO DAILY 07/12/22 04/14/24 cholecalciferol (vitamin D3) 1,250 50,000 unit TU@0900 04/01/24 04/14/24 mcg (50,000 unit) capsule citalopram 20 mg tablet (Celexa) 20 mg PO HS depression, anxiety 04/01/24 04/14/24 furosemide 20 mg tablet (Lasix) 20 mg PO Q2D 04/01/24 04/14/24 gabapentin 100 mg capsule 100 mg PO HS PRN nerve pain 04/01/24 04/14/24 iron,carbonyl 65 mg-vitamin C 125 1 tab PO DAILY 04/01/24 04/14/24 mg tablet,delayed release (Vitron-C) axitinib 1 mg tablet (Inlyta) 3 mg PO BID 04/14/24 04/14/24 omeprazole 20 mg capsule,delayed 20 mg PO DAILY 04/14/24 04/14/24 release Previous Rx's Medication Instructions Recorded lorazepam 0.5 mg tablet (Ativan) 0.5 mg PO BID PRN anxiety or 07/14/23 insomnia 1 month #60 tabs amlodipine 5 mg tablet 5 mg PO QAM #30 tabs 02/20/24 guaifenesin 1,200 mg tablet, 1,200 mg PO BID #20 tabs 04/03/24 extended release 12 hr (Mucus Relief ER) Results & Data (ED) Vital Signs Vital Signs - 24 hr 04/14/24 11:57 04/14/24 13:07 04/14/24 13:08 Temperature 36.8 C 37.1 C Temperature Source Oral Oral Pulse Rate 75 69 Pulse Rate [Apical] 69 Pulse Rhythm Regular Pulse Strength [Apical] Normal Respiratory Rate 22 18 18 Respiratory Effort / Characteristics Non-Labored Non-Labored Spontaneous Respiratory Depth Normal Normal Respiratory Pattern Regular Regular Blood Pressure 101/67 Blood Pressure [Left Arm] 101/63 Blood Pressure [Right Arm] Blood Pressure Mean 78 Blood Pressure Mean [Left Arm] 75 Blood Pressure Mean [Right Arm] Pulse Oximetry 93 94 91 Oxygen Delivery Method Room Air Room Air Room Air Oxygen Flow Rate Sepsis Recent Fever Within 48 Hours No Sepsis New/Unexplained Change in Mental Status N/A Sepsis Action Taken by Nursing No Action Required Oxygen Flow Rate - Titration Pulse Oximetry Post Tiitration 04/14/24 13:12 04/14/24 13:44 04/14/24 13:55 Temperature Temperature Source Pulse Rate 56 L Pulse Rate [Apical] 71 70 Pulse Rhythm Pulse Strength [Apical] Normal Respiratory Rate 18 22 Respiratory Effort / Characteristics Non-Labored Spontaneous Non-Labored Spontaneous Respiratory Depth Normal Normal Respiratory Pattern Regular Regular Blood Pressure Blood Pressure [Left Arm] 94/62 L Blood Pressure [Right Arm] 96/57 L Blood Pressure Mean Blood Pressure Mean [Left Arm] 72 Blood Pressure Mean [Right Arm] 70 Pulse Oximetry 91 93 Oxygen Delivery Method Nasal Cannula Nasal Cannula Oxygen Flow Rate 2 2 Sepsis Recent Fever Within 48 Hours Sepsis New/Unexplained Change in Mental Status Sepsis Action Taken by Nursing Oxygen Flow Rate - Titration Pulse Oximetry Post Tiitration 04/14/24 14:53 04/14/24 15:20 04/14/24 15:21 Temperature 36.8 C Temperature Source Oral Pulse Rate Pulse Rate [Apical] 66 Pulse Rhythm Pulse Strength [Apical] Normal Respiratory Rate 18 Respiratory Effort / Characteristics Non-Labored Spontaneous Respiratory Depth Normal Respiratory Pattern Regular Blood Pressure Blood Pressure [Left Arm] Blood Pressure [Right Arm] 104/63 Blood Pressure Mean Blood Pressure Mean [Left Arm] Blood Pressure Mean [Right Arm] 76 Pulse Oximetry 98 97 87 L Oxygen Delivery Method Nasal Cannula Room Air Nasal Cannula Nasal Cannula Oxygen Flow Rate 2 2 0 Sepsis Recent Fever Within 48 Hours Sepsis New/Unexplained Change in Mental Status Sepsis Action Taken by Nursing Oxygen Flow Rate - Titration 0 2 Pulse Oximetry Post Tiitration 87 L 97 04/14/24 15:50 Temperature Temperature Source Pulse Rate Pulse Rate [Apical] 67 Pulse Rhythm Pulse Strength [Apical] Respiratory Rate 20 Respiratory Effort / Characteristics Non-Labored Respiratory Depth Normal Respiratory Pattern Blood Pressure Blood Pressure [Left Arm] Blood Pressure [Right Arm] 104/59 L Blood Pressure Mean Blood Pressure Mean [Left Arm] Blood Pressure Mean [Right Arm] 74 Pulse Oximetry 93 Oxygen Delivery Method Room Air Oxygen Flow Rate Sepsis Recent Fever Within 48 Hours Sepsis New/Unexplained Change in Mental Status Sepsis Action Taken by Nursing Oxygen Flow Rate - Titration Pulse Oximetry Post Tiitration Home Medications Current Medication List: was personally reviewed by me Laboratory Data Attestation: I reviewed the patient's lab results. 04/15/24 07:03 04/15/24 07:03 Lab Results 04/14/24 04/14/24 04/14/24 Range/Units 13:02 13:08 13:21 WBC 8.28 (4.8-10.8) K/ul RBC 4.25 (4.20-5.40) M/uL Hgb 12.1 (12.0-16.0) g/dl Hct 36.6 L (37.0-47.0) % MCV 86.1 (80.0-100.0) fL MCH 28.5 (25.0-34.0) pg MCHC 33.1 (32.0-36.0) g/dL RDW Std Deviation 41.8 (36.4-46.3) fL RDW Coeff of Edmundo 13.3 (11.5-14.5) % Plt Count 247 (130-400) K/uL MPV 10.1 (9.4-12.4) fL Immature Gran % (Auto) 0.4 % Neut % (Auto) 81.1 % Lymph % (Auto) 10.5 % [place] % (Auto) 6.3 % Eos % (Auto) 1.0 % Baso % (Auto) 0.7 % Neut # (Auto) 6.72 H (1.40-6.50) K/uL Lymph # (Auto) 0.87 L (1.20-3.40) K/uL [place] # (Auto) 0.52 (0.11-0.59) K/uL Eos # (Auto) 0.08 (0.00-0.50) K/uL Baso # (Auto) 0.06 (0.00-0.20) K/uL Immature Gran # (Auto) 0.03 (0.01-0.20) K/uL PT 11.5 (9.0-12.0) Seconds INR 1.1 (0.9-1.1) APTT 25 (21-31) Seconds PTT Ratio 0.9 D-Dimer 780 H* (0-500) ug/L FEU VBG pH 7.46 H (7.36-7.41) VBG pCO2 46 (38-50) mmHg VBG pO2 45 mmHg VBG HCO3 33 mmol/L VBG O2 Saturation 74.1 % VBG Base Excess 7.7 mEq/L Sodium 137 (136-145) mmol/L Potassium 4.5 (3.5-5.1) mmol/L Chloride 98 (98-107) mmol/L Carbon Dioxide 31 (21-32) mmol/L Anion Gap 8 (3-11) BUN 14 (6-23) mg/dl Creatinine 1.23 H (0.6-1.2) mg/dl Est Cr Clr Drug Dosing 59.0 ml/min eGFR 52.55 BUN/Creatinine Ratio 11.4 (10-20) Glucose 91 (70-99(Fasting)) mg/dl Lactate 0.9 (0.4-2.0) mmol/L Calcium 9.3 (8.6-10.3) mg/dl Magnesium 1.6 L (1.7-2.4) mg/dl Total Bilirubin 0.9 (0.2-1.0) mg/dl Direct Bilirubin 0.1 (0-0.2) mg/dl AST 18 (13-39) U/L ALT 14 (7-52) U/L Alkaline Phosphatase 53 (34-104) U/L Troponin I High Sens 4.8 (0-14) pg/ml Total Protein 7.1 (6.0-8.3) gm/dl Albumin 3.5 (3.4-5.0) gm/dl Procalcitonin 0.29 (0-0.5) ng/ml Urine Color Urine Appearance (Clear) Urine pH (4.5-7.5) Ur Specific [place] (1.000-1.030) Urine Protein (Negative) Urine Glucose (UA) (Negative) Urine Ketones (Negative) Urine Blood (Negative) Urine Nitrite (Negative) Urine Bilirubin (Negative) Urine Urobilinogen (Negative) Ur Leukocyte Esterase (Negative) Adenovirus (PCR) Not Detected (NotDetected) B. pertussis DNA (PCR) Not Detected (NotDetected) B.parapertussis DNA PCR Not Detected (NotDetected) C. pneumoniae DNA (PCR) Not Detected (NotDetected) Coronavirus OC43 (PCR) Not Detected (NotDetected) Coronavirus HKU1 (PCR) Not Detected (NotDetected) Coronavirus 229E (PCR) Not Detected (NotDetected) SARS-CoV-2 (PCR) Not Detected (NotDetected) Coronavirus NL63 (PCR) Not Detected (NotDetected) Human Metapneumovir PCR Not Detected (NotDetected) Influenza Type A (PCR) Not Detected (NotDetected) Influenza Type B (PCR) Not Detected (NotDetected) M. pneumoniae (PCR) Not Detected (NotDetected) Parainfluenza 1 (PCR) Not Detected (NotDetected) Parainfluenza 2 (PCR) Not Detected (NotDetected) Parainfluenza 3 (PCR) Not Detected (NotDetected) Parainfluenza 4 (PCR) Not Detected (NotDetected) RSV (PCR) Not Detected (NotDetected) Entero/Rhino (PCR) Not Detected (NotDetected) 04/14/24 Range/Units 13:40 WBC (4.8-10.8) K/ul RBC (4.20-5.40) M/uL Hgb (12.0-16.0) g/dl Hct (37.0-47.0) % MCV (80.0-100.0) fL MCH (25.0-34.0) pg MCHC (32.0-36.0) g/dL RDW Std Deviation (36.4-46.3) fL RDW Coeff of Edmundo (11.5-14.5) % Plt Count (130-400) K/uL MPV (9.4-12.4) fL Immature Gran % (Auto) % Neut % (Auto) % Lymph % (Auto) % [place] % (Auto) % Eos % (Auto) % Baso % (Auto) % Neut # (Auto) (1.40-6.50) K/uL Lymph # (Auto) (1.20-3.40) K/uL [place] # (Auto) (0.11-0.59) K/uL Eos # (Auto) (0.00-0.50) K/uL Baso # (Auto) (0.00-0.20) K/uL Immature Gran # (Auto) (0.01-0.20) K/uL PT (9.0-12.0) Seconds INR (0.9-1.1) APTT (21-31) Seconds PTT Ratio D-Dimer (0-500) ug/L FEU VBG pH (7.36-7.41) VBG pCO2 (38-50) mmHg VBG pO2 mmHg VBG HCO3 mmol/L VBG O2 Saturation % VBG Base Excess mEq/L Sodium (136-145) mmol/L Potassium (3.5-5.1) mmol/L Chloride (98-107) mmol/L Carbon Dioxide (21-32) mmol/L Anion Gap (3-11) BUN (6-23) mg/dl Creatinine (0.6-1.2) mg/dl Est Cr Clr Drug Dosing ml/min eGFR BUN/Creatinine Ratio (10-20) Glucose (70-99(Fasting)) mg/dl Lactate (0.4-2.0) mmol/L Calcium (8.6-10.3) mg/dl Magnesium (1.7-2.4) mg/dl Total Bilirubin (0.2-1.0) mg/dl Direct Bilirubin (0-0.2) mg/dl AST (13-39) U/L ALT (7-52) U/L Alkaline Phosphatase (34-104) U/L Troponin I High Sens (0-14) pg/ml Total Protein (6.0-8.3) gm/dl Albumin (3.4-5.0) gm/dl Procalcitonin (0-0.5) ng/ml Urine Color Yellow Urine Appearance Clear (Clear) Urine pH 6.0 (4.5-7.5) Ur Specific [place] 1.011 (1.000-1.030) Urine Protein Negative (Negative) Urine Glucose (UA) Negative (Negative) Urine Ketones Negative (Negative) Urine Blood Negative (Negative) Urine Nitrite Negative (Negative) Urine Bilirubin Negative (Negative) Urine Urobilinogen Negative (Negative) Ur Leukocyte Esterase Negative (Negative) Adenovirus (PCR) (NotDetected) B. pertussis DNA (PCR) (NotDetected) B.parapertussis DNA PCR (NotDetected) C. pneumoniae DNA (PCR) (NotDetected) Coronavirus OC43 (PCR) (NotDetected) Coronavirus HKU1 (PCR) (NotDetected) Coronavirus 229E (PCR) (NotDetected) SARS-CoV-2 (PCR) (NotDetected) Coronavirus NL63 (PCR) (NotDetected) Human Metapneumovir PCR (NotDetected) Influenza Type A (PCR) (NotDetected) Influenza Type B (PCR) (NotDetected) M. pneumoniae (PCR) (NotDetected) Parainfluenza 1 (PCR) (NotDetected) Parainfluenza 2 (PCR) (NotDetected) Parainfluenza 3 (PCR) (NotDetected) Parainfluenza 4 (PCR) (NotDetected) RSV (PCR) (NotDetected) Entero/Rhino (PCR) (NotDetected) Administered Medications Amlodipine Besylate (Amlodipine Besylate 5 Mg Tab) 5 mg PO QAM MERY Stop: 05/15/24 08:59 Last Admin: 04/15/24 08:07 Dose: 5 mg Documented By: EP Ascorbic Acid (Ascorbic Acid 500 Mg Tab) 500 mg PO DAILY MERY Stop: 05/15/24 08:59 Last Admin: 04/15/24 08:07 Dose: 500 mg Documented By: EP Citalopram Hydrobromide (Citalopram 20 Mg Tab) 20 mg PO HS MERY Stop: 05/14/24 20:59 Last Admin: 04/14/24 20:51 Dose: 20 mg Documented By: KDBethel Enoxaparin Sodium (Enoxaparin Inj 40 Mg/0.4 Ml Syr) 40 mg SQ Q24H [facility] Stop: 05/14/24 18:59 Last Admin: 04/14/24 19:27 Dose: 40 mg Documented By: DENISSE Ferrous Sulfate (Ferrous Sulfate 325 Mg Tab) 325 mg PO DAILY MERY Stop: 05/15/24 08:59 Last Admin: 04/15/24 08:09 Dose: 325 mg Documented By: MURPHY Guaifenesin (Guaifenesin 600 Mg Tabcr) 1,200 mg PO Q12 MERY Stop: 05/14/24 20:59 Last Admin: 04/15/24 08:09 Dose: 1,200 mg Documented By: Admin: 04/14/24 20:51 Dose: 1,200 mg Documented By: DENISSE Piperacillin Sod/Tazobactam Sod (Zosyn) 4.5 gm in 100 mls @ 25 mls/hr IV Q8H [facility]; Protocol Stop: 04/22/24 00:00 Last Admin: 04/15/24 08:04 Dose: 25 mls/hr Documented By: Infusion: 04/15/24 03:55 Dose: Infused Documented By: Admin: 04/14/24 23:45 Dose: 25 mls/hr Documented By: KDBethel Sodium Chloride (Nss) 1,000 mls @ 100 mls/hr IV .Q10H [facility] Stop: 04/15/24 18:18 Last Admin: 04/15/24 05:32 Dose: 100 mls/hr Documented By: KDBethel Infusion: 04/15/24 05:26 Dose: Infused Documented By: Admin: 04/14/24 19:26 Dose: 100 mls/hr Documented By: DENISSE Lactobacillus Acidophilus (Advanced Probiotic 625 Mg Capsule) 1,250 mg PO DAILY [facility] Stop: 05/14/24 18:44 Last Admin: 04/15/24 08:09 Dose: 1,250 mg Documented By: Admin: 04/14/24 19:27 Dose: 1,250 mg Documented By: DENISSE Levalbuterol HCl (Levalbuterol 1.25 Mg/3 Ml Neb) 1.25 mg NEB Q6R MERY Stop: 05/14/24 18:59 Last Admin: 04/15/24 07:15 Dose: 1.25 mg Documented By: Admin: 04/15/24 00:04 Dose: 1.25 mg Documented By: Admin: 04/14/24 20:05 Dose: 1.25 mg Documented By: WILD Levothyroxine Sodium (Levothyroxine Sodium 50 Mcg Tablet) 50 mcg PO DAILYBB [facility] Stop: 05/15/24 06:29 Last Admin: 04/15/24 05:33 Dose: 50 mcg Documented By: DENISSE Miscellaneous (Axitinib [Inlyta] ~ Order Awaiting Action) 1 each N/A QS [facility] Stop: 05/15/24 00:00 Last Admin: 04/15/24 08:03 Dose: Not Given Documented By: Admin: 04/14/24 23:41 Dose: Not Given Documented By: DENISSE Pantoprazole Sodium (Pantoprazole 40 Mg Tab) 40 mg PO DAILY [facility]; Protocol Stop: 05/15/24 08:59 Last Admin: 04/15/24 08:07 Dose: 40 mg Documented By: MURPHY Sodium Chloride (Sodium Chlor 7% 4 Ml Neb) 4 ml NEB BIDR MERY Stop: 05/14/24 18:59 Last Admin: 04/15/24 07:15 Dose: 4 ml Documented By: Admin: 04/14/24 20:05 Dose: 4 ml Documented By: WILD Vitamin B Complex (Vitamin B Complex Tab) 1 tab PO QAM [facility] Stop: 05/15/24 08:59 Last Admin: 04/15/24 08:08 Dose: 1 tab Documented By: MURPHY Discontinued Medications Albuterol (Albut/Ipratrop 3mg/0.5mg Neb 3 Ml Vial) 3 ml NEB NOW STA; Protocol Stop: 04/14/24 16:06 Last Admin: 04/14/24 16:12 Dose: 3 ml Documented By: SHAY Sodium Chloride (Nss) 1,000 mls @ 999 mls/hr IV .Q1H1M ONE Stop: 04/14/24 15:13 Last Infusion: 04/14/24 15:50 Dose: Infused Documented By: Admin: 04/14/24 14:49 Dose: 999 mls/hr Documented By: JACK Piperacillin Sod/Tazobactam Sod (Zosyn) 4.5 gm in 100 mls @ 200 mls/hr IV NOW STA; Protocol Stop: 04/14/24 19:04 Last Infusion: 04/14/24 20:17 Dose: Infused Documented By: Admin: 04/14/24 19:26 Dose: 200 mls/hr Documented By: DENISSE Ioversol (Optiray 320 125ml) 120 ml IV ONCE ONE Stop: 04/14/24 17:10 Last Admin: 04/14/24 17:09 Dose: 120 ml Documented By: KAYKAY Magnesium Oxide (Magnesium Oxide 400 Mg Tab) 400 mg PO ONE ONE Stop: 04/14/24 14:15 Last Admin: 04/14/24 14:55 Dose: 400 mg Documented By: JACK Imaging Data Attestation: I personally reviewed and interpreted this imaging study as follows: My Impression: 1 view chest x-ray was obtained in the emergency department. My interpretation is no free air or definite infiltrate, final report below. Radiologist's Impression: Chest X-Ray 04/14/24 12:11 XR chest 1V portable CLINICAL HISTORY: Sepsis TECHNIQUE: Single frontal radiograph of the chest was obtained. Comparison: Comparison is made to chest radiograph 04/01/2015 FINDINGS: A port catheter is seen. The cardiomediastinal silhouette is normal. The lungs are clear. No evidence of pleural effusion or pneumothorax. IMPRESSION: No acute abnormalities and in particular no radiographic evidence of pneumonia. ACT 112: Negative or not required by law. Electronically signed by: Blayne Garrett M.D. 04/14/2024 2:32 PM Toe X-Ray 04/14/24 12:19 EXAMINATION: X-ray right toe 2 view minimum CLINICAL HISTORY: Hip right first toe 3 days ago, pain PRIORS: None TECHNIQUE: AP, AP oblique and lateral views of the right great toe are submitted. FINDINGS: An oblique fracture is present at the base of the proximal phalanx with approximately 2 mm of depression and intra-articular extension. Moderate regional soft tissue swelling is noted. No subcutaneous gas or radiopaque foreign body. moderate osseous demineralization is noted. Palb-xo-whon degenerative change of the MTP joint. IMPRESSION: Oblique fracture of the right great toe, distal phalanx with regional soft tissue swelling. ACT 112: Positive. There are findings on this examination that require communication between the performing entity and the patient following Patient Test Result Information Act ([place] ACT 112) guidelines. Electronically signed by Karin Mcguire 04-14-2024 3:00 PM Discharge Plan Visit Data Chief Complaint: Illness Stated Complaint: EXHAUSTION, COUGH, LOW 02, FEVER ED Provider: Alexsander Griffin Discharge Problem: Shortness of breath, Hypoxia, RAUL (acute kidney injury), Hypomagnesemia, Closed fracture of right great toe Patient Disposition: Admitted As Inpatient Discharge Instructions Interventions: ED Discharge Assessment Last Done: 04/14/24 17:58 Discharge Problem: Closed fracture of right great toe Qualifiers: Encounter type: initial encounter Phalanx: unspecified phalanx Fracture alignment: displaced Qualified Code(s): S92.401A - Displaced unspecified fracture of right great toe, initial encounter for closed fracture
[2024-04-14 13:16] LABS: Basophils # (auto) 0.06 K/uL (0.00-0.20); Basophils % (auto) 0.7 %; Eosinophils # (auto) 0.08 K/uL (0.00-0.50); Hematocrit (blood only) 36.6 % (37.0-47.0); Hemoglobin 12.1 g/dl (12.0-16.0); Immature Granulocytes # (auto) 0.03 K/uL (0.01-0.20); Immature Granulocytes % (auto) 0.4 %; Lymphocytes # (auto) 0.87 K/uL (1.20-3.40); Lymphocytes % (auto) 10.5 %; Mean Corpuscular Hemoglobin 28.5 pg (25.0-34.0); Mean Corpuscular Hgb Conc 33.1 g/dL (32.0-36.0); Mean Corpuscular Volume 86.1 fL (80.0-100.0); Mean Platelet Volume 10.1 fL (9.4-12.4); Monocytes # (auto) 0.52 K/uL (0.11-0.59); Monocytes % (auto) 6.3 %; Neutrophils # (auto) 6.72 K/uL (1.40-6.50); Neutrophils % (auto) 81.1 %; Platelet Count 247 K/uL (130-400); RDW Coefficient of Variation 13.3 % (11.5-14.5); RDW Standard Deviation 41.8 fL (36.4-46.3); Red Blood Count 4.25 M/uL (4.20-5.40); White Blood Count 8.28 K/ul (4.8-10.8)
[2024-04-14 13:34] LABS: Albumin Level 3.5 gm/dl (3.4-5.0); BUN Creatinine Ratio 11.4 (10-20); Bilirubin Direct 0.1 mg/dl (0-0.2); Bilirubin,Total 0.9 mg/dl (0.2-1.0); Calcium 9.3 mg/dl (8.6-10.3); Magnesium 1.6 mg/dl (1.7-2.4); Potassium 4.5 mmol/L (3.5-5.1); Total Protein 7.1 gm/dl (6.0-8.3)
[2024-04-14 13:39] LABS: Base Excess VBG 7.7 mEq/L; HCO3 VBG 33 mmol/L; Oxygen Saturation VBG 74.1 %; PCO2 VBG 46 mmHg (38-50); PO2 VBG 45 mmHg; pH VBG 7.46 (7.36-7.41)
[2024-04-14 13:40] LABS: Troponin I High Sensitivity 4.8 pg/ml (0-14)
[2024-04-14 13:45] LABS: INR 1.1 (0.9-1.1); Partial Thromboplastin Ratio 0.9; Partial Thromboplastin Time 25 Seconds (21-31); Prothrombin Time 11.5 Seconds (9.0-12.0)
[2024-04-14 13:56] LABS: Appearance Urine Clear (Clear); Bilirubin Urine Negative (Negative); Blood Urine Negative (Negative); Color Urine Yellow; Glucose Urine UA Negative (Negative); Ketones Urine Negative (Negative); Leukocyte Esterase Urine Negative (Negative); Nitrite Urine Negative (Negative); Protein Urine Negative (Negative); Specific Gravity Urine 1.011 (1.000-1.030); Urobilinogen Urine Negative (Negative)
[2024-04-14 14:17] LABS: Adenovirus PCR Not Detected (NotDetected); Bordetella parapertussis PCR Not Detected (NotDetected); Bordetella pertussis PCR Not Detected (NotDetected); Chlamydia pneumoniae PCR Not Detected (NotDetected); Coronavirus 229E PCR Not Detected (NotDetected); Coronavirus CoV-2 (COVID19)PCR Not Detected (NotDetected); Coronavirus HKU1 PCR Not Detected (NotDetected); Coronavirus NL63 PCR Not Detected (NotDetected); Coronavirus OC43PCR Not Detected (NotDetected); Human Metapneumovirus PCR Not Detected (NotDetected); Influenza A PCR Not Detected (NotDetected); Influenza B PCR Not Detected (NotDetected); Mycoplasma pneumoniae PCR Not Detected (NotDetected); Parainfluenza Virus 1 PCR Not Detected (NotDetected); Parainfluenza Virus 2 PCR Not Detected (NotDetected); Parainfluenza Virus 3 PCR Not Detected (NotDetected); Parainfluenza Virus 4 PCR Not Detected (NotDetected); Respiratory Syncytial VirusPCR Not Detected (NotDetected); Rhinovirus/Enterovirus PCR Not Detected (NotDetected)
--- NOTE | 2024-04-14 14:35 | XRay Report ---
XR chest 1V portable CLINICAL HISTORY: Sepsis TECHNIQUE: Single frontal radiograph of the chest was obtained. Comparison: Comparison is made to chest radiograph 04/01/2015 FINDINGS: A port catheter is seen. The cardiomediastinal silhouette is normal. The lungs are clear. No evidence of pleural effusion or pneumothorax. IMPRESSION: No acute abnormalities and in particular no radiographic evidence of pneumonia. ACT 112: Negative or not required by law. Electronically signed by: Blayne Garrett M.D. 04/14/2024 2:32 PM
[2024-04-14] MEDS: SODIUM CHLORIDE 0.9% 1,000 ML IV ONE (14:49)
[2024-04-14] MEDS: MAGNESIUM OXIDE 400 MG TAB PO ONE (14:55)
--- NOTE | 2024-04-14 15:00 | XRay Report ---
EXAMINATION: X-ray right toe 2 view minimum CLINICAL HISTORY: Hip right first toe 3 days ago, pain PRIORS: None TECHNIQUE: AP, AP oblique and lateral views of the right great toe are submitted. FINDINGS: An oblique fracture is present at the base of the proximal phalanx with approximately 2 mm of depression and intra-articular extension. Moderate regional soft tissue swelling is noted. No subcutaneous gas or radiopaque foreign body. moderate osseous demineralization is noted. [id number] degenerative change of the MTP joint. IMPRESSION: Oblique fracture of the right great toe, distal phalanx with regional soft tissue swelling. ACT 112: Positive. There are findings on this examination that require communication between the performing entity and the patient following Patient Test Result Information Act ([place] ACT 112) guidelines. Electronically signed by Karin Mcguire 04-14-2024 4:00 PM
[2024-04-14] MEDS: ALBUT/IPRATROP 3MG/0.5MG NEB 3 ML VIAL NEB STA (16:12)
[2024-04-14 16:45] LABS: D Dimer 780 ug/L FEU (0-500)
--- NOTE | 2024-04-14 16:47 | Electrocardiogram Report ---
Test Reason : Blood Pressure : */* mmHG Vent. Rate : 71 BPM Atrial Rate : 71 BPM P-R Int : 124 ms QRS Dur : 80 ms QT Int : 370 ms P-R-T Axes : 5 -10 49 degrees QTcB Int : 402 ms Normal sinus rhythm Normal ECG When compared with ECG of 01-Apr-2024 17:14, No significant change was found Confirmed by Cinda Ji (Vickie) on 04/14/2024 4:46:47 PM Referred By: REFERRED SELF Confirmed By: Cinda Ji
[2024-04-14] MEDS: OPTIRAY 320 125ml IV ONE (17:09)
--- NOTE | 2024-04-14 17:28 | CT Scan Report ---
INDICATION: Shortness of breath. Recent pneumonia. COMPARISON: CT from 04/01/2024. TECHNIQUE: Axial CT images of the chest were obtained following IV contrast administration, PE protocol. Multiplanar reformatted images were reviewed. FINDINGS: No filling defect in the pulmonary arteries seen to suggest pulmonary embolism. Right-sided pericardial cyst measuring up to 5 cm, unchanged. The thoracic aorta appears normal in caliber. The heart is mildly enlarged. No pneumothorax. Enlarged mediastinal lymph nodes measuring up to 1.6 cm. Right-sided chest port catheter tip in the right atrium.. Bilateral breast implants noted. Subsegmental atelectasis/airspace disease in the lung bases, similar to prior. Trace bilateral pleural effusions. No acute osseous abnormality evident. Hiatal hernia. Otherwise no acute process in the upper abdomen. IMPRESSION: 1. Negative for pulmonary embolism. 2. Subsegmental atelectasis/airspace disease in the lung bases, similar to prior. Trace bilateral pleural effusions. 3. Trace bilateral pleural effusions. 4. Enlarged mediastinal lymph nodes measuring up to 1.6 cm. Electronically signed by Yair Rodriguez 04-14-2024 6:27 PM
[2024-04-14] MEDS ORDERED: GABAPENTIN 100 MG CAP PO PRN (17:33)
[2024-04-14] MEDS ORDERED: LORazepam 0.5 MG TAB PO PRN (17:33)
--- NOTE | 2024-04-14 18:03 | History & Physical Report ---
Date of Service April 14, 2024 Assessment & Plan (1) Hypoxia: (2) Pneumonia: (3) RAUL (acute kidney injury): (4) Closed fracture of right great toe: Plan: This is a 53-year-old female with PMH of renal cell carcinoma status post right nephrectomy on axitinib BID following with Dr. Mcclure, history of breast cancer, hypertension, hyperlipidemia and other medical problems below presenting with return of cough and shortness of breath following hospital discharge last April 03, 2024. Bibasilar pneumonia Acute hypoxia Returns after being discharged April 03, 2024 for pneumonia, treated with p.o. doxycycline upon discharge, which patient has completed possible partially treated pneumonia BioFire: Negative Nasal MRSA swab: Pending Blood cultures: Pending Legionella urine: Pending Start IV Zosyn every 8 hours Levobunolol 4 times daily Hypertonic saline twice daily Incentive spirometer and flutter valve Mucinex Wean off O2 Acute kidney injury History of renal cell CA status post right nephrectomy Received IV contrast for CT angiogram of the chest Given 1 L of IV fluid NSS bolus at the ER Maintain on normal saline at 100 cc/hr Hold lisinopril and Lasix Monitor renal function closely Hypertension Continue amlodipine Hold lisinopril and Lasix as per above Renal cell CA History of right nephrectomy Follows with [facility] Currently regimen axitinib 3mg BID , Keytruda Q6 wks DVT prophylaxis Lovenox Full code per patient Disposition Lives at home with family Admission and Anticipated Discharge Date Admission Date: April 14, 2024 History of Present Illness Chief Complaint: Cough and shortness of breath times few days Primary Care Provider: Emilie Nicole DO This is a 53-year-old female with PMH of renal cell carcinoma status post right nephrectomy on axitinib BID following with Dr. Mcclure, history of breast cancer, hypertension, hyperlipidemia and other medical problems below presenting with return of cough and shortness of breath following hospital discharge last April 03, 2024. Patient was admitted from April 01 to 2023 at [facility] for acute hypoxic respite failure, secondary to pneumonia. She was discharged on a course of doxycycline. As per patient, she initially felt better but after a few days, her dry cough, shortness of breath, weakness, poor appetite returned. At the ER, patient received with O2 saturation of 87% on room air, improving to greater than 90 with 2 L of O2 via nasal cannula. D-dimer was found to be 780 CT angiogram of the chest: No acute PE Subsegmental atelectasis/airspace disease in the lung bases, similar to prior. Trace bilateral pleural effusions. On exam, patient seen resting in bed, sitting up, comfortable, not in distress On 2 L of O2 Having bouts of dry cough But no active shortness of breath on my exam Denies chest pain, headache, dizziness, palpitations, abdominal pain, she has occasional nausea Reports some pain over the right great toe after tripping at home Allergies Allergy/AdvReac Type Severity Reaction Status Date / Time vancomycin Allergy Redness of Verified 04/14/24 16:14 Skin codeine AdvReac Intermediate palpitation Verified 04/14/24 16:14 s/tachycard ia adhesive tape AdvReac Mild rash/ red Verified 04/14/24 16:14 skin NSAIDS (Non-Steroidal AdvReac Mild does not Verified 04/14/24 16:14 Anti-Inflamma take d/t only one kidney Home Medications Medication Instructions Recorded Confirmed Type Lactobacillus acidophilus 10 1 cell PO QAM 11/27/18 04/14/24 History billion cell capsule (Probiotic) vitamin B complex (B 1 tab PO QAM 10/09/21 04/14/24 History Complex-Vitamin B12 tablet) pembrolizumab 50 mg intravenous 50 mg IV UD 12/10/21 04/14/24 History solution lisinopril 40 mg tablet 40 mg PO QAM 03/05/22 04/14/24 History levothyroxine 50 mcg tablet 50 mcg PO DAILY 07/12/22 04/14/24 History lorazepam 0.5 mg tablet (Ativan) 0.5 mg PO BID PRN anxiety or 07/14/23 04/14/24 Rx insomnia 1 month #60 tabs amlodipine 5 mg tablet 5 mg PO QAM #30 tabs 02/20/24 04/14/24 Rx cholecalciferol (vitamin D3) 1,250 50,000 unit TU@0900 04/01/24 04/14/24 History mcg (50,000 unit) capsule citalopram 20 mg tablet (Celexa) 20 mg PO HS depression, anxiety 04/01/24 04/14/24 History furosemide 20 mg tablet (Lasix) 20 mg PO Q2D 04/01/24 04/14/24 History gabapentin 100 mg capsule 100 mg PO HS PRN nerve pain 04/01/24 04/14/24 History iron,carbonyl 65 mg-vitamin C 125 1 tab PO DAILY 04/01/24 04/14/24 History mg tablet,delayed release (Vitron-C) guaifenesin 1,200 mg tablet, 1,200 mg PO BID #20 tabs 04/03/24 04/14/24 Rx extended release 12 hr (Mucus Relief ER) axitinib 1 mg tablet (Inlyta) 3 mg PO BID 04/14/24 04/14/24 History omeprazole 20 mg capsule,delayed 20 mg PO DAILY 04/14/24 04/14/24 History release Past Med/Surg History Problem List (Updated 04/14/24 @ 16:48 by Alexsander Griffin DO) Closed fracture of right great toe (Acute) Hypomagnesemia (Acute) RAUL (acute kidney injury) (Acute) Hypoxia (Acute) Shortness of breath (Acute) Hypothyroidism (acquired) Pneumonia (Acute) Hypoxia (Acute) Acute hypoxic respiratory failure H/O right nephrectomy Renal cell carcinoma Port-A-Cath in place Cough Hypertension Pneumonia (Acute) Insomnia Quality of life palliative care encounter Advanced care planning/counseling discussion Palliative care by specialist Parenting dynamics counseling Social isolation 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 Dr. Serrano S/p nephrectomy Perirectal abscess Vulvitis Liver mass Encounter for insertion of venous access port Encounter for pre-operative examination Anemia Skin breakdown at port site of totally implantable venous access device (TIVAD) Encounter for insertion of venous access port Port-A-Cath in place (05/03/22) Port placement. We used fluoroscopy for placement. 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 Currently on Pembrioizumab every six weeks, axitnib q 12 hrs Solitary left kidney (Acute) HX: breast cancer LEFT- S/P BILATERAL MASTECTOMY WITH LEFT LN REMOVAL WITH RADIATION On Tamoxifen Acid reflux Medical History Dyslipidemia Fatigue Acute blood loss anemia History of COVID-19 diagnosed 03/06/2022 @ [facility]--mild symptoms, cough/body aches--no symptoms now Port-A-Cath in place (05/03/22) Insertion Access Port with Fluoroscopy Right Cephalic(Right) - Curtis Serrano MD, FACS Situational anxiety History of high blood pressure Rectal mass History of breast cancer IBS (irritable bowel syndrome) Closed fracture dislocation of ankle Surgical History History of removal of Port-a-Cath (03/09/22) Removal of Access Port(Left) - Dwight Meraz MD, FACS History of anesthesia reaction "got sick"-usually on longer surgeries History of open reduction and internal fixation (ORIF) procedure (~2018) right ankle History of right radical nephrectomy (~07/30/21) Robotic Laparoscopic Assisted Right Radical Nephrectomy transition to hand assisted laparoscopic right Nephrectomy(Right) @ [facility] History of biopsy (~11/16/21) ultrasound guided biopsy area near liver/kidney on upper right quadrant @ [facility] Nausea and vomiting after administration of anesthetic agent History of esophagogastroduodenoscopy (EGD) History of colonoscopy H/O breast reconstruction BILATERAL Hx of lumpectomy LEFT History of bilateral tubal ligation History of section X2 History of mastectomy BILATERAL WITH LEFT LYMPH NODE REMOVAL>BREAST REDUCTION Family History Aunt FHx: breast cancer Breast cancer Mother FHx: breast cancer Breast cancer Family history of reaction to anesthesia slow to wake with anesthesia Grandmother (Maternal) FHx: breast cancer Breast cancer Father Family history of diabetes mellitus Heart disease Hypertension Denies family history of Ovarian cancer Colorectal cancer Social History Smoking Status: Never smoker Second Hand Exposure: No; Do You Dip or Chew Tobacco: No; Hx Alcohol Use: No Hx Substance Use: No Preferred Language: Georgian Communication Ability: Effective Visual Impairment: No Limitations 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 Beliefs That Will Affect Care: None marital status: Current Living Situation: Spouse and Family Current Living Situation Comment: and 2 teenage sons Feels Safe at Home: Yes Diet: regular Assistive Devices: None Review of Systems Review of Systems: all noted and negative except for above Physical Exam Physical Exam: General- oriented x 3, not in distress, speaks in sentences with no effort or accessory muscle use Head- atraumatic Eyes- PERRL, EOMI, anicteric ENT- oropharynx clear Neck- supple, no JVD, no adenopathy, no thyromegaly; carotids +2/2, no bruits appreciated Lungs- Diminished breath sounds bilaterally, positive mild rhonchi at the bases, no wheezing Heart- normal rate, regular rhythm; no murmur, no gallop, no rub appreciated Abdomen- normal bowel sounds, nondistended, soft, nontender, no masses or hepatosplenomegaly Extremities- no pretibial edema, no calf tenderness; peripheral pulses intact Right great toe: Positive hematoma No edema/warmth/tenderness Neuro- alert, oriented x 3; CN 2-12 grossly intact; motor 5/5 bilaterally;sensation 100% on all extremities; no other gross focal neurologic deficits Skin- warm & dry Results & Data Results & Data Vital Signs (Past 12 Hours) Vital Signs Temp Pulse Pulse Resp BP BP BP 04/14/24 16:36 86 18 119/60 04/14/24 15:50 67 20 104/59 L 04/14/24 15:21 04/14/24 15:20 04/14/24 14:53 36.8 C 66 18 104/63 04/14/24 13:55 56 L 04/14/24 13:44 70 22 96/57 L 04/14/24 13:12 71 18 94/62 L 04/14/24 13:08 37.1 C 69 18 101/63 04/14/24 13:07 69 18 04/14/24 11:57 36.8 C 75 22 101/67 Pulse Ox O2 Del Method O2 Flow Rate 04/14/24 16:36 96 2 04/14/24 15:50 93 Room Air 04/14/24 15:21 87 L Nasal Cannula 0 04/14/24 15:20 97 Room Air, Nasal Cannula 2 04/14/24 14:53 98 Nasal Cannula 2 04/14/24 13:55 04/14/24 13:44 93 Nasal Cannula 2 04/14/24 13:12 91 Nasal Cannula 2 04/14/24 13:08 91 Room Air 04/14/24 13:07 94 Room Air 12/28/24 11:57 93 Room Air all noted and reviewed including below Code Status & VTE Plan VTE Prophylaxis Plan VTE Prophylaxis will be ordered: Yes (2) Pneumonia Laterality: unspecified laterality Pneumonia type: due to unspecified organism (4) Closed fracture of right great toe Encounter type: initial encounter Fracture alignment: displaced Phalanx: unspecified phalanx Qualified Code(s): S92.401A - Displaced unspecified fracture of right great toe, initial encounter for closed fracture
[2024-04-14] MEDS ORDERED: ACETAMINOPHEN 325 MG TAB PO PRN (18:19)
[2024-04-14] MEDS: 4.5GM X1 IV STA (19:26)
[2024-04-14] MEDS: SODIUM CHLORIDE 0.9% 1,000 ML IV SCH (19:26)
[2024-04-14] MEDS: ADVANCED PROBIOTIC 625 MG CAPSULE PO SCH (19:27)
[2024-04-14] MEDS: ENOXAPARIN INJ 40 MG/0.4 ML SYR SQ SCH (19:27)
[2024-04-14] MEDS: LEVALBUTEROL 1.25 MG/3 ML NEB NEB SCH (20:05)
[2024-04-14] MEDS: SODIUM CHLOR 7% 4 ML NEB NEB SCH (20:05)
[2024-04-14] MEDS: CITALOPRAM 20 MG TAB PO SCH (20:51)
[2024-04-14] MEDS: guaiFENesin 600 MG TABCR PO SCH (20:51)
[2024-04-14] MEDS: PIPERACILLIN/TAZOBACTAM 4.5 GM/100 ML BAG IV SCH (23:45)
[2024-04-15] MEDS: LEVOTHYROXINE SODIUM 50 MCG TABLET PO SCH (05:33)
[2024-04-15 07:27] LABS: Basophils # (auto) 0.05 K/uL (0.00-0.20); Basophils % (auto) 0.9 %; Eosinophils # (auto) 0.11 K/uL (0.00-0.50); Hematocrit (blood only) 32.7 % (37.0-47.0); Hemoglobin 10.6 g/dl (12.0-16.0); Immature Granulocytes # (auto) 0.02 K/uL (0.01-0.20); Immature Granulocytes % (auto) 0.4 %; Lymphocytes # (auto) 0.83 K/uL (1.20-3.40); Lymphocytes % (auto) 15.3 %; Mean Corpuscular Hemoglobin 28.3 pg (25.0-34.0); Mean Corpuscular Hgb Conc 32.4 g/dL (32.0-36.0); Mean Corpuscular Volume 87.2 fL (80.0-100.0); Mean Platelet Volume 10.5 fL (9.4-12.4); Monocytes # (auto) 0.51 K/uL (0.11-0.59); Monocytes % (auto) 9.4 %; Platelet Count 205 K/uL (130-400); RDW Coefficient of Variation 13.5 % (11.5-14.5); RDW Standard Deviation 42.6 fL (36.4-46.3); Red Blood Count 3.75 M/uL (4.20-5.40); White Blood Count 5.42 K/ul (4.8-10.8)
[2024-04-15 07:41] LABS: Albumin Globulin Ratio 1.1 (0.9-2); Albumin Level 3.2 gm/dl (3.4-5.0); BUN Creatinine Ratio 11.6 (10-20); Bilirubin,Total 0.7 mg/dl (0.2-1.0); Calcium 8.6 mg/dl (8.6-10.3); Creatinine Clr Calc Pharmacy 60.2 ml/min; Potassium 4.4 mmol/L (3.5-5.1); Total Protein 6.2 gm/dl (6.0-8.3)
[2024-04-15] MEDS ORDERED: HEPARIN 100 UNIT/ML 5ML FLUSH FLUSH PRN (07:51)
[2024-04-15] MEDS: ASCORBIC ACID 500 MG TAB PO SCH (08:07)
[2024-04-15] MEDS: amLODIPine BESYLATE 5 MG TAB PO SCH (08:07)
[2024-04-15] MEDS: PANTOprazole 40 MG TAB PO SCH ×2 (08:07→20:06)
[2024-04-15] MEDS: VITAMIN B COMPLEX TAB PO SCH (08:08)
[2024-04-15] MEDS: FERROUS SULFATE 325 MG TAB PO SCH (08:09)
[2024-04-15 09:07] LABS: Magnesium 1.8 mg/dl (1.7-2.4)
--- NOTE | 2024-04-15 09:37 | Hospitalist Progress Note ---
Date of Service April 15, 2024 Assessment & Plan (1) Hypoxia: (2) Pneumonia: (3) RAUL (acute kidney injury): (4) Closed fracture of right great toe: Plan This is a 53-year-old female with PMH of renal cell carcinoma status post right nephrectomy on axitinib BID following with Dr. Mcclure, history of breast cancer, hypertension, hyperlipidemia and other medical problems below presenting with return of cough and shortness of breath following hospital discharge last April 03, 2024. Bibasilar pneumonia Acute Hypoxic Respiratory Failure Possible PD-L1 Pneumonitis Pt presents with hypoxia and cough Returns after being discharged April 03, 2024 for pneumonia, treated with p.o. doxycycline upon discharge, which patient has completed Possibly partially treated pneumonia Respiratory viral panel BioFire: Negative VBG unremarkable Nasal MRSA swab negative sputum Cx pending Blood cultures x2 sets negative Legionella urine pending procalcitonin negative CTA chest with no noted PE, trace bilateral pleural effusions and "Subsegmental atelectasis/airspace disease in the lung bases" as well as enlarged mediastinal lymph nodes IV Zosyn q8h Levalbuterol 4 times daily Hypertonic saline twice daily Incentive spirometer and flutter valve Mucinex Wean off O2 Pulmonology consulted this admission given persistent/return of respiratory failure after apparent pneumonia rx, appreciate recs -concern for Keytruda related pneumonitis, recommending discontinuation Oncology consulted for retirement Keytruda recs given pulmonology concern, appreciate further recs Continue to monitor Hypotension BP on lower end Holding home antihypertensives on IV fluids Continue to monitor Acute kidney injury History of renal cell CA status post right nephrectomy Cr elevated to 1.23 on admission Received IV contrast for CT angiogram of the chest Given 1 L of IV fluid NSS bolus at the ER Maintain on normal saline at 100 cc/hr Hold lisinopril and Lasix Monitor renal function closely R great Toe fracture Noted on XRAY toe Distal phalynx fracture with regional soft tissue swelling Ortho consulted, appreciate recs PT/OT once medically stable Anemia Hx of iron Deficiency Anemia Hgb of 12.1, decreased to 10.6 Consider anemia panel for further evaluation if persistent Continue to monitor Hypomagnesemia replete as needed Prediabetes Hgba1c of 5.8 PCP followup Hypertension Continue amlodipine Hold lisinopril and Lasix as per above Renal cell CA History of right nephrectomy Follows with [facility] Currently regimen axitinib 3mg BID , Keytruda Q6 wks Oncology consulted as noted above, given pulmonology recommendations for retirement plan Diet: HH DVT prophylaxis: Lovenox Dispo: PT/OT for further recs once medically stable Admission and Anticipated Discharge Date Admission Date: April 14, 2024 Subjective patient was seen sitting up in bed Coughing throughout the exam Stated she started to feel better after IV fluids Notes that she did injure her right toe concerned about having to stop Keytruda and asking for her oncologist to weigh in Review of Systems Review of Systems: All systems reviewed & are unremarkable except as noted in Subjective Physical Exam Physical Exam: General: Alert, oriented. Coughing during the week Skin:bruising to R great toe Psych: Appropriate mood and affect HEENT: NC/AT CV: RRR Resp: Breath sounds clear bilaterally, no increased effort of breathing Abdomen: Soft, nontender Extremities: bruising to R great toe Results & Data Results & Data Vital Signs (Past 12 Hours) Vital Signs Temp Pulse Pulse Resp BP Pulse Ox O2 Del Method 04/15/24 07:34 36.7 C 67 18 98/64 L 93 Nasal Cannula 04/15/24 07:29 67 04/15/24 07:16 98 H 16 95 Nasal Cannula 04/15/24 03:50 36.9 C 74 16 91/54 L 93 Nasal Cannula 04/15/24 00:05 37 C 72 16 91/54 L 93 Nasal Cannula 04/15/24 00:04 67 18 95 Nasal Cannula 04/14/24 22:01 73 O2 Flow Rate 04/15/24 07:34 2 04/15/24 07:29 04/15/24 07:16 3 04/15/24 03:50 2 04/15/24 00:05 2 04/15/24 00:04 2 04/14/24 22:01 Diagnostic Findings Chest X-Ray 04/14/24 12:11 XR chest 1V portable CLINICAL HISTORY: Sepsis TECHNIQUE: Single frontal radiograph of the chest was obtained. Comparison: Comparison is made to chest radiograph 04/01/2015 FINDINGS: A port catheter is seen. The cardiomediastinal silhouette is normal. The lungs are clear. No evidence of pleural effusion or pneumothorax. IMPRESSION: No acute abnormalities and in particular no radiographic evidence of pneumonia. ACT 112: Negative or not required by law. Electronically signed by: Blayne Garrett M.D. 04/14/2024 2:32 PM Toe X-Ray 04/14/24 12:19 EXAMINATION: X-ray right toe 2 view minimum CLINICAL HISTORY: Hip right first toe 3 days ago, pain PRIORS: None TECHNIQUE: AP, AP oblique and lateral views of the right great toe are submitted. FINDINGS: An oblique fracture is present at the base of the proximal phalanx with approximately 2 mm of depression and intra-articular extension. Moderate regional soft tissue swelling is noted. No subcutaneous gas or radiopaque foreign body. moderate osseous demineralization is noted. [id number] degenerative change of the MTP joint. IMPRESSION: Oblique fracture of the right great toe, distal phalanx with regional soft tissue swelling. ACT 112: Positive. There are findings on this examination that require communication between the performing entity and the patient following Patient Test Result Information Act ([place] ACT 112) guidelines. Electronically signed by Karin Mcguire 04-14-2024 3:00 PM Chest CTA 04/14/24 16:45 INDICATION: Shortness of breath. Recent pneumonia. COMPARISON: CT from 04/01/2024. TECHNIQUE: Axial CT images of the chest were obtained following IV contrast administration, PE protocol. Multiplanar reformatted images were reviewed. FINDINGS: No filling defect in the pulmonary arteries seen to suggest pulmonary embolism. Right-sided pericardial cyst measuring up to 5 cm, unchanged. The thoracic aorta appears normal in caliber. The heart is mildly enlarged. No pneumothorax. Enlarged mediastinal lymph nodes measuring up to 1.6 cm. Right-sided chest port catheter tip in the right atrium.. Bilateral breast implants noted. Subsegmental atelectasis/airspace disease in the lung bases, similar to prior. Trace bilateral pleural effusions. No acute osseous abnormality evident. Hiatal hernia. Otherwise no acute process in the upper abdomen. IMPRESSION: 1. Negative for pulmonary embolism. 2. Subsegmental atelectasis/airspace disease in the lung bases, similar to prior. Trace bilateral pleural effusions. 3. Trace bilateral pleural effusions. 4. Enlarged mediastinal lymph nodes measuring up to 1.6 cm. Electronically signed by Yair Rodriguez 04-14-2024 5:27 PM (2) Pneumonia Laterality: unspecified laterality Pneumonia type: due to unspecified organism (4) Closed fracture of right great toe Encounter type: initial encounter Fracture alignment: displaced Phalanx: u nspecified phalanx Qualified Code(s): S92.401A - Displaced unspecified fracture of right great toe, initial encounter for closed fracture
--- NOTE | 2024-04-15 10:07 | Orthopedic Consultation ---
Date of Consultation April 15, 2024 Assessment & Plan (1) Closed fracture of right great toe: Patient evaluated by myself and Dr. Laughlin at bedside today. Prior records were reviewed. X-ray of the great toe was viewed by myself and Dr. Laughlin showing an oblique fracture through the base of the distal phalanx, with intra-articular component and very minimal displacement. She also has significant arthritic changes at the MTP joint. She is neurovascularly intact. Extensor and flexor mechanism intact. Options of care were reviewed with her. Recommend conservative management, no indication for surgical intervention. Ordered post-op shoe, she can be weightbearing as tolerated through the heel over the next 2 weeks until her follow up appointment while in the shoe. Crutches or walker if needed for stability. Elevate/ice for throbbing pain Pain management per primary service PT/OT Follow up in our office or with Dr. Butler's office for 2 week follow up from date of injury. She stated she would prefer to follow up with us since we have seen the injury, so I will send message to our office to contact patient with appointment time. Orthopedics will sign off for now. Do not hesitate to contact for any questions or concerns. Present on Admission?: Yes Supervising Physician Co-Signing Physician Notes I, Dr. Laughlin, saw and examined the patient. I discussed the management with my PA. I reviewed my PAs note and agree with the documented findings and attest to completing the substantive portion of medical decision making and plan of care I developed. History of Present Illness Reason for Consultation: Right great toe fracture Requesting Physician: Ranjith Laughlin MD Attending Physician: Abida Gayr MD History of Present Illness This is a 53 year old female history of renal cell carcinoma status post right nephrectomy history of breast cancer, hypertension, hyperlipidemia, recent pneumonia, who presented to the emergency department yesterday with worsening dyspnea and cough. Recent diagnosis of pneumonia. Was subsequently admitted for ongoing management. Incidentally she also mentioned that she was having right great toe pain from an injury that occurred 4 days ago. X-rays were obtained showing a great toe fracture. Orthopedic service was consulted for the toe fracture. Patient states that 4 days ago she was moving some furniture and lost her balance and fell forward. She was wearing flip-flops and top of her toe jammed into the floor. She developed pain, swelling, and bruising and was walking on her heel. She was icing it and elevating it but did not seek any evaluation until she was seen for it yesterday. Last night she was having some throbbing in the toe but is not taking any pain medication for it right now. She denies any numbness or tingling in her toes. She has not injured this toe or foot in the past, however she did have ORIF of the right ankle in the past with Dr. Butler. Allergies Allergy/AdvReac Type Severity Reaction Status Date / Time vancomycin Allergy Redness of Verified 04/14/24 16:14 Skin codeine AdvReac Intermediate palpitation Verified 04/14/24 16:14 s/tachycard ia adhesive tape AdvReac Mild rash/ red Verified 04/14/24 16:14 skin NSAIDS (Non-Steroidal AdvReac Mild does not Verified 04/14/24 16:14 Anti-Inflamma take d/t only one kidney Home Medications Medication Instructions Recorded Confirmed Type Lactobacillus acidophilus 10 1 cell PO QAM 11/27/18 04/14/24 History billion cell capsule (Probiotic) vitamin B complex (B 1 tab PO QAM 10/09/21 04/14/24 History Complex-Vitamin B12 tablet) pembrolizumab 50 mg intravenous 50 mg IV UD 12/10/21 04/14/24 History solution lisinopril 40 mg tablet 40 mg PO QAM 03/05/22 04/14/24 History levothyroxine 50 mcg tablet 50 mcg PO DAILY 07/12/22 04/14/24 History lorazepam 0.5 mg tablet (Ativan) 0.5 mg PO BID PRN anxiety or 07/14/23 04/14/24 Rx insomnia 1 month #60 tabs amlodipine 5 mg tablet 5 mg PO QAM #30 tabs 02/20/24 04/14/24 Rx cholecalciferol (vitamin D3) 1,250 50,000 unit TU@0900 04/01/24 04/14/24 History mcg (50,000 unit) capsule citalopram 20 mg tablet (Celexa) 20 mg PO HS depression, anxiety 04/01/24 04/14/24 History furosemide 20 mg tablet (Lasix) 20 mg PO Q2D 04/01/24 04/14/24 History gabapentin 100 mg capsule 100 mg PO HS PRN nerve pain 04/01/24 04/14/24 History iron,carbonyl 65 mg-vitamin C 125 1 tab PO DAILY 04/01/24 04/14/24 History mg tablet,delayed release (Vitron-C) guaifenesin 1,200 mg tablet, 1,200 mg PO BID #20 tabs 04/03/24 04/14/24 Rx extended release 12 hr (Mucus Relief ER) axitinib 1 mg tablet (Inlyta) 3 mg PO BID 04/14/24 04/14/24 History omeprazole 20 mg capsule,delayed 20 mg PO DAILY 04/14/24 04/14/24 History release Patient History Medical History Dyslipidemia Fatigue Acute blood loss anemia History of COVID-19 diagnosed 03/06/2022 @ [facility]--mild symptoms, cough/body aches--no symptoms now Port-A-Cath in place (05/03/22) Insertion Access Port with Fluoroscopy Right Cephalic(Right) - Curtis lugo MD, FACS Situational anxiety History of high blood pressure Rectal mass History of breast cancer IBS (irritable bowel syndrome) Closed fracture dislocation of ankle Surgical History History of removal of Port-a-Cath (03/09/22) Removal of Access Port(Left) - Dwight Meraz MD, FACS History of anesthesia reaction "got sick"-usually on longer surgeries History of open reduction and internal fixation (ORIF) procedure (~2018) right ankle History of right radical nephrectomy (~07/30/21) Robotic Laparoscopic Assisted Right Radical Nephrectomy transition to hand assisted laparoscopic right Nephrectomy(Right) @ [facility] History of biopsy (~11/16/21) ultrasound guided biopsy area near liver/kidney on upper right quadrant @ [facility] Nausea and vomiting after administration of anesthetic agent History of esophagogastroduodenoscopy (EGD) History of colonoscopy H/O breast reconstruction BILATERAL Hx of lumpectomy LEFT History of bilateral tubal ligation History of section X2 History of mastectomy BILATERAL WITH LEFT LYMPH NODE REMOVAL>BREAST REDUCTION Family History Aunt FHx: breast cancer Breast cancer Mother FHx: breast cancer Breast cancer Family history of reaction to anesthesia slow to wake with anesthesia Grandmother (Maternal) FHx: breast cancer Breast cancer Father Family history of diabetes mellitus Heart disease Hypertension Denies family history of Ovarian cancer Colorectal cancer Social History Smoking Status: Never smoker Second Hand Exposure: No; Do You Dip or Chew Tobacco: No; Hx Alcohol Use: No Hx Substance Use: No Preferred Language: Thai Communication Ability: Effective Visual Impairment: No 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 Pleasant. Sitting upright in bed. Cardiovascular: Right DP and PT pulses 2+ Musculoskeletal: Right lower extremity: No proximal fibular tenderness. Negative squeeze test. No ankle tenderness. Well healed lateral ankle vertical scar is noted. Ankle with full range of motion with plantarflexion and dorsiflexion. There is mild swelling and ecchymosis about the great toe. No malrotation. There is focal tenderness over the great toe interphalangeal joint and distal phalanx. No tenderness in the first toe MTP joint, remainder of toes, and remainder of foot. Able to actively flex and extend the great toe. There is no subungual hematoma. The nail is intact. Strength 5/5 with ankle plantarflexion and dorsiflexion. Skin: Skin is intact on the right lower extremity Neurologic: No sensory deficits in right lower extremity to light touch. Results & Data Vital Signs (Past 12 Hours) Vital Signs Temp Pulse Pulse Resp BP Pulse Ox O2 Del Method 04/15/24 09:00 Nasal Cannula 04/15/24 07:34 98.1 F 67 18 98/64 L 93 Nasal Cannula 04/15/24 07:29 67 04/15/24 07:16 98 H 16 95 Nasal Cannula 04/15/24 03:50 98.4 F 74 16 91/54 L 93 Nasal Cannula 04/15/24 00:05 98.6 F 72 16 91/54 L 93 Nasal Cannula 04/15/24 00:04 67 18 95 Nasal Cannula O2 Flow Rate 04/15/24 09:00 2 04/15/24 07:34 2 04/15/24 07:29 04/15/24 07:16 3 04/15/24 03:50 2 04/15/24 00:05 2 04/15/24 00:04 2 Diagnostic Findings Toe X-Ray 04/14/24 12:19 EXAMINATION: X-ray right toe 2 view minimum CLINICAL HISTORY: Hip right first toe 3 days ago, pain PRIORS: None TECHNIQUE: AP, AP oblique and lateral views of the right great toe are submitted. FINDINGS: An oblique fracture is present at the base of the proximal phalanx with approximately 2 mm of depression and intra-articular extension. Moderate regional soft tissue swelling is noted. No subcutaneous gas or radiopaque foreign body. moderate osseous demineralization is noted. [id number]-[id number] degenerative change of the MTP joint. IMPRESSION: Oblique fracture of the right great toe, distal phalanx with regional soft tissue swelling. ACT 112: Positive. There are findings on this examination that require communication between the performing entity and the patient following Patient Test Result Information Act ([place] ACT 112) guidelines. Electronically signed by Karin Mcguire 04-14-2024 3:00 PM (1) Closed fracture of right great toe Encounter type: initial encounter Fracture alignment: displaced Phalanx: unspecified phalanx Qualified Code(s): S92.401A - Displaced unspecified fracture of right great toe, initial encounter for closed fracture
--- NOTE | 2024-04-15 10:25 | Pulmonary Consultation ---
Date of Consultation April 15, 2024 Assessment & Plan (1) Abnormal chest CT: (2) Acute hypoxic respiratory failure: (3) Pneumonitis: Plan CT chest 04/14/24 personally reviewed: Diffuse patchy groundglass opacities appreciated bilaterally Being independent in ectasis bilateral lower lobes No significant mediastinal lymphadenopathy -- Acute hypoxic respiratory failure with abnormal chest CT Diffuse patchy groundglass opacities appreciated bilaterally with mosaicism No personal or family history of any autoimmune disease like lupus, sarcoid, Sjogren's, rheumatoid Having persistent for at least 2 weeks as no significant change compared to 04/01/2024 CAT scan Does take pembrolizumab every month for approximately 2 years I will order autoimmune workup for the patient's I do think the possibility of PD-L1 related pneumonitis is high. Respiratory BioFire negative for everything on 04/14/2024 Procalcitonin 0.29, nasal MRSA negative --Renal cell carcinoma Diagnosed 07/2020 s/p right-sided nephrectomy Getting Keytruda every month and also takes axitinib daily Plan: Given the persistence BrezTri,'s opacities bilaterally in somebody who has been on palivizumab PD-L1 related pneumonitis is high in differential I will calcified this is at least grade 3 pneumonitis, I will start her on prednisone 60 mg twice daily and gradually taper it off over the next 4-6 weeks Can consider Bactrim Pzharv-Pyzxaoohl-Wnedyj for PJP prophylaxis Recommend holding future doses of pembrolizumab Please note the above document was generated using voice recognition software. It may contain grammatical, syntax or spelling errors.Any formal questions or concerns about the content, text or information contained within the body of this dictation should be directly addressed to the provider for clarification. History of Present Illness Attending Physician: Abida Gary MD History of Present Illness 53-year-old female present to the hospital with complaints of generalized lethargy Past medical history: Renal cell carcinoma on the right side s/p nephrectomy, currently on Keytruda every month Pulmonary consulted for hypoxia Patient was recently in the hospital where she was diagnosed with pneumonia and sent home on doxycycline, she finished doxycycline on the and has been progressively getting worse since then At the time of examination patient was saturating 97% on 3 L nasal cannula, I went down to 1 L. She stated that she is having dry cough which has been going on for a while. Denies any chest pain Occasionally when she brings up the phlegm is mostly clear. No hemoptysis. 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 No birds or poultry nearby Allergies Allergy/AdvReac Type Severity Reaction Status Date / Time vancomycin Allergy Redness of Verified 04/14/24 16:14 Skin codeine AdvReac Intermediate palpitation Verified 04/14/24 16:14 s/tachycard ia adhesive tape AdvReac Mild rash/ red Verified 04/14/24 16:14 skin NSAIDS (Non-Steroidal AdvReac Mild does not Verified 04/14/24 16:14 Anti-Inflamma take d/t only one kidney Home Medications Medication Instructions Recorded Confirmed Type Lactobacillus acidophilus 10 1 cell PO QAM 11/27/18 04/14/24 History billion cell capsule (Probiotic) vitamin B complex (B 1 tab PO QAM 10/09/21 04/14/24 History Complex-Vitamin B12 tablet) pembrolizumab 50 mg intravenous 50 mg IV UD 12/10/21 04/14/24 History solution lisinopril 40 mg tablet 40 mg PO QAM 03/05/22 04/14/24 History levothyroxine 50 mcg tablet 50 mcg PO DAILY 07/12/22 04/14/24 History lorazepam 0.5 mg tablet (Ativan) 0.5 mg PO BID PRN anxiety or 07/14/23 04/14/24 Rx insomnia 1 month #60 tabs amlodipine 5 mg tablet 5 mg PO QAM #30 tabs 02/20/24 04/14/24 Rx cholecalciferol (vitamin D3) 1,250 50,000 unit TU@0900 04/01/24 04/14/24 History mcg (50,000 unit) capsule citalopram 20 mg tablet (Celexa) 20 mg PO HS depression, anxiety 04/01/24 04/14/24 History furosemide 20 mg tablet (Lasix) 20 mg PO Q2D 04/01/24 04/14/24 History gabapentin 100 mg capsule 100 mg PO HS PRN nerve pain 04/01/24 04/14/24 History iron,carbonyl 65 mg-vitamin C 125 1 tab PO DAILY 04/01/24 04/14/24 History mg tablet,delayed release (Vitron-C) guaifenesin 1,200 mg tablet, 1,200 mg PO BID #20 tabs 04/03/24 04/14/24 Rx extended release 12 hr (Mucus Relief ER) axitinib 1 mg tablet (Inlyta) 3 mg PO BID 04/14/24 04/14/24 History omeprazole 20 mg capsule,delayed 20 mg PO DAILY 04/14/24 04/14/24 History release Patient History Medical History Dyslipidemia Fatigue Acute blood loss anemia History of COVID-19 diagnosed 03/06/2022 @ [facility]--mild symptoms, cough/body aches--no symptoms now Port-A-Cath in place (05/03/22) Insertion Access Port with Fluoroscopy Right Cephalic(Right) - Curtis Serrano MD, FACS Situational anxiety History of high blood pressure Rectal mass History of breast cancer IBS (irritable bowel syndrome) Closed fracture dislocation of ankle Surgical History History of removal of Port-a-Cath (03/09/22) Removal of Access Port(Left) - Dwight Meraz MD, FACS History of anesthesia reaction "got sick"-usually on longer surgeries History of open reduction and internal fixation (ORIF) procedure (~2018) right ankle History of right radical nephrectomy (~07/30/21) Robotic Laparoscopic Assisted Right Radical Nephrectomy transition to hand assisted laparoscopic right Nephrectomy(Right) @ [facility] History of biopsy (~11/16/21) ultrasound guided biopsy area near liver/kidney on upper right quadrant @ [facility] Nausea and vomiting after administration of anesthetic agent History of esophagogastroduodenoscopy (EGD) History of colonoscopy H/O breast reconstruction BILATERAL Hx of lumpectomy LEFT History of bilateral tubal ligation History of section X2 History of mastectomy BILATERAL WITH LEFT LYMPH NODE REMOVAL>BREAST REDUCTION Family History Aunt FHx: breast cancer Breast cancer Mother FHx: breast cancer Breast cancer Family history of reaction to anesthesia slow to wake with anesthesia Grandmother (Maternal) FHx: breast cancer Breast cancer Father Family history of diabetes mellitus Heart disease Hypertension Denies family history of Ovarian cancer Colorectal cancer Social History Smoking Status: Never smoker Second Hand Exposure: No; Do You Dip or Chew Tobacco: No; Hx Alcohol Use: No Hx Substance Use: No Preferred Language: Congolese Communication Ability: Effective Visual Impairment: No Limitations 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 Beliefs That Will Affect Care: None marital status: Current Living Situation: Spouse Current Living Situation Comment: and 2 teenage sons Feels Safe at Home: Yes Diet: regular Assistive Devices: Glasses Review of Systems 2 Review of Systems: All systems reviewed & are unremarkable except as noted in HPI & below Physical Exam 2 Physical Exam: Constitutional: No acute distress HEENT: EOMI, PERRLA Respiratory system: Good air entry bilaterally, no wheeze, rhonchi, positive Diffuse crackles bilaterally CVS: S1-S2 positive, no murmurs or gallops Abdomen: Soft, nontender, nondistended, positive bowel sounds x4 Extremities: +2 pulses bilaterally radialis/ dorsalis pedis, no cyanosis, no edema Neuro: Awake alert oriented x3 Psych: Normal mood and affect G/U: No Osorio Skin: no rashes, warm and dry Lymphatic: no cervical or axillary lymphadenopathy Results & Data Results & Data Vital Signs (Past 12 Hours) Vital Signs Temp Pulse Pulse Resp BP Pulse Ox O2 Del Method 04/15/24 09:00 Nasal Cannula 04/15/24 07:34 36.7 C 67 18 98/64 L 93 Nasal Cannula 04/15/24 07:29 67 04/15/24 07:16 98 H 16 95 Nasal Cannula 04/15/24 03:50 36.9 C 74 16 91/54 L 93 Nasal Cannula 04/15/24 00:05 37 C 72 16 91/54 L 93 Nasal Cannula 04/15/24 00:04 67 18 95 Nasal Cannula O2 Flow Rate 04/15/24 09:00 2 04/15/24 07:34 2 04/15/24 07:29 04/15/24 07:16 3 04/15/24 03:50 2 04/15/24 00:05 2 04/15/24 00:04 2 Laboratory Results 04/15/24 07:03 04/15/24 07:03 PG Care Time/CCT Total # of Minutes Spent Total Time Spent with Patient: Total time spent is greater than 50% in coordination of care (as documented) at patient's floor/unit and/or counseling patient: Coding Level of Care Code 20778 INT INP/OBS CARE 3/75MIN Diagnoses Abnormal chest CT R93.89 Acute hypoxic respiratory failure J96.01 Pneumonitis J98.4
[2024-04-15] MEDS: AZITHROMYCIN 250 MG TAB PO SCH (12:20)
[2024-04-15] MEDS: predniSONE 20 MG TAB PO SCH (12:21)
[2024-04-16 03:06] VITALS: TEMP 97.7
--- NOTE | 2024-04-16 07:08 | Oncology Consultation ---
Date of Consultation April 16, 2024 Assessment & Plan (1) Pneumonitis: (2) Acute hypoxic respiratory failure: (3) Sarcomatoid renal cell carcinoma: Plan Patient has been doing well on Keytruda/Inlyta for more than 2 years with good response based on most recent restaging imaging. She has however been admitted x 2 over the past 2 weeks with respiratory symptoms and imaging suggestive of possible pneumonia/pneumonitis. 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 -Based on clinical symptoms, appears to have grade 2 pneumonitis. Agree with steroids with prednisone 1 mg/kg/day. I will see her back in clinic in about 1 week to assess symptoms and potentially start prednisone taper since she appears to be doing very well clinically at this point. -Will hold Keytruda for now pending resolution of symptoms. May consider restarting when she is down to 10 mg prednisone daily. -She can continue with axitinib Patient agreed with above plan. History of Present Illness Reason for Consultation: Renal cell carcinoma, Keytruda induced pneumonitis Attending Physician: Abida Gary MD History of Present Illness 53-year-old female with metastatic renal cell carcinoma originally diagnosed in July, for which she is currently on pembrolizumab for 100 mg IV every 6 weeks and axitinib 3 mg p.o. twice daily. Patient was admitted to [facility] from 04/01/2024 to for pneumonia. Then presented again to [facility] on 04/14/2024 with complaints of cough, shortness of breath and hypoxia with O2 saturation at home of 86 on room air. CTA chest revealed no evidence of PE, subsegmental atelectasis/A-paced disease in the lung bases similar to prior, trace bilateral pleural effusions and enlarged mediastinal lymph nodes measuring up to 1.6 cm. Pulmonology was consulted who felt that she most likely had immunotherapy induced pneumonitis and recommended steroids. She is currently on prednisone 60 mg twice daily. She feels well overall. Energy level seems to have improved since she started the prednisone. Denies any respiratory symptoms and is saturating at 94% on room air Allergies Allergy/AdvReac Type Severity Reaction Status Date / Time vancomycin Allergy Redness of Verified 04/14/24 16:14 Skin codeine AdvReac Intermediate palpitation Verified 04/14/24 16:14 s/tachycard ia adhesive tape AdvReac Mild rash/ red Verified 04/14/24 16:14 skin NSAIDS (Non-Steroidal AdvReac Mild does not Verified 04/14/24 16:14 Anti-Inflamma take d/t only one kidney Home Medications Medication Instructions Recorded Confirmed Type Lactobacillus acidophilus 10 1 cell PO QAM 11/27/18 04/14/24 History billion cell capsule (Probiotic) vitamin B complex (B 1 tab PO QAM 10/09/21 04/14/24 History Complex-Vitamin B12 tablet) pembrolizumab 50 mg intravenous 50 mg IV UD 12/10/21 04/14/24 History solution lisinopril 40 mg tablet 40 mg PO QAM 03/05/22 04/14/24 History levothyroxine 50 mcg tablet 50 mcg PO DAILY 07/12/22 04/14/24 History lorazepam 0.5 mg tablet (Ativan) 0.5 mg PO BID PRN anxiety or 07/14/23 04/14/24 Rx insomnia 1 month #60 tabs amlodipine 5 mg tablet 5 mg PO QAM #30 tabs 02/20/24 04/14/24 Rx cholecalciferol (vitamin D3) 1,250 50,000 unit TU@0900 04/01/24 04/14/24 History mcg (50,000 unit) capsule citalopram 20 mg tablet (Celexa) 20 mg PO HS depression, anxiety 04/01/24 04/14/24 History furosemide 20 mg tablet (Lasix) 20 mg PO Q2D 04/01/24 04/14/24 History gabapentin 100 mg capsule 100 mg PO HS PRN nerve pain 04/01/24 04/14/24 History iron,carbonyl 65 mg-vitamin C 125 1 tab PO DAILY 04/01/24 04/14/24 History mg tablet,delayed release (Vitron-C) guaifenesin 1,200 mg tablet, 1,200 mg PO BID #20 tabs 04/03/24 04/14/24 Rx extended release 12 hr (Mucus Relief ER) axitinib 1 mg tablet (Inlyta) 3 mg PO BID 04/14/24 04/14/24 History omeprazole 20 mg capsule,delayed 20 mg PO DAILY 04/14/24 04/14/24 History release Patient History Medical History Dyslipidemia Fatigue Acute blood loss anemia History of COVID-19 diagnosed 03/06/2022 @ [facility]--mild symptoms, cough/body aches--no symptoms now Port-A-Cath in place (05/03/22) Insertion Access Port with Fluoroscopy Right Cephalic(Right) - Curtis Serrano MD, FACS Situational anxiety History of high blood pressure Rectal mass History of breast cancer IBS (irritable bowel syndrome) Closed fracture dislocation of ankle Surgical History History of removal of Port-a-Cath (03/09/22) Removal of Access Port(Left) - Dwight Meraz MD, FACS History of anesthesia reaction "got sick"-usually on longer surgeries History of open reduction and internal fixation (ORIF) procedure (~2018) right ankle History of right radical nephrectomy (~07/30/21) Robotic Laparoscopic Assisted Right Radical Nephrectomy transition to hand assisted laparoscopic right Nephrectomy(Right) @ [facility] History of biopsy (~11/16/21) ultrasound guided biopsy area near liver/kidney on upper right quadrant @ [facility] Nausea and vomiting after administration of anesthetic agent History of esophagogastroduodenoscopy (EGD) History of colonoscopy H/O breast reconstruction BILATERAL Hx of lumpectomy LEFT History of bilateral tubal ligation History of section X2 History of mastectomy BILATERAL WITH LEFT LYMPH NODE REMOVAL>BREAST REDUCTION Family History Aunt FHx: breast cancer Breast cancer Mother FHx: breast cancer Breast cancer Family history of reaction to anesthesia slow to wake with anesthesia Grandmother (Maternal) FHx: breast cancer Breast cancer Father Family history of diabetes mellitus Heart disease Hypertension Denies family history of Ovarian cancer Colorectal cancer Social History Smoking Status: Never smoker Second Hand Exposure: No; Do You Dip or Chew Tobacco: No; Hx Alcohol Use: No Hx Substance Use: No Preferred Language: [place] Communication Ability: Effective Visual Impairment: No Limitations Dolly Operator Required: No Beliefs That Will Affect Care: None marital status: Current Living Situation: Spouse Current Living Situation Comment: and 2 teenage sons Feels Safe at Home: Yes Diet: regular Assistive Devices: None Results & Data Vital Signs (Past 12 Hours) Vital Signs Temp Pulse Pulse Resp BP Pulse Ox O2 Del Method 04/16/24 06:56 82 20 92 Room Air 04/16/24 03:06 36.5 C 63 18 149/79 H 92 Room Air 04/15/24 23:54 82 18 90 Room Air 04/15/24 23:16 36.8 C 67 18 133/80 93 Room Air 04/15/24 22:08 74 04/15/24 20:00 Nasal Cannula 04/15/24 19:38 36.4 C L 117 H 20 126/71 94 Room Air 04/15/24 19:13 75 18 92 Room Air O2 Flow Rate 04/16/24 06:56 04/16/24 03:06 04/15/24 23:54 04/15/24 23:16 04/15/24 22:08 04/15/24 20:00 1 04/15/24 19:38 04/15/24 19:13
[2024-04-16 07:20] LABS: Basophils # (auto) 0.02 K/uL (0.00-0.20); Basophils % (auto) 0.3 %; Hematocrit (blood only) 34.4 % (37.0-47.0); Hemoglobin 11.2 g/dl (12.0-16.0); Immature Granulocytes # (auto) 0.04 K/uL (0.01-0.20); Immature Granulocytes % (auto) 0.6 %; Lymphocytes # (auto) 0.88 K/uL (1.20-3.40); Lymphocytes % (auto) 13.3 %; Mean Corpuscular Hemoglobin 27.9 pg (25.0-34.0); Mean Corpuscular Hgb Conc 32.6 g/dL (32.0-36.0); Mean Corpuscular Volume 85.8 fL (80.0-100.0); Mean Platelet Volume 10.6 fL (9.4-12.4); Monocytes # (auto) 0.21 K/uL (0.11-0.59); Monocytes % (auto) 3.2 %; Neutrophils # (auto) 5.45 K/uL (1.40-6.50); Neutrophils % (auto) 82.6 %; Platelet Count 228 K/uL (130-400); RDW Coefficient of Variation 13.4 % (11.5-14.5); RDW Standard Deviation 42.5 fL (36.4-46.3); Red Blood Count 4.01 M/uL (4.20-5.40)
[2024-04-16 07:34] LABS: BUN Creatinine Ratio 14.6 (10-20); Calcium 9.3 mg/dl (8.6-10.3); Creatinine Clr Calc Pharmacy 77.2 ml/min; Magnesium 1.9 mg/dl (1.7-2.4); Phosphorus 3.6 mg/dl (2.5-4.9); Potassium 4.3 mmol/L (3.5-5.1)
--- NOTE | 2024-04-16 08:28 | Pulmonology Progress Note ---
Date of Service April 16, 2024 Assessment & Plan (1) Abnormal chest CT: (2) Acute hypoxic respiratory failure: (3) Pneumonitis: Plan CT chest 04/14/24 personally reviewed: Diffuse patchy groundglass opacities appreciated bilaterally Being independent in ectasis bilateral lower lobes No significant mediastinal lymphadenopathy 2D echo 04/15/2024: EF 55-60%, RV systolic function normal, RV mildly dilated -- Acute hypoxic respiratory failure with abnormal chest CT Diffuse patchy groundglass opacities appreciated bilaterally with mosaicism No personal or family history of any autoimmune disease like lupus, sarcoid, Sjogren's, rheumatoid Having persistent for at least 2 weeks as no significant change compared to 04/01/2024 CAT scan Does take pembrolizumab every month for approximately 2 years I will order autoimmune workup for the patient's I do think the possibility of PD-L1 related pneumonitis is high. Respiratory BioFire negative for everything on 04/14/2024 Procalcitonin 0.29, nasal MRSA negative --Renal cell carcinoma Diagnosed 07/2020 s/p right-sided nephrectomy Getting Keytruda every month and also takes axitinib daily Plan: Given the persistence groundglass opacities bilaterally in somebody who has been on pembrolizumab, PD-L1 related pneumonitis is high in differential I will classify this is at least grade 3 pneumonitis, started on prednisone 50 mg twice daily on 04/15/2024. Gradually taper it off over the next 4-6 weeks Avoid NSAIDs during that time. Would recommend pantoprazole twice a day while she is on high-dose prednisone Start Bactrim [id number] for PJP prophylaxis. Continue with the things she is on greater than 20 Mg per day of prednisone Recommend holding future doses of pembrolizumab Follow-up autoimmune workup Case was discussed with as well as primary team. All questions and queries of the patient as well as patient's were answered in depth Recommend CT chest without contrast to be done in 6 to 8 weeks Please note the above document was generated using voice recognition software. It may contain grammatical, syntax or spelling errors.Any formal questions or concerns about the content, text or information contained within the body of this dictation should be directly addressed to the provider for clarification. Admission and Anticipated Discharge Date Admission Date: April 14, 2024 Subjective Patient seen and examined at bedside. No acute distress, no adverse events overnight She was saturating 97% on room air She stated she is feeling much better Denied any chest pain Still has some dry cough. Not bringing up any phlegm Denied any headache or blurry vision No nausea or vomiting, fair appetite All questions and queries of the patient were answered in depth Review of Systems 2 Review of Systems: All systems reviewed & are unremarkable except as noted in Subjective Physical Exam 2 Physical Exam: Constitutional: No acute distress HEENT: EOMI, PERRLA Respiratory system: Good air entry bilaterally, no wheeze, rhonchi, positive crackles bilateral lower lobes CVS: S1-S2 positive, no murmurs or gallops Abdomen: Soft, nontender, nondistended, positive bowel sounds x4 Extremities: +2 pulses bilaterally radialis/ dorsalis pedis, no cyanosis, no edema Neuro: Awake alert oriented x3 Psych: Normal mood and affect G/U: No Osorio Skin: no rashes, warm and dry Lymphatic: no cervical or axillary lymphadenopathy Results & Data Results & Data Vital Signs (Past 12 Hours) Vital Signs Temp Pulse Pulse Resp BP Pulse Ox O2 Del Method 04/16/24 07:00 36.5 C 103 H 18 102/63 94 Room Air 04/16/24 06:56 82 20 92 Room Air 04/16/24 03:06 36.5 C 63 18 149/79 H 92 Room Air 04/15/24 23:54 82 18 90 Room Air 04/15/24 23:16 36.8 C 67 18 133/80 93 Room Air 04/15/24 22:08 74 Laboratory Results 04/16/24 06:41 04/16/24 06:41 PG Care Time/CCT Total # of Minutes Spent Total Time Spent with Patient: Total time spent is greater than 50% in coordination of care (as documented) at patient's floor/unit and/or counseling patient: Coding Level of Care Code 52336 SUB INP/OBS CARE 3/50MIN Diagnoses Abnormal chest CT R93.89 Acute hypoxic respiratory failure J96.01 Pneumonitis J98.4
[2024-04-16] MEDS ORDERED: predniSONE 50 MG TAB PO SCH ×2 (11:45→21:00)
[2024-04-16] MEDS: SULFAMETHOXAZOLE/TRIMETHOPRIM DS 800/160MG TAB PO SCH (12:12)
[2024-04-16 13:16] VITALS: PULSE 76; RESP 16; O2SAT 96
--- NOTE | 2024-04-16 13:29 | Discharge Summary ---
Discharge Summary Date of Service April 16, 2024 Principal Dx & Hospital Course #1 = Principal Diagnosis (1) Hypoxia: (2) Pneumonia: (3) RAUL (acute kidney injury): (4) Closed fracture of right great toe: Plan This is a 53-year-old female with PMHx significant for renal cell carcinoma status post right nephrectomy on axitinib BID as well as Keytruda following with Dr. Mcclure, history of breast cancer, hypertension, hyperlipidemia and other medical problems below presenting with return of cough and shortness of breath following hospital discharge last April 03, 2024. Bibasilar pneumonia Acute Hypoxic Respiratory Failure Possible PD-L1 Pneumonitis Pt presents with hypoxia and cough Returns after being discharged April 03, 2024 for pneumonia, treated with p.o. doxycycline upon discharge, which patient has completed Possibly partially treated pneumonia Respiratory viral panel BioFire: Negative VBG unremarkable Nasal MRSA swab negative sputum Cx unable to be collected Blood cultures x2 sets negative Legionella urine pending on discharge procalcitonin negative CTA chest with no noted PE, trace bilateral pleural effusions and "Subsegmental atelectasis/airspace disease in the lung bases" as well as enlarged mediastinal lymph nodes Initially treated with IV Zosyn q8h and azithromycin Pulmonology was consulted, recommended/stated the following: "Given the persistence groundglass opacities bilaterally in somebody who has been on pembrolizumab, PD-L1 related pneumonitis is high in differential I will classify this is at least grade 3 pneumonitis, started on prednisone 50 mg twice daily on 04/15/2024. Gradually taper it off over the next 4-6 weeks Avoid NSAIDs during that time. Would recommend pantoprazole twice a day while she is on high-dose prednisone Start Bactrim Zbjtbp-Ngqzgarpq-Cyrdcg for PJP prophylaxis. Continue with the things she is on greater than 20 Mg per day of prednisone Recommend holding future doses of pembrolizumab Follow-up autoimmune workup... Recommend CT chest without contrast to be done in 6 to 8 weeks" Given pulmonary's recommendation that patient's symptoms were related to Keytruda related pneumonitis, oncology was consulted. Patient was seen by Dr. Mcclure on the day of discharge and she recommended the following: "Patient has been doing well on Keytruda/Inlyta for more than 2 years with good response based on most recent restaging imaging. She has however been admitted x 2 over the past 2 weeks with respiratory symptoms and imaging suggestive of possible pneumonia/pneumonitis. 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 -Based on clinical symptoms, appears to have grade 2 pneumonitis. Agree with steroids with prednisone 1 mg/kg/day. I will see her back in clinic in about 1 week to assess symptoms and potentially start prednisone taper since she appears to be doing very well clinically at this point. -Will hold Keytruda for now pending resolution of symptoms. May consider restarting when she is down to 10 mg prednisone daily. -She can continue with axitinib" On the day of discharge patient noted improved symptoms and she was discharged with prednisone 50 mg twice daily to be tapered down by her oncologist. as noted above by oncology, patient will follow-up in about 1 week where prednisone taper can be considered at that time. Per the recommendations of pulmonology she was also discharged with Bactrim PJP prophylaxis as well as pantoprazole 40 mg twice daily. Please repeat the chest CT in 6 to 8 weeks per the recommendation of pulmonology. Hypotension BP on lower end throughout hospitalization Held home antihypertensives such as amlodipine and lisinopril as well as a home Lasix PCP follow-up after discharge to determine when to resume Acute kidney injury History of renal cell CA status post right nephrectomy Cr elevated to 1.23 on admission Received IV contrast for CT angiogram of the chest Given 1 L of IV fluid NSS bolus at the ER Maintain on normal saline at 100 cc/hr Hold lisinopril and Lasix Monitor renal function closely creatinine within normal limits on the day of discharge R great Toe fracture Noted on XRAY of her toe Distal phalynx fracture with regional soft tissue swelling Ortho consulted, appreciate recs. recommended/stated the following: "Patient evaluated by myself and Dr. Laughlin at bedside today. Prior records were reviewed. X-ray of the great toe was viewed by myself and Dr. Laughlin showing an oblique fracture through the base of the distal phalanx, with intra-articular component and very minimal displacement. She also has significant arthritic changes at the MTP joint. She is neurovascularly intact. Extensor and flexor mechanism intact. Options of care were reviewed with her. Recommend conservative management, no indication for surgical intervention. Ordered post-op shoe, she can be weightbearing as tolerated through the heel over the next 2 weeks until her follow up appointment while in the shoe. Crutches or walker if needed for stability. Elevate/ice for throbbing pain. Pain management per primary service. PT/OT. Follow up in our office or with Dr. Butler's office for 2 week follow up from date of injury. She stated she would prefer to follow up with us since we have seen the injury, so I will send message to our office to contact patient with appointment time." PT/OT- patient is ambulating without issue with postop shoe please ensure close orthopedics follow-up after discharge Anemia Hx of iron Deficiency Anemia Hgb of 12.1, decreased to 10.6 Consider anemia panel for further evaluation if persistent PCP follow-up Hypomagnesemia replete as needed Prediabetes Hgba1c of 5.8 PCP followup Hypertension Held amlodipine, lisinopril and Lasix as per above PCP followup for resuming and continued BP monitoring. Renal cell CA History of right nephrectomy Follows with [facility] Currently regimen axitinib 3mg BID , Keytruda Q6 wks Oncology consulted as noted above, given pulmonology recommendations for intermission coordinator plan Notes For Next Care Provider please ensure follow-up with oncology, pulmonology, orthopedic surgery after discharge Please repeat Chest CT in 6-8 weeks per pulmonology Please continue to monitor BP and resume home antihypertensives as needed Medication Changes From Visit Per Pulmonology and oncology: prednisone 50mg BID- followup with Oncology in 1 week to consider tapering at that time. Per Pulmonology, taper over 4-6 weeks. Per pulmonology: Bactrim MWF for PJP prophylaxis pantoprazole 40mg BID while on prednisone taper Holding home amlodipine, lisinopril and Lasix due to hypotension. PCP followup to resume Admission HPI Per Admitting Provider This is a 53-year-old female with PMH of renal cell carcinoma status post right nephrectomy on axitinib BID following with Dr. Mcclure, history of breast cancer, hypertension, hyperlipidemia and other medical problems below presenting with return of cough and shortness of breath following hospital discharge last April 03, 2024. Patient was admitted from April 01 to 2023 at [facility] for acute hypoxic respite failure, secondary to pneumonia. She was discharged on a course of doxycycline. As per patient, she initially felt better but after a few days, her dry cough, shortness of breath, weakness, poor appetite returned. At the ER, patient received with O2 saturation of 87% on room air, improving to greater than 90 with 2 L of O2 via nasal cannula. D-dimer was found to be 780 CT angiogram of the chest: No acute PE Subsegmental atelectasis/airspace disease in the lung bases, similar to prior. Trace bilateral pleural effusions. On exam, patient seen resting in bed, sitting up, comfortable, not in distress On 2 L of O2 Having bouts of dry cough But no active shortness of breath on my exam Denies chest pain, headache, dizziness, palpitations, abdominal pain, she has occasional nausea Reports some pain over the right great toe after tripping at home Admission Exam Per Admitting Provider General- oriented x 3, not in distress, speaks in sentences with no effort or accessory muscle use Head- atraumatic Eyes- PERRL, EOMI, anicteric ENT- oropharynx clear Neck- supple, no JVD, no adenopathy, no thyromegaly; carotids +2/2, no bruits ap preciated Lungs- Diminished breath sounds bilaterally, positive mild rhonchi at the bases, no wheezing Heart- normal rate, regular rhythm; no murmur, no gallop, no rub appreciated Abdomen- normal bowel sounds, nondistended, soft, nontender, no masses or hepatosplenomegaly Extremities- no pretibial edema, no calf tenderness; peripheral pulses intact Right great toe: Positive hematoma No edema/warmth/tenderness Neuro- alert, oriented x 3; CN 2-12 grossly intact; motor 5/5 bilaterally;sensation 100% on all extremities; no other gross focal neurologic deficits Skin- warm & dry Discharge Exam General: Alert, oriented. Coughing during the week Skin:bruising to R great toe Psych: Appropriate mood and affect HEENT: NC/AT CV: RRR Resp: Breath sounds clear bilaterally, no increased effort of breathing Abdomen: Soft, nontender Extremities: bruising to R great toe Updated Medication List Medication Instructions Recorded Confirmed Type Lactobacillus acidophilus 10 1 cell PO QAM 11/27/18 04/14/24 History billion cell capsule (Probiotic) vitamin B complex (B 1 tab PO QAM 10/09/21 04/14/24 History Complex-Vitamin B12 tablet) pembrolizumab 50 mg intravenous 50 mg IV UD 12/10/21 04/14/24 History solution lisinopril 40 mg tablet 40 mg PO QAM 03/05/22 04/14/24 History levothyroxine 50 mcg tablet 50 mcg PO DAILY 07/12/22 04/14/24 History lorazepam 0.5 mg tablet (Ativan) 0.5 mg PO BID PRN anxiety or 07/14/23 04/14/24 Rx insomnia 1 month #60 tabs amlodipine 5 mg tablet 5 mg PO QAM #30 tabs 02/20/24 04/14/24 Rx cholecalciferol (vitamin D3) 1,250 50,000 unit TU@0900 04/01/24 04/14/24 History mcg (50,000 unit) capsule citalopram 20 mg tablet (Celexa) 20 mg PO HS depression, anxiety 04/01/24 04/14/24 History furosemide 20 mg tablet (Lasix) 20 mg PO Q2D 04/01/24 04/14/24 History gabapentin 100 mg capsule 100 mg PO HS PRN nerve pain 04/01/24 04/14/24 History iron,carbonyl 65 mg-vitamin C 125 1 tab PO DAILY 04/01/24 04/14/24 History mg tablet,delayed release (Vitron-C) guaifenesin 1,200 mg tablet, 1,200 mg PO BID #20 tabs 04/03/24 04/14/24 Rx extended release 12 hr (Mucus Relief ER) axitinib 1 mg tablet (Inlyta) 3 mg PO BID 04/14/24 04/14/24 History omeprazole 20 mg capsule,delayed 20 mg PO DAILY 04/14/24 04/14/24 History release pantoprazole 40 mg tablet,delayed 40 mg PO BID #60 tabs 04/16/24 Rx release prednisone 50 mg tablet 50 mg PO BID #60 tabs 04/16/24 Rx sulfamethoxazole 800 1 tab PO MoWeFr@0900 #30 tabs 04/16/24 Rx mg-trimethoprim 160 mg tablet (Bactrim DS) Hospital Stay Data Consultations 04/15/24 09:38 Consult Orthopedic Surgery Routine 04/15/24 10:02 Consult Pulmonology Routine 04/15/24 15:59 Consult Oncology Routine Diagnostic Imagining Performed 04/14/24 16:45 CT angio chest PE protocol Stat Chest X-Ray 04/14/24 12:11 XR chest 1V portable CLINICAL HISTORY: Sepsis TECHNIQUE: Single frontal radiograph of the chest was obtained. Comparison: Comparison is made to chest radiograph 04/01/2015 FINDINGS: A port catheter is seen. The cardiomediastinal silhouette is normal. The lungs are clear. No evidence of pleural effusion or pneumothorax. IMPRESSION: No acute abnormalities and in particular no radiographic evidence of pneumonia. ACT 112: Negative or not required by law. Electronically signed by: Blayne Garrett M.D. 04/14/2024 2:32 PM Toe X-Ray 04/14/24 12:19 EXAMINATION: X-ray right toe 2 view minimum CLINICAL HISTORY: Hip right first toe 3 days ago, pain PRIORS: None TECHNIQUE: AP, AP oblique and lateral views of the right great toe are submitted. FINDINGS: An oblique fracture is present at the base of the proximal phalanx with approximately 2 mm of depression and intra-articular extension. Moderate regional soft tissue swelling is noted. No subcutaneous gas or radiopaque foreign body. moderate osseous demineralization is noted. [id number] degenerative change of the MTP joint. IMPRESSION: Oblique fracture of the right great toe, distal phalanx with regional soft tissue swelling. ACT 112: Positive. There are findings on this examination that require communication between the performing entity and the patient following Patient Test Result Information Act ([place] ACT 112) guidelines. Electronically signed by Karin Mcguire 04-14-2024 3:00 PM Chest CTA 04/14/24 16:45 INDICATION: Shortness of breath. Recent pneumonia. COMPARISON: CT from 04/01/2024. TECHNIQUE: Axial CT images of the chest were obtained following IV contrast administration, PE protocol. Multiplanar reformatted images were reviewed. FINDINGS: No filling defect in the pulmonary arteries seen to suggest pulmonary embolism. Right-sided pericardial cyst measuring up to 5 cm, unchanged. The thoracic aorta appears normal in caliber. The heart is mildly enlarged. No pneumothorax. Enlarged mediastinal lymph nodes measuring up to 1.6 cm. Right-sided chest port catheter tip in the right atrium.. Bilateral breast implants noted. Subsegmental atelectasis/airspace disease in the lung bases, similar to prior. Trace bilateral pleural effusions. No acute osseous abnormality evident. Hiatal hernia. Otherwise no acute process in the upper abdomen. IMPRESSION: 1. Negative for pulmonary embolism. 2. Subsegmental atelectasis/airspace disease in the lung bases, similar to prior. Trace bilateral pleural effusions. 3. Trace bilateral pleural effusions. 4. Enlarged mediastinal lymph nodes measuring up to 1.6 cm. Electronically signed by Yair Rodriguez 04-14-2024 5:27 PM Pending Results Patient Have Any Pending Studies at Discharge: Yes Discharge Instructions Given to Patient (Per Discharging Provider) Tanisha, You presented with persistent shortness of breath and cough. You had repeat testing done which did not show a pneumonia once more. You were seen by the vault service mechanic who advised that your symptoms are currently likely related to a pneumonitis caused by one of your cancer medications, Keytruda. You were also seen by your oncologist Dr. Mcclure and they made the following recommendations: -Continue with the prednisone 50 mg twice a day at this time. It was prescribed for you. Please follow-up with your oncologist in the next week and she stated that she will consider starting the taper of your prednisone at that time. The vault service mechanic would like this medication tapered over a period of 4 to 6 weeks. Please continue with the prescribed pantoprazole 40mg twice a day while on the prednisone. They would like you to repeat a Chest CT in 6-8 weeks. Please do not medications like ibuprofen (Advil/Motrin) or naproxen while on the prednisone. - Your oncologist Dr. Mcclure recommends that you stop taking the Keytruda at this time. She advised that you can continue with the Axitinib/Inlyta. Pulmonology would also like you to take the antibiotic Bactrim every Tuesday, Tuesday and Tuesday as prophylaxis to prevent a certain infection called Pneumocystis jirovecii pneumonia that due to your immunocompromised state, you might be prone to. Your blood pressure was also noted to be very low while you were in the hospital. We held your home amlodipine and lisinopril as well as your home Lasix because of this. Please follow-up with your primary care provider and they will determine when to resume those medications for you. It was also noted that you had right great toe fracture. You was seen by the cash management specialist who left the following recommendations below for you. Please keep close follow-up with your primary care provider, pulmonology, Oncology and Orthopedic surgery after discharge. Please do not hesitate to come back to the emergency room if your symptoms worsen or return. It was a pleasure taking care of you while you were here. Total Time Total Time Spent Total Time Spent (In Minutes): 65
[2024-04-16 14:42] VITALS: BP 102/63
[2024-04-21 10:07] LABS: Anti Cardiolipin Ab IgG <2.0 GPL-U/mL; Anti Cardiolipin Ab IgM <2.0 MPL-U/mL; Anti Nuclear Antibody Screen NEGATIVE (NEGATIVE); Anti-Centromere Ab <1.0 NEG AI (<1.0 NEG); Anti-SS-A <1.0 NEG AI (<1.0 NEG); Anti-SS-B <1.0 NEG AI (<1.0 NEG); Chromatin Antibody <1.0 NEG AI (<1.0 NEG); Complement C3 155 mg/dL (83-193); Cyclic Citrullinated Pep IgG <16 UNITS; DNA ds Crithidia NEGATIVE (NEGATIVE); Microsomal Ab <1 IU/mL (<9); RNP Antibody <1.0 NEG AI (<1.0 NEG); Rheumatoid Factor <10 IU/mL (<14); Sm Antibody <1.0 NEG AI (<1.0 NEG)
== END 2024-04-16 15:17 | disposition home or self-care (01) | DRG 205 ==
LOC: ED 11:50 → INTOOBSV 16:30 → EDINP 16:30 → SUATTDRO 16:30 → 2S 17:58

== ENCOUNTER 2024-07-29 21:24 | Observation (INO) ==
--- NOTE | 2024-07-29 21:42 | Emergency Department Note ---
Impression & Plan Coronavirus infection, unspecified, Hypoxia, Pneumonitis, Bronchitis ED Provider Note NAME: DEMIAN LARA AGE: 54 SEX: F : 1970 ARRIVES VIA: Walk-In INFORMANT: Patient ED PROVIDER(S): Stone Del Castillo MD CHIEF COMPLAINT: Shortness of breath PLAN: Disposition: Admit MEDICAL DECISION MAKING: The patient is a pleasant 54-year-old woman with a past medical history of renal cell carcinoma status post nephrectomy currently undergoing immunotherapy and management through the cancer center, history of pneumonitis who presents to the emergency department via walk-in accompanied by her for acute onset shortness of breath and congestion this afternoon/evening which progressively worsened. She is currently being treated with prednisone for her pneumonitis. She reports she had been doing much better but became acutely worse tonight. She denies any measured fevers. She denies nausea, vomiting or diarrhea. She reports chest tightness. On evaluation the patient is uncomfortable in acute distress, afebrile with heart rate in the 100s and vital signs otherwise stable. She appears clinically dry. Lungs with scant intermittent wheeze and are otherwise clear. Abdomen is nontender. EKG without overt acute ischemia. CXR negative for acute cardiopulmonary process per my personal preliminary review/interpretation. WBC 13.4 K with neutrophilia but no left shift. Chemistry without metabolic acidosis. LFTs unremarkable. Electrolytes unremarkable. High-sensitivity troponin 5.2, within normal limits. Lipase is normal. Procalcitonin is not elevated. TSH within normal limits. UA with RBCs but no evidence of infection. Respiratory BioFire was positive for coronavirus HKU1. CTA of the chest was negative for PE or acute cardiopulmonary process. No focal consolidation identified. Of note, the patient did eventually develop fever to 38.7 and hypoxia to the mid 80s on room air placed on nasal cannula. She was treated with dexamethasone as well as DuoNeb with some improvement in her breathing and able to mobilize congestion more easily. Given the patient's hypoxia in the setting of her immunocompromise state on immunotherapy she does agree with plan for admission for further management. Case was discussed with Dr. [facility], [facility] hospitalist, who will evaluate the patient for admission. Further management per admitting team. Triage Nursing notes reviewed and agree them. Prior/external medical records reviewed Vital Signs: reviewed Differential diagnosis: Reactive airway disease, pneumonia, pneumothorax, COPD, CHF, infections, cardiac ischemia, pulmonary embolism, musculoskeletal, gastrointestinal, as well as other pathologies. ER treatment provided: See below. Diagnostics interpreted by me: ECG: Sinus rhythm with sinus arrhythmia, PVCs, 95 bpm, T wave abnormality, no overt ST elevation or depression, QTc 427, QRS 76. Cardiac Monitoring: An order for continuous cardiac monitoring was placed and demonstrated Sinus rhythm with sinus arrhythmia, PVCs, 95 bpm Laboratory studies: See below Imaging studies: See below Consultation(s): Case was discussed with Dr. Brennan, [facility] hospitalist, who will evaluate the patient for admission. HPI: Per MDM. ROS: See above HPI for pertinent positives & negatives. A total of 10 systems reviewed and were otherwise negative. VITALS:See Below PHYSICAL EXAMINATION: GENERAL: Awake, alert, fatigued appearing, in no distress, 38.1. HENT: Normocephalic, atraumatic. Oropharynx with dry mucous membranes and otherwise unremarkable. EYES: Normal conjunctiva. Sclera non-icteric. NECK: Supple. No nuchal rigidity. FROM. No JVD. RESPIRATORY: Lungs with scant intermittent wheeze and are otherwise clear. CARDIAC: Tachycardic rate, normal rhythm. Extremities warm and well perfused. Pulses equal. ABDOMEN: Soft, non-distended. No tenderness to palpation. No rebound or guarding. No masses. MUSCULOSKELETAL: Chest examination reveals no tenderness. The back is symmetrical on inspection without obvious abnormality. There is no CVA tenderness to palpation. No joint edema. LOWER EXTREMITIES: Calves are equal size bilaterally and non-tender. No edema. No discoloration. NEURO: Normal sensorium. No sensory or motor deficits noted. SKIN: No rash or jaundice noted. Stone Del Castillo MD Past Med/Surg History Problem List (Updated 07/30/24 @ 03:42 by Stone Del Castillo MD) Bronchitis (Acute) Pneumonitis (Acute) Hypoxia (Acute) Coronavirus infection, unspecified (Acute) Ureteral stone Nephrolithiasis Solitary kidney Hyperparathyroidism Vitamin D deficiency Pneumonitis Abnormal chest CT Closed fracture of right great toe (Acute) Hypomagnesemia (Acute) RAUL (acute kidney injury) (Acute) Hypoxia (Acute) Shortness of breath (Acute) Hypothyroidism (acquired) Pneumonia (Acute) Hypoxia (Acute) Acute hypoxic respiratory failure H/O right nephrectomy Renal cell carcinoma Port-A-Cath in place Cough Pneumonia (Acute) Insomnia Quality of life palliative care encounter Advanced care planning/counseling discussion Palliative care by specialist Parenting dynamics counseling Social isolation 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 Dr. Serrano Port-A-Cath in place (05/03/22) Port placement. We used fluoroscopy for placement. 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 - s/p right nephrectomy - Oral and immunotherapy q3wks Dyslipidemia Fatigue Acute blood loss anemia has had blood transfusions and iron infusions in past History of COVID-19 diagnosed 03/06/2022 @ [facility]--mild symptoms, cough/body aches--no symptoms now Port-A-Cath in place (05/03/22) Insertion Access Port with Fluoroscopy Right Cephalic(Right) - Curtis Serrano MD, FACS Situational anxiety Rectal mass History of breast cancer (08/2011) CCP - XRT and surgery Closed fracture dislocation of ankle hx Surgical History History of vascular access device (04/2022) placement of port / power History of vascular access device (11/2021) original port placement History of lumpectomy of left breast Hx of hernia repair History of removal of Port-a-Cath (03/09/22) Removal of Access Port(Left) - Dwight Meraz MD, FACS History of anesthesia reaction "got sick"-usually on longer surgeries History of open reduction and internal fixation (ORIF) procedure (~2018) right ankle History of right radical nephrectomy (~07/30/21) Robotic Laparoscopic Assisted Right Radical Nephrectomy transition to hand assisted laparoscopic right Nephrectomy(Right) @ [facility] History of biopsy (~11/16/21) ultrasound guided biopsy area near liver/kidney on upper right quadrant @ [facility] Nausea and vomiting after administration of anesthetic agent History of esophagogastroduodenoscopy (EGD) History of colonoscopy H/O breast reconstruction Bilateral History of bilateral tubal ligation History of section x2 History of mastectomy bilateral Family History Aunt FHx: breast cancer Breast cancer Mother FHx: breast cancer Breast cancer Family history of reaction to anesthesia slow to wake with anesthesia Grandmother (Maternal) FHx: breast cancer Breast cancer Father Family history of diabetes mellitus Heart disease Hypertension Denies family history of Ovarian cancer Colorectal cancer Social History Smoking Status: Never smoker Second Hand Exposure: No; Do You Dip or Chew Tobacco: No; Hx Alcohol Use: No Hx Substance Use: No Preferred Language: Barbadian Communication Ability: Effective Visual Impairment: No Limitations Music Autographer Required: No Beliefs That Will Affect Care: None marital status: Current Living Situation: Spouse Current Living Situation Comment: and 2 teenage sons Other Information That Helps Us Care for You: No Feels Safe at Home: Yes Safety Concerns: Feels Safe At This Time Diet: regular Assistive Devices: Glasses Allergies Allergies Allergy/AdvReac Type Severity Reaction Status Date / Time adhesive tape Allergy Intermediate Rash, Skin Verified 07/27/24 15:35 Redness vancomycin Allergy Intermediate Redness of Verified 07/27/24 15:35 Skin, Itchiness NSAIDS (Non-Steroidal AdvReac Severe does not Verified 07/27/24 15:35 Anti-Inflamma take d/t only one kidney codeine AdvReac Intermediate palpitation Verified 07/27/24 15:35 s/tachycard ia Home Meds Home Medications Medication Instructions Recorded Confirmed Lactobacillus acidophilus 10 1 cell PO QAM 11/27/18 07/30/24 billion cell capsule (Probiotic) lisinopril 40 mg tablet 40 mg PO QAM 03/05/22 07/30/24 levothyroxine 50 mcg tablet 50 mcg PO QAM 07/12/22 07/30/24 citalopram 20 mg tablet (Celexa) 20 mg PO HS depression, anxiety 04/01/24 07/30/24 gabapentin 100 mg capsule 100 mg PO HS PRN nerve pain 04/01/24 07/30/24 (Neurontin) iron,carbonyl 65 mg-vitamin C 125 1 tab PO DAILY 04/01/24 07/30/24 mg tablet,delayed release (Vitron-C) axitinib 1 mg tablet (Inlyta) 3 mg PO BID 04/14/24 07/30/24 ondansetron 8 mg disintegrating 8 mg PO TID PRN nausea 06/07/24 07/30/24 tablet vitamin B complex 1 tab PO QAM 06/07/24 07/30/24 pantoprazole 40 mg tablet,delayed 40 mg PO BID 06/20/24 07/30/24 release pembrolizumab 25 mg/mL intravenous See Rx Instructions .Route .COMPLEX 07/27/24 07/30/24 solution (Keytruda) prednisone 10 mg tablet 10 mg PO QAM 07/27/24 07/30/24 Previous Rx's Medication Instructions Recorded lorazepam 0.5 mg tablet (Ativan) 0.5 mg PO BID PRN anxiety or 07/14/23 insomnia 1 month #60 tabs sulfamethoxazole 800 1 tab PO MoWeFr@0900 #30 tabs 04/16/24 mg-trimethoprim 160 mg tablet (Bactrim DS) amlodipine 5 mg tablet 5 mg PO QAM #90 tabs 06/20/24 Results & Data (ED) Vital Signs Vital Signs - 24 hr 07/29/24 21:25 07/29/24 22:25 07/29/24 22:29 Temperature 36.6 C 37.2 C Temperature Source Temporal Artery Scan Oral Pulse Rate 85 Pulse Rate [Left Finger] 107 H Respiratory Rate 20 20 Respiratory Effort / Characteristics Non-Labored Spontaneous Non-Labored Spontaneous Respiratory Depth Normal Normal Respiratory Pattern Regular Regular Blood Pressure 119/71 Blood Pressure [Left Arm] 125/73 Blood Pressure Mean 87 Blood Pressure Mean [Left Arm] 90 Blood Pressure Position [Left Arm] Lying Pulse Oximetry 89 L 83 L Oxygen Delivery Method Room Air Room Air Room Air Oxygen Flow Rate Sepsis Recent Fever Within 48 Hours No Sepsis New/Unexplained Change in Mental Status No Sepsis Action Taken by Nursing No Action Required Pulse Oximetry Post Tiitration 07/29/24 22:33 07/29/24 22:34 07/29/24 22:34 Temperature Temperature Source Pulse Rate 109 H Pulse Rate [Left Finger] Respiratory Rate 20 Respiratory Effort / Characteristics Non-Labored Spontaneous Respiratory Depth Normal Respiratory Pattern Blood Pressure Blood Pressure [Left Arm] Blood Pressure Mean Blood Pressure Mean [Left Arm] Blood Pressure Position [Left Arm] Pulse Oximetry 92 83 L Oxygen Delivery Method Nasal Cannula Nasal Cannula Oxygen Flow Rate 2 2 Sepsis Recent Fever Within 48 Hours Sepsis New/Unexplained Change in Mental Status Sepsis Action Taken by Nursing Pulse Oximetry Post Tiitration 94 07/29/24 22:35 07/29/24 23:03 07/29/24 23:59 Temperature 38.7 C H Temperature Source Oral Pulse Rate Pulse Rate [Left Finger] 114 H 115 H Respiratory Rate 24 24 Respiratory Effort / Characteristics Non-Labored Spontaneous Non-Labored Spontaneous Respiratory Depth Normal Normal Respiratory Pattern Regular Blood Pressure Blood Pressure [Left Arm] 138/83 109/85 Blood Pressure Mean Blood Pressure Mean [Left Arm] 101 93 Blood Pressure Position [Left Arm] Sitting Sitting Pulse Oximetry 95 92 93 Oxygen Delivery Method Nasal Cannula Nasal Cannula Nasal Cannula Oxygen Flow Rate 2 3 3 Sepsis Recent Fever Within 48 Hours Sepsis New/Unexplained Change in Mental Status Sepsis Action Taken by Nursing Pulse Oximetry Post Tiitration 07/30/24 00:04 07/30/24 01:30 07/30/24 02:25 Temperature 37.3 C Temperature Source Oral Pulse Rate 102 H Pulse Rate [Left Finger] 117 H Respiratory Rate 18 Respiratory Effort / Characteristics Non-Labored Spontaneous Respiratory Depth Normal Respiratory Pattern Regular Blood Pressure Blood Pressure [Left Arm] 125/90 95/58 L Blood Pressure Mean Blood Pressure Mean [Left Arm] 101 70 Blood Pressure Position [Left Arm] Sitting Sitting Pulse Oximetry 90 Oxygen Delivery Method Nasal Cannula Oxygen Flow Rate 3 Sepsis Recent Fever Within 48 Hours Sepsis New/Unexplained Change in Mental Status Sepsis Action Taken by Nursing Pulse Oximetry Post Tiitration 07/30/24 02:26 Temperature Temperature Source Pulse Rate Pulse Rate [Left Finger] 100 H Respiratory Rate Respiratory Effort / Characteristics Respiratory Depth Respiratory Pattern Blood Pressure Blood Pressure [Left Arm] 97/64 L Blood Pressure Mean Blood Pressure Mean [Left Arm] 75 Blood Pressure Position [Left Arm] Sitting Pulse Oximetry 93 Oxygen Delivery Method Room Air Nasal Cannula Oxygen Flow Rate 3 Sepsis Recent Fever Within 48 Hours Sepsis New/Unexplained Change in Mental Status Sepsis Action Taken by Nursing Pulse Oximetry Post Tiitration Laboratory Data Attestation: I reviewed the patient's lab results. 07/30/24 05:22 07/30/24 05:22 Lab Results 07/29/24 07/29/24 07/30/24 Range/Units 22:10 22:16 01:33 WBC 13.44 H (4.8-10.8) K/ul RBC 4.39 (4.20-5.40) M/uL Hgb 13.1 (12.0-16.0) g/dl POC Hgb 13.3 (12.0-16.0) g/dl Hct 40.6 (37.0-47.0) % POC Hct 39 (37-47) % MCV 92.5 (80.0-100.0) fL MCH 29.8 (25.0-34.0) pg MCHC 32.3 (32.0-36.0) g/dL RDW Std Deviation 54.2 H (36.4-46.3) fL RDW Coeff of Edmundo 15.8 H (11.5-14.5) % Plt Count 283 (130-400) K/uL MPV 9.6 (9.4-12.4) fL Immature Gran % (Auto) 0.4 % Neut % (Auto) 91.1 % Lymph % (Auto) 6.7 % [place] % (Auto) 1.2 % Eos % (Auto) 0.4 % Baso % (Auto) 0.2 % Neut # (Auto) 12.24 H (1.40-6.50) K/uL Lymph # (Auto) 0.90 L (1.20-3.40) K/uL [place] # (Auto) 0.16 (0.11-0.59) K/uL Eos # (Auto) 0.05 (0.00-0.50) K/uL Baso # (Auto) 0.03 (0.00-0.20) K/uL Immature Gran # (Auto) 0.06 (0.01-0.20) K/uL PT 9.9 (9.0-12.0) Seconds INR 0.9 (0.9-1.1) POC Sodium 139 (135-144) mmol/L Sodium 140 (136-145) mmol/L POC Potassium 4.2 (3.3-5.0) mmol/L Potassium 4.4 (3.5-5.1) mmol/L POC Chloride 102 (101-112) mmol/L Chloride 104 (98-107) mmol/L Carbon Dioxide 31 (21-32) mmol/L POC Total CO2 26 (24-31) mmol/L Anion Gap 5 (3-11) POC Anion Gap 16.0 (16-25) mmol/L POC BUN 18 (7-18) mg/dl BUN 18 (6-23) mg/dl Creatinine 1.20 (0.6-1.2) mg/dl POC Creatinine 1.2 (0.6-1.3) mg/dl Est Cr Clr Drug Dosing 64.1 ml/min eGFR 53.79 BUN/Creatinine Ratio 15.0 (10-20) Glucose 121 H (70-99(Fasting)) mg/dl POC Glucose (other) 121 H (70-99) mg/dl Calcium 8.8 (8.6-10.3) mg/dl POC Ioniz Calcium Claus 1.14 (1.12-1.32) mmol/l Phosphorus 3.7 (2.5-4.9) mg/dl Magnesium 1.8 (1.7-2.4) mg/dl Total Bilirubin 0.5 (0.2-1.0) mg/dl AST 20 (13-39) U/L ALT 23 (7-52) U/L Alkaline Phosphatase 60 (34-104) U/L Troponin I High Sens 5.2 (0-14) pg/ml Total Protein 6.5 (6.0-8.3) gm/dl Albumin 3.9 (3.4-5.0) gm/dl Globulin 2.6 (2.5-4.0) gm/dl Albumin/Globulin Ratio 1.5 (0.9-2) Lipase 73 (11-82) U/L Procalcitonin 0.03 (0-0.5) ng/ml TSH 0.662 (0.300-4.500) uIu/ml Urine Color Yellow Urine Appearance Clear (Clear) Urine pH 7.0 (4.5-7.5) Ur Specific [place] 1.044 H (1.000-1.030) Urine Protein Negative (Negative) Urine Glucose (UA) Negative (Negative) Urine Ketones Negative (Negative) Urine Blood 3+ H (Negative) Urine Nitrite Negative (Negative) Urine Bilirubin Negative (Negative) Urine Urobilinogen Negative (Negative) Ur Leukocyte Esterase Negative (Negative) Urine WBC (Auto) 0-5 (0-5) /hpf Urine RBC (Auto) >20 H (0-2) /hpf U Hyaline Cast (Auto) 0-2 (0-2) /lpf U Epithel Cells (Auto) 0-2 (0-2) /hpf Urine Bacteria (Auto) None Seen (None Seen) Adenovirus (PCR) Not Detected (NotDetected) B. pertussis DNA (PCR) Not Detected (NotDetected) B.parapertussis DNA PCR Not Detected (NotDetected) C. pneumoniae DNA (PCR) Not Detected (NotDetected) Coronavirus OC43 (PCR) Not Detected (NotDetected) Coronavirus HKU1 (PCR) DETECTED A (NotDetected) Coronavirus 229E (PCR) Not Detected (NotDetected) SARS-CoV-2 (PCR) Not Detected (NotDetected) Coronavirus NL63 (PCR) Not Detected (NotDetected) Human Metapneumovir PCR Not Detected (NotDetected) Influenza Type A (PCR) Not Detected (NotDetected) Influenza Type B (PCR) Not Detected (NotDetected) M. pneumoniae (PCR) Not Detected (NotDetected) Parainfluenza 1 (PCR) Not Detected (NotDetected) Parainfluenza 2 (PCR) Not Detected (NotDetected) Parainfluenza 3 (PCR) Not Detected (NotDetected) Parainfluenza 4 (PCR) Not Detected (NotDetected) RSV (PCR) Not Detected (NotDetected) Entero/Rhino (PCR) Not Detected (NotDetected) Administered Medications Acetaminophen (Acetaminophen 325 Mg Tab) 650 mg PO Q4H PRN PRN Reason: Pain or Fever Stop: 08/29/24 04:30 Last Admin: 07/30/24 12:58 Dose: 650 mg Documented By: EP Amlodipine Besylate (Amlodipine Besylate 5 Mg Tab) 5 mg PO QAM MERY Stop: 08/29/24 08:59 Last Admin: 07/30/24 08:32 Dose: 5 mg Documented By: EP Ascorbic Acid (Ascorbic Acid 500 Mg Tab) 250 mg PO DAILY MERY Stop: 08/29/24 08:59 Last Admin: 07/30/24 08:33 Dose: 250 mg Documented By: EP Enoxaparin Sodium (Enoxaparin Inj 40 Mg/0.4 Ml Syr) 40 mg SQ Q24H MERY Stop: 08/29/24 08:59 Last Admin: 07/30/24 08:34 Dose: 40 mg Documented By: EP Ferrous Sulfate (Ferrous Sulfate 325 Mg Tab) 325 mg PO DAILY MERY Stop: 08/29/24 08:59 Last Admin: 07/30/24 08:33 Dose: 325 mg Documented By: MURPHY Methylprednisolone 40 mg/ (Syringe) 0.64 mls @ 1.5 mls/min IV Q8H MERY Stop: 08/29/24 07:59 Last Admin: 07/30/24 17:19 Dose: 1.5 mls/min Documented By: Admin: 07/30/24 08:29 Dose: 1.5 mls/min Documented By: MURPHY Lactobacillus Acidophilus (Advanced Probiotic 625 Mg Capsule) 1,250 mg PO QAM MERY Stop: 08/29/24 08:59 Last Admin: 07/30/24 08:30 Dose: 1,250 mg Documented By: MURPHY Levalbuterol HCl (Levalbuterol 1.25 Mg/3 Ml Neb) 1.25 mg NEB QIDR MERY Stop: 08/29/24 06:59 Last Admin: 07/30/24 14:18 Dose: 1.25 mg Documented By: Admin: 07/30/24 10:26 Dose: 1.25 mg Documented By: Admin: 07/30/24 07:10 Dose: 1.25 mg Documented By: BASIL Levothyroxine Sodium (Levothyroxine Sodium 50 Mcg Tablet) 50 mcg PO DAILYBB MERY Stop: 08/29/24 06:29 Last Admin: 07/30/24 05:55 Dose: 50 mcg Documented By: DLH Lisinopril (Lisinopril 40 Mg Tab) 40 mg PO QAM [facility] Stop: 08/29/24 08:59 Last Admin: 07/30/24 08:31 Dose: 40 mg Documented By: MURPHY Pantoprazole Sodium (Pantoprazole 40 Mg Tab) 40 mg PO BID [facility] Stop: 08/29/24 08:59 Last Admin: 07/30/24 08:31 Dose: 40 mg Documented By: MURPHY Trimethoprim/Sulfamethoxazole (Sulfamethoxazole/Trimethoprim Ds 800/160mg Tab) 1 tab PO MoWeFr@0900 [facility] Stop: 08/29/24 08:59 Last Admin: 07/30/24 08:32 Dose: 1 tab Documented By: MURPHY Vitamin B Complex (Vitamin B Complex Tab) 1 tab PO QAM [facility] Stop: 08/29/24 08:59 Last Admin: 07/30/24 08:30 Dose: 1 tab Documented By: MURPHY Discontinued Medications Albuterol (Albut/Ipratrop 3mg/0.5mg Neb 3 Ml Vial) 3 ml NEB NOW STA; Protocol Stop: 07/30/24 00:06 Last Admin: 07/30/24 00:15 Dose: 3 ml Documented By: MATY Dexamethasone Sodium Phosphate (DexamethasonePf 10 Mg/Ml Vial) 10 mg IV NOW ONE Stop: 07/30/24 01:03 Last Admin: 07/30/24 01:15 Dose: 10 mg Documented By: MATY Sodium Chloride (Nss) 1,000 mls @ 999 mls/hr IV .Q1H1M ONE Stop: 07/29/24 22:40 Last Infusion: 07/29/24 23:20 Dose: Infused Documented By: Admin: 07/29/24 22:19 Dose: 999 mls/hr Documented By: MATY Acetaminophen (Ofirmev) 1,000 mg in 100 mls @ 400 mls/hr IV NOW STA Stop: 07/30/24 00:17 Last Infusion: 07/30/24 00:22 Dose: Infused Documented By: Admin: 07/30/24 00:07 Dose: 400 mls/hr Documented By: MATY Ioversol (Optiray 320 125ml) 115 ml IV ONCE ONE Stop: 07/29/24 22:49 Last Admin: 07/29/24 22:49 Dose: 115 ml Documented By: KAYKAY Ondansetron HCl (Ondansetron Inj 2 Mg/Ml 2 Ml Vial) 4 mg IV NOW STA Stop: 07/29/24 22:53 Last Admin: 07/29/24 22:58 Dose: 4 mg Documented By: MATY Imaging Data Radiologist's Impression: Chest CTA 07/29/24 21:37 Exam(s): CTA CHEST IV Amt: 115 ml optiray 320 EXAM: CT Angiography Chest With Intravenous Contrast CLINICAL HISTORY: Reason for exam: cp, sob PE. TECHNIQUE: Axial computed tomographic angiography images of the chest with intravenous contrast. CTDI is 28.09 mGy and DLP is 822.85 mGy-cm. Automated exposure control was utilized for the study. A dose lowering technique was utilized adhering to the principles of ALARA. MIP reconstructed images were created and reviewed. COMPARISON: No relevant prior studies available. FINDINGS: Pulmonary arteries: No pulmonary embolism is seen. Aorta: No thoracic aortic aneurysm or dissection. Lungs: No mass. No consolidation. Pleural space: No significant effusion. No pneumothorax. Heart: The heart is enlarged and contains coronary artery calcifications.. Bones/joints: There are degenerative changes in the spine.. Soft tissues: There are bilateral breast implants.. Lymph nodes: There are small mediastinal lymph nodes. Additional: There is a small hiatal hernia. IMPRESSION: No pulmonary embolism is seen. The heart is enlarged and contains coronary artery calcifications.. Electronically signed by: Samy Andrew MD 07/29/24 23:21 PM Chest X-Ray 07/29/24 21:38 Exam(s): XR CXR 1 VIEW EXAM: XR Chest, 1 View CLINICAL HISTORY: Reason for exam: Chest pain, nonspecific. TECHNIQUE: Frontal view of the chest. COMPARISON: 05/16/2024 FINDINGS: Port-A-Cath is noted with its tip in the region of the superior vena cava. Lungs: No consolidation. Pleural space: No pleural effusion is seen. No pneumothorax. Heart: Heart is normal in size. Mediastinum: There is mild uncoiling of thoracic aorta.. Bones/joints: There are degenerative changes in the spine.. IMPRESSION: No acute pulmonary disease. Findings appear similar to previous exam Electronically signed by: Samy Andrew MD 07/29/24 23:13 PM Discharge Plan Visit Data Chief Complaint: Shortness of Breath/Dyspnea Stated Complaint: CANCER PT - SOB ED Provider: Stone Del Castillo Discharge Problem: Coronavirus infection, unspecified, Hypoxia, Pneumonitis, Bronchitis Patient Disposition: Admitted As Inpatient Discharge Instructions Interventions: ED Discharge Assessment Last Done: 07/30/24 04:11
[2024-07-29] MEDS: SODIUM CHLORIDE 0.9% 1,000 ML IV ONE (22:19)
[2024-07-29 22:32] LABS: Hematocrit (blood only) 40.6 % (37.0-47.0); Hemoglobin 13.1 g/dl (12.0-16.0); Mean Corpuscular Hemoglobin 29.8 pg (25.0-34.0); Mean Corpuscular Hgb Conc 32.3 g/dL (32.0-36.0); Mean Corpuscular Volume 92.5 fL (80.0-100.0); Mean Platelet Volume 9.6 fL (9.4-12.4); Platelet Count 283 K/uL (130-400); RDW Coefficient of Variation 15.8 % (11.5-14.5); RDW Standard Deviation 54.2 fL (36.4-46.3); Red Blood Count 4.39 M/uL (4.20-5.40); White Blood Count 13.44 K/ul (4.8-10.8)
[2024-07-29 22:34] LABS: iSTAT Creatinine 1.2 mg/dl (0.6-1.3); iSTAT Hemoglobin 13.3 g/dl (12.0-16.0); iSTAT Ionized Calcium 1.14 mmol/l (1.12-1.32); iSTAT Potassium 4.2 mmol/L (3.3-5.0)
[2024-07-29 22:41] LABS: Albumin Globulin Ratio 1.5 (0.9-2); Albumin Level 3.9 gm/dl (3.4-5.0); Bilirubin,Total 0.5 mg/dl (0.2-1.0); Calcium 8.8 mg/dl (8.6-10.3); Creatinine Clr Calc Pharmacy 64.1 ml/min; Globulin 2.6 gm/dl (2.5-4.0); Magnesium 1.8 mg/dl (1.7-2.4); Phosphorus 3.7 mg/dl (2.5-4.9); Potassium 4.4 mmol/L (3.5-5.1); Total Protein 6.5 gm/dl (6.0-8.3)
[2024-07-29 22:46] LABS: Troponin I High Sensitivity 5.2 pg/ml (0-14)
[2024-07-29 22:47] LABS: INR 0.9 (0.9-1.1); Prothrombin Time 9.9 Seconds (9.0-12.0)
[2024-07-29] MEDS: OPTIRAY 320 125ml IV ONE (22:49)
[2024-07-29 22:55] LABS: Basophils # (auto) 0.03 K/uL (0.00-0.20); Basophils % (auto) 0.2 %; Eosinophils # (auto) 0.05 K/uL (0.00-0.50); Eosinophils % (auto) 0.4 %; Immature Granulocytes # (auto) 0.06 K/uL (0.01-0.20); Immature Granulocytes % (auto) 0.4 %; Lymphocytes % (auto) 6.7 %; Monocytes # (auto) 0.16 K/uL (0.11-0.59); Monocytes % (auto) 1.2 %; Neutrophils # (auto) 12.24 K/uL (1.40-6.50); Neutrophils % (auto) 91.1 %; Thyroid Stimulating Hormone 0.662 uIu/ml (0.300-4.500)
[2024-07-29] MEDS: ONDANSETRON INJ 2 MG/ML 2 ML VIAL IV STA (22:58)
[2024-07-29 23:08] LABS: Adenovirus PCR Not Detected (NotDetected); Bordetella parapertussis PCR Not Detected (NotDetected); Bordetella pertussis PCR Not Detected (NotDetected); Chlamydia pneumoniae PCR Not Detected (NotDetected); Coronavirus 229E PCR Not Detected (NotDetected); Coronavirus CoV-2 (COVID19)PCR Not Detected (NotDetected); Coronavirus HKU1 PCR DETECTED (NotDetected); Coronavirus NL63 PCR Not Detected (NotDetected); Coronavirus OC43PCR Not Detected (NotDetected); Human Metapneumovirus PCR Not Detected (NotDetected); Influenza A PCR Not Detected (NotDetected); Influenza B PCR Not Detected (NotDetected); Mycoplasma pneumoniae PCR Not Detected (NotDetected); Parainfluenza Virus 1 PCR Not Detected (NotDetected); Parainfluenza Virus 2 PCR Not Detected (NotDetected); Parainfluenza Virus 3 PCR Not Detected (NotDetected); Parainfluenza Virus 4 PCR Not Detected (NotDetected); Respiratory Syncytial VirusPCR Not Detected (NotDetected); Rhinovirus/Enterovirus PCR Not Detected (NotDetected)
--- NOTE | 2024-07-29 23:14 | XRay Report ---
Exam(s): XR CXR 1 VIEW EXAM: XR Chest, 1 View CLINICAL HISTORY: Reason for exam: Chest pain, nonspecific. TECHNIQUE: Frontal view of the chest. COMPARISON: 05/16/2024 FINDINGS: Port-A-Cath is noted with its tip in the region of the superior vena cava. Lungs: No consolidation. Pleural space: No pleural effusion is seen. No pneumothorax. Heart: Heart is normal in size. Mediastinum: There is mild uncoiling of thoracic aorta.. Bones/joints: There are degenerative changes in the spine.. IMPRESSION: No acute pulmonary disease. Findings appear similar to previous exam Electronically signed by: Samy Andrew MD 07/29/24 23:13 PM
--- NOTE | 2024-07-29 23:22 | CT Scan Report ---
Exam(s): CTA CHEST IV Amt: 115 ml optiray 320 EXAM: CT Angiography Chest With Intravenous Contrast CLINICAL HISTORY: Reason for exam: cp, sob PE. TECHNIQUE: Axial computed tomographic angiography images of the chest with intravenous contrast. CTDI is 28.09 mGy and DLP is 822.85 mGy-cm. Automated exposure control was utilized for the study. A dose lowering technique was utilized adhering to the principles of ALARA. MIP reconstructed images were created and reviewed. COMPARISON: No relevant prior studies available. FINDINGS: Pulmonary arteries: No pulmonary embolism is seen. Aorta: No thoracic aortic aneurysm or dissection. Lungs: No mass. No consolidation. Pleural space: No significant effusion. No pneumothorax. Heart: The heart is enlarged and contains coronary artery calcifications.. Bones/joints: There are degenerative changes in the spine.. Soft tissues: There are bilateral breast implants.. Lymph nodes: There are small mediastinal lymph nodes. Additional: There is a small hiatal hernia. IMPRESSION: No pulmonary embolism is seen. The heart is enlarged and contains coronary artery calcifications.. Electronically signed by: Samy Andrew MD 07/29/24 23:21 PM
[2024-07-30] MEDS: ACETAMINOPHEN 1,000 MG/100 ML VIAL IV STA (00:07)
[2024-07-30] MEDS: ALBUT/IPRATROP 3MG/0.5MG NEB 3 ML VIAL NEB STA (00:15)
[2024-07-30] MEDS: dexAMETHasone**PF** 10 MG/ML VIAL IV ONE (01:15)
[2024-07-30 01:46] LABS: Appearance Urine Clear (Clear); Bacteria Urine Automated None Seen (None Seen); Bilirubin Urine Negative (Negative); Blood Urine 3+ (Negative); Cast Urine Automated 0-2 /lpf (0-2); Color Urine Yellow; Epithelial Cell Urine Auto 0-2 /hpf (0-2); Glucose Urine UA Negative (Negative); Ketones Urine Negative (Negative); Leukocyte Esterase Urine Negative (Negative); Nitrite Urine Negative (Negative); Protein Urine Negative (Negative); RBC Urine Automated >20 /hpf (0-2); Specific Gravity Urine 1.044 (1.000-1.030); Urobilinogen Urine Negative (Negative); WBC Urine Automated 0-5 /hpf (0-5)
--- NOTE | 2024-07-30 03:51 | History & Physical Report ---
Date of Service July 30, 2024 Assessment & Plan (1) Hypoxia: Plan: 54-year-old female with past medical history significant for hypercholesterolemia, hypertension, irritable bowel syndrome, history of breast cancer, history of renal cell carcinoma of right kidney currently on chemo presents with shortness of breath and cough. Since last Tuesday patient developed shortness of breath and cough. She had history of pneumonitis in March 2024 and she was on prednisone taper. As prednisone has been tapered she was worried that maybe causing her symptoms. As she was not getting better she came to the ER today. In the ER she also had temp spike. She was saturating in 80s on room air and requiring 3 L oxygen. Has some headache. No chest pain. No nausea. Some loose stools. No rash. Resting comfortably. Her respiratory BioFire came back positive for coronavirus H KU1. Hypoxia Bronchitis Presented with shortness of breath and cough and fever Was saturating 83% room air and requiring 3 L oxygen Respiratory BioFire positive for coronavirus H KU 1 Droplet precautions Received Decadron in the ER We will continue with IV Solu-Medrol 40 mg 3 times daily nebs [id number] and as needed Close monitor History of pneumonitis Currently on steroid taper Hold home p.o. 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 Status post robotic laparoscopic assisted right radical nephrectomy which was transitioned to hand-assisted laparoscopic right nephrectomy on . 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 and status post partial mastectomy in 2011 followed by bilateral prophylactic total mastectomy in 2013 and was on tamoxifen for 10 years Hypertension On lisinopril and amlodipine Will monitor Hypothyroidism On Synthyroid GERD On Protonix DVT prophylaxis Lovenox Disposition Telemetry Full code History of Present Illness Chief Complaint: Shortness of breath and cough Primary Care Provider: Emilie Nicole DO 54-year-old female with past medical history significant for hypercholesterolemia, hypertension, irritable bowel syndrome, history of breast cancer, history of renal cell carcinoma of right kidney currently on chemo presents with shortness of breath and cough. Since last Tuesday patient developed shortness of breath and cough. She had history of pneumonitis in March 2024 and she was on prednisone taper. As prednisone has been tapered she was worried that maybe causing her symptoms. As she was not getting better she came to the ER today. In the ER she also had temp spike. She was saturating in 80s on room air and requiring 3 L oxygen. Has some headache. No chest pain. No nausea. Some loose stools. No rash. Resting comfortably. Her respiratory BioFire came back positive for coronavirus H KU1. Past medical history. As mentioned above Past surgical history. . Colonoscopy and EGD. Breast implant. IR biopsy. Ligation of oviducts. Partial left mastectomy. Left trimalleolar ankle fracture repair. Robotic assisted laparoscopic right radical nephrectomy. Social history. . No smoking. No alcohol. No drug use. Family history. Aunt had leukemia. Maternal grandmother had breast cancer. Mother had breast cancer diagnosed age of 45. Father had diabetes. HI. CHF. Hypertension. Allergies Allergy/AdvReac Type Severity Reaction Status Date / Time adhesive tape Allergy Intermediate Rash, Skin Verified 07/27/24 15:35 Redness vancomycin Allergy Intermediate Redness of Verified 07/27/24 15:35 Skin, Itchiness NSAIDS (Non-Steroidal AdvReac Severe does not Verified 07/27/24 15:35 Anti-Inflamma take d/t only one kidney codeine AdvReac Intermediate palpitation Verified 07/27/24 15:35 s/tachycard ia Home Medications Medication Instructions Recorded Confirmed Type Lactobacillus acidophilus 10 1 cell PO QAM 11/27/18 07/30/24 History billion cell capsule (Probiotic) lisinopril 40 mg tablet 40 mg PO QAM 03/05/22 07/30/24 History levothyroxine 50 mcg tablet 50 mcg PO QAM 07/12/22 07/30/24 History lorazepam 0.5 mg tablet (Ativan) 0.5 mg PO BID PRN anxiety or 07/14/23 07/30/24 Rx insomnia 1 month #60 tabs citalopram 20 mg tablet (Celexa) 20 mg PO HS depression, anxiety 04/01/24 07/30/24 History gabapentin 100 mg capsule 100 mg PO HS PRN nerve pain 04/01/24 07/30/24 History (Neurontin) iron,carbonyl 65 mg-vitamin C 125 1 tab PO DAILY 04/01/24 07/30/24 History mg tablet,delayed release (Vitron-C) axitinib 1 mg tablet (Inlyta) 3 mg PO BID 04/14/24 07/30/24 History sulfamethoxazole 800 1 tab PO MoWeFr@0900 #30 tabs 04/16/24 07/30/24 Rx mg-trimethoprim 160 mg tablet (Bactrim DS) ondansetron 8 mg disintegrating 8 mg PO TID PRN nausea 06/07/24 07/30/24 History tablet vitamin B complex 1 tab PO QAM 06/07/24 07/30/24 History amlodipine 5 mg tablet 5 mg PO QAM #90 tabs 06/20/24 07/30/24 Rx pantoprazole 40 mg tablet,delayed 40 mg PO BID 06/20/24 07/30/24 History release pembrolizumab 25 mg/mL intravenous See Rx Instructions .Route .COMPLEX 07/27/24 07/30/24 History solution (Keytruda) prednisone 10 mg tablet 10 mg PO QAM 07/27/24 07/30/24 History Past Med/Surg History Problem List (Updated 07/30/24 @ 03:42 by Stone Del Castillo MD) Bronchitis (Acute) Pneumonitis (Acute) Hypoxia (Acute) Coronavirus infection, unspecified (Acute) Ureteral stone Nephrolithiasis Solitary kidney Hyperparathyroidism Vitamin D deficiency Pneumonitis Abnormal chest CT Closed fracture of right great toe (Acute) Hypomagnesemia (Acute) RAUL (acute kidney injury) (Acute) Hypoxia (Acute) Shortness of breath (Acute) Hypothyroidism (acquired) Pneumonia (Acute) Hypoxia (Acute) Acute hypoxic respiratory failure H/O right nephrectomy Renal cell carcinoma Port-A-Cath in place Cough Pneumonia (Acute) Insomnia Quality of life palliative care encounter Advanced care planning/counseling discussion Palliative care by specialist Parenting dynamics counseling Social isolation 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 Dr. Serrano Port-A-Cath in place (05/03/22) Port placement. We used fluoroscopy for placement. 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 - s/p right nephrectomy - Oral and immunotherapy q3wks Dyslipidemia Fatigue Acute blood loss anemia has had blood transfusions and iron infusions in past History of COVID-19 diagnosed 03/06/2022 @ [facility]--mild symptoms, cough/body aches--no symptoms now Port-A-Cath in place (05/03/22) Insertion Access Port with Fluoroscopy Right Cephalic(Right) - Curtis Serrano MD, FACS Situational anxiety Rectal mass History of breast cancer (08/2011) CCP - XRT and surgery Closed fracture dislocation of ankle hx Surgical History History of vascular access device (04/2022) placement of port / power History of vascular access device (11/2021) original port placement History of lumpectomy of left breast Hx of hernia repair History of removal of Port-a-Cath (03/09/22) Removal of Access Port(Left) - Dwight Meraz MD, FACS History of anesthesia reaction "got sick"-usually on longer surgeries History of open reduction and internal fixation (ORIF) procedure (~2018) right ankle History of right radical nephrectomy (~07/30/21) Robotic Laparoscopic Assisted Right Radical Nephrectomy transition to hand assisted laparoscopic right Nephrectomy(Right) @ [facility] History of biopsy (~11/16/21) ultrasound guided biopsy area near liver/kidney on upper right quadrant @ [facility] Nausea and vomiting after administration of anesthetic agent History of esophagogastroduodenoscopy (EGD) History of colonoscopy H/O breast reconstruction Bilateral History of bilateral tubal ligation History of section x2 History of mastectomy bilateral Family History Aunt FHx: breast cancer Breast cancer Mother FHx: breast cancer Breast cancer Family history of reaction to anesthesia slow to wake with anesthesia Grandmother (Maternal) FHx: breast cancer Breast cancer Father Family history of diabetes mellitus Heart disease Hypertension Denies family history of Ovarian cancer Colorectal cancer Social History Smoking Status: Never smoker Second Hand Exposure: No; Do You Dip or Chew Tobacco: No; Hx Alcohol Use: No Hx Substance Use: No Preferred Language: [place] Communication Ability: Effective Visual Impairment: No Limitations Drafter Heating And Ventilating Required: No Beliefs That Will Affect Care: None marital status: Current Living Situation: Spouse Current Living Situation Comment: and 2 teenage sons Other Information That Helps Us Care for You: No Feels Safe at Home: Yes Safety Concerns: Feels Safe At This Time Diet: regular Assistive Devices: Glasses Review of Systems Review of Systems: All systems reviewed & are unremarkable except as noted in HPI & below Physical Exam Physical Exam: General- Not in distress Head- atraumatic Eyes- PERRL. ENT- oropharynx clear Neck- supple, no JVD. Lungs- clear to auscultation mild bilateral rhonchi Heart- regular rhythm; no murmur, no gallop. Abdomen- normal bowel sounds, soft, nontender, no distension Extremities- no pretibial edema, no erythema seen Neuro- alert, oriented PERRL, EOMI; no facial palsy; no dysarthria; moves extremities Results & Data Results & Data Vital Signs (Past 12 Hours) Vital Signs Temp Pulse Pulse Resp BP BP Pulse Ox 07/30/24 02:26 100 H 97/64 L 93 07/30/24 02:25 102 H 07/30/24 01:30 37.3 C 117 H 18 95/58 L 90 07/30/24 00:04 125/90 07/29/24 23:59 38.7 C H 115 H 24 109/85 93 07/29/24 23:03 114 H 24 138/83 92 07/29/24 22:35 95 07/29/24 22:34 83 L 07/29/24 22:34 20 92 07/29/24 22:33 109 H 07/29/24 22:29 07/29/24 22:25 37.2 C 107 H 20 125/73 83 L 07/29/24 21:25 36.6 C 85 20 119/71 89 L O2 Del Method O2 Flow Rate 07/30/24 02:26 Room Air, Nasal Cannula 3 07/30/24 02:25 07/30/24 01:30 Nasal Cannula 3 07/30/24 00:04 07/29/24 23:59 Nasal Cannula 3 07/29/24 23:03 Nasal Cannula 3 07/29/24 22:35 Nasal Cannula 2 07/29/24 22:34 Nasal Cannula 2 07/29/24 22:34 Nasal Cannula 2 07/29/24 22:33 07/29/24 22:29 Room Air 07/29/24 22:25 Room Air 07/29/24 21:25 Room Air Diagnostic Findings Laboratory Results WBC 13.44 K/ul (4.8-10.8) H 07/29/24 22:10 RBC 4.39 M/uL (4.20-5.40) 07/29/24 22:10 Hgb 13.1 g/dl (12.0-16.0) 07/29/24 22:10 POC Hgb 13.3 g/dl (12.0-16.0) 07/29/24 22:16 Hct 40.6 % (37.0-47.0) 07/29/24 22:10 POC Hct 39 % (37-47) 07/29/24 22:16 MCV 92.5 fL (80.0-100.0) 07/29/24 22:10 MCH 29.8 pg (25.0-34.0) 07/29/24 22:10 MCHC 32.3 g/dL (32.0-36.0) 07/29/24 22:10 RDW Std Deviation 54.2 fL (36.4-46.3) H 07/29/24 22:10 RDW Coeff of Edmundo 15.8 % (11.5-14.5) H 07/29/24 22:10 Plt Count 283 K/uL (130-400) 07/29/24 22:10 MPV 9.6 fL (9.4-12.4) 07/29/24 22:10 Immature Gran % (Auto) 0.4 % 07/29/24 22:10 Neut % (Auto) 91.1 % 07/29/24 22:10 Lymph % (Auto) 6.7 % 07/29/24 22:10 [place] % (Auto) 1.2 % 07/29/24 22:10 Eos % (Auto) 0.4 % 07/29/24 22:10 Baso % (Auto) 0.2 % 07/29/24 22:10 Neut # (Auto) 12.24 K/uL (1.40-6.50) H 07/29/24 22:10 Lymph # (Auto) 0.90 K/uL (1.20-3.40) L 07/29/24 22:10 [place] # (Auto) 0.16 K/uL (0.11-0.59) 07/29/24 22:10 Eos # (Auto) 0.05 K/uL (0.00-0.50) 07/29/24 22:10 Baso # (Auto) 0.03 K/uL (0.00-0.20) 07/29/24 22:10 Immature Gran # (Auto) 0.06 K/uL (0.01-0.20) 07/29/24 22:10 PT 9.9 Seconds (9.0-12.0) 07/29/24 22:10 INR 0.9 (0.9-1.1) 07/29/24 22:10 POC Sodium 139 mmol/L (135-144) 07/29/24 22:16 Sodium 140 mmol/L (136-145) 07/29/24 22:10 POC Potassium 4.2 mmol/L (3.3-5.0) 07/29/24 22:16 Potassium 4.4 mmol/L (3.5-5.1) 07/29/24 22:10 POC Chloride 102 mmol/L (101-112) 07/29/24 22:16 Chloride 104 mmol/L (98-107) 07/29/24 22:10 Carbon Dioxide 31 mmol/L (21-32) 07/29/24 22:10 POC Total CO2 26 mmol/L (24-31) 07/29/24 22:16 Anion Gap 5 (3-11) 07/29/24 22:10 POC Anion Gap 16.0 mmol/L (16-25) 07/29/24 22:16 POC BUN 18 mg/dl (7-18) 07/29/24 22:16 BUN 18 mg/dl (6-23) 07/29/24 22:10 Creatinine 1.20 mg/dl (0.6-1.2) 07/29/24 22:10 POC Creatinine 1.2 mg/dl (0.6-1.3) 07/29/24 22:16 Est Cr Clr Drug Dosing 64.1 ml/min 07/29/24 22:10 eGFR 53.79 07/29/24 22:10 BUN/Creatinine Ratio 15.0 (10-20) 07/29/24 22:10 Glucose 121 mg/dl (70-99(Fasting)) H 07/29/24 22:10 POC Glucose (other) 121 mg/dl (70-99) H 07/29/24 22:16 Calcium 8.8 mg/dl (8.6-10.3) 07/29/24 22:10 POC Ioniz Calcium Claus 1.14 mmol/l (1.12-1.32) 07/29/24 22:16 Phosphorus 3.7 mg/dl (2.5-4.9) 07/29/24 22:10 Magnesium 1.8 mg/dl (1.7-2.4) 07/29/24 22:10 Total Bilirubin 0.5 mg/dl (0.2-1.0) 07/29/24 22:10 AST 20 U/L (13-39) 07/29/24 22:10 ALT 23 U/L (7-52) 07/29/24 22:10 Alkaline Phosphatase 60 U/L (34-104) 07/29/24 22:10 Troponin I High Sens 5.2 pg/ml (0-14) 07/29/24 22:10 Total Protein 6.5 gm/dl (6.0-8.3) 07/29/24 22:10 Albumin 3.9 gm/dl (3.4-5.0) 07/29/24 22:10 Globulin 2.6 gm/dl (2.5-4.0) 07/29/24 22:10 Albumin/Globulin Ratio 1.5 (0.9-2) 07/29/24 22:10 Lipase 73 U/L (11-82) 07/29/24 22:10 Procalcitonin 0.03 ng/ml (0-0.5) 07/29/24 22:10 TSH 0.662 uIu/ml (0.300-4.500) 07/29/24 22:10 Urine Color Yellow 07/30/24 01:33 Urine Appearance Clear (Clear) 07/30/24 01:33 Urine pH 7.0 (4.5-7.5) 07/30/24 01:33 Ur Specific [place] 1.044 (1.000-1.030) H 07/30/24 01:33 Urine Protein Negative (Negative) 07/30/24 01:33 Urine Glucose (UA) Negative (Negative) 07/30/24 01:33 Urine Ketones Negative (Negative) 07/30/24 01:33 Urine Blood 3+ (Negative) H 07/30/24 01:33 Urine Nitrite Negative (Negative) 07/30/24 01:33 Urine Bilirubin Negative (Negative) 07/30/24 01:33 Urine Urobilinogen Negative (Negative) 07/30/24 01:33 Ur Leukocyte Esterase Negative (Negative) 07/30/24 01:33 Urine WBC (Auto) 0-5 /hpf (0-5) 07/30/24 01:33 Urine RBC (Auto) >20 /hpf (0-2) H 07/30/24 01:33 U Hyaline Cast (Auto) 0-2 /lpf (0-2) 07/30/24 01:33 U Epithel Cells (Auto) 0-2 /hpf (0-2) 07/30/24 01:33 Urine Bacteria (Auto) None Seen (None Seen) 07/30/24 01:33 Adenovirus (PCR) Not Detected (NotDetected) 07/29/24 22:10 B. pertussis DNA (PCR) Not Detected (NotDetected) 07/29/24 22:10 B.parapertussis DNA PCR Not Detected (NotDetected) 07/29/24 22:10 C. pneumoniae DNA (PCR) Not Detected (NotDetected) 07/29/24 22:10 Coronavirus OC43 (PCR) Not Detected (NotDetected) 07/29/24 22:10 Coronavirus HKU1 (PCR) DETECTED (NotDetected) A 07/29/24 22:10 Coronavirus 229E (PCR) Not Detected (NotDetected) 07/29/24 22:10 SARS-CoV-2 (PCR) Not Detected (NotDetected) 07/29/24 22:10 Coronavirus NL63 (PCR) Not Detected (NotDetected) 07/29/24 22:10 Human Metapneumovir PCR Not Detected (NotDetected) 07/29/24 22:10 Influenza Type A (PCR) Not Detected (NotDetected) 07/29/24 22:10 Influenza Type B (PCR) Not Detected (NotDetected) 07/29/24 22:10 M. pneumoniae (PCR) Not Detected (NotDetected) 07/29/24 22:10 Parainfluenza 1 (PCR) Not Detected (NotDetected) 07/29/24 22:10 Parainfluenza 2 (PCR) Not Detected (NotDetected) 07/29/24 22:10 Parainfluenza 3 (PCR) Not Detected (NotDetected) 07/29/24 22:10 Parainfluenza 4 (PCR) Not Detected (NotDetected) 07/29/24 22:10 RSV (PCR) Not Detected (NotDetected) 07/29/24 22:10 Entero/Rhino (PCR) Not Detected (NotDetected) 07/29/24 22:10 Impressions Chest CTA 07/29/24 21:37 Exam(s): CTA CHEST IV Amt: 115 ml optiray 320 EXAM: CT Angiography Chest With Intravenous Contrast CLINICAL HISTORY: Reason for exam: cp, sob PE. TECHNIQUE: Axial computed tomographic angiography images of the chest with intravenous contrast. CTDI is 28.09 mGy and DLP is 822.85 mGy-cm. Automated exposure control was utilized for the study. A dose lowering technique was utilized adhering to the principles of ALARA. MIP reconstructed images were created and reviewed. COMPARISON: No relevant prior studies available. FINDINGS: Pulmonary arteries: No pulmonary embolism is seen. Aorta: No thoracic aortic aneurysm or dissection. Lungs: No mass. No consolidation. Pleural space: No significant effusion. No pneumothorax. Heart: The heart is enlarged and contains coronary artery calcifications.. Bones/joints: There are degenerative changes in the spine.. Soft tissues: There are bilateral breast implants.. Lymph nodes: There are small mediastinal lymph nodes. Additional: There is a small hiatal hernia. IMPRESSION: No pulmonary embolism is seen. The heart is enlarged and contains coronary artery calcifications.. Electronically signed by: Samy Andrew MD 07/29/24 23:21 PM Chest X-Ray 07/29/24 21:38 Exam(s): XR CXR 1 VIEW EXAM: XR Chest, 1 View CLINICAL HISTORY: Reason for exam: Chest pain, nonspecific. TECHNIQUE: Frontal view of the chest. COMPARISON: 05/16/2024 FINDINGS: Port-A-Cath is noted with its tip in the region of the superior vena cava. Lungs: No consolidation. Pleural space: No pleural effusion is seen. No pneumothorax. Heart: Heart is normal in size. Mediastinum: There is mild uncoiling of thoracic aorta.. Bones/joints: There are degenerative changes in the spine.. IMPRESSION: No acute pulmonary disease. Findings appear similar to previous exam Electronically signed by: Samy Andrew MD 07/29/24 23:13 PM ECG Additional Comments: ECG. Sinus rhythm with sinus erythema with short TX with frequent PVCs at the rate of 95. T wave abnormality lateral leads. Code Status & VTE Plan VTE Prophylaxis Plan VTE Prophylaxis will be ordered: Yes
[2024-07-30] MEDS ORDERED: GABAPENTIN 100 MG CAP PO PRN (04:31)
[2024-07-30] MEDS ORDERED: LORazepam 0.5 MG TAB PO PRN (04:31)
[2024-07-30] MEDS ORDERED: LEVALBUTEROL 1.25 MG/3 ML NEB NEB PRN (04:31)
[2024-07-30] MEDS ORDERED: NITROGLYCERIN SL 0.4 MG/TAB TAB SL PRN (04:31)
[2024-07-30] MEDS ORDERED: ONDANSETRON INJ 2 MG/ML 2 ML VIAL IV PRN (04:31)
[2024-07-30 05:39] LABS: Hematocrit (blood only) 36.8 % (37.0-47.0); Hemoglobin 11.8 g/dl (12.0-16.0); Mean Corpuscular Hemoglobin 29.1 pg (25.0-34.0); Mean Corpuscular Hgb Conc 32.1 g/dL (32.0-36.0); Mean Corpuscular Volume 90.9 fL (80.0-100.0); Mean Platelet Volume 9.6 fL (9.4-12.4); Platelet Count 237 K/uL (130-400); RDW Coefficient of Variation 15.9 % (11.5-14.5); RDW Standard Deviation 53.5 fL (36.4-46.3); Red Blood Count 4.05 M/uL (4.20-5.40); White Blood Count 19.95 K/ul (4.8-10.8)
[2024-07-30 05:55] LABS: BUN Creatinine Ratio 16.1 (10-20); Basophils # (auto) 0.07 K/uL (0.00-0.20); Basophils % (auto) 0.4 %; Calcium 8.6 mg/dl (8.6-10.3); Eosinophils # (auto) 0.03 K/uL (0.00-0.50); Eosinophils % (auto) 0.2 %; Immature Granulocytes # (auto) 0.29 K/uL (0.01-0.20); Immature Granulocytes % (auto) 1.5 %; Lymphocytes # (auto) 0.38 K/uL (1.20-3.40); Lymphocytes % (auto) 1.9 %; Magnesium 1.7 mg/dl (1.7-2.4); Monocytes # (auto) 0.36 K/uL (0.11-0.59); Monocytes % (auto) 1.8 %; Neutrophils # (auto) 18.82 K/uL (1.40-6.50); Neutrophils % (auto) 94.2 %; Potassium 4.7 mmol/L (3.5-5.1)
[2024-07-30] MEDS: LEVOTHYROXINE SODIUM 50 MCG TABLET PO SCH (05:55)
[2024-07-30] MEDS: LEVALBUTEROL 1.25 MG/3 ML NEB NEB SCH (07:10)
--- NOTE | 2024-07-30 08:17 | Oncology Consultation ---
Date of Consultation July 30, 2024 Assessment & Plan (1) Bronchitis: (2) Hypoxia: (3) Coronavirus infection, unspecified: Plan Based on clinical history respiratory panel and imaging no evidence to suggest recurrent pneumonitis at this time. Respiratory symptoms likely due to mt navirus infection. Can resume prednisone 10 mg p.o. daily upon discharge. Please feel free to call if you have any further questions. History of Present Illness Reason for Consultation: hx of pneuomitis, renal cancer. hypoxia Attending Physician: Adrien Jama MD History of Present Illness Ms. Rhodes is a 54-year-old with metastatic renal cell carcinoma on axitinib/pembrolizumab. She also has a history of Keytruda induced pneumonitis for which she is on prednisone taper and was most recently decreased to 10 mg p.o. daily. She presented with worsening shortness of breath and hypoxia. CTA chest was unremarkable. Respiratory panel revealed coronavirus infection. Allergies Allergy/AdvReac Type Severity Reaction Status Date / Time adhesive tape Allergy Intermediate Rash, Skin Verified 07/27/24 15:35 Redness vancomycin Allergy Intermediate Redness of Verified 07/27/24 15:35 Skin, Itchiness NSAIDS (Non-Steroidal AdvReac Severe does not Verified 07/27/24 15:35 Anti-Inflamma take d/t only one kidney codeine AdvReac Intermediate palpitation Verified 07/27/24 15:35 s/tachycard ia Home Medications Medication Instructions Recorded Confirmed Type Lactobacillus acidophilus 10 1 cell PO QAM 11/27/18 07/30/24 History billion cell capsule (Probiotic) lisinopril 40 mg tablet 40 mg PO QAM 03/05/22 07/30/24 History levothyroxine 50 mcg tablet 50 mcg PO QAM 07/12/22 07/30/24 History lorazepam 0.5 mg tablet (Ativan) 0.5 mg PO BID PRN anxiety or 07/14/23 07/30/24 Rx insomnia 1 month #60 tabs citalopram 20 mg tablet (Celexa) 20 mg PO HS depression, anxiety 04/01/24 07/30/24 History gabapentin 100 mg capsule 100 mg PO HS PRN nerve pain 04/01/24 07/30/24 History (Neurontin) iron,carbonyl 65 mg-vitamin C 125 1 tab PO DAILY 04/01/24 07/30/24 History mg tablet,delayed release (Vitron-C) axitinib 1 mg tablet (Inlyta) 3 mg PO BID 04/14/24 07/30/24 History sulfamethoxazole 800 1 tab PO MoWeFr@0900 #30 tabs 04/16/24 07/30/24 Rx mg-trimethoprim 160 mg tablet (Bactrim DS) ondansetron 8 mg disintegrating 8 mg PO TID PRN nausea 06/07/24 07/30/24 History tablet vitamin B complex 1 tab PO QAM 06/07/24 07/30/24 History amlodipine 5 mg tablet 5 mg PO QAM #90 tabs 06/20/24 07/30/24 Rx pantoprazole 40 mg tablet,delayed 40 mg PO BID 06/20/24 07/30/24 History release pembrolizumab 25 mg/mL intravenous See Rx Instructions .Route .COMPLEX 07/27/24 07/30/24 History solution (Keytruda) prednisone 10 mg tablet 10 mg PO QAM 07/27/24 07/30/24 History Patient History Medical History History of IBS Perirectal abscess pt denies known current or hx - verifies rectal mass and drained 2021 but no known infection found. 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 - s/p right nephrectomy - Oral and immunotherapy q3wks Dyslipidemia Fatigue Acute blood loss anemia has had blood transfusions and iron infusions in past History of COVID-19 diagnosed 03/06/2022 @ [facility]--mild symptoms, cough/body aches--no symptoms now Port-A-Cath in place (05/03/22) Insertion Access Port with Fluoroscopy Right Cephalic(Right) - Curtis Serrano MD, FACS Situational anxiety Rectal mass History of breast cancer (08/2011) CCP - XRT and surgery Closed fracture dislocation of ankle hx Surgical History History of vascular access device (04/2022) placement of port / power History of vascular access device (11/2021) original port placement History of lumpectomy of left breast Hx of hernia repair History of removal of Port-a-Cath (03/09/22) Removal of Access Port(Left) - Dwight Meraz MD, FACS History of anesthesia reaction "got sick"-usually on longer surgeries History of open reduction and internal fixation (ORIF) procedure (~2018) right ankle History of right radical nephrectomy (~07/30/21) Robotic Laparoscopic Assisted Right Radical Nephrectomy transition to hand assisted laparoscopic right Nephrectomy(Right) @ [facility] History of biopsy (~11/16/21) ultrasound guided biopsy area near liver/kidney on upper right quadrant @ [facility] Nausea and vomiting after administration of anesthetic agent History of esophagogastroduodenoscopy (EGD) History of colonoscopy H/O breast reconstruction Bilateral History of bilateral tubal ligation History of section x2 History of mastectomy bilateral Family History Aunt FHx: breast cancer Breast cancer Mother FHx: breast cancer Breast cancer Family history of reaction to anesthesia slow to wake with anesthesia Grandmother (Maternal) FHx: breast cancer Breast cancer Father Family history of diabetes mellitus Heart disease Hypertension Denies family history of Ovarian cancer Colorectal cancer Social History Smoking Status: Never smoker Second Hand Exposure: No; Do You Dip or Chew Tobacco: No; Hx Alcohol Use: No Hx Substance Use: No Preferred Language: Irish Communication Ability: Effective Visual Impairment: No Limitations Business Operations Director Required: No Beliefs That Will Affect Care: None marital status: Current Living Situation: Spouse Current Living Situation Comment: and 2 teenage sons Other Information That Helps Us Care for You: No Feels Safe at Home: Yes Safety Concerns: Feels Safe At This Time Diet: regular Assistive Devices: Glasses Results & Data Vital Signs (Past 12 Hours) Vital Signs Temp Pulse Pulse Resp BP BP Pulse Ox 07/30/24 07:50 36.8 C 101 H 22 114/72 92 07/30/24 07:10 67 16 98 07/30/24 06:26 102 H 07/30/24 04:36 07/30/24 04:36 36.8 C 105 H 20 105/71 92 07/30/24 04:00 98 H 24 101/66 92 07/30/24 03:36 97 H 24 96/69 L 92 07/30/24 03:06 98 H 24 107/64 91 07/30/24 02:26 100 H 97/64 L 93 07/30/24 02:25 102 H 07/30/24 01:30 37.3 C 117 H 18 95/58 L 90 07/30/24 00:04 125/90 07/29/24 23:59 38.7 C H 115 H 24 109/85 93 07/29/24 23:03 114 H 24 138/83 92 07/29/24 22:35 95 07/29/24 22:34 83 L 07/29/24 22:34 20 92 07/29/24 22:33 109 H 07/29/24 22:29 07/29/24 22:25 37.2 C 107 H 20 125/73 83 L 07/29/24 21:25 36.6 C 85 20 119/71 89 L O2 Del Method O2 Flow Rate 07/30/24 07:50 Nasal Cannula 1 07/30/24 07:10 Nasal Cannula 2 07/30/24 06:26 07/30/24 04:36 Nasal Cannula 3 07/30/24 04:36 Nasal Cannula 3 07/30/24 04:00 07/30/24 03:36 Nasal Cannula 3 07/30/24 03:06 Nasal Cannula 3 07/30/24 02:26 Room Air, Nasal Cannula 3 07/30/24 02:25 07/30/24 01:30 Nasal Cannula 3 07/30/24 00:04 07/29/24 23:59 Nasal Cannula 3 07/29/24 23:03 Nasal Cannula 3 07/29/24 22:35 Nasal Cannula 2 07/29/24 22:34 Nasal Cannula 2 07/29/24 22:34 Nasal Cannula 2 07/29/24 22:33 07/29/24 22:29 Room Air 07/29/24 22:25 Room Air 07/29/24 21:25 Room Air
[2024-07-30] MEDS: methylPREDNISolone 40 MG in SYRINGE 0 ML IV SCH (08:29)
[2024-07-30] MEDS: ADVANCED PROBIOTIC 625 MG CAPSULE PO SCH (08:30)
[2024-07-30] MEDS: VITAMIN B COMPLEX TAB PO SCH (08:30)
[2024-07-30] MEDS: PANTOprazole 40 MG TAB PO SCH (08:31)
[2024-07-30] MEDS: lisinopril 40 MG TAB PO SCH (08:31)
[2024-07-30] MEDS: SULFAMETHOXAZOLE/TRIMETHOPRIM DS 800/160MG TAB PO SCH (08:32)
[2024-07-30] MEDS: amLODIPine BESYLATE 5 MG TAB PO SCH (08:32)
[2024-07-30] MEDS: ASCORBIC ACID 500 MG TAB PO SCH (08:33)
[2024-07-30] MEDS: FERROUS SULFATE 325 MG TAB PO SCH (08:33)
[2024-07-30] MEDS: ENOXAPARIN INJ 40 MG/0.4 ML SYR SQ SCH (08:34)
[2024-07-30] MEDS ORDERED: NON-FORMULARY MEDICATION (Iron,Carbonyl-Vitamin C [Vitron-C] 65 mg iron- 125 mg Tablet,Del PO SCH (09:00)
[2024-07-30] MEDS ORDERED: methylPREDNISolone 125 MG/2 ML VIAL IV SCH (09:00)
--- NOTE | 2024-07-30 11:11 | Electrocardiogram Report ---
Test Reason : Blood Pressure : */* mmHG Vent. Rate : 95 BPM Atrial Rate : 95 BPM P-R Int : 96 ms QRS Dur : 76 ms QT Int : 340 ms P-R-T Axes : 44 -11 77 degrees QTcB Int : 427 ms Sinus rhythm with sinus arrhythmia with occasional PVCs Low voltage QRS T wave abnormality, consider lateral ischemia Abnormal ECG When compared with ECG of 14-Apr-2024 12:19, Premature ventricular complexes are now Present T wave inversion now evident in Lateral leads Confirmed by Oz Burnett ([id number]) on 07/30/2024 11:10:56 AM Referred By: REFERRED SELF Confirmed By: Oz Burnett
[2024-07-30] MEDS: ACETAMINOPHEN 325 MG TAB PO PRN (12:58)
--- NOTE | 2024-07-30 18:23 | Hospitalist Progress Note ---
Date of Service July 30, 2024 Assessment & Plan (1) Hypoxia: Plan: 54-year-old female with past medical history significant for hypercholesterolemia, hypertension, irritable bowel syndrome, history of breast cancer, history of renal cell carcinoma of right kidney currently on chemo presents with shortness of breath and cough. Since last Tuesday patient developed shortness of breath and cough. She had history of pneumonitis in March 2024 and she was on prednisone taper. As prednisone has been tapered she was worried that maybe causing her symptoms. As she was not getting better she came to the ER today. In the ER she also had temp spike. She was saturating in 80s on room air and requiring 3 L oxygen. Has some headache. No chest pain. No nausea. Some loose stools. No rash. Resting comfortably. Her respiratory BioFire came back positive for coronavirus H KU1. 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 Status post robotic laparoscopic assisted right radical nephrectomy which was transitioned to hand-assisted laparoscopic right nephrectomy on . 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 This time includes: history taking, physical examination, medical decision making, counseling, ECG interpretation, imaging interpretation, lab interpretation, orders, and education, excluding time spent in the performance of separately billed services. Admission and Anticipated Discharge Date Admission Date: July 30, 2024 Subjective Patient seen and examined at bedside. Patient states that she is still short of breath but feels better than yesterday. Discussed that we will try to get her off of oxygen at home within the next day or 2. She is agreeable with the plan. Review of Systems Review of Systems: CONSTITUTIONAL: fatigue EYES: Patient denies any visual symptoms. EARS, NOSE, AND THROAT: No difficulties with hearing. No symptoms of rhinitis or sore throat. CARDIOVASCULAR: Patient denies chest pains, palpitations, orthopnea and paroxysmal nocturnal dyspnea. RESPIRATORY: SOB GI: No nausea, vomiting, diarrhea, constipation, abdominal pain, hematochezia or melena. : No urinary hesitancy or dribbling. No nocturia or urinary frequency. No abnormal urethral discharge. MUSCULOSKELETAL: No myalgias or arthralgias. NEUROLOGIC: No chronic headaches, no seizures. Patient denies numbness, tingling or weakness. PSYCHIATRIC: Patient denies problems with mood disturbance. No problems with anxiety. ENDOCRINE: No excessive urination or excessive thirst. DERMATOLOGIC: Patient denies any rashes or skin changes. Physical Exam Physical Exam: Gen: A&O 3 NAD HEENT: NCAT, EOMI, not icteric. External ears normal. No rhinorrhea. Moist mucous membranes. Neck: Supple, full range of motion, no observable masses, No meningeal sign. Lungs: mild expiratory rhonchi bilaterally CV: RRR, no edema. Abdomen: Soft, nondistended, No rebound tenderness. MSK: No joint swelling, no redness. Skin: No rashes, petechiae, lesions. Normal color per patient. Neuro: Normal Gait, Grossly intact. Psych: Appropriate for situation. Results & Data Results & Data Vital Signs (Past 12 Hours) Vital Signs Temp Pulse Pulse Resp BP Pulse Ox O2 Del Method 07/30/24 16:08 37.0 C 103 H 18 92/55 L 91 Room Air 07/30/24 15:03 93 H 07/30/24 14:18 90 16 92 Room Air 07/30/24 11:29 36.6 C 104 H 20 115/67 90 Nasal Cannula 07/30/24 10:27 93 H 16 93 Nasal Cannula 07/30/24 09:35 Nasal Cannula 07/30/24 07:50 36.8 C 101 H 22 114/72 92 Nasal Cannula 07/30/24 07:10 67 16 98 Nasal Cannula 07/30/24 07:02 96 H 07/30/24 06:26 102 H O2 Flow Rate 07/30/24 16:08 07/30/24 15:03 07/30/24 14:18 07/30/24 11:29 1 07/30/24 10:27 1 07/30/24 09:35 1 07/30/24 07:50 1 07/30/24 07:10 2 07/30/24 07:02 07/30/24 06:26 Laboratory Results -personally reviewed, leukocytosis in setting of steroid use, negative procalcitonin, UA unremarkable other than blood/RBCs, noted positive non-COVID 19 coronavirus Medications Administered Acetaminophen (Acetaminophen 325 Mg Tab) 650 mg PO Q4H PRN PRN Reason: Pain or Fever Stop: 08/29/24 04:30 Last Admin: 07/30/24 12:58 Dose: 650 mg Documented By: EP Amlodipine Besylate (Amlodipine Besylate 5 Mg Tab) 5 mg PO QAM MERY Stop: 08/29/24 08:59 Last Admin: 07/30/24 08:32 Dose: 5 mg Documented By: EP Ascorbic Acid (Ascorbic Acid 500 Mg Tab) 250 mg PO DAILY MERY Stop: 08/29/24 08:59 Last Admin: 07/30/24 08:33 Dose: 250 mg Documented By: EP Enoxaparin Sodium (Enoxaparin Inj 40 Mg/0.4 Ml Syr) 40 mg SQ Q24H MERY Stop: 08/29/24 08:59 Last Admin: 07/30/24 08:34 Dose: 40 mg Documented By: EP Ferrous Sulfate (Ferrous Sulfate 325 Mg Tab) 325 mg PO DAILY MERY Stop: 08/29/24 08:59 Last Admin: 07/30/24 08:33 Dose: 325 mg Documented By: EP Methylprednisolone 40 mg/ (Syringe) 0.64 mls @ 1.5 mls/min IV Q8H MERY Stop: 08/29/24 07:59 Last Admin: 07/30/24 17:19 Dose: 1.5 mls/min Documented By: Admin: 07/30/24 08:29 Dose: 1.5 mls/min Documented By: MURPHY Lactobacillus Acidophilus (Advanced Probiotic 625 Mg Capsule) 1,250 mg PO QAM [facility] Stop: 08/29/24 08:59 Last Admin: 07/30/24 08:30 Dose: 1,250 mg Documented By: MURPHY Levalbuterol HCl (Levalbuterol 1.25 Mg/3 Ml Neb) 1.25 mg NEB QIDR [facility] Stop: 08/29/24 06:59 Last Admin: 07/30/24 14:18 Dose: 1.25 mg Documented By: Admin: 07/30/24 10:26 Dose: 1.25 mg Documented By: Admin: 07/30/24 07:10 Dose: 1.25 mg Documented By: BASIL Levothyroxine Sodium (Levothyroxine Sodium 50 Mcg Tablet) 50 mcg PO DAILYBB [facility] Stop: 08/29/24 06:29 Last Admin: 07/30/24 05:55 Dose: 50 mcg Documented By: WARD Lisinopril (Lisinopril 40 Mg Tab) [facility] [place] Stop: 08/29/24 08:59 Last Admin: 07/30/24 08:31 Dose: 40 mg Documented By: MURPHY Pantoprazole Sodium (Pantoprazole 40 Mg Tab) 40 mg PO BID [facility] Stop: 08/29/24 08:59 Last Admin: 07/30/24 08:31 Dose: 40 mg Documented By: MURPHY Trimethoprim/Sulfamethoxazole (Sulfamethoxazole/Trimethoprim Ds 800/160mg Tab) 1 tab PO MoWeFr@0900 [facility] Stop: 08/29/24 08:59 Last Admin: 07/30/24 08:32 Dose: 1 tab Documented By: MURPHY Vitamin B Complex (Vitamin B Complex Tab) 1 tab PO QAM [facility] Stop: 08/29/24 08:59 Last Admin: 07/30/24 08:30 Dose: 1 tab Documented By: MURPHY
[2024-07-30] MEDS: dexAMETHasone 6 MG in SYRINGE 0 ML IV SCH (19:57)
[2024-07-30] MEDS: LACTATED RINGER'S 1,000 ML IV SCH (19:57)
[2024-07-30] MEDS: CITALOPRAM 20 MG TAB PO SCH (21:23)
[2024-07-31 07:22] VITALS: O2SAT 94
[2024-07-31 07:37] VITALS: TEMP 97.9
[2024-07-31 08:56] LABS: Hematocrit (blood only) 36.8 % (37.0-47.0); Hemoglobin 11.7 g/dl (12.0-16.0); Mean Corpuscular Hemoglobin 29.2 pg (25.0-34.0); Mean Corpuscular Hgb Conc 31.8 g/dL (32.0-36.0); Mean Corpuscular Volume 91.8 fL (80.0-100.0); Mean Platelet Volume 10.1 fL (9.4-12.4); Platelet Count 271 K/uL (130-400); RDW Standard Deviation 54.4 fL (36.4-46.3); Red Blood Count 4.01 M/uL (4.20-5.40); White Blood Count 23.61 K/ul (4.8-10.8)
[2024-07-31] MEDS: lisinopril 20 MG TAB PO SCH (09:23)
[2024-07-31 09:28] LABS: Albumin Globulin Ratio 1.3 (0.9-2); Albumin Level 3.6 gm/dl (3.4-5.0); Bilirubin,Total 0.4 mg/dl (0.2-1.0); Calcium 9.4 mg/dl (8.6-10.3); Globulin 2.7 gm/dl (2.5-4.0); Potassium 4.3 mmol/L (3.5-5.1); Total Protein 6.3 gm/dl (6.0-8.3)
[2024-07-31 11:03] VITALS: PULSE 94
[2024-07-31 11:22] VITALS: BP 122/73; RESP 20
--- NOTE | 2024-07-31 12:14 | Discharge Summary ---
Discharge Summary Date of Service July 31, 2024 Principal Dx & Hospital Course #1 = Principal Diagnosis (1) Hypoxia: 54-year-old female with past medical history significant for hypercholesterolemia, hypertension, irritable bowel syndrome, history of breast cancer, history of renal cell carcinoma of right kidney currently on chemo presents with shortness of breath and cough. Since last Tuesday patient developed shortness of breath and cough. She had history of pneumonitis in March 2024 and she was on prednisone taper. As prednisone has been tapered she was worried that maybe causing her symptoms. As she was not getting better she came to the ER today. In the ER she also had temp spike. She was saturating in 80s on room air and requiring 3 L oxygen. Has some headache. No chest pain. No nausea. Some loose stools. No rash. Resting comfortably. Her respiratory BioFire came back positive for coronavirus H KU1. Acute Hypoxic Respiratory Failure Non-COVID 19 Coronavirus Immunocompromised Presented with shortness of breath and cough and fever Was saturating 83% room air and requiring 3 L oxygen Respiratory BioFire positive for coronavirus H KU 1 History of pneumonitis -Currently on steroid taper -resume home steroid on discharge -appreciate heme/onc recs History of metastatic right clear-cell renal carcinoma with sarcomatoid differentiation. Status post robotic laparoscopic assisted right radical nephrectomy which was transitioned to hand-assisted laparoscopic right nephrectomy on . 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 -Currently on steroid taper for pneumonitis History of breast cancer -History of ER/MT positive invasive ductal carcinoma of left breast and status post partial mastectomy in 2011 followed by bilateral prophylactic total mastectomy in 2013 and was on tamoxifen for 10 years Hypertension -On lisinopril and amlodipine -relative hypotension, hold amlodpine, cut lisinopril in half Hypothyroidism -On Synthyroid GERD -On Protonix Notes For Next Care Provider 54-year-old female with past medical history significant for hyperchole sterolemia, hypertension, irritable bowel syndrome, history of breast cancer, history of renal cell carcinoma of right kidney currently on chemo presents with shortness of breath and cough. Since last Tuesday patient developed shortness of breath and cough. Noted to be hypoxia, on medicine started on decadron and incentive spirometry/flutter valve. Saturating comfortably on room air. Given fluids as well. Oncology consulted, recommended continuing 10 mg prednisone outpatient. On 07/31/2024 patient medically stable for discharge home. From medicine perspective, patient stable for urologic procedure this week. Medication Changes From Visit -see below Admission HPI Per Admitting Provider 54-year-old female with past medical history significant for hypercholesterolemia, hypertension, irritable bowel syndrome, history of breast cancer, history of renal cell carcinoma of right kidney currently on chemo presents with shortness of breath and cough. Since last Tuesday patient developed shortness of breath and cough. She had history of pneumonitis in March 2024 and she was on prednisone taper. As prednisone has been tapered she was worried that maybe causing her symptoms. As she was not getting better she came to the ER today. In the ER she also had temp spike. She was saturating in 80s on room air and requiring 3 L oxygen. Has some headache. No chest pain. No nausea. Some loose stools. No rash. Resting comfortably. Her respiratory BioFire came back positive for coronavirus H KU1. Past medical history. As mentioned above Past surgical history. . Colonoscopy and EGD. Breast implant. IR biopsy. Ligation of oviducts. Partial left mastectomy. Left trimalleolar ankle fracture repair. Robotic assisted laparoscopic right radical nephrectomy. Social history. . No smoking. No alcohol. No drug use. Family history. Aunt had leukemia. Maternal grandmother had breast cancer. Mother had breast cancer diagnosed age of 45. Father had diabetes. ME. CHF. Hypertension. Discharge Exam Gen: A&O 3 NAD HEENT: NCAT, EOMI, not icteric. External ears normal. No rhinorrhea. Moist mucous membranes. Neck: Supple, full range of motion, no observable masses, No meningeal sign. Lungs: clear to auscultation bilaterally CV: RRR, no edema. Abdomen: Soft, nondistended, No rebound tenderness. MSK: No joint swelling, no redness. Skin: No rashes, petechiae, lesions. Normal color per patient. Neuro: Normal Gait, Grossly intact. Psych: Appropriate for situation. Updated Medication List Medication Instructions Recorded Confirmed Type Lactobacillus acidophilus 10 1 cell PO QAM 11/27/18 07/30/24 History billion cell capsule (Probiotic) levothyroxine 50 mcg tablet 50 mcg PO QAM 07/12/22 07/30/24 History lorazepam 0.5 mg tablet (Ativan) 0.5 mg PO BID PRN anxiety or 07/14/23 07/30/24 Rx insomnia 1 month #60 tabs citalopram 20 mg tablet (Celexa) 20 mg PO HS depression, anxiety 04/01/24 07/30/24 History gabapentin 100 mg capsule 100 mg PO HS PRN nerve pain 04/01/24 07/30/24 History (Neurontin) iron,carbonyl 65 mg-vitamin C 125 1 tab PO DAILY 04/01/24 07/30/24 History mg tablet,delayed release (Vitron-C) axitinib 1 mg tablet (Inlyta) 3 mg PO BID 04/14/24 07/30/24 History sulfamethoxazole 800 1 tab PO MoWeFr@0900 #30 tabs 04/16/24 07/30/24 Rx mg-trimethoprim 160 mg tablet (Bactrim DS) ondansetron 8 mg disintegrating 8 mg PO TID PRN nausea 06/07/24 07/30/24 History tablet vitamin B complex 1 tab PO QAM 06/07/24 07/30/24 History pantoprazole 40 mg tablet,delayed 40 mg PO BID 06/20/24 07/30/24 History release pembrolizumab 25 mg/mL intravenous See Rx Instructions .Route .COMPLEX 07/27/24 07/30/24 History solution (Keytruda) prednisone 10 mg tablet 10 mg PO QAM 07/27/24 07/30/24 History albuterol sulfate 90 mcg/actuation 1 inh inhalation Q6H PRN shortness 07/31/24 Rx aerosol inhaler of breath or wheezing #8.5 grams ipratropium bromide 17 1 inh inhalation Q6H PRN shortness 07/31/24 Rx mcg/actuation HFA aerosol inhaler of breath or wheezing #12.9 grams lisinopril 20 mg tablet 20 mg PO QAM #30 tabs 07/31/24 Rx Hospital Stay Data Consultations 07/30/24 01:02 ED Decision to Admit Stat 07/30/24 08:00 Consult Hematology Routine Diagnostic Imagining Performed 07/29/24 21:37 CT angio chest PE protocol Stat Pending Results Patient Have Any Pending Studies at Discharge: No Discharge Instructions Given to Patient (Per Discharging Provider) 1. Please take medications as prescribed. 2. Follow up with PCP, oncology, urology. Total Time Total Time Spent Total Time Spent (In Minutes): I spent a total of 35 minutes in direct patient care, including [id number] time with the patient and/or family, reviewing medical records, ordering and reviewing diagnostic tests, and coordinating care with other healthcare providers. This time includes: history taking, physical examination, medical decision making, counseling, ECG interpretation, imaging interpretation, lab interpretation, orders, and education, excluding time spent in the performance of separately billed services.
== END 2024-07-31 12:00 | disposition home or self-care (01) | DRG 189 ==
LOC: ED 21:24 → INTOOBSV 07-30 02:43 → 2S 07-30 02:43

== ENCOUNTER 2025-02-28 15:01 | Inpatient (IN) ==
--- NOTE | 2025-02-28 15:10 | ED Triage Note ---
Date of Service February 28, 2025 Provider in Triage Author: Travis Bright History of Present Illness This patient was briefly evaluated while in triage. An abbreviated physical exam was performed. This patient is a 54-year-old Female who presents to the ED for evaluation of na usea and vomiting. Pt. recently transferred to [place] on Tuesday for Pancreatitis. States she was d/c yesterday and today, developed intractable nausea and vomiting and abdominal pain. Pt. states is having diarrhea, though was told this may be related to medications she is currently on. Physical Exam VITALS: Vitals are noted on the nurse's note and reviewed by myself. GENERAL: This is a 54 year old female, in no acute distress, nondiaphoretic, well-developed well-nourished. SKIN: No obvious rashes, edema, erythema HEAD: Normocephalic atraumatic. EYES: Conjunctivae without injection, sclerae without icterus. NECK: No JVD. LUNGS: No retractions or accessory muscle use. MUSCULOSKELETAL: Presents in a wheelchair. NEURO: Patient was alert and oriented to person place and time. No focal neurological deficits. Initial orders for labs and / or imaging were placed and patient was placed in the waiting area until a bed is available. Please see further documentation for the full ED course.
[2025-02-28 15:50] LABS: Hematocrit (blood only) 38.6 % (37.0-47.0); Hemoglobin 12.6 g/dL (12.0-16.0); Mean Corpuscular Hemoglobin 26.8 pg (25.0-34.0); Mean Corpuscular Volume 82.1 fL (80.0-100.0); Platelet Count 544 K/uL (130-400); RDW Standard Deviation 45.5 fL (36.4-46.3); Red Blood Count 4.70 M/uL (4.20-5.40); White Blood Count 16.98 K/ul (4.8-10.8)
--- NOTE | 2025-02-28 15:50 | Communication Note ---
Date of Service: February 28, 2025 Palliative Med [facility] Guide Tanisha called to c/o worsening abd pain, nausea, vomiting, weakness and chills. She was just dc from [facility] for necrotizing pancreatitis, ? r/t pembro PS advised no surgery/felt she was improving and dc home Given hi risk for relapse/worsening pancreatic disease, I referred her to ED for evaluation. I have updated cancer teams. Her primary oncologist is Dr Mcclure. Thank you for allowing us to participate in the ongoing care of this patient. Please page with any additional concerns. Peter Charles DNP Director, Palliative Medicine
[2025-02-28] MEDS: SODIUM CHLORIDE 0.9% 1,000 ML IV STA (16:02)
[2025-02-28] MEDS: ONDANSETRON INJ 2 MG/ML 2 ML VIAL IV STA ×2 (16:02→17:17)
[2025-02-28 16:06] LABS: Alanine Aminotransferase 12 U/L (7-52); Albumin Globulin Ratio 1.1 (0.9-2); Albumin Level 3.6 gm/dl (3.4-5.0); Alkaline Phosphatase 65 U/L (34-104); Anion Gap 14 (3-11); Bilirubin,Total 0.6 mg/dl (0.2-1.0); Blood Urea Nitrogen 5 mg/dl (6-23); Calcium 9.3 mg/dl (8.6-10.3); Carbon Dioxide 20 mmol/L (21-32); Chloride 103 mmol/L (98-107); Globulin 3.3 gm/dl (2.5-4.0); Glucose 147 mg/dl (70-99(Fasting)); Lipase 157 U/L (11-82); Potassium 4.0 mmol/L (3.5-5.1); Sodium 137 mmol/L (136-145); Total Protein 6.9 gm/dl (6.0-8.3)
[2025-02-28 16:10] LABS: Immature Granulocytes # (auto) 0.11 K/uL (0.01-0.20); Immature Granulocytes % (auto) 0.6 %
[2025-02-28 16:14] LABS: INR 1.1 (0.9-1.1); Prothrombin Time 11.9 Seconds (9.0-12.0)
[2025-02-28] MEDS: OPTIRAY 320 100ml IV ONE (16:35)
--- NOTE | 2025-02-28 17:39 | CT Scan Report ---
Clinical History: Recent necrotizing pancreatitis Technique: Axial computed tomography images were obtained of the abdomen and pelvis after the administration of intravenous contrast. Comparison is made to the prior CT dated 02/24/2025. Findings: Again seen is soft tissue stranding and fluid around the pancreas, consistent with acute pancreatitis. Again seen is an approximately 8.4 x 4.5 cm rim-enhancing fluid collection replacing the pancreatic neck and proximal pancreatic body, concerning for pancreatic necrosis with a possible abscess The liver is overall of normal size, attenuation, and contour with no sign of cirrhosis or significant fatty infiltration. No liver mass lesion is seen. The portal vein is patent. There is a suspected gallstone. There is no definite sign of acute cholecystitis. No bile duct dilatation is noted. The spleen is of normal size. No focal splenic lesion is evident. The adrenal glands appear unremarkable. 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 There is a 3 mm calculus in the inferior left kidney. There is no hydronephrosis or perinephric stranding. No renal mass lesion is identified. The aorta is of normal caliber. No abdominal adenopathy is seen. There is a small umbilical hernia containing only fat There is a small hiatal hernia. There is no sign of small bowel obstruction. There is a right lower quadrant ventral hernia containing a portion of the cecum. There is an adjacent right paracentral ventral hernia containing a loop of ileum. No free intraperitoneal air is identified. No distal ureteral or bladder calculi are seen. The bladder is decompressed. The iliac arteries are of normal caliber. No pelvic adenopathy is noted. There is a small amount of pelvic ascites. There is a small right inguinal hernia containing only fat The lungs bases appear clear. There are bilateral breast implants. There is an unchanged 5 cm cystic area in the right anterior cardiophrenic angle, likely a pericardial cyst Mild thoracolumbar degenerative disc disease is seen. No fracture is identified. No focal osseous lesion is seen Impression: 1. Unchanged acute pancreatitis with suspected pancreatic necrosis and an 8 x 4 x 4.5 cm fluid collection that could represent an abscess 2. Unchanged 5 cm pericardial cyst 3. Small hiatal hernia 4. Cholelithiasis without definite acute cholecystitis 5. Small amount of ascites 6. Two separate ventral hernias in the right lower quadrant, one containing small bowel and the other containing cecum. There is no sign of associated obstruction 7. Small umbilical and right inguinal hernias containing only fat 8. Nonobstructing left renal calculus 9. Prior right nephrectomy ACT 112: Positive. There are findings on this exam that require communication between the performing entity and the patient following Patient Test Result Information Act ([place] ACT 112) guidelines. Electronically signed by Hermilo Parker 02-28-2025 5:38 PM
--- NOTE | 2025-02-28 17:40 | XRay Report ---
Technique: A frontal view of the chest was obtained Findings: There are no confluent pulmonary infiltrates. The heart size is within normal limits. No pleural effusion or pneumothorax is seen. There is no definite pulmonary nodule. No fracture is noted. There is a right chest wall port with its tip in the SVC Impression: No active disease Electronically signed by Hermilo Parker 02-28-2025 5:39 PM
--- NOTE | 2025-02-28 18:24 | Emergency Department Note ---
History of Present Illness General Chief complaint: Vomiting Stated complaint: VOMITING Time Seen by Provider: 02/28/25 16:47 History of Present Illness Provider complaint: Nausea Maximum Pain Intensity: 5 54-year-old female with history of metastatic right-sided clear-cell renal carcinoma with C group dermatoid differentiation status post right-sided nephrectomy on immuno and chemotherapy with breast cancer in remission presents emergency department for nausea. Patient states she was recently diagnosed with pancreatitis and transferred to [facility]. She states that no surgical procedures were performed there and she was given IV fluids and discharged with oral antibiotics. Patient reports nausea. No hematemesis coffee-ground emesis or bilious vomiting. No diarrhea. Patient reports mild epigastric abdominal pain. No fever. Home Medications Medication Instructions Recorded Confirmed Type Lactobacillus acidophilus 10 1 cell PO QAM 11/27/18 02/28/25 History billion cell capsule (Probiotic) levothyroxine 50 mcg tablet 50 mcg PO QAM 07/12/22 02/28/25 History gabapentin 100 mg capsule 0 mg PO HS PRN nerve pain 04/01/24 02/28/25 History (Neurontin) iron,carbonyl 65 mg-vitamin C 125 1 tab PO QAM 04/01/24 02/28/25 History mg tablet,delayed release (Vitron-C) axitinib 1 mg tablet (Inlyta) 3 mg PO BID 04/14/24 02/28/25 History ondansetron 8 mg disintegrating 8 mg PO TID PRN nausea 06/07/24 02/28/25 History tablet vitamin B complex 1 tab PO QAM 06/07/24 02/28/25 History pantoprazole 40 mg tablet,delayed 40 mg PO QAM 06/20/24 02/28/25 History release pembrolizumab 25 mg/mL intravenous See Rx Instructions .Route .COMPLEX 07/27/24 02/28/25 History solution (Keytruda) albuterol sulfate 90 mcg/actuation 1 inh inhalation Q6H PRN shortness 07/31/24 02/28/25 Rx aerosol inhaler of breath or wheezing #8.5 grams amlodipine 5 mg tablet 5 mg PO QAM 10/18/24 02/28/25 History lisinopril 40 mg tablet 40 mg PO QAM 10/26/24 02/28/25 History citalopram 20 mg tablet (Celexa) 30 mg (1.5 x 20 mg) PO HS 12/11/24 02/28/25 Rx depression, anxiety 1 month #45 tabs ipratropium bromide 17 0 inh inhalation Q6H PRN shortness 02/24/25 02/28/25 History mcg/actuation HFA aerosol inhaler of breath or wheezing (Atrovent HFA) lorazepam 0.5 mg tablet (Ativan) 0 mg PO BID PRN anxiety or insomnia 02/24/25 02/28/25 History prochlorperazine maleate 5 mg 5 mg PO UD PRN n/v 02/24/25 02/28/25 History tablet peg 3350-electrolytes 236 240 ml PO Q10M #4,000 mL 02/26/25 02/28/25 Rx gram-22.74 gram-6.74 gram-5.86 gram solution (GaviLyte-G) amoxicillin 875 mg-potassium 1 tab PO BID 02/28/25 02/28/25 History clavulanate 125 mg tablet Allergies Allergy/AdvReac Type Severity Reaction Status Date / Time adhesive tape Allergy Intermediate Rash, Skin Verified 02/28/25 19:15 Redness vancomycin Allergy Intermediate Redness of Verified 02/28/25 19:15 Skin, Itchiness NSAIDS (Non-Steroidal AdvReac Severe does not Verified 02/28/25 19:15 Anti-Inflamma take d/t only one kidney codeine AdvReac Intermediate palpitation Verified 02/28/25 19:15 s/tachycard ia Past Med/Surg History Problem List (Updated 02/28/25 @ 22:05 by Sergo Peña MD) Pancreatitis (Acute) Sepsis Leukocytosis (Acute) Abdominal pain (Acute) Immunotherapy Acute necrotizing pancreatitis (Acute) History of gallstones History of pancreatitis Palliative care by specialist (Chronic) Bronchitis (Acute) Nephrolithiasis (Chronic) Solitary kidney Hyperparathyroidism Vitamin D deficiency Abnormal chest CT Closed fracture of right great toe (Acute) Hypomagnesemia (Acute) RAUL (acute kidney injury) (Acute) Hypothyroidism (acquired) Acute hypoxic respiratory failure Insomnia Advanced care planning/counseling discussion 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 No suspicious hepatic mass lesions. 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/p right nephrectomy - Oral and immunotherapy q3wks Dyslipidemia History of COVID-19 Dx 2021 ([facility])- mild symptoms, cough/body aches > resolved Situational anxiety Rectal mass hx 06/2021, drained and resolved with rectal scope-"nothing suspicious" History of breast cancer (08/2011) CCP - XRT and surgery Surgical History S/P cystoscopy with ureteral stent placement w/laser destruction stone Port-A-Cath in place (05/03/22) Insertion Access Port with Fluoroscopy Right Cephalic History of vascular access device (04/2022) Placement of Port/Power History of vascular access device (11/2021) Original port placement History of lumpectomy of left breast Hx of hernia repair History of removal of Port-a-Cath (03/09/22) Removal of Access Port (Left) History of anesthesia reaction PONV; usually on longer surgeries History of open reduction and internal fixation (ORIF) procedure (~2018) Right ankle History of right radical nephrectomy (~07/30/21) Robotic Laparoscopic Assisted Right Radical Nephrectomy transition to hand assisted laparoscopic right Nephrectomy History of biopsy (~11/16/21) Ultrasound guided biopsy area near liver/kidney on RUQ Nausea and vomiting after administration of anesthetic agent History of esophagogastroduodenoscopy (EGD) History of colonoscopy H/O breast reconstruction Bilateral History of bilateral tubal ligation History of section x2 History of mastectomy Bilateral Family History Aunt FHx: breast cancer Breast cancer Mother FHx: breast cancer Breast cancer Family history of reaction to anesthesia slow to wake with anesthesia Grandmother (Maternal) FHx: breast cancer Breast cancer Father Family history of diabetes mellitus Heart disease Hypertension Denies family history of Ovarian cancer Colorectal cancer Social History Smoking Status: Never smoker Second Hand Exposure: No; Do You Dip or Chew Tobacco: No; Hx Alcohol Use: No Hx Substance Use: No Preferred Language: Kyrgyz Communication Ability: Effective Visual Impairment: No 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 Beliefs That Will Affect Care: None marital status: Current Living Situation: Spouse and Family Current Living Situation Comment: and 2 teenage sons Feels Safe at Home: Yes Diet: regular Assistive Devices: None Physical Exam Vital Signs Vital Signs - 24 hr 02/28/25 15:08 02/28/25 16:48 02/28/25 16:48 Temperature 36.5 C Temperature Source Oral Pulse Rate 79 Pulse Rate [Right Finger] 93 H Pulse Rhythm [Right Finger] Regular Pulse Strength [Right Finger] Normal Respiratory Rate 19 20 Respiratory Effort / Characteristics Non-Labored Spontaneous Non-Labored Respiratory Depth Normal Normal Respiratory Pattern Regular Regular Blood Pressure 155/101 H Blood Pressure [Right Arm] 171/98 H Blood Pressure Mean 119 Blood Pressure Mean [Right Arm] 122 Blood Pressure Position [Right Arm] Lying Pulse Oximetry 98 97 98 Oxygen Delivery Method Room Air Room Air Room Air Sepsis Recent Fever Within 48 Hours No Sepsis New/Unexplained Change in Mental Status N/A Sepsis Action Taken by Nursing No Action Required 02/28/25 17:05 02/28/25 18:02 02/28/25 21:02 Temperature Temperature Source Pulse Rate 76 77 Pulse Rate [Right Finger] 94 H Pulse Rhythm [Right Finger] Regular Pulse Strength [Right Finger] Normal Respiratory Rate 20 Respiratory Effort / Characteristics Non-Labored Respiratory Depth Normal Respiratory Pattern Regular Blood Pressure Blood Pressure [Right Arm] 156/79 H Blood Pressure Mean Blood Pressure Mean [Right Arm] 104 Blood Pressure Position [Right Arm] Lying Pulse Oximetry 98 Oxygen Delivery Method Room Air Sepsis Recent Fever Within 48 Hours Sepsis New/Unexplained Change in Mental Status Sepsis Action Taken by Nursing 02/28/25 21:15 02/28/25 21:55 Temperature 36.5 C Temperature Source Oral Pulse Rate 92 H Pulse Rate [Right Finger] 78 Pulse Rhythm [Right Finger] Regular Pulse Strength [Right Finger] Normal Respiratory Rate 16 18 Respiratory Effort / Characteristics Non-Labored Respiratory Depth Normal Respiratory Pattern Regular Blood Pressure 164/89 H Blood Pressure [Right Arm] 142/85 H Blood Pressure Mean Blood Pressure Mean [Right Arm] 104 Blood Pressure Position [Right Arm] Lying Pulse Oximetry 95 97 Oxygen Delivery Method Room Air Room Air Sepsis Recent Fever Within 48 Hours Sepsis New/Unexplained Change in Mental Status Sepsis Action Taken by Nursing Physical Exam GENERAL: oriented to person, place, and time. appears well-developed and well- nourished. HENT: Exam performed. - Head: Normocephalic and atraumatic. EYES: Conjunctivae and EOM are normal. Right eye exhibits no discharge. Left eye exhibits no discharge. No scleral icterus. NECK: Normal range of motion. Neck supple. No JVD present. CV: Normal rate, regular rhythm, normal heart sounds and intact distal pulses. There is no peripheral edema. Palpable radial pulses bue. PULM/CHEST: Effort normal and breath sounds normal. No respiratory distress. No stridor. no wheezes. no rales. ABD: The abdomen is soft. There is no tenderness. NEURO: Motor and sensation grossly intact. SKIN: Skin is warm and dry. He is not diaphoretic. PSYCH: normal mood and affect. Behavior is normal. Judgment and thought content normal. Course Course 164: The patient was evaluated in room C8. A complete history and physical exam was performed Cardiac monitoring: An order was placed for continuous cardiac monitoring. The monitor shows a rate of 90 with sinus rhythm interpreted by me 1813: Vital signs stable. Labs show leukocytosis of 16.98. Electrolytes are unremarkable. Liver function test unremarkable. Lipase improved to 157. CT of the abdomen pelvis shows unchanged acute pancreatitis with suspected. Pancreatic necrosis with an 8.4 x 4.5 cm fluid collection that could represent an abscess. Cholelithiasis without cholecystitis. Small amount of ascites. Discussed the case with [place] [facility] Dr. Maher hospitalist team and Dr. Montes on- call GI. Dr. Estrada asks that CT images to be sent via Gauzy so we can review them. 183: Received a callback from [facility] Dr. Estrada he states he reviewed the images himself and see states that he does not think that the fluid collection is infected but it could be starting to walled off but not truly an abscess. He states there is no need for intervention of this at this time. He recommends supportive care. He states no need for transfer at this time. He states no need for antibiotics at this time. He does state to obtain blood cultures. Plan will be to admit the patient here. Dr. Estrada stated if there are any issues to give their center callback. Patient be admitted to the [facility] hospitalist team. 1926: [facility], she states that her team is recommending that we reach out to [facility] to see if they will accept the transfer. I explained to her that the [facility] team discharge patient yesterday and has already reviewed all of the patient's labs and reviewed the patient's images themselves on life image and do not recommend transfer and only recommend supportive care. Hospitalist team insist that we contact GI at [facility] to see if they will accept the patient. Will contact [facility] at their request. 1931: Spoke with Dr. Shaikh ANDERSON from [facility]. I explained to him the patient's history and the fact that I spoke with [facility] who also evaluated the patient's CT themselves via life image. Dr. Ramos stated he will speak with Dr. Estrada and call me back. 1944: Vital signs stable. Spoke with Dr. Shaikh JUSTIN [place]. He states he spoke with Dr. Sean ANDERSON from [facility] and after discussion with him they both feel that the patient does not need to be transferred to any other facility and that the patient can be admitted to this facility for supportive care. [facility] was made aware of the recommendations by Dr. Ramos and she states she will be down to evaluate the patient for admission. Administered Medications Lactated Ringer's (Lr) 1,000 mls @ 200 mls/hr IV .Q5H ONE Stop: 03/01/25 01:18 Last Admin: 02/28/25 21:13 Dose: 200 mls/hr Documented By: SHANTE Discontinued Medications Diphenhydramine HCl (Diphenhydramine 50 Mg/Ml Vial) 25 mg IV NOW STA Stop: 02/28/25 18:53 Last Admin: 02/28/25 19:01 Dose: 25 mg Documented By: SHANTE Sodium Chloride (Nss) 1,000 mls @ 999 mls/hr IV .Q1H1M STA Stop: 02/28/25 16:10 Last Infusion: 02/28/25 17:04 Dose: Infused Documented By: Admin: 02/28/25 16:02 Dose: 999 mls/hr Documented By: eunice Sodium Chloride (Nss) 1,000 mls @ 125 mls/hr IV .Q8H MERY Stop: 03/03/25 18:59 Last Infusion: 02/28/25 21:17 Dose: 0 mls/hr Documented By: Infusion: 02/28/25 21:16 Dose: 125 mls/hr Documented By: Admin: 02/28/25 19:02 Dose: 125 mls/hr Documented By: SHANTE Piperacillin Sod/Tazobactam Sod (Zosyn) 4.5 gm in 100 mls @ 200 mls/hr IV NOW ONE; Protocol Stop: 02/28/25 20:59 Last Infusion: 02/28/25 21:16 Dose: Infused Documented By: Admin: 02/28/25 20:48 Dose: 200 mls/hr Documented By: SHANTE Ioversol (Optiray 320 100ml) 90 ml IV ONCE ONE Stop: 02/28/25 16:36 Last Admin: 02/28/25 16:35 Dose: 90 ml Documented By: KAYKAY Metoclopramide HCl (Metoclopramide Hcl Inj 5 Mg/Ml 2 Ml Vial) 5 mg IV ONE ONE Stop: 02/28/25 18:53 Last Admin: 02/28/25 19:01 Dose: 5 mg Documented By: SHANTE Ondansetron HCl (Ondansetron Inj 2 Mg/Ml 2 Ml Vial) 4 mg IV NOW STA Stop: 02/28/25 15:11 Last Admin: 02/28/25 16:02 Dose: 4 mg Documented By: eunice Ondansetron HCl (Ondansetron Inj 2 Mg/Ml 2 Ml Vial) 4 mg IV NOW STA Stop: 02/28/25 17:12 Last Admin: 02/28/25 17:17 Dose: 4 mg Documented By: SHANTE Medical Decision Making Medical Records Attestation: I reviewed the patient's medical records. External medical records were reviewed. Patient has a discharge packet that was given to her by [facility]. Per the discharge packet it reads You are admitted to [facility] for treatment of acute pancreatitis with associate necrosis GI interventional radiology and EGS were consulted to evaluate you for possible surgical interventions. Each of these teams deemed surgical intervention unnecessary, as GI determined that this is not a walled off pancreatic necrosis. As such, you have been treated medically for your pancreatitis with IV antibiotics fluid resuscitation and pain control. We have stopped your Keytruda order. External medical records from the [facility] system were obtained and according to the discharge summary GI was consulted and no surgical intervention. IR was consulted and no surgical intervention. Patient was on Zosyn and transition to p.o. Augmentin for 5-day course. There is a surgical consultation which states that there is no intervention necessary and they thought that the patient's pancreatitis was secondary to be induced from Keytruda and no surgical intervention for cholecystectomy was indicated. According to surgical consult the patient's pancreatitis was not due to gallstone pancreatitis. Laboratory Data Attestation: I reviewed the patient's lab results. 02/28/25 15:35 02/28/25 15:35 Lab Results 02/28/25 02/28/25 Range/Units 15:35 20:09 WBC 16.98 H (4.8-10.8) K/ul RBC 4.70 (4.20-5.40) M/uL Hgb 12.6 (12.0-16.0) g/dL Hct 38.6 (37.0-47.0) % MCV 82.1 (80.0-100.0) fL MCH 26.8 (25.0-34.0) pg MCHC 32.6 (32.0-36.0) g/dL RDW Std Deviation 45.5 (36.4-46.3) fL RDW Coeff of Edmundo 15.1 H (11.5-14.5) % Plt Count 544 H (130-400) K/uL MPV 10.8 (9.4-12.4) fL Immature Gran % (Auto) 0.6 % Neut % (Auto) 90.6 % Lymph % (Auto) 5.2 % [place] % (Auto) 2.9 % Eos % (Auto) 0.4 % Baso % (Auto) 0.3 % Neut # (Auto) 15.38 H (1.40-6.50) K/uL Lymph # (Auto) 0.89 L (1.20-3.40) K/uL [place] # (Auto) 0.49 (0.11-0.59) K/uL Eos # (Auto) 0.06 (0.00-0.50) K/uL Baso # (Auto) 0.05 (0.00-0.20) K/uL Immature Gran # (Auto) 0.11 (0.01-0.20) K/uL Echinocytes 1+ PT 11.9 (9.0-12.0) Seconds INR 1.1 (0.9-1.1) Sodium 137 (136-145) mmol/L Potassium 4.0 (3.5-5.1) mmol/L Chloride 103 (98-107) mmol/L Carbon Dioxide 20 L (21-32) mmol/L Anion Gap 14 H (3-11) BUN 5 L (6-23) mg/dl Creatinine 0.85 (0.6-1.2) mg/dl Est Cr Clr Drug Dosing Not Reportable eGFR 81.36 BUN/Creatinine Ratio 5.9 L (10-20) Glucose 147 H (70-99(Fasting)) mg/dl Lactate 0.7 (0.4-2.0) mmol/L Calcium 9.3 (8.6-10.3) mg/dl Magnesium 1.8 (1.7-2.4) mg/dl Total Bilirubin 0.6 (0.2-1.0) mg/dl AST 14 (13-39) U/L ALT 12 (7-52) U/L Alkaline Phosphatase 65 (34-104) U/L Troponin I High Sens 5.7 (0-14) pg/ml Total Protein 6.9 (6.0-8.3) gm/dl Albumin 3.6 (3.4-5.0) gm/dl Globulin 3.3 (2.5-4.0) gm/dl Albumin/Globulin Ratio 1.1 (0.9-2) Lipase 157 H (11-82) U/L Imaging Data Attestation: I personally reviewed and interpreted this imaging study as follows: My Impression: Chest x-ray negative. Airway clear. No pneumothorax. No consolidation. No cardiomegaly or cephalization.. No free air under the diaphragm. No fractures of the skeletal structures. Radiologist's Impression: Chest X-Ray 02/28/25 15:11 Technique: A frontal view of the chest was obtained Findings: There are no confluent pulmonary infiltrates. The heart size is within normal limits. No pleural effusion or pneumothorax is seen. There is no definite pulmonary nodule. No fracture is noted. There is a right chest wall port with its tip in the SVC Impression: No active disease Electronically signed by Hermilo Parker 02-28-2025 5:39 PM Abdomen/Pelvis CT 02/28/25 15:16 Clinical History: Recent necrotizing pancreatitis Technique: Axial computed tomography images were obtained of the abdomen and pelvis after the administration of intravenous contrast. Comparison is made to the prior CT dated 02/24/2025. Findings: Again seen is soft tissue stranding and fluid around the pancreas, consistent with acute pancreatitis. Again seen is an approximately 8.4 x 4.5 cm rim-enhancing fluid collection replacing the pancreatic neck and proximal pancreatic body, concerning for pancreatic necrosis with a possible abscess The liver is overall of normal size, attenuation, and contour with no sign of cirrhosis or significant fatty infiltration. No liver mass lesion is seen. The portal vein is patent. There is a suspected gallstone. There is no definite sign of acute cholecystitis. No bile duct dilatation is noted. The spleen is of normal size. No focal splenic lesion is evident. The adrenal glands appear unremarkable. 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 There is a 3 mm calculus in the inferior left kidney. There is no hydronephrosis or perinephric stranding. No renal mass lesion is identified. The aorta is of normal caliber. No abdominal adenopathy is seen. There is a small umbilical hernia containing only fat There is a small hiatal hernia. There is no sign of small bowel obstruction. There is a right lower quadrant ventral hernia containing a portion of the cecum. There is an adjacent right paracentral ventral hernia containing a loop of ileum. No free intraperitoneal air is identified. No distal ureteral or bladder calculi are seen. The bladder is decompressed. The iliac arteries are of normal caliber. No pelvic adenopathy is noted. There is a small amount of pelvic ascites. There is a small right inguinal hernia containing only fat The lungs bases appear clear. There are bilateral breast implants. There is an unchanged 5 cm cystic area in the right anterior cardiophrenic angle, likely a pericardial cyst Mild thoracolumbar degenerative disc disease is seen. No fracture is identified. No focal osseous lesion is seen Impression: 1. Unchanged acute pancreatitis with suspected pancreatic necrosis and an 8 x 4 x 4.5 cm fluid collection that could represent an abscess 2. Unchanged 5 cm pericardial cyst 3. Small hiatal hernia 4. Cholelithiasis without definite acute cholecystitis 5. Small amount of ascites 6. Two separate ventral hernias in the right lower quadrant, one containing small bowel and the other containing cecum. There is no sign of associated obstruction 7. Small umbilical and right inguinal hernias containing only fat 8. Nonobstructing left renal calculus 9. Prior right nephrectomy ACT 112: Positive. There are findings on this exam that require communication between the performing entity and the patient following Patient Test Result Information Act ([place] ACT 112) guidelines. Electronically signed by Hermilo Parker 02-28-2025 5:38 PM ECG Data Attestation: I personally reviewed and interpreted this ECG as follows: Rate (beats per minute): 88 Rhythm: + normal sinus ECG Intervals/blocks: + Normal AR and + Normal QT-c ECG ST segments: + Normal ST segments Additional Comments: QRS 72 MDM Narrative 1647: The patient was evaluated in room C8. A complete history and physical exam was performed Cardiac monitoring: An order was placed for continuous cardiac monitoring. The monitor shows a rate of 90 with sinus rhythm interpreted by me 181: Vital signs stable. Labs show leukocytosis of 16.98. Electrolytes are unremarkable. Liver function test unremarkable. Lipase improved to 157. CT of the abdomen pelvis shows unchanged acute pancreatitis with suspected. Pancreatic necrosis with an 8.4 x 4.5 cm fluid collection that could represent an abscess. Cholelithiasis without cholecystitis. Small amount of ascites. Discussed the case with [facility] Dr. Maher hospitalist team and Dr. Montes on- call GI. Dr. Estrada asks that CT images to be sent via Gauzy so we can review them. 183: Received a callback from [facility] Dr. Estrada he states he reviewed the images himself and see states that he does not think that the fluid collection is infected but it could be starting to walled off but not truly an abscess. He states there is no need for intervention of this at this time. He recommends supportive care. He states no need for transfer at this time. He states no need for antibiotics at this time. He does state to obtain blood cultures. Plan will be to admit the patient here. Dr. Estrada stated if there are any issues to give their center callback. Patient be admitted to the [facility] hospitalist team. 1925: [facility] with [facility], she states that her team is recommending that we reach out to [facility] to see if they will accept the transfer. I explained to her that the [facility] team discharge patient yesterday and has already reviewed all of the patient's labs and reviewed the patient's images themselves on life image and do not recommend transfer and only recommend supportive care. Hospitalist team insist that we contact GI at [facility] to see if they will accept the patient. Will contact [facility] at their request. 1931: Spoke with Dr. Shaikh ANDERSON from [facility]. I explained to him the patient's history and the fact that I spoke with [facility] who also evaluated the patient's CT themselves via life image. Dr. Ramos stated he will speak with Dr. Estrada and call me back. 1944: Vital signs stable. Spoke with Dr. Shaikh ANDERSON [facility]. He states he spoke with Dr. Sean ANDERSON from [facility] and after discussion with him they both feel that the patient does not need to be transferred to any other facility and that the patient can be admitted to this facility for supportive care. [facility] hospitalist Latonia Flores was made aware of the recommendations by Dr. Ramos and she states she will be down to evaluate the patient for admission. Impression & Plan Pancreatitis Discharge Plan Visit Data Chief Complaint: Vomiting Stated Complaint: VOMITING ED Provider: Sergo Peña Discharge Problem: Pancreatitis Patient Disposition: Admitted As Inpatient Condition: Fair Discharge Instructions Interventions: ED Discharge Assessment Last Done: 02/28/25 21:55 Forms Stand Alone Forms: My [facility] Prescriptions Prescriptions: No Action citalopram [Celexa] 20 mg tablet 30 mg PO HS 30 Days Qty: 45 5RF Patient Comments: peg 3350-electrolytes [GaviLyte-G] 236-22.74-6.74 -5.86 gram recon soln 240 ml PO Q10M Qty: 4000 0RF Rx Instructions: until fecal effluent is clear levothyroxine 50 mcg tablet 50 mcg PO QAM pantoprazole 40 mg tablet,delayed release (DR/EC) 40 mg PO QAM amlodipine 5 mg tablet 5 mg PO QAM Probiotic 10 billion cell Capsule 1 cell PO QAM Patient Comments: 02/24- otc unable to verify Inlyta 1 mg tablet 3 mg PO BID ondansetron 8 mg tablet,disintegrating 8 mg PO TID PRN (Reason: nausea) Patient Comments: 02/24-last filled 2/3 30 day supply #90 vitamin B complex Tablet 1 tab PO QAM Patient Comments: 02/24- otc unable to verify albuterol sulfate 90 mcg/actuation HFA aerosol inhaler 1 inh inhalation Q6H PRN (Reason: shortness of breath or wheezing) Qty: 8.5 0RF Patient Comments: new prescription, have not picked up yet gabapentin [Neurontin] 100 mg Capsule 0 mg PO HS PRN (Reason: nerve pain) Patient Comments: 02/24- no fill history unable to verify Vitron-C 65 mg iron- 125 mg Tablet,Delayed Release (Dr/Ec) 1 tab PO QAM Patient Comments: 02/24- otc unable to verify Keytruda 25 mg/mL Solution See Rx Instructions .ROUTE .COMPLEX Patient Comments: 02/24- no fill history unable to verify Rx Instructions: 25 mg intravenously every 3 weeks - CCP lisinopril 40 mg tablet 40 mg PO QAM Patient Comments: prochlorperazine maleate 5 mg tablet 5 mg PO UD PRN (Reason: n/v) lorazepam [Ativan] 0.5 mg tablet 0 mg PO BID PRN (Reason: anxiety or insomnia) Patient Comments: 02/24- no fill history unable to verify Atrovent HFA 17 mcg/actuation HFA aerosol inhaler 0 inh inhalation Q6H PRN (Reason: shortness of breath or wheezing) Patient Comments: 02/24- no fill history unable to verify amoxicillin-pot clavulanate 875-125 mg tablet 1 tab PO BID Rx Instructions: patient prescribed 2 day supply 02/27/25 Referrals Referrals: Emilie Nicole DO [Primary Care Provider] - Discharge Problem: Pancreatitis Qualifiers: Chronicity: acute Pancreatitis type: drug induced Acute pancreatitis complication: unspecified Qualified Code(s): K85.30 - Drug induced acute pancreatitis without necrosis or infection
[2025-02-28] MEDS: diphenhydrAMINE 50 MG/ML VIAL IV STA (19:01)
[2025-02-28] MEDS: METOCLOPRAMIDE HCL INJ 5 MG/ML 2 ML VIAL IV ONE (19:01)
[2025-02-28] MEDS: SODIUM CHLORIDE 0.9% 1,000 ML IV SCH (19:02)
--- NOTE | 2025-02-28 20:06 | History & Physical Report ---
Date of Service February 28, 2025 Assessment & Plan (1) Acute necrotizing pancreatitis: (2) Sepsis: (3) Renal cell carcinoma: (4) Hypertension: (5) Hypothyroidism (acquired): (6) Anxiety associated with depression: Plan 54 year old female with PMH significant for metastatic RCC (clear cell, stage T3a, s/p renal resection, solitary kidney) on keytruda (last infusion 02/07/2025) and axitinib, hx of keytruda induced pneumotitis, hx of stage 1 breast cancer in remission, MDD, anxiety, cancer related pain, GERD, HTN, hypothyroidism who presents to the ED on 02/28/2025 for vomiting. Acute necrotizing pancreatitis Possible pancreatic abscess -Patient presented to [facility] ED on 02/24/2025 and was diagnosed with acute necrotizing pancreatitis and transferred to [facility] -Managed at [facility] with supportive care including IV antibiotics and discharged on 02/27/2025 on Augmentin -Presents today with intractable vomiting -Labs reveal leukocytosis of 16K (up from 11K) and lipase 157 (down from 202) -CTAP reveals unchanged acute pancreatitis with suspected pancreatic necrosis and an 8x4x4.5cm fluid collection that could represent abscess -Dr. Peña discussed with Dr. Fagan of [facility] who reviewed the images himself and does not think that the fluid collection is infected but it could be starting to walled off but not truly an abscess. He states there is no need for intervention of this at this time. He recommends supportive care. He states no need for transfer at this time. He states no need for antibiotics at this time. He does state to obtain blood cultures. Dr. Fagan stated if there are any issues to give their center callback. -Discussed case with Dr. Topete of GI who still recommended transfer to tertiary care given pancreatic necrosis and this facilitys inability to perform possible life saving procedures in future if needed during hospitalization, as he feels she has a fair chance of decompensation -Dr. Peña discussed with Dr. Ramos of [facility] who stated no need for transfer and to admit here for supportive care Plan: -Admit to med surg -Start Zosyn given leukocytosis, image findings and per rec of Dr. Topete -Consult GI -NPO for now -LR @200mL/hr -Antiemetics and pain control PRN Sepsis secondary to necrotizing pancreatitis Meets criteria with leukocytosis and tachycardia in the setting of necrotizing pancreatitis Lactate pending Blood cultures pending Antibiotics as above Renal cell carcinoma Breast cancer in remission Following with Dr. Mcclure of Heme/Onc and Dr. Charles of Palliative Care On Inlyta and Keytruda - due for Keytruda today but cancelled treatment Consider Oncology consult in setting of unknown etiology of pancreatitis and possible medication side effect Hypertension Continue amlodipine and lisinopril Hypothyroidism Continue levothyroxine MDD/anxiety Continue citalopram and ativan prn GERD Continue pantoprazole LEONOR CPAP HS DVT Prophylaxis: SQ Lovenox Code Status: FULL CODE - As per discussion at bedside with the patient. PCP: Emilie Nicole Disposition: admit to med surg Patient seen in collaboration with Dr. Villagomez. Please see addendum. I spent a total of 70 minutes coordinating, documenting and providing care for this patient excluding time spent in the performance of separately billed services or time spent by another provider/QHP. Admission and Anticipated Discharge Date Admission Date: February 28, 2025 History of Present Illness Chief Complaint: abdominal pain Primary Care Provider: Emilie Nicole, 54 year old female with PMH significant for metastatic RCC (clear cell, stage T3a, s/p renal resection, solitary kidney) on keytruda (last infusion 02/07/2025) and axitinib, hx of keytruda induced pneumotitis, hx of stage 1 breast cancer in remission, MDD, anxiety, cancer related pain, GERD, HTN, hypothyroidism who presents to the ED on 02/28/2025 for vomiting. Patient was initially diagnosed with pancreatitis a few weeks ago while on vacation in [place]. Presented to [facility] ED on 02/24/2025 and was transferred to [facility] for necrotizing pancreatitis. She tells me that she was given IV antibiotics at [facility], which helped her perk up and feel better. She was discharged to home yesterday at 4:00pm on oral augmentin and zofran. She was doing okay at home until this afternoon. She had some soup and applesauce this morning and started to vomit around 12:00pm. She tried taking zofran without relief. Reports she continued to vomit 8-10 times, prompting evaluation in the ED. Upon my evaluation, she is still feeling nauseated but has not vomited for two hours. She denies fevers, chills, chest pain, SOB, abdominal pain, dysuria. Notes fatigue, weakness, and diarrhea since being on antibiotics. Allergies Allergy/AdvReac Type Severity Reaction Status Date / Time adhesive tape Allergy Intermediate Rash, Skin Verified 02/28/25 19:15 Redness vancomycin Allergy Intermediate Redness of Verified 02/28/25 19:15 Skin, Itchiness NSAIDS (Non-Steroidal AdvReac Severe does not Verified 02/28/25 19:15 Anti-Inflamma take d/t only one kidney codeine AdvReac Intermediate palpitation Verified 02/28/25 19:15 s/tachycard ia Home Medications Medication Instructions Recorded Confirmed Type Lactobacillus acidophilus 10 1 cell PO QAM 11/27/18 02/28/25 History billion cell capsule (Probiotic) levothyroxine 50 mcg tablet 50 mcg PO QAM 07/12/22 02/28/25 History gabapentin 100 mg capsule 0 mg PO HS PRN nerve pain 04/01/24 02/28/25 History (Neurontin) iron,carbonyl 65 mg-vitamin C 125 1 tab PO QAM 04/01/24 02/28/25 History mg tablet,delayed release (Vitron-C) axitinib 1 mg tablet (Inlyta) 3 mg PO BID 04/14/24 02/28/25 History ondansetron 8 mg disintegrating 8 mg PO TID PRN nausea 06/07/24 02/28/25 History tablet vitamin B complex 1 tab PO QAM 06/07/24 02/28/25 History pantoprazole 40 mg tablet,delayed 40 mg PO QAM 06/20/24 02/28/25 History release pembrolizumab 25 mg/mL intravenous See Rx Instructions .Route .COMPLEX 07/27/24 02/28/25 History solution (Keytruda) albuterol sulfate 90 mcg/actuation 1 inh inhalation Q6H PRN shortness 07/31/24 02/28/25 Rx aerosol inhaler of breath or wheezing #8.5 grams amlodipine 5 mg tablet 5 mg PO QAM 10/18/24 02/28/25 History lisinopril 40 mg tablet 40 mg PO QAM 10/26/24 02/28/25 History citalopram 20 mg tablet (Celexa) 30 mg (1.5 x 20 mg) PO HS 12/11/24 02/28/25 Rx depression, anxiety 1 month #45 tabs ipratropium bromide 17 0 inh inhalation Q6H PRN shortness 02/24/25 02/28/25 History mcg/actuation HFA aerosol inhaler of breath or wheezing (Atrovent HFA) lorazepam 0.5 mg tablet (Ativan) 0 mg PO BID PRN anxiety or insomnia 02/24/25 02/28/25 History prochlorperazine maleate 5 mg 5 mg PO UD PRN n/v 02/24/25 02/28/25 History tablet peg 3350-electrolytes 236 240 ml PO Q10M #4,000 mL 02/26/25 02/28/25 Rx gram-22.74 gram-6.74 gram-5.86 gram solution (GaviLyte-G) amoxicillin 875 mg-potassium 1 tab PO BID 02/28/25 02/28/25 History clavulanate 125 mg tablet Past Med/Surg History Problem List (Updated 02/28/25 @ 22:05 by Sergo Peña MD) Pancreatitis (Acute) Sepsis Leukocytosis (Acute) Abdominal pain (Acute) Immunotherapy Acute necrotizing pancreatitis (Acute) History of gallstones History of pancreatitis Palliative care by specialist (Chronic) Bronchitis (Acute) Nephrolithiasis (Chronic) Solitary kidney Hyperparathyroidism Vitamin D deficiency Abnormal chest CT Closed fracture of right great toe (Acute) Hypomagnesemia (Acute) RAUL (acute kidney injury) (Acute) Hypothyroidism (acquired) Acute hypoxic respiratory failure Insomnia Advanced care planning/counseling discussion 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 No suspicious hepatic mass lesions. 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/p right nephrectomy - Oral and immunotherapy q3wks Dyslipidemia History of COVID-19 Dx 2021 ([facility])- mild symptoms, cough/body aches > resolved Situational anxiety Rectal mass hx 06/2021, drained and resolved with rectal scope-"nothing suspicious" History of breast cancer (08/2011) CCP - XRT and surgery Surgical History S/P cystoscopy with ureteral stent placement w/laser destruction stone Port-A-Cath in place (05/03/22) Insertion Access Port with Fluoroscopy Right Cephalic History of vascular access device (04/2022) Placement of Port/Power History of vascular access device (11/2021) Original port placement History of lumpectomy of left breast Hx of hernia repair History of removal of Port-a-Cath (03/09/22) Removal of Access Port (Left) History of anesthesia reaction PONV; usually on longer surgeries History of open reduction and internal fixation (ORIF) procedure (~2018) Right ankle History of right radical nephrectomy (~07/30/21) Robotic Laparoscopic Assisted Right Radical Nephrectomy transition to hand assisted laparoscopic right Nephrectomy History of biopsy (~11/16/21) Ultrasound guided biopsy area near liver/kidney on RUQ Nausea and vomiting after administration of anesthetic agent History of esophagogastroduodenoscopy (EGD) History of colonoscopy H/O breast reconstruction Bilateral History of bilateral tubal ligation History of section x2 History of mastectomy Bilateral Family History Aunt FHx: breast cancer Breast cancer Mother FHx: breast cancer Breast cancer Family history of reaction to anesthesia slow to wake with anesthesia Grandmother (Maternal) FHx: breast cancer Breast cancer Father Family history of diabetes mellitus Heart disease Hypertension Denies family history of Ovarian cancer Colorectal cancer Social History Smoking Status: Never smoker Second Hand Exposure: No; Do You Dip or Chew Tobacco: No; Hx Alcohol Use: No Hx Substance Use: No Preferred Language: Bermudian Communication Ability: Effective Visual Impairment: No Limitations 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 Required: No Beliefs That Will Affect Care: None marital status: Current Living Situation: Spouse Current Living Situation Comment: and 2 teenage sons Other Information That Helps Us Care for You: No Feels Safe at Home: Yes Safety Concerns: Feels Safe At This Time Diet: regular Assistive Devices: Glasses Review of Systems Review of Systems: All systems reviewed & are unremarkable except as noted in HPI & below Physical Exam Physical Exam: General/Psych: ill appearing, sitting up in bed, NAD, conversing easily Head: normocephalic, atraumatic Eyes: normal inspection, PERRL, conjunctivae pink, strabismus of right eye ENT: external ear and nose normal, oropharynx normal Neck: normal visual inspection, trachea midline Respiratory: normal respiratory effort, lungs clear to auscultation, no wheeze/rales/rhonchi, no accessory muscle use Cardiovascular: regular rate and rhythm, no murmur/rub/gallop, +port to right chest dressing c/d/i Extremities: no cyanosis or clubbing, normal peripheral pulses, trace BLE edema Abdomen/GI: normal bowel sounds, soft, tender on palpation of epigastric/RUQ Neurologic/MSK: A+Ox3, motor strength 5/5, moves all extremities Skin: no rashes, normal color, warm and dry Results & Data Results & Data Vital Signs (Past 12 Hours) Vital Signs Temp Pulse Pulse Resp BP BP Pulse Ox 02/28/25 18:02 94 H 20 156/79 H 98 02/28/25 17:05 76 02/28/25 16:48 98 02/28/25 16:48 93 H 20 171/98 H 97 02/28/25 15:08 36.5 C 79 19 155/101 H 98 O2 Del Method 02/28/25 18:02 Room Air 02/28/25 17:05 02/28/25 16:48 Room Air 02/28/25 16:48 Room Air 02/28/25 15:08 Room Air Laboratory Results Short CBC 02/28/25 Range/Units 15:35 WBC 16.98 H (4.8-10.8) K/ul Hgb 12.6 (12.0-16.0) g/dL Hct 38.6 (37.0-47.0) % Plt Count 544 H (130-400) K/uL BMP 02/28/25 15:35 Sodium 137 Potassium 4.0 Chloride 103 Carbon Dioxide 20 L BUN 5 L Creatinine 0.85 Glucose 147 H Calcium 9.3 Liver Function 02/28/25 Range/Units 15:35 Total Bilirubin 0.6 (0.2-1.0) mg/dl AST 14 (13-39) U/L ALT 12 (7-52) U/L Alkaline Phosphatase 65 (34-104) U/L Albumin 3.6 (3.4-5.0) gm/dl I have independently reviewed and interpreted patient's admitting labs including CBC, CMP, PT/INR, lipase and troponin. Diagnostic Findings Chest X-Ray 02/28/25 15:11 Technique: A frontal view of the chest was obtained Findings: There are no confluent pulmonary infiltrates. The heart size is within normal limits. No pleural effusion or pneumothorax is seen. There is no definite pulmonary nodule. No fracture is noted. There is a right chest wall port with its tip in the SVC Impression: No active disease Electronically signed by eHrmilo Parker 02-28-2025 5:39 PM Abdomen/Pelvis CT 02/28/25 15:16 Clinical History: Recent necrotizing pancreatitis Technique: Axial computed tomography images were obtained of the abdomen and pelvis after the administration of intravenous contrast. Comparison is made to the prior CT dated 02/24/2025. Findings: Again seen is soft tissue stranding and fluid around the pancreas, consistent with acute pancreatitis. Again seen is an approximately 8.4 x 4.5 cm rim-enhancing fluid collection replacing the pancreatic neck and proximal pancreatic body, concerning for pancreatic necrosis with a possible abscess The liver is overall of normal size, attenuation, and contour with no sign of cirrhosis or significant fatty infiltration. No liver mass lesion is seen. The portal vein is patent. There is a suspected gallstone. There is no definite sign of acute cholecystitis. No bile duct dilatation is noted. The spleen is of normal size. No focal splenic lesion is evident. The adrenal glands appear unremarkable. 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 There is a 3 mm calculus in the inferior left kidney. There is no hydronephrosis or perinephric stranding. No renal mass lesion is identified. The aorta is of normal caliber. No abdominal adenopathy is seen. There is a small umbilical hernia containing only fat There is a small hiatal hernia. There is no sign of small bowel obstruction. There is a right lower quadrant ventral hernia containing a portion of the cecum. There is an adjacent right paracentral ventral hernia containing a loop of ileum. No free intraperitoneal air is identified. No distal ureteral or bladder calculi are seen. The bladder is decompressed. The iliac arteries are of normal caliber. No pelvic adenopathy is noted. There is a small amount of pelvic ascites. There is a small right inguinal hernia containing only fat The lungs bases appear clear. There are bilateral breast implants. There is an unchanged 5 cm cystic area in the right anterior cardiophrenic angle, likely a pericardial cyst Mild thoracolumbar degenerative disc disease is seen. No fracture is identified. No focal osseous lesion is seen Impression: 1. Unchanged acute pancreatitis with suspected pancreatic necrosis and an 8 x 4 x 4.5 cm fluid collection that could represent an abscess 2. Unchanged 5 cm pericardial cyst 3. Small hiatal hernia 4. Cholelithiasis without definite acute cholecystitis 5. Small amount of ascites 6. Two separate ventral hernias in the right lower quadrant, one containing small bowel and the other containing cecum. There is no sign of associated obstruction 7. Small umbilical and right inguinal hernias containing only fat 8. Nonobstructing left renal calculus 9. Prior right nephrectomy ACT 112: Positive. There are findings on this exam that require communication between the performing entity and the patient following Patient Test Result Information Act ([place] ACT 112) guidelines. Electronically signed by Hermilo Parker 02-28-2025 5:38 PM ECG Additional Comments: I have independently reviewed and interpreted patient's admitting EKG which revealed: NSR with PVCs at a rate of 88bpm Code Status & VTE Plan Code Status Full Code Supervising Physician Co-Signing Physician Notes IM ATTENDING : Patient seen and examined. History obtained from patient, family, and records. Concur with salient points upon review of preceding documentation by JENNYFER Wade. I take responsibility for plan of care below. FINAL ASSESSMENT AND PLAN as follows : Pancreatic abscess History necrotizing pancreatitis status post recent [facility] admission ? Secondary to gallstone ? Secondary to Keytruda, history of right RCCA status post surgery Possible sepsis Hypertension, slightly elevated secondary to discomfort/anxiety Diarrhea rule out C. difficile Left breast cancer status post surgery, tamoxifen Rx History IRENE gene mutation Hypothyroidism, euthyroid as of recent TSH Hyperglycemia likely prediabetes, hemoglobin A1c of 5.8 from last year. Admit to medical Analgesia, bowel rest, LRS IVF CS, Zosyn Stool C. difficile GI consult re: pancreatic abscess (Dr. Topete already aware of patient admission.) Inpatient Oncology follow-up eval for RCCA by Dr. Mcclure as per patient request. DVT prophylaxis. Lovenox subcu Full code I spent a total of 30 minutes coordinating, documenting, and providing care for this patientexcludingtime spent by another provider/QHP. Text document was generated using Weaved voice recognition software. It may contain grammatical or spelling errors. Kindly contact undersigned for clarification of any documentation item in question. (3) Renal cell carcinoma Laterality: right Qualified Code(s): C64.1 - Malignant neoplasm of right kidney, except renal pelvis (4) Hypertension Hypertension type: primary hypertension Qualified Code(s): I10 - Essential (primary) hypertension
[2025-02-28] MEDS: PIPERACILLIN/TAZOBACTAM 4.5 GM/100 ML BAG IV ONE (20:48)
[2025-02-28] MEDS: LACTATED RINGER'S 1,000 ML IV ONE (21:13)
[2025-02-28] MEDS ORDERED: MoRPHine SULFATE 4 MG/ML 1 ML CARP\\VIAL IV PRN (21:16)
[2025-02-28] MEDS ORDERED: LORazepam 0.5 MG TAB PO PRN (21:16)
[2025-02-28] MEDS ORDERED: PROMETHAZINE 12.5 MG/50.5 ML BAG IV PRN (21:16)
[2025-02-28 21:48] LABS: Magnesium 1.8 mg/dl (1.7-2.4)
[2025-03-01] MEDS: LACTATED RINGER'S 1,000 ML IV SCH (02:11)
[2025-03-01] MEDS: PIPERACILLIN/TAZOBACTAM 4.5 GM/100 ML BAG IV SCH (02:13)
[2025-03-01] MEDS: LEVOTHYROXINE SODIUM 50 MCG TABLET PO SCH (05:56)
[2025-03-01 07:19] LABS: Hematocrit (blood only) 32.3 % (37.0-47.0); Hemoglobin 10.3 g/dL (12.0-16.0); Immature Granulocytes # (auto) 0.05 K/uL (0.01-0.20); Immature Granulocytes % (auto) 0.5 %; Mean Corpuscular Hemoglobin 26.5 pg (25.0-34.0); Mean Corpuscular Volume 83.2 fL (80.0-100.0); Platelet Count 416 K/uL (130-400); RDW Standard Deviation 46.4 fL (36.4-46.3); Red Blood Count 3.88 M/uL (4.20-5.40); White Blood Count 11.09 K/ul (4.8-10.8)
[2025-03-01 07:40] LABS: Alanine Aminotransferase 10.0 U/L (7-52); Albumin Globulin Ratio 1.3 (0.9-2); Albumin Level 3.3 gm/dl (3.4-5.0); Alkaline Phosphatase 45.0 U/L (34-104); Anion Gap 9.0 (3-11); Bilirubin,Total 0.5 mg/dl (0.2-1.0); Blood Urea Nitrogen 6.0 mg/dl (6-23); Calcium 9.0 mg/dl (8.6-10.3); Carbon Dioxide 24.0 mmol/L (21-32); Chloride 106.0 mmol/L (98-107); Creatinine Clr Calc Pharmacy 91.9 ml/min; Globulin 2.6 gm/dl (2.5-4.0); Glucose 98.0 mg/dl (70-99(Fasting)); Potassium 3.8 mmol/L (3.5-5.1); Sodium 139.0 mmol/L (136-145); Total Protein 5.9 gm/dl (6.0-8.3)
[2025-03-01] MEDS ORDERED: MoRPHine SULFATE 4 MG/ML 1 ML CARP\\VIAL IV PRN ×2 (08:12→08:38)
[2025-03-01] MEDS: ENOXAPARIN INJ 40 MG/0.4 ML SYR SQ SCH (08:23)
[2025-03-01] MEDS: VITAMIN B COMPLEX TAB PO SCH (08:23)
[2025-03-01 08:42] LABS: Appearance Urine Clear (Clear); Bacteria Urine Automated None Seen (None Seen); Cast Urine Automated 0-2 /lpf (0-2); Epithelial Cell Urine Auto 0-2 /hpf (0-2); Glucose Urine UA Negative (Negative); RBC Urine Automated 0-2 /hpf (0-2); WBC Urine Automated 0-5 /hpf (0-5)
[2025-03-01] MEDS ORDERED: NON-FORMULARY MEDICATION (Lactobacillus Acidophilus [Probiotic] 10 billion cell Capsule) PO SCH (09:00)
[2025-03-01] MEDS: HEPARIN 100 UNIT/ML 5ML FLUSH FLUSH PRN (09:42)
--- NOTE | 2025-03-01 10:06 | Electrocardiogram Report ---
Test Reason : Blood Pressure : */* mmHG Vent. Rate : 88 BPM Atrial Rate : 88 BPM P-R Int : 116 ms QRS Dur : 72 ms QT Int : 346 ms P-R-T Axes : 55 -24 30 degrees QTcB Int : 418 ms Sinus rhythm with occasional Premature ventricular complexes Minimal voltage criteria for LVH, may be normal variant ( R in aVL ) Nonspecific ST and T wave abnormality Abnormal ECG When compared with ECG of 02-Aug-2024 12:43, Premature ventricular complexes are now Present Nonspecific T wave abnormality now evident in Anterolateral leads Confirmed by Av Menendez ([id number]) on 03/01/2025 10:05:31 AM Referred By: Confirmed By: Av Menendez
--- NOTE | 2025-03-01 12:06 | Oncology Consultation ---
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 Has had recurrent hospitalizations with symptoms. Although, there are no studies to show if steroids are clinically beneficial patient has had multiple hospitalizations over the past 2 weeks with recurrent symptoms and might benefit from trial of immunosuppression. Will reach out to GI to make sure there are no contraindications in the setting of necrotizing pancreatitis. If GI is okay with this, would recommend prednisone 0.5 mg/kg/day with slow taper outpatient. Or could consider CellCept/infliximab if symptoms do not improve with steroids. History of Present Illness Reason for Consultation: Immunotherapy induced pancreatitis Attending Physician: Fredo Gutiérrez MD History of Present Illness 54-year-old female with stage IV renal cell carcinoma currently on pembrolizumab/axitinib with good response to treatment. Was admitted while in [place] around 2 weeks ago for abdominal symptoms due to pancreatitis. Symptoms appear to have responded with supportive care. Subsequently returned to [facility] and presented to the ED again at on 02/24/2025 with imaging at that time revealing acute pancreatitis complicated by pancreatic necrosis with severe associated narrowing of splenic vein. Was transferred to [facility] where supportive care was recommended. Symptoms improved and she was discharged home about 2 days ago. Presented to the ER again at yesterday with nausea, vomiting. Was placed on n.p.o., IV antibiotics. She states that she is doing much better today with resolution of nausea/vomiting. Denies any abdominal pain. Allergies Allergy/AdvReac Type Severity Reaction Status Date / Time adhesive tape Allergy Intermediate Rash, Skin Verified 02/28/25 19:15 Redness vancomycin Allergy Intermediate Redness of Verified 02/28/25 19:15 Skin, Itchiness NSAIDS (Non-Steroidal AdvReac Severe does not Verified 02/28/25 19:15 Anti-Inflamma take d/t only one kidney codeine AdvReac Intermediate palpitation Verified 02/28/25 19:15 s/tachycard ia Home Medications Medication Instructions Recorded Confirmed Type Lactobacillus acidophilus 10 1 cell PO QAM 11/27/18 02/28/25 History billion cell capsule (Probiotic) levothyroxine 50 mcg tablet 50 mcg PO QAM 07/12/22 02/28/25 History gabapentin 100 mg capsule 0 mg PO HS PRN nerve pain 04/01/24 02/28/25 History (Neurontin) iron,carbonyl 65 mg-vitamin C 125 1 tab PO QAM 04/01/24 02/28/25 History mg tablet,delayed release (Vitron-C) axitinib 1 mg tablet (Inlyta) 3 mg PO BID 04/14/24 02/28/25 History ondansetron 8 mg disintegrating 8 mg PO TID PRN nausea 06/07/24 02/28/25 History tablet vitamin B complex 1 tab PO QAM 06/07/24 02/28/25 History pantoprazole 40 mg tablet,delayed 40 mg PO QAM 06/20/24 02/28/25 History release pembrolizumab 25 mg/mL intravenous See Rx Instructions .Route .COMPLEX 07/27/24 02/28/25 History solution (Keytruda) albuterol sulfate 90 mcg/actuation 1 inh inhalation Q6H PRN shortness 07/31/24 02/28/25 Rx aerosol inhaler of breath or wheezing #8.5 grams amlodipine 5 mg tablet 5 mg PO QAM 10/18/24 02/28/25 History lisinopril 40 mg tablet 40 mg PO QAM 10/26/24 02/28/25 History citalopram 20 mg tablet (Celexa) 30 mg (1.5 x 20 mg) PO HS 12/11/24 02/28/25 Rx depression, anxiety 1 month #45 tabs ipratropium bromide 17 0 inh inhalation Q6H PRN shortness 02/24/25 02/28/25 History mcg/actuation HFA aerosol inhaler of breath or wheezing (Atrovent HFA) lorazepam 0.5 mg tablet (Ativan) 0 mg PO BID PRN anxiety or insomnia 02/24/25 02/28/25 History prochlorperazine maleate 5 mg 5 mg PO UD PRN n/v 02/24/25 02/28/25 History tablet peg 3350-electrolytes 236 240 ml PO Q10M #4,000 mL 02/26/25 02/28/25 Rx gram-22.74 gram-6.74 gram-5.86 gram solution (GaviLyte-G) amoxicillin 875 mg-potassium 1 tab PO BID 02/28/25 02/28/25 History clavulanate 125 mg tablet Patient History Medical History Ureteral stone Encounter for pre-operative examination Anemia Hx blood transfusions and iron infusions in past History of IBS Nephrolithiasis Liver mass Abdomen/Pelvis CT 07/09/24: There unchanged small left hepatic lobe cyst. No suspicious hepatic mass lesions. 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/p right nephrectomy - Oral and immunotherapy q3wks Dyslipidemia History of COVID-19 Dx 2021 ([facility])- mild symptoms, cough/body aches > resolved Situational anxiety Rectal mass hx 06/2021, drained and resolved with rectal scope-"nothing suspicious" History of breast cancer (08/2011) CCP - XRT and surgery Surgical History S/P cystoscopy with ureteral stent placement w/laser destruction stone Port-A-Cath in place (05/03/22) Insertion Access Port with Fluoroscopy Right Cephalic History of vascular access device (04/2022) Placement of Port/Power History of vascular access device (11/2021) Original port placement History of lumpectomy of left breast Hx of hernia repair History of removal of Port-a-Cath (03/09/22) Removal of Access Port (Left) History of anesthesia reaction PONV; usually on longer surgeries History of open reduction and internal fixation (ORIF) procedure (~2018) Right ankle History of right radical nephrectomy (~07/30/21) Robotic Laparoscopic Assisted Right Radical Nephrectomy transition to hand assisted laparoscopic right Nephrectomy History of biopsy (~11/16/21) Ultrasound guided biopsy area near liver/kidney on RUQ Nausea and vomiting after administration of anesthetic agent History of esophagogastroduodenoscopy (EGD) History of colonoscopy H/O breast reconstruction Bilateral History of bilateral tubal ligation History of section x2 History of mastectomy Bilateral Family History Aunt FHx: breast cancer Breast cancer Mother FHx: breast cancer Breast cancer Family history of reaction to anesthesia slow to wake with anesthesia Grandmother (Maternal) FHx: breast cancer Breast cancer Father Family history of diabetes mellitus Heart disease Hypertension Denies family history of Ovarian cancer Colorectal cancer Social History Smoking Status: Never smoker Second Hand Exposure: No; Do You Dip or Chew Tobacco: No; Hx Alcohol Use: No Hx Substance Use: No Preferred Language: Tunisian Communication Ability: Effective Visual Impairment: No Limitations Police Lieutenant Required: No Beliefs That Will Affect Care: None marital status: Current Living Situation: Spouse Current Living Situation Comment: and 2 teenage sons Other Information That Helps Us Care for You: No Feels Safe at Home: Yes Safety Concerns: Feels Safe At This Time Diet: regular Assistive Devices: None Results & Data Vital Signs (Past 12 Hours) Vital Signs Temp Pulse Resp BP Pulse Ox O2 Del Method 03/01/25 08:21 37.1 C 72 18 136/89 98 Room Air 03/01/25 07:09 36.9 C 70 16 138/84 97 Room Air (1) Pancreatitis Acute pancreatitis complication: unspecified Chronicity: acute Pancreatitis type: drug induced Qualified Code(s): K85.30 - Drug induced acute pancreatitis without necrosis or infection
--- NOTE | 2025-03-01 12:51 | Gastrointestinal Consultation ---
Date of Consultation March 01, 2025 Assessment & Plan (1) Acute necrotizing pancreatitis: -Continue IV fluid hydration -Continue to control pain -Follow CBC, temp, & blood cultures -Clear liquids for now -Low threshold for transfer to tertiary center if decompensating, however at present patient does seem to be improved from initial presentation. Supervising Physician Co-Signing Physician Notes I personally saw and examined the patient. I have reviewed the chart and agree with the documentation provided by the ANIMAL ANATOMIST including discussion about the assessment, treatment and plan. Briefly, 54 yo female with PMH of metastatic RCC on keytruda and axitinib, stage 1 breast cancer in remission, anxietty, MDD, GERD, HTN, & hypothyroidism. Patient recently developed pancreatitis while on vacation in [place]. She first came to [facility] for this issue on 02/24/25 and was transferred to [facility] as she was found to have necrotizing pancreatitis. She notes she had a brief stay there until she demonstrated clinical improvement and was placed on Augmentin for discharge. Yesterday, she notes that she developed nausea, vomiting, and abdominal pain. She vomited numerous times and determined she should come to the ED. CT scan here showed: soft tissue stranding and fluid around the pancreas, consistent with acute pancreatitis. Again seen is an approximately 8.4 x 4.5 cm rim-enhancing fluid collection replacing the pancreatic neck and proximal pancreatic body, concerning for pancreatic necrosis. Question of abscess raised but the patient has no fevers chills night sweats and her white count is coming down. Patient is improved in her pain and her symptoms. She appears to have necrotizing pancreatitis complicated by a rim-enhancing fluid collection which appears to be a WOPN or a walled off pancreatic necrosis. Given that she has no fevers her white count is coming down and her pain is moderate to markedly improved, abscess is much lower on the differential. We have sent off blood cultures off antibiotics and have started her on Zosyn at this point. As she is improving I have asked her to advance her diet to full liquid diet. We will need to watch her to make sure she is able to tolerate this. If her cultures are negative x 48 hours, she can go back on her Augmentin outpatient. We should slowly start to increase her oral intake. Given the size of her walled off pancreatic necrosis, she will likely need advanced endoscopy procedure to drain this collection in the future months. However this is not absolutely certain and this collection needs to organize for period of time. Patient reports that she is able to tolerate diet and the liquids went down totally fine. Will have to see how she does with solid food over the weekend. Dr. Dean will cover. History of Present Illness Reason for Consultation: Pancreatic abscess Attending Physician: Fredo Gutiérrez MD History of Present Illness Patient is a 54 yo female with PMH of metastatic RCC on keytruda and axitinib, stage 1 breast cancer in remission, anxietty, MDD, GERD, HTN, & hypothyroidism. Patient recently developed pancreatitis while on vacation in [place]. She first came to [facility] for this issue on 02/24/25 and was transferred to [facility] as she was found to have necrotizing pancreatitis. She notes she had a brief stay there until she demonstrated clinical improvement and was placed on A ugmentin for discharge. Yesterday, she notes that she developed nausea, vomiting, and abdominal pain. She vomited numerous times and determined she should come to the ED. In the ED, a CT scan was read as follows: Impression: 1. Unchanged acute pancreatitis with suspected pancreatic necrosis and an 8 x 4 x 4.5 cm fluid collection that could represent an abscess 2. Unchanged 5 cm pericardial cyst 3. Small hiatal hernia 4. Cholelithiasis without definite acute cholecystitis 5. Small amount of ascites 6. Two separate ventral hernias in the right lower quadrant, one containing small bowel and the other containing cecum. There is no sign of associated obstruction 7. Small umbilical and right inguinal hernias containing only fat 8. Nonobstructing left renal calculus 9. Prior right nephrectomy WBC count 16,980 upon presentation. This has now decreased to 11,090. Lipase currently 157. Attempts were made to transfer the patient to [facility] at the advice of Dr. Topete of GI. [facility] declined referral. Conservative management was recommended. [facility] felt patient did not need antibiotics, but did suggest obtaining blood cultures. Patient reports significant improvement of her abdominal pain today. She is on a clear liquid diet. Allergies Allergy/AdvReac Type Severity Reaction Status Date / Time adhesive tape Allergy Intermediate Rash, Skin Verified 02/28/25 19:15 Redness vancomycin Allergy Intermediate Redness of Verified 02/28/25 19:15 Skin, Itchiness NSAIDS (Non-Steroidal AdvReac Severe does not Verified 02/28/25 19:15 Anti-Inflamma take d/t only one kidney codeine AdvReac Intermediate palpitation Verified 02/28/25 19:15 s/tachycard ia Home Medications Medication Instructions Recorded Confirmed Type Lactobacillus acidophilus 10 1 cell PO QAM 11/27/18 02/28/25 History billion cell capsule (Probiotic) levothyroxine 50 mcg tablet 50 mcg PO QAM 07/12/22 02/28/25 History gabapentin 100 mg capsule 0 mg PO HS PRN nerve pain 04/01/24 02/28/25 History (Neurontin) iron,carbonyl 65 mg-vitamin C 125 1 tab PO QAM 04/01/24 02/28/25 History mg tablet,delayed release (Vitron-C) axitinib 1 mg tablet (Inlyta) 3 mg PO BID 04/14/24 02/28/25 History ondansetron 8 mg disintegrating 8 mg PO TID PRN nausea 06/07/24 02/28/25 History tablet vitamin B complex 1 tab PO QAM 06/07/24 02/28/25 History pantoprazole 40 mg tablet,delayed 40 mg PO QAM 06/20/24 02/28/25 History release pembrolizumab 25 mg/mL intravenous See Rx Instructions .Route .COMPLEX 07/27/24 02/28/25 History solution (Keytruda) albuterol sulfate 90 mcg/actuation 1 inh inhalation Q6H PRN shortness 07/31/24 02/28/25 Rx aerosol inhaler of breath or wheezing #8.5 grams amlodipine 5 mg tablet 5 mg PO QAM 10/18/24 02/28/25 History lisinopril 40 mg tablet 40 mg PO QAM 10/26/24 02/28/25 History citalopram 20 mg tablet (Celexa) 30 mg (1.5 x 20 mg) PO HS 12/11/24 02/28/25 Rx depression, anxiety 1 month #45 tabs ipratropium bromide 17 0 inh inhalation Q6H PRN shortness 02/24/25 02/28/25 History mcg/actuation HFA aerosol inhaler of breath or wheezing (Atrovent HFA) lorazepam 0.5 mg tablet (Ativan) 0 mg PO BID PRN anxiety or insomnia 02/24/25 02/28/25 History prochlorperazine maleate 5 mg 5 mg PO UD PRN n/v 02/24/25 02/28/25 History tablet peg 3350-electrolytes 236 240 ml PO Q10M #4,000 mL 02/26/25 02/28/25 Rx gram-22.74 gram-6.74 gram-5.86 gram solution (GaviLyte-G) amoxicillin 875 mg-potassium 1 tab PO BID 02/28/25 02/28/25 History clavulanate 125 mg tablet Patient History Medical History Ureteral stone Encounter for pre-operative examination Anemia Hx blood transfusions and iron infusions in past History of IBS Nephrolithiasis Liver mass Abdomen/Pelvis CT 07/09/24: There unchanged small left hepatic lobe cyst. No suspicious hepatic mass lesions. 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/p right nephrectomy - Oral and immunotherapy q3wks Dyslipidemia History of COVID-19 Dx 2021 ([facility])- mild symptoms, cough/body aches > resolved Situational anxiety Rectal mass hx 06/2021, drained and resolved with rectal scope-"nothing suspicious" History of breast cancer (08/2011) CCP - XRT and surgery Surgical History S/P cystoscopy with ureteral stent placement w/laser destruction stone Port-A-Cath in place (05/03/22) Insertion Access Port with Fluoroscopy Right Cephalic History of vascular access device (04/2022) Placement of Port/Power History of vascular access device (11/2021) Original port placement History of lumpectomy of left breast Hx of hernia repair History of removal of Port-a-Cath (03/09/22) Removal of Access Port (Left) History of anesthesia reaction PONV; usually on longer surgeries History of open reduction and internal fixation (ORIF) procedure (~2018) Right ankle History of right radical nephrectomy (~07/30/21) Robotic Laparoscopic Assisted Right Radical Nephrectomy transition to hand assisted laparoscopic right Nephrectomy History of biopsy (~11/16/21) Ultrasound guided biopsy area near liver/kidney on RUQ Nausea and vomiting after administration of anesthetic agent History of esophagogastroduodenoscopy (EGD) History of colonoscopy H/O breast reconstruction Bilateral History of bilateral tubal ligation History of section x2 History of mastectomy Bilateral Family History Aunt FHx: breast cancer Breast cancer Mother FHx: breast cancer Breast cancer Family history of reaction to anesthesia slow to wake with anesthesia Grandmother (Maternal) FHx: breast cancer Breast cancer Father Family history of diabetes mellitus Heart disease Hypertension Denies family history of Ovarian cancer Colorectal cancer Social History Smoking Status: Never smoker Second Hand Exposure: No; Do You Dip or Chew Tobacco: No; Hx Alcohol Use: No Hx Substance Use: No Preferred Language: Portuguese Communication Ability: Effective Visual Impairment: No Limitations Assistant Director 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 Required: No Beliefs That Will Affect Care: None marital status: Current Living Situation: Spouse Current Living Situation Comment: and 2 teenage sons Other Information That Helps Us Care for You: No Feels Safe at Home: Yes Safety Concerns: Feels Safe At This Time Diet: regular Assistive Devices: None Review of Systems Constitutional: no fever and no chills Respiratory: no cough and no dyspnea Gastrointestinal: + abdominal pain and + nausea (improved) ; no melena Physical Exam Constitutional: well developed Respiratory: normal respiratory effort Gastrointestinal (Abdomen): normal bowel sounds, soft, nontender, no hepatosplenomegaly Psychiatric: Orientation: alert and oriented x 3 Results & Data Vital Signs (Past 12 Hours) Vital Signs Temp Pulse Resp BP Pulse Ox O2 Del Method 03/01/25 08:21 37.1 C 72 18 136/89 98 Room Air 03/01/25 07:09 36.9 C 70 16 138/84 97 Room Air PG Care Time/CCT Total # of Minutes Spent Total Time Spent with Patient: Total time spent is greater than 50% in coordination of care (as documented) at patient's floor/unit and/or counseling patient: Coding Level of Care Code 86731 IN/OBS CONSULT LVL 4,60M Diagnoses Acute necrotizing pancreatitis K85.91
[2025-03-01 13:29] LABS: Iron 12 mcg/dl (35-150); Total Iron Binding Cap Calc 210 mcg/dl (250-450); Transferrin 150 mg/dl (200-360); Transferrin (FE) Percent Satur 6 % (15-50)
[2025-03-01 13:53] LABS: Folate (Folic Acid),Ser orPlas > 22.30 ng/ml (>5.38)
[2025-03-01 13:54] LABS: Vitamin B12 1205 pg/ml (180-914)
--- NOTE | 2025-03-01 14:02 | Hospitalist Progress Note ---
Date of Service March 01, 2025 Assessment & Plan (1) Acute necrotizing pancreatitis: (2) Sepsis: (3) Renal cell carcinoma: (4) Hypertension: (5) Hypothyroidism (acquired): (6) Anxiety associated with depression: Plan 54 year old female with PMH significant for metastatic RCC (clear cell, stage T3a, s/p renal resection, solitary kidney) on keytruda (last infusion 02/07/2025) and axitinib, hx of keytruda induced pneumotitis, hx of stage 1 breast cancer in remission, MDD, anxiety, cancer related pain, GERD, HTN, hypothyroidism who presents to the ED on 02/28/2025 for vomiting. Acute necrotizing pancreatitis Possible pancreatic abscess Sepsis due to above Likely secondary to immune checkpoint inhibitor (Keytruda) --CT ABD:Unchanged acute pancreatitis with suspected pancreatic necrosis and an 8 x 4 x 4.5 cm fluid collection that could represent an abscess. Unchanged 5 cm pericardial cyst. Small hiatal hernia. Cholelithiasis without definite acute cholecystitis. Small amount of ascites.Two separate ventral hernias in the right lower quadrant, one containing small bowel and the other containing cecum. There is no sign of associated obstruction. Small umbilical and right inguinal hernias containing only fat. Nonobstructing left renal calculus. Prior right nephrectomy. -- Blood cultures pending -Patient presented to [facility] ED on 02/24/2025 and was diagnosed with acute necrotizing pancreatitis and transferred to [facility] -Managed at [facility] with supportive care including IV antibiotics and discharged on 02/27/2025 on Augmentin -Dr. Peña discussed with Dr. Fagan of [facility] who reviewed the images himself and does not think that the fluid collection is infected but it could be starting to walled off but not truly an abscess. He states there is no need for intervention of this at this time. He recommends supportive care. He states no need for transfer at this time. He states no need for antibiotics at this time. He does state to obtain blood cultures. Dr. Fagan stated if there are any issues to give their center callback. -Discussed case with Dr. Topete of GI who still recommended transfer to tertiary care given pancreatic necrosis and this facilitys inability to perform possible life saving procedures in future if needed during hospitalization, as he feels she has a fair chance of decompensation -Dr. Peña discussed with Dr. Ramos of [facility] who stated no need for transfer and to admit here for supportive care -- Continue IV Zosyn, IV fluids Pain control as needed Appreciate GI input Clear liquid diet today Oncology plans to discuss with GI--consideration for steroids for Keytruda induced pancreatitis Low threshold to transfer to tertiary care facility if clinically deteriorates Check stool studies if develops diarrhea Suspected Pericardial Cyst Incidental finding on CT --CT showed :unchanged 5 cm cystic area in the right anterior cardiophrenic angle, likely a pericardial cyst Will obtain echo for further evaluation Renal cell carcinoma Breast cancer in remission Following with Dr. Mcclure of Heme/Onc and Dr. Charles of Palliative Care Was on Inlyta and Keytruda Appreciate oncology input Hypertension Continue amlodipine and lisinopril Monitor blood pressure Hypothyroidism Continue levothyroxine MDD/anxiety Continue citalopram and ativan prn GERD Continue pantoprazole LEONOR CPAP HS DVT Px: SQ Lovenox Code Status: FULL CODE Admission and Anticipated Discharge Date Admission Date: February 28, 2025 Subjective Patient is seen and examined at bedside Abdominal pain much improved No nausea, vomiting, chest pain, dyspnea, dizziness today Family at bedside Offers no other complaints Review of Systems Review of Systems: All systems reviewed & are unremarkable except as noted in Subjective Physical Exam Physical Exam: Physical Exam: Vitals signs as noted above General Appearance:Moderately built and nourished, no apparent distress Head: normocephalic, Atraumatic Eyes: normal inspection, EOMI Neck: supple, Trachea midline Respiratory/Chest: Normal breath sounds, + port, CTA, No accessory muscle use Cardiovascular: S1, S2, No murmur Abdomen/GI:Soft, Non tender, Bowel sounds present, no guarding or rigidity Extremities/Musculoskeletal:normal inspection, no edema Neurologic/Psych:AAOX3, grossly no focal neurological deficits Skin: normal color, warm Results & Data Results & Data Vital Signs (Past 12 Hours) Vital Signs Temp Pulse Resp BP Pulse Ox O2 Del Method 03/01/25 08:21 37.1 C 72 18 136/89 98 Room Air 03/01/25 07:09 36.9 C 70 16 138/84 97 Room Air Laboratory Results Short CBC 02/28/25 03/01/25 Range/Units 15:35 06:32 WBC 16.98 H 11.09 H (4.8-10.8) K/ul Hgb 12.6 10.3 L (12.0-16.0) g/dL Hct 38.6 32.3 L (37.0-47.0) % Plt Count 544 H 416 H (130-400) K/uL BMP 02/28/25 03/01/25 15:35 06:32 Sodium 137 139 Potassium 4.0 3.8 Chloride 103 106 Carbon Dioxide 20 L 24 BUN 5 L 6 Creatinine 0.85 0.81 Glucose 147 H 98 Calcium 9.3 9.0 Liver Function 02/28/25 03/01/25 Range/Units 15:35 06:32 Total Bilirubin 0.6 0.5 (0.2-1.0) mg/dl AST 14 11 L (13-39) U/L ALT 12 10 (7-52) U/L Alkaline Phosphatase 65 45 (34-104) U/L Albumin 3.6 3.3 L (3.4-5.0) gm/dl Urine 03/01/25 Range/Units 08:30 Urine Color Yellow Urine Appearance Clear (Clear) Urine pH 7.5 (4.5-7.5) Ur Specific Robbins 1.027 (1.000-1.030) Urine Protein Trace H (Negative) Urine Glucose (UA) Negative (Negative) (3) Renal cell carcinoma Laterality: right Qualified Code(s): C64.1 - Malignant neoplasm of right kidney, except renal pelvis (4) Hypertension Hypertension type: primary hypertension Qualified Code(s): I10 - Essential (primary) hypertension
--- NOTE | 2025-03-01 16:48 | XCELERA ---
[id number]
[2025-03-01] MEDS: CITALOPRAM 20 MG TAB PO SCH (21:42)
[2025-03-02 06:58] LABS: Hematocrit (blood only) 30.5 % (37.0-47.0); Hemoglobin 10.0 g/dL (12.0-16.0); Mean Corpuscular Hemoglobin 27.1 pg (25.0-34.0); Mean Corpuscular Volume 82.7 fL (80.0-100.0); Platelet Count 390 K/uL (130-400); RDW Standard Deviation 45.6 fL (36.4-46.3); Red Blood Count 3.69 M/uL (4.20-5.40); White Blood Count 8.15 K/ul (4.8-10.8)
[2025-03-02 07:32] LABS: Anion Gap 8.0 (3-11); Blood Urea Nitrogen 5.0 mg/dl (6-23); Calcium 8.7 mg/dl (8.6-10.3); Carbon Dioxide 25.0 mmol/L (21-32); Chloride 106.0 mmol/L (98-107); Creatinine Clr Calc Pharmacy 90.7 ml/min; Glucose 92.0 mg/dl (70-99(Fasting)); Magnesium 1.8 mg/dl (1.7-2.4); Potassium 3.7 mmol/L (3.5-5.1); Sodium 139.0 mmol/L (136-145)
[2025-03-02] MEDS: LACTATED RINGER'S 1,000 ML IV SCH (09:56)
--- NOTE | 2025-03-02 13:22 | Gastroenterology Progress Note ---
Date of Service March 02, 2025 Assessment & Plan (1) Pancreatitis: Plan: I do not believe this is a recurrent bout of acute pancreatitis. I think this is part of her previous process. There is an evolving pancreatic pseudocyst. I do not believe this is infected in the absence of a significant systemic response tachycardia fevers elevated white count excetra. Predominant reason for admission is vomiting and pain with p.o. This may just be reflection of the severity of her pancreatitis and the slow course of healing in this situation. Differential though would include pancreatic duct disruption. This can cause recurrent pain with p.o. enlarging pancreatic pseudocyst. With enlarging pseudocyst there may develop a level of gastric outlet obstruction which may play a role in her vomiting. Patient did not have an EUS performed at [facility]. I do think we need to image her pancreatic duct. Or MRI will be ordered. Patient has had anxiety with MRI in the past hopefully hospitals can provide her with a sedative prior to this procedure. If unable to tolerate MRI or the images are insufficient we will need EUS. (2) Abdominal pain: (3) History of gallstones: Plan: Patient had a bout of pancreatitis. She has a gallstone. Apparently not associated increased liver enzymes. However he the ileus patient does have a cholecystectomy without a natalia obvious cause for pancreatitis though Keytruda has been implicated it is not a common cause for pancreatitis. Cholecystectomy can be elective Admission and Anticipated Discharge Date Admission Date: February 28, 2025 Subjective Pancreatic phlegmon History of acute pancreatitis occurring in [place] while on vacation. Not felt to be related to excess alcohol intake. Question Keytruda effect. Though this is not common. Patient has gallstones though does not have abnormal liver test. She was admitted here and subsequently transferred to [facility]. Spent a few days at [facility] was discharged to home. She is remitted here now secondary to nausea vomiting. She states she has continued abdominal pains never really quite resolved. She is a little fearful of eating as it causes pain. She denies natalia fevers chills or night sweats. CT scans shows a large 8 cm rim-enhancing enhancing pancreatic fluid collection in the proximal neck and body. This would be consistent with evolving pancreatic pseudocyst. Question pancreatic abscess however patient is not behaving as an effective pancreatic fluid no fever no elevated white count no signs of systemic sepsis process. Main complaint is pain with p.o. intake episode of vomiting. She did have mild elevated lipase on admission though this is in the range from her previous admissions and likely will remain elevated related to the pancreatic phlegmon and pseudocyst formation. Patient did not get an MRI or EUS either here or at [facility] medical Review of Systems Review of Systems: Denies natalia fevers chills night sweats chills or rigors. No chest pain or shortness of breath Abdomen is noted above Review systems otherwise as admitting H&P reviewed without change Physical Exam Physical Exam: Patient lying in bed. She has a food tray which is mostly not eaten. Orientated person place and time she does not appear acutely septic or toxic. Chest and heart exams were normal Abdomen protuberant benign no guarding rebound rigidity no bruit audible patient does have ventral hernias. Nontender Results & Data Results & Data Vital Signs (Past 12 Hours) Vital Signs Temp Pulse Resp BP Pulse Ox O2 Del Method 03/02/25 07:56 36.9 C 70 18 134/85 98 Room Air 03/02/25 03:04 37.1 C 70 16 91/52 L 94 Room Air PG Care Time/CCT Total # of Minutes Spent Total Time Spent with Patient: Total time spent is greater than 50% in coordination of care (as documented) at patient's floor/unit and/or counseling patient: Coding Level of Care Code 42344 SUB INP/OBS CARE 2/35MIN Diagnoses Pancreatitis K85.30 Acute pancreatitis complication: unspecified Chronicity: acute Pancreatitis type: drug induced Abdominal pain R10.9 Abdominal location: unspecified location History of gallstones Z87.19 (1) Pancreatitis Acute pancreatitis complication: unspecified Chronicity: acute Pancreatitis type: drug induced Qualified Code(s): K85.30 - Drug induced acute pancreatitis without necrosis or infection (2) Abdominal pain Abdominal location: unspecified location Qualified Code(s): R10.9 - Unspecified abdominal pain
--- NOTE | 2025-03-02 14:01 | Hospitalist Progress Note ---
Date of Service March 02, 2025 Assessment & Plan (1) Acute necrotizing pancreatitis: (2) Sepsis: (3) Renal cell carcinoma: (4) Hypertension: (5) Hypothyroidism (acquired): (6) Anxiety associated with depression: Plan 54 year old female with PMH significant for metastatic RCC (clear cell, stage T3a, s/p renal resection, solitary kidney) on keytruda (last infusion 02/07/2025) and axitinib, hx of keytruda induced pneumotitis, hx of stage 1 breast cancer in remission, MDD, anxiety, cancer related pain, GERD, HTN, hypothyroidism who presents to the ED on 02/28/2025 for vomiting. Acute necrotizing pancreatitis Possible pancreatic abscess/evolving pancreatic pseudocyst Sepsis due to above Likely secondary to immune checkpoint inhibitor (Keytruda) --CT ABD:Unchanged acute pancreatitis with suspected pancreatic necrosis and an 8 x 4 x 4.5 cm fluid collection that could represent an abscess. Unchanged 5 cm pericardial cyst. Small hiatal hernia. Cholelithiasis without definite acute cholecystitis. Small amount of ascites.Two separate ventral hernias in the right lower quadrant, one containing small bowel and the other containing cecum. There is no sign of associated obstruction. Small umbilical and right inguinal hernias containing only fat. Nonobstructing left renal calculus. Prior right nephrectomy. -- Blood cultures pending -Patient presented to [facility] ED on 02/24/2025 and was diagnosed with acute necrotizing pancreatitis and transferred to [facility] -Managed at [facility] with supportive care including IV antibiotics and discharged on 02/27/2025 on Augmentin -Dr. Peña discussed with Dr. Fagan of [facility] who reviewed the images himself and does not think that the fluid collection is infected but it could be starting to walled off but not truly an abscess. He states there is no need for intervention of this at this time. He recommends supportive care. He states no need for transfer at this time. He states no need for antibiotics at this time. He does state to obtain blood cultures. Dr. Fagan stated if there are any issues to give their center callback. -Discussed case with Dr. Topete of GI who still recommended transfer to tertiary care given pancreatic necrosis and this facilitys inability to perform possible life saving procedures in future if needed during hospitalization, as he feels she has a fair chance of decompensation -Dr. Peña discussed with Dr. Ramos of [facility] GI who stated no need for transfer and to admit here for supportive care --MRCP pending -- Continue IV Zosyn, IV fluids Pain control as needed Appreciate GI input Continue full liquid diet today Oncology plans to discuss with GI--consideration for steroids for Keytruda induced pancreatitis Low threshold to transfer to tertiary care facility if clinically deteriorates Check stool studies if develops diarrhea Discussed with gastroenterology today. Plan for MRCP today Suspected Pericardial Cyst--ruled out/Less likely Incidental finding on CT --CT showed :unchanged 5 cm cystic area in the right anterior cardiophrenic a ngle, likely a pericardial cyst --ECHO: Left ventricle wall motion is normal. EF 55 to 60%. No pericardial effusion. No significant valvular disease. Renal cell carcinoma Breast cancer in remission Following with Dr. Mcclure of Heme/Onc and Dr. Charles of Palliative Care Was on Inlyta and Keytruda Appreciate oncology input Hypertension Continue amlodipine and lisinopril Monitor blood pressure Hypothyroidism Continue levothyroxine MDD/anxiety Continue citalopram and ativan prn GERD Continue pantoprazole LEONOR CPAP HS DVT Px: SQ Lovenox Code Status: FULL CODE Admission and Anticipated Discharge Date Admission Date: February 28, 2025 Subjective Patient is seen and examined at bedside States feeling well today Tolerating current diet Had semiformed bowel movement today Reports increased burping Family at bedside Denies any chest pain, dyspnea, abdominal pain today Discussed with GI today Review of Systems Review of Systems: All systems reviewed & are unremarkable except as noted in Subjective Physical Exam Physical Exam: Physical Exam: Vitals signs as noted above General Appearance:Moderately built and nourished, no apparent distress Head: normocephalic, Atraumatic Eyes: normal inspection, EOMI Neck: supple, Trachea midline Respiratory/Chest: Normal breath sounds, + port, CTA, No accessory muscle use Cardiovascular: S1, S2, No murmur Abdomen/GI:Soft, Non tender, Bowel sounds present, no guarding or rigidity Extremities/Musculoskeletal:normal inspection, no edema Neurologic/Psych:AAOX3, grossly no focal neurological deficits Skin: normal color, warm Results & Data Results & Data Vital Signs (Past 12 Hours) Vital Signs Temp Pulse Resp BP Pulse Ox O2 Del Method 03/02/25 07:56 36.9 C 70 18 134/85 98 Room Air 03/02/25 03:04 37.1 C 70 16 91/52 L 94 Room Air Laboratory Results Short CBC 03/02/25 Range/Units 06:29 WBC 8.15 (4.8-10.8) K/ul Hgb 10.0 L (12.0-16.0) g/dL Hct 30.5 L (37.0-47.0) % Plt Count 390 (130-400) K/uL BMP 03/02/25 06:29 Sodium 139 Potassium 3.7 Chloride 106 Carbon Dioxide 25 BUN 5 L Creatinine 0.82 Glucose 92 Calcium 8.7 (3) Renal cell carcinoma Laterality: right Qualified Code(s): C64.1 - Malignant neoplasm of right kidney, except renal pelvis (4) Hypertension Hypertension type: primary hypertension Qualified Code(s): I10 - Essential (primary) hypertension
[2025-03-02] MEDS: LORazepam Inj 0.5 MG in SYRINGE 0.25 ML IV PRN (16:11)
--- NOTE | 2025-03-02 19:07 | Magnetic Resonance Report ---
EXAM: MR MRCP CLINICAL HISTORY: Rule out pancreatic duct disruption TECHNIQUE: Multiplanar multisequence magnetic resonance imaging of the abdomen without intravenous contrast. COMPARISON: None. FINDINGS: Liver: Normal size and morphology. Homogeneous signal intensity on T2-weighted images. No focal hepatic lesions. Gallbladder: A large gallbladder stone, measuirng 2.7 cm. No wall thickening. Bile Ducts: Intrahepatic and extrahepatic bile ducts are normal in caliber. Common bile duct is normal in caliber with no evidence of strictures or filling defects. No evidence of choledocholithiasis. Pancreas: The pancreas is diffusely swollen, with the pancreatic body and tail showing markedly heterogeneous parenchyma and abnormal signal, associated with a peripancreatic cystic collection showing a well-defined margin, measuring 8.9 x 6.1 cm. Pancreatic Duct: The proximal and distal segments of the pancreatic ducts are of average caliber; however, the middle segment in the pancreatic body couldn't be visualized. Spleen: Normal size and appearance. Homogeneous signal intensity. Kidneys: Non-visualized right kidney. Normal size, shape, and position of the left kidney. Homogeneous signal intensity on T2-weighted images. No renal stones, masses, or hydronephrosis. Adrenal Glands: Left adrenal thickneing, likley reactive. Surrounding Structures: No evidence of free fluid or abnormal fluid collections in the abdomen. Normal appearance of the visualized bowel loops. Bilateral breast implants. IMPRESSION: 1. The pancreas is diffusely swollen, with the pancreatic body and tail showing markedly heterogeneous, irregular parenchyma and abnormal signal, likley representing pancreatitis, associated with a peripancreatic cystic collection showing a well-defined margin, likley representing walled-off necrotic collection (WON). Advised clinical and laboratory correlation and further triphasic post contrast MRI assessment. 2. The proximal and distal segments of the pancreatic duct are seen of average caliber; however, the middle segment within the pancreatic body couldn't be visualized, being obscured by the markedly heterogeneous pancreatic parenchyma and collection. Advised clinical correlation and further assessment. 3. A large gallbladder stone, measuring 2.7cm. Electronically signed by Shai Subramanian 03-02-2025 7:06 PM
[2025-03-02] MEDS: ACETAMINOPHEN 325 MG TAB PO PRN (21:31)
[2025-03-02 23:27] VITALS: RESP 16
[2025-03-03 07:16] VITALS: O2SAT 96
[2025-03-03 07:20] LABS: Hematocrit (blood only) 33.0 % (37.0-47.0); Hemoglobin 10.5 g/dL (12.0-16.0); Mean Corpuscular Hemoglobin 26.5 pg (25.0-34.0); Mean Corpuscular Volume 83.3 fL (80.0-100.0); Platelet Count 407 K/uL (130-400); RDW Standard Deviation 45.8 fL (36.4-46.3); Red Blood Count 3.96 M/uL (4.20-5.40); White Blood Count 8.79 K/ul (4.8-10.8)
[2025-03-03 07:39] LABS: Alanine Aminotransferase 9.0 U/L (7-52); Albumin Globulin Ratio 1.3 (0.9-2); Albumin Level 3.3 gm/dl (3.4-5.0); Alkaline Phosphatase 46.0 U/L (34-104); Anion Gap 9.0 (3-11); Bilirubin,Total 0.4 mg/dl (0.2-1.0); Blood Urea Nitrogen 4.0 mg/dl (6-23); Calcium 8.7 mg/dl (8.6-10.3); Carbon Dioxide 25.0 mmol/L (21-32); Chloride 106.0 mmol/L (98-107); Creatinine Clr Calc Pharmacy 100.5 ml/min; Globulin 2.5 gm/dl (2.5-4.0); Glucose 97.0 mg/dl (70-99(Fasting)); Lipase 121.0 U/L (11-82); Potassium 3.6 mmol/L (3.5-5.1); Sodium 140.0 mmol/L (136-145); Total Protein 5.8 gm/dl (6.0-8.3)
--- NOTE | 2025-03-03 07:45 | Communication Note ---
Date of Service: March 03, 2025 MRCP concerning for possible pancreatic duct disruption , recommend transfer for EUS, ercp and pancreatic duct stenting
--- NOTE | 2025-03-03 10:17 | Gastroenterology Progress Note ---
Date of Service March 03, 2025 Assessment & Plan (1) Phlegmon of pancreas: Plan: Likely evolving pancreatic pseudocyst. She continues to have pain with any p.o. intake. Clinical course is suggestive of possible pancreatic duct disruption. MRI is also concerning for this. This will need to be evaluated further with potential pancreatic duct stenting. Recommend EUS and ERCP for further evaluation. She will require tertiary referral for this. Patient's been seen in [place] and recommend refer back to there. This was reviewed with patient and family at the bedside. (2) Pancreatitis: (3) Abdominal pain: Admission and Anticipated Discharge Date Admission Date: February 28, 2025 Subjective Pancreatitis, evolving pancreatic pseudocyst Patient continues to have pain with p.o. intake. Large fluid collection which does not appear to be infected. Based on yesterday's review of history presenting illness and clinical course I was concerned about the potential for pancreatic duct disruption. MRI is somewhat suggestive of this. Not definitive but certainly concerning "[place], [place] [phone] Magnetic Resonance Report Patient: DEMIAN LARA Admit Date: 02/28/25 MR#: [id number] Address1: [address] [place] [address] Acct ID:[id number] Address2: Date: 1970 [facility] Zip: [place] [address] Age: 54 Location: 3W Sex: F Room/Bed: [facility] Att Phy: Fredo Gutiérrez MD Diagnosis: PANCREATIC ABSCESS Carole Phy: Emilie Nicole DO Service Date: 03/02/25 [facility] Phy: Interpreting Phy: [facility]ramanian [facility] Phy: Bony Villagomez MD Ordering Phy: Mark Dean MD Pancreas: The pancreas is diffusely swollen, with the pancreatic body and tail showing markedly heterogeneous parenchyma and abnormal signal, associated with a peripancreatic cystic collection showing a well-defined margin, measuring 8.9 x 6.1 cm. Pancreatic Duct: The proximal and distal segments of the pancreatic ducts are of average caliber; however, the middle segment in the pancreatic body couldn't be visualized. Lipase remains elevated which is consistent with the pancreatic fluid collection this will likely stay elevated for a long time. Review of Systems Review of Systems: Denies shortness of breath chest pain. No fevers or chills GI is noted above Physical Exam Physical Exam: Patient sleeping soundly arouses to voice orientated to person place and time does not appear acutely septic or toxic Abdomen epigastric disc Results & Data Results & Data Vital Signs (Past 12 Hours) Vital Signs Temp Pulse Resp BP Pulse Ox O2 Del Method 03/03/25 07:16 36.8 C 68 16 138/88 96 Room Air 03/02/25 23:26 36.9 C 84 16 137/87 95 Room Air PG Care Time/CCT Total # of Minutes Spent Total Time Spent with Patient: Total time spent is greater than 50% in coordination of care (as documented) at patient's floor/unit and/or counseling patient: Coding Level of Care Code 84652 SUB INP/OBS CARE 05/12MIN Diagnoses Phlegmon of pancreas K85.90 Pancreatitis K85.30 Acute pancreatitis complication: unspecified Chronicity: acute Pancreatitis type: drug induced Abdominal pain R10.9 Abdominal location: unspecified location (2) Pancreatitis Acute pancreatitis complication: unspecified Chronicity: acute Pancreatitis type: drug induced Qualified Code(s): K85.30 - Drug induced acute pancreatitis without necrosis or infection (3) Abdominal pain Abdominal location: unspecified location Qualified Code(s): R10.9 - Unspecified abdominal pain
--- NOTE | 2025-03-03 11:59 | Hospitalist Progress Note ---
Date of Service March 03, 2025 Assessment & Plan (1) Acute necrotizing pancreatitis: (2) Sepsis: (3) Renal cell carcinoma: (4) Hypertension: (5) Hypothyroidism (acquired): (6) Anxiety associated with depression: Plan 54 year old female with PMH significant for metastatic RCC (clear cell, stage T3a, s/p renal resection, solitary kidney) on keytruda (last infusion 02/07/2025) and axitinib, hx of keytruda induced pneumotitis, hx of stage 1 breast cancer in remission, MDD, anxiety, cancer related pain, GERD, HTN, hypothyroidism who presents to the ED on 02/28/2025 for vomiting. Acute necrotizing pancreatitis Possible pancreatic abscess/evolving pancreatic pseudocyst Sepsis due to above Likely secondary to immune checkpoint inhibitor (Keytruda) --CT ABD:Unchanged acute pancreatitis with suspected pancreatic necrosis and an 8 x 4 x 4.5 cm fluid collection that could represent an abscess. Unchanged 5 cm pericardial cyst. Small hiatal hernia. Cholelithiasis without definite acute cholecystitis. Small amount of ascites.Two separate ventral hernias in the right lower quadrant, one containing small bowel and the other containing cecum. There is no sign of associated obstruction. Small umbilical and right inguinal hernias containing only fat. Nonobstructing left renal calculus. Prior right nephrectomy. -- Blood cultures pending -Patient presented to [facility] ED on 02/24/2025 and was diagnosed with acute necrotizing pancreatitis and transferred to [facility] -Managed at [facility] [place] supportive care including IV antibiotics and discharged on 02/27/2025 on Augmentin -Dr. Peña discussed with Dr. Fagan of [facility] who reviewed the images himself and does not think that the fluid collection is infected but it could be starting to walled off but not truly an abscess. He states there is no need for intervention of this at this time. He recommends supportive care. He states no need for transfer at this time. He states no need for antibiotics at this time. He does state to obtain blood cultures. Dr. Fagan stated if there are any issues to give their center callback. -Discussed case with Dr. Topete of GI who still recommended transfer to tertiary care given pancreatic necrosis and this facilitys inability to perform possible life saving procedures in future if needed during hospitalization, as he feels she has a fair chance of decompensation -Dr. Peña discussed with Dr. Ramos of [facility] GI who stated no need for transfer and to admit here for supportive care --MRCP: The pancreas is diffusely swollen, with the pancreatic body and tail showing markedly heterogeneous, irregular parenchyma and abnormal signal, likley representing pancreatitis, associated with a peripancreatic cystic collection showing a well-defined margin, likley representing walled-off necrotic collection (WON). Advised clinical and laboratory correlation and further triphasic post contrast MRI assessment. The proximal and distal segments of the pancreatic duct are seen of average caliber; however, the middle segment within the pancreatic body couldn't be visualized, being obscured by the markedly heterogeneous pancreatic parenchyma and collection. Advised clinical correlation and further assessment. A large gallbladder stone, measuring 2.7cm. -FOBT pending- -- Continue IV Zosyn, IV fluids Pain control as needed Appreciate GI input Will make her n.p.o. as patient had bloody bowel movement today Oncology plans to discuss with GI--consideration for steroids for Keytruda induced pancreatitis GI recommends transfer to tertiary care facility for endoscopic ultrasound, ERCP with possible pancreatic stent placement. Patient is accepted at [facility] for further evaluation Suspected Pericardial Cyst--ruled out/Less likely Incidental finding on CT --CT showed :unchanged 5 cm cystic area in the right anterior cardiophrenic angle, likely a pericardial cyst --ECHO: Left ventricle wall motion is normal. EF 55 to 60%. No pericardial effusion. No significant valvular disease. Renal cell carcinoma Breast cancer in remission Following with Dr. Mcclure of Heme/Onc and Dr. Charles of Palliative Care Was on Inlyta and Keytruda Appreciate oncology input Hypertension Continue amlodipine and lisinopril Monitor blood pressure Hypothyroidism Continue levothyroxine MDD/anxiety Continue citalopram and ativan prn GERD Continue pantoprazole LEONOR CPAP HS DVT Px: SQ Lovenox Code Status: FULL CODE Disposition [facility] Admission and Anticipated Discharge Date Admission Date: February 28, 2025 Subjective Patient is seen and examined at bedside Reports having a bloody bowel movement this morning Also admits to have some abdominal discomfort No other complaints today Discussed with [facility] who accepted the patient for further evaluation Family at bedside Review of Systems Review of Systems: All systems reviewed & are unremarkable except as noted in Subjective Physical Exam Physical Exam: Physical Exam: Vitals signs as noted above General Appearance:Moderately built and nourished, no apparent distress Head: normocephalic, Atraumatic Eyes: normal inspection, EOMI Neck: supple, Trachea midline Respiratory/Chest: Normal breath sounds, + port, CTA, No accessory muscle use Cardiovascular: S1, S2, No murmur Abdomen/GI:Soft, Non tender, Bowel sounds present, no guarding or rigidity Extremities/Musculoskeletal:normal inspection, no edema Neurologic/Psych:AAOX3, grossly no focal neurological deficits Skin: normal color, warm Results & Data Results & Data Vital Signs (Past 12 Hours) Vital Signs Temp Pulse Resp BP Pulse Ox O2 Del Method 03/03/25 07:16 36.8 C 68 16 138/88 96 Room Air Laboratory Results Short CBC 03/03/25 Range/Units 06:24 WBC 8.79 (4.8-10.8) K/ul Hgb 10.5 L (12.0-16.0) g/dL Hct 33.0 L (37.0-47.0) % Plt Count 407 H (130-400) K/uL BMP 03/03/25 06:24 Sodium 140 Potassium 3.6 Chloride 106 Carbon Dioxide 25 BUN 4 L Creatinine 0.74 Glucose 97 Calcium 8.7 Liver Function 03/03/25 Range/Units 06:24 Total Bilirubin 0.4 (0.2-1.0) mg/dl AST 12 L (13-39) U/L ALT 9 (7-52) U/L Alkaline Phosphatase 46 (34-104) U/L Albumin 3.3 L (3.4-5.0) gm/dl (3) Renal cell carcinoma Laterality: right Qualified Code(s): C64.1 - Malignant neoplasm of right kidney, except renal pelvis (4) Hypertension Hypertension type: primary hypertension Qualified Code(s): I10 - Essential (primary) hypertension
--- NOTE | 2025-03-03 12:13 | Discharge Summary ---
Date of Service March 03, 2025 Admission HPI Per Admitting Provider 54 year old female with PMH significant for metastatic RCC (clear cell, stage T3a, s/p renal resection, solitary kidney) on keytruda (last infusion 02/07/2025) and axitinib, hx of keytruda induced pneumotitis, hx of stage 1 breast cancer in remission, MDD, anxiety, cancer related pain, GERD, HTN, hypothyroidism who presents to the ED on 02/28/2025 for vomiting. Patient was initially diagnosed with pancreatitis a few weeks ago while on vacation in [place]. Presented to [facility] ED on 02/24/2025 and was transferred to [facility] for necrotizing pancreatitis. She tells me that she was given IV antibiotics at [facility], which helped her perk up and feel better. She was discharged to home yesterday at 4:00pm on oral augmentin and zofran. She was doing okay at home until this afternoon. She had some soup and applesauce this morning and started to vomit around 12:00pm. She tried taking zofran without relief. Reports she continued to vomit 8-10 times, prompting evaluation in the ED. Upon my evaluation, she is still feeling nauseated but has not vomited for two hours. She denies fevers, chills, chest pain, SOB, abdominal pain, dysuria. Notes fatigue, weakness, and diarrhea since being on antibiotics. Admission Exam Per Admitting Provider General/Psych: ill appearing, sitting up in bed, NAD, conversing easily Head: normocephalic, atraumatic Eyes: normal inspection, PERRL, conjunctivae pink, strabismus of right eye ENT: external ear and nose normal, oropharynx normal Neck: normal visual inspection, trachea midline Respiratory: normal respiratory effort, lungs clear to auscultation, no wheeze/rales/rhonchi, no accessory muscle use Cardiovascular: regular rate and rhythm, no murmur/rub/gallop, +port to right chest dressing c/d/i Extremities: no cyanosis or clubbing, normal peripheral pulses, trace BLE edema Abdomen/GI: normal bowel sounds, soft, tender on palpation of epigastric/RUQ Neurologic/MSK: A+Ox3, motor strength 5/5, moves all extremities Skin: no rashes, normal color, warm and dry Principal Diagnosis Acute necrotizing pancreatitis Possible pancreatic abscess/evolving pancreatic pseudocyst Possible pancreatic duct disruption Sepsis Renal cell carcinoma Discharge Data Allergies Allergy/AdvReac Type Severity Reaction Status Date / Time adhesive tape Allergy Intermediate Rash, Skin Verified 02/28/25 19:15 Redness vancomycin Allergy Intermediate Redness of Verified 02/28/25 19:15 Skin, Itchiness NSAIDS (Non-Steroidal AdvReac Severe does not Verified 02/28/25 19:15 Anti-Inflamma take d/t only one kidney codeine AdvReac Intermediate palpitation Verified 02/28/25 19:15 s/tachycard ia Consultations 02/28/25 18:42 ED Decision to Admit Stat 02/28/25 22:08 Consult Oncology Routine 02/28/25 22:30 Consult Gastroenterology Routine Procedures Performed Laboratory Results WBC 8.79 K/ul (4.8-10.8) 03/03/25 06:24 RBC 3.96 M/uL (4.20-5.40) L 03/03/25 06:24 Hgb 10.5 g/dL (12.0-16.0) L 03/03/25 06:24 Hct 33.0 % (37.0-47.0) L 03/03/25 06:24 MCV 83.3 fL (80.0-100.0) 03/03/25 06:24 MCH 26.5 pg (25.0-34.0) 03/03/25 06:24 MCHC 31.8 g/dL (32.0-36.0) L 03/03/25 06:24 RDW Std Deviation 45.8 fL (36.4-46.3) 03/03/25 06:24 RDW Coeff of Edmundo 15.1 % (11.5-14.5) H 03/03/25 06:24 Plt Count 407 K/uL (130-400) H 03/03/25 06:24 MPV 11.4 fL (9.4-12.4) 03/03/25 06:24 Immature Gran % (Auto) 0.5 % 03/01/25 06:32 Neut % (Auto) 77.3 % 03/01/25 06:32 Lymph % (Auto) 14.7 % 03/01/25 06:32 Corson % (Auto) 6.0 % 03/01/25 06:32 Eos % (Auto) 1.0 % 03/01/25 06:32 Baso % (Auto) 0.5 % 03/01/25 06:32 Neut # (Auto) 8.59 K/uL (1.40-6.50) H 03/01/25 06:32 Lymph # (Auto) 1.63 K/uL (1.20-3.40) 03/01/25 06:32 Corson # (Auto) 0.66 K/uL (0.11-0.59) H 03/01/25 06:32 Eos # (Auto) 0.11 K/uL (0.00-0.50) 03/01/25 06:32 Baso # (Auto) 0.05 K/uL (0.00-0.20) 03/01/25 06:32 Immature Gran # (Auto) 0.05 K/uL (0.01-0.20) 03/01/25 06:32 Echinocytes 1+ 02/28/25 15:35 PT 11.9 Seconds (9.0-12.0) 02/28/25 15:35 INR 1.1 (0.9-1.1) 02/28/25 15:35 Sodium 140 mmol/L (136-145) 03/03/25 06:24 Potassium 3.6 mmol/L (3.5-5.1) 03/03/25 06:24 Chloride 106 mmol/L (98-107) 03/03/25 06:24 Carbon Dioxide 25 mmol/L (21-32) 03/03/25 06:24 Anion Gap 9 (3-11) 03/03/25 06:24 BUN 4 mg/dl (6-23) L 03/03/25 06:24 Creatinine 0.74 mg/dl (0.6-1.2) 03/03/25 06:24 Est Cr Clr Drug Dosing 100.5 ml/min 03/03/25 06:24 eGFR 96.09 03/03/25 06:24 BUN/Creatinine Ratio 5.4 (10-20) L 03/03/25 06:24 Glucose 97 mg/dl (70-99(Fasting)) 03/03/25 06:24 Lactate 0.7 mmol/L (0.4-2.0) 02/28/25 20:09 Calcium 8.7 mg/dl (8.6-10.3) 03/03/25 06:24 Magnesium 1.8 mg/dl (1.7-2.4) 03/02/25 06:29 Iron 12 mcg/dl (35-150) L 03/01/25 12:31 TIBC 210 mcg/dl (250-450) L 03/01/25 12:31 Transferrin 150 mg/dl (200-360) L 03/01/25 12:31 Transferrin % Sat 6 % (15-50) L 03/01/25 12:31 Total Bilirubin 0.4 mg/dl (0.2-1.0) 03/03/25 06:24 AST 12 U/L (13-39) L 03/03/25 06:24 ALT 9 U/L (7-52) 03/03/25 06:24 Alkaline Phosphatase 46 U/L (34-104) 03/03/25 06:24 Troponin I High Sens 5.7 pg/ml (0-14) 02/28/25 15:35 Total Protein 5.8 gm/dl (6.0-8.3) L 03/03/25 06:24 Albumin 3.3 gm/dl (3.4-5.0) L 03/03/25 06:24 Globulin 2.5 gm/dl (2.5-4.0) 03/03/25 06:24 Albumin/Globulin Ratio 1.3 (0.9-2) 03/03/25 06:24 Lipase 121 U/L (11-82) H 03/03/25 06:24 Vitamin B12 1205 pg/ml (180-914) H 03/01/25 12:31 Folate > 22.30 ng/ml (>5.38) 03/01/25 12:31 Urine Color Yellow 03/01/25 08:30 Urine Appearance Clear (Clear) 03/01/25 08:30 Urine pH 7.5 (4.5-7.5) 03/01/25 08:30 Ur Specific Oakley 1.027 (1.000-1.030) 03/01/25 08:30 Urine Protein Trace (Negative) H 03/01/25 08:30 Urine Glucose (UA) Negative (Negative) 03/01/25 08:30 Urine Ketones Trace (Negative) H 03/01/25 08:30 Urine Blood Negative (Negative) 03/01/25 08:30 Urine Nitrite Negative (Negative) 03/01/25 08:30 Urine Bilirubin Negative (Negative) 03/01/25 08:30 Urine Urobilinogen Negative (Negative) 03/01/25 08:30 Ur Leukocyte Esterase Negative (Negative) 03/01/25 08:30 Urine WBC (Auto) 0-5 /hpf (0-5) 03/01/25 08:30 Urine RBC (Auto) 0-2 /hpf (0-2) 03/01/25 08:30 U Hyaline Cast (Auto) 0-2 /lpf (0-2) 03/01/25 08:30 U Epithel Cells (Auto) 0-2 /hpf (0-2) 03/01/25 08:30 Urine Bacteria (Auto) None Seen (None Seen) 03/01/25 08:30 Urine Comment 03/01/25 08:30 Impressions Chest X-Ray 02/28/25 15:11 Technique: A frontal view of the chest was obtained Findings: There are no confluent pulmonary infiltrates. The heart size is within normal limits. No pleural effusion or pneumothorax is seen. There is no definite pulmonary nodule. No fracture is noted. There is a right chest wall port with its tip in the SVC Impression: No active disease Electronically signed by Hermilo Parker 02-28-2025 5:39 PM Abdomen/Pelvis CT 02/28/25 15:16 Clinical History: Recent necrotizing pancreatitis Technique: Axial computed tomography images were obtained of the abdomen and pelvis after the administration of intravenous contrast. Comparison is made to the prior CT dated 02/24/2025. Findings: Again seen is soft tissue stranding and fluid around the pancreas, consistent with acute pancreatitis. Again seen is an approximately 8.4 x 4.5 cm rim-enhancing fluid collection replacing the pancreatic neck and proximal pancreatic body, concerning for pancreatic necrosis with a possible abscess The liver is overall of normal size, attenuation, and contour with no sign of cirrhosis or significant fatty infiltration. No liver mass lesion is seen. The portal vein is patent. There is a suspected gallstone. There is no definite sign of acute cholecystitis. No bile duct dilatation is noted. The spleen is of normal size. No focal splenic lesion is evident. The adrenal glands appear unremarkable. 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 There is a 3 mm calculus in the inferior left kidney. There is no hydronephrosis or perinephric stranding. No renal mass lesion is identified. The aorta is of normal caliber. No abdominal adenopathy is seen. There is a small umbilical hernia containing only fat There is a small hiatal hernia. There is no sign of small bowel obstruction. There is a right lower quadrant ventral hernia containing a portion of the cecum. There is an adjacent right paracentral ventral hernia containing a loop of ileum. No free intraperitoneal air is identified. No distal ureteral or bladder calculi are seen. The bladder is decompressed. The iliac arteries are of normal caliber. No pelvic adenopathy is noted. There is a small amount of pelvic ascites. There is a small right inguinal hernia containing only fat The lungs bases appear clear. There are bilateral breast implants. There is an unchanged 5 cm cystic area in the right anterior cardiophrenic angle, likely a pericardial cyst Mild thoracolumbar degenerative disc disease is seen. No fracture is identified. No focal osseous lesion is seen Impression: 1. Unchanged acute pancreatitis with suspected pancreatic necrosis and an 8 x 4 x 4.5 cm fluid collection that could represent an abscess 2. Unchanged 5 cm pericardial cyst 3. Small hiatal hernia 4. Cholelithiasis without definite acute cholecystitis 5. Small amount of ascites 6. Two separate ventral hernias in the right lower quadrant, one containing small bowel and the other containing cecum. There is no sign of associated obstruction 7. Small umbilical and right inguinal hernias containing only fat 8. Nonobstructing left renal calculus 9. Prior right nephrectomy ACT 112: Positive. There are findings on this exam that require communication between the performing entity and the patient following Patient Test Result Information Act ([place] ACT 112) guidelines. Electronically signed by Hermilo Parker 02-28-2025 5:38 PM Cholangiopancreatography MRI 03/02/25 13:22 EXAM: MR MRCP CLINICAL HISTORY: Rule out pancreatic duct disruption TECHNIQUE: Multiplanar multisequence magnetic resonance imaging of the abdomen without intravenous contrast. COMPARISON: None. FINDINGS: Liver: Normal size and morphology. Homogeneous signal intensity on T2-weighted images. No focal hepatic lesions. Gallbladder: A large gallbladder stone, measuirng 2.7 cm. No wall thickening. Bile Ducts: Intrahepatic and extrahepatic bile ducts are normal in caliber. Common bile duct is normal in caliber with no evidence of strictures or filling defects. No evidence of choledocholithiasis. Pancreas: The pancreas is diffusely swollen, with the pancreatic body and tail showing markedly heterogeneous parenchyma and abnormal signal, associated with a peripancreatic cystic collection showing a well-defined margin, measuring 8.9 x 6.1 cm. Pancreatic Duct: The proximal and distal segments of the pancreatic ducts are of average caliber; however, the middle segment in the pancreatic body couldn't be visualized. Spleen: Normal size and appearance. Homogeneous signal intensity. Kidneys: Non-visualized right kidney. Normal size, shape, and position of the left kidney. Homogeneous signal intensity on T2-weighted images. No renal stones, masses, or hydronephrosis. Adrenal Glands: Left adrenal thickneing, likley reactive. Surrounding Structures: No evidence of free fluid or abnormal fluid collections in the abdomen. Normal appearance of the visualized bowel loops. Bilateral breast implants. IMPRESSION: 1. The pancreas is diffusely swollen, with the pancreatic body and tail showing markedly heterogeneous, irregular parenchyma and abnormal signal, likley representing pancreatitis, associated with a peripancreatic cystic collection showing a well-defined margin, likley representing walled-off necrotic collection (WON). Advised clinical and laboratory correlation and further triphasic post contrast MRI assessment. 2. The proximal and distal segments of the pancreatic duct are seen of average caliber; however, the middle segment within the pancreatic body couldn't be visualized, being obscured by the markedly heterogeneous pancreatic parenchyma and collection. Advised clinical correlation and further assessment. 3. A large gallbladder stone, measuring 2.7cm. Electronically signed by Shai Subramanian 03-02-2025 7:06 PM Ordered Studies 02/28/25 15:16 CT abd pelvis IV con only Stat 03/02/25 13:22 MR MRCP Routine Hospital Course (1) Acute necrotizing pancreatitis: (2) Sepsis: (3) Renal cell carcinoma: (4) Hypertension: (5) Hypothyroidism (acquired): (6) Anxiety associated with depression: Plan 54 year old female with PMH significant for metastatic RCC (clear cell, stage T3a, s/p renal resection, solitary kidney) on keytruda (last infusion 02/07/2025) and axitinib, hx of keytruda induced pneumotitis, hx of stage 1 breast cancer in remission, MDD, anxiety, cancer related pain, GERD, HTN, hypothyroidism who presents to the ED on 02/28/2025 for vomiting. Acute necrotizing pancreatitis Possible pancreatic abscess/evolving pancreatic pseudocyst Sepsis due to above Likely secondary to immune checkpoint inhibitor (Keytruda) --CT ABD:Unchanged acute pancreatitis with suspected pancreatic necrosis and an 8 x 4 x 4.5 cm fluid collection that could represent an abscess. Unchanged 5 cm pericardial cyst. Small hiatal hernia. Cholelithiasis without definite acute cholecystitis. Small amount of ascites.Two separate ventral hernias in the right lower quadrant, one containing small bowel and the other containing cecum. There is no sign of associated obstruction. Small umbilical and right inguinal hernias containing only fat. Nonobstructing left renal calculus. Prior right nephrectomy. -- Blood cultures pending -Patient presented to [facility] ED on 02/24/2025 and was diagnosed with acute necrotizing pancreatitis and transferred to [facility] -Managed at [facility] with supportive care including IV antibiotics and discharged on 02/27/2025 on Augmentin -Dr. Peña discussed with Dr. Fagan of [facility] who reviewed the images himself and does not think that the fluid collection is infected but it could be starting to walled off but not truly an abscess. He states there is no need for intervention of this at this time. He recommends supportive care. He states no need for transfer at this time. He states no need for antibiotics at this time. He does state to obtain blood cultures. Dr. Fagan stated if there are any issues to give their center callback. -Discussed case with Dr. Topete of GI who still recommended transfer to tertiary care given pancreatic necrosis and this facilitys inability to perform possible life saving procedures in future if needed during hospitalization, as he feels she has a fair chance of decompensation -Dr. Peña discussed with Dr. Ramos of [facility] GI who stated no need for transfer and to admit here for supportive care --MRCP: The pancreas is diffusely swollen, with the pancreatic body and tail showing markedly heterogeneous, irregular parenchyma and abnormal signal, likley representing pancreatitis, associated with a peripancreatic cystic collection showing a well-defined margin, likley representing walled-off necrotic collection (WON). Advised clinical and laboratory correlation and further triphasic post contrast MRI assessment. The proximal and distal segments of the pancreatic duct are seen of average caliber; however, the middle segment within the pancreatic body couldn't be visualized, being obscured by the markedly heterogeneous pancreatic parenchyma and collection. Advised clinical correlation and further assessment. A large gallbladder stone, measuring 2.7cm. -FOBT pending- -- Continue IV Zosyn, IV fluids Pain control as needed Appreciate GI input Will make her n.p.o. as patient had bloody bowel movement today Oncology plans to discuss with GI--consideration for steroids for Keytruda induced pancreatitis GI recommends transfer to tertiary care facility for endoscopic ultrasound, ERCP with possible pancreatic stent placement. Patient is accepted at [facility] by Dr.Nadia Casanova for further evaluation Suspected Pericardial Cyst--ruled out/Less likely Incidental finding on CT --CT showed :unchanged 5 cm cystic area in the right anterior cardiophrenic angle, likely a pericardial cyst --ECHO: Left ventricle wall motion is normal. EF 55 to 60%. No pericardial effusion. No significant valvular disease. Renal cell carcinoma Breast cancer in remission Following with Dr. Mcclure of Heme/Onc and Dr. Charles of Palliative Care Was on Inlyta and Keytruda Appreciate oncology input Hypertension Continue amlodipine and lisinopril Monitor blood pressure Hypothyroidism Continue levothyroxine MDD/anxiety Continue citalopram and ativan prn GERD Continue pantoprazole LEONOR CPAP HS DVT Px: SQ Lovenox--held SCDs for now Code Status: FULL CODE Disposition [facility] Total Time Total Time Spent Total Time Spent (In Minutes): 65 minutes Discharge Plan Discharge Items Patient Disposition: Transfer Acute Care Hospital Reason For Visit: PANCREATIC ABSCESS Discharge Diagnosis: Acute necrotizing pancreatitis Possible pancreatic abscess/evolving pancreatic pseudocyst Possible pancreatic duct disruption Sepsis Renal cell carcinoma Condition on Discharge: Fair Activity: Per Instructions section Exercise/Sports: Wait until after follow-up appointment Non-emergency contact: Primary Care Provider and Lunch Cook Call non-emergency contact if: you have any medication questions, your symptoms worsen, your pain is concerning for you and you have a fever Follow-up/Referrals: Emilie Nicole DO [Primary Care Provider] - (Date & Time 03/13/2025 4:20 PM Provider: Emilie Nicole DO Family Practice [facility] ) Diet: Nothing by Mouth Addtl Attending Provider Instructions: -- Follow-up with your physician Dr. Dominga Casanova at [facility] for further evaluation and management Seek immediate medical attention if your symptoms reoccur or worsen Please review medication list provided on discharge for any medication changes as instructed. Please call if you have any questions or problems. You can reach a [facility] hospitalist on duty at [facility] 24 hours a day by calling [phone] [facility] Fraud Representative Provider Instructions: Date of Service: March 03, 2025 Current Inpatient Medications Acetaminophen (Acetaminophen 325 Mg Tab) 650 mg PO QID PRN PRN Reason: pain/fever Stop: 03/30/25 21:15 Last Admin: 03/02/25 21:31 Dose: 650 mg Amlodipine Besylate (Amlodipine Besylate 5 Mg Tab) 5 mg PO QAM MERY Stop: 03/31/25 08:59 Last Admin: 03/03/25 07:19 Dose: 5 mg Citalopram Hydrobromide (Citalopram 20 Mg Tab) 30 mg PO HS MERY Stop: 03/31/25 20:59 Last Admin: 03/02/25 20:16 Dose: 30 mg Enoxaparin Sodium (Enoxaparin Inj 40 Mg/0.4 Ml Syr) 40 mg SQ QAM MERY>>>>>held after Blood BM Stop: 03/31/25 08:59 Last Admin: 03/03/25 07:19 Dose: 40 mg Heparin Sodium (Porcine) (Heparin 100 Unit/Ml 5ml Flush) 5 ml FLUSH PRN PRN PRN Reason: Flush Stop: 03/31/25 06:03 Last Admin: 03/01/25 09:42 Dose: 5 ml Piperacillin Sod/Tazobactam Sod (Zosyn) 4.5 gm in 100 mls @ 25 mls/hr IV Q8H MERY; Protocol Stop: 03/11/25 01:59 Last Admin: 03/03/25 10:09 Dose: 25 mls/hr Promethazine HCl (Phenergan) 12.5 mg in 50.5 mls @ 202 mls/hr IV Q6H PRN PRN Reason: Nausea And Vomiting Stop: 03/30/25 21:15 Lorazepam 0.5 mg/ Syringe 0.5 mls @ 2 mls/min IV ONCE PRN PRN Reason: For MRCP Stop: 04/01/25 13:26 Last Admin: 03/02/25 16:11 Dose: 2 mls/min Potassium Chloride/Dextrose/Sod Cl (D5w And 1/2nss + 20meq Kcl) 20 meq in 1,000 mls @ 60 mls/hr IV .[id number] [facility] Stop: 03/06/25 11:59 Levothyroxine Sodium (Levothyroxine Sodium 50 Mcg Tablet) 50 mcg PO DAILYBB [facility] Stop: 03/31/25 06:29 Last Admin: 03/03/25 06:24 Dose: 50 mcg Lisinopril (L[facility]opril 40 Mg Tab) [facility] Stop: 03/31/25 08:59 Last Admin: 03/03/25 07:19 Dose: 40 mg Lorazepam (Lorazepam 0.5 Mg Tab) 0.5 mg PO TID PRN PRN Reason: Anxiety Stop: 03/30/25 21:15 Miscellaneous ((Axitinib [Inlyta] 1 Mg Tablet)~Order Awaiting Action) 1 each N/A [facility] Stop: 03/30/25 22:29 Last Admin: 03/03/25 08:15 Dose: Not Given Morphine Sulfate (Morphine Sulfate 4 Mg/Ml 1 Ml Carp\Vial) 2 mg IV Q4H PRN PRN Reason: Pain Stop: 03/14/25 21:15 Oxycodone HCl (Oxycodone Hcl Ir 5 Mg Tab (Immediate Release)) 5 - 10 mg PO QID PRN PRN Reason: Pain Stop: 03/14/25 21:15 Pantoprazole Sodium (Pantoprazole 40 Mg Tab) 40 mg PO [facility] Stop: 03/31/25 08:59 Last Admin: 03/03/25 07:19 Dose: 40 mg Vitamin B Complex (Vitamin B Complex Tab) 1 tab PO [facility] Stop: 03/31/25 08:59 Last Admin: 03/03/25 07:19 Dose: 1 tab Pending Studies at Discharge: Yes Studies:: Blood cultures Stand-Alone Forms: My [facility] Skilled Items Patient informed of condition?: Yes DNR: No Discharge Level of Care: Other Communicable Disease: No Discharge Prognosis: Deteriorating Lines: Peripheral IV Urinary Catheter: No Medications and DC Order Prescriptions: Continued citalopram [Celexa] 20 mg tablet 30 mg PO HS 30 Days Qty: 45 5RF Patient Comments: peg 3350-electrolytes [GaviLyte-G] 236-22.74-6.74 -5.86 gram recon soln 240 ml PO Q10M Qty: 4000 0RF Rx Instructions: until fecal effluent is clear levothyroxine 50 mcg tablet 50 mcg PO QAM pantoprazole 40 mg tablet,delayed release (DR/EC) 40 mg PO QAM amlodipine 5 mg tablet 5 mg PO QAM Probiotic 10 billion cell Capsule 1 cell PO QAM Patient Comments: 02/24- otc unable to verify Inlyta 1 mg tablet 3 mg PO BID ondansetron 8 mg tablet,disintegrating 8 mg PO TID PRN (Reason: nausea) Patient Comments: 02/24-last filled 05/21 30 day supply #90 vitamin B complex Tablet 1 tab PO QAM Patient Comments: 02/24- otc unable to verify albuterol sulfate 90 mcg/actuation HFA aerosol inhaler 1 inh inhalation Q6H PRN (Reason: shortness of breath or wheezing) Qty: 8.5 0RF Patient Comments: new prescription, have not picked up yet gabapentin [Neurontin] 100 mg Capsule 0 mg PO HS PRN (Reason: nerve pain) Patient Comments: 02/24- no fill history unable to verify Vitron-C 65 mg iron- 125 mg Tablet,Delayed Release (Dr/Ec) 1 tab PO QAM Patient Comments: 02/24- otc unable to verify Keytruda 25 mg/mL Solution See Rx Instructions .ROUTE .COMPLEX Patient Comments: 02/24- no fill history unable to verify Rx Instructions: 25 mg intravenously every 3 weeks - CCP lisinopril 40 mg tablet 40 mg PO QAM Patient Comments: prochlorperazine maleate 5 mg tablet 5 mg PO UD PRN (Reason: n/v) lorazepam [Ativan] 0.5 mg tablet 0 mg PO BID PRN (Reason: anxiety or insomnia) Patient Comments: 02/24- no fill history unable to verify Atrovent HFA 17 mcg/actuation HFA aerosol inhaler 0 inh inhalation Q6H PRN (Reason: shortness of breath or wheezing) Patient Comments: 02/24- no fill history unable to verify amoxicillin-pot clavulanate 875-125 mg tablet 1 tab PO BID Rx Instructions: patient prescribed 2 day supply 02/27/25 Discharge Orders: Discharge Order (Routine); Ordered 03/03/25 Ordered By: Fredo Gutiérrez Admission Data Admit Date/Time: 02/28/25 20:51 Attending Provider: Fredo Gutiérrez Admit Provider: Bony Villagomez Primary Care Provider: Emilie Nicole Other Providers: Bony Villagomez; Davida Mcclure; Rosie Topete Jr
[2025-03-03] MEDS: D5W AND 1/2NSS + 20MEQ KCL 20 MEQ/1,000 ML BAG IV SCH (12:20)
[2025-03-03 15:15] VITALS: TEMP 98.9
[2025-03-03 17:04] VITALS: BP 138/88; PULSE 81
== END 2025-03-03 17:08 | disposition short-term general hospital (02) | DRG 438 ==
LOC: ED 15:01 → 3W 20:51 → SUATTDRO 20:51 → 3W 21:55